=== PATIENT | male | born 1940 | race Two or more races ===

== ENCOUNTER → 2020-08-06 09:46 | Outpatient (BNVA) | payer MEDICARE, SELFPAY | PROVIDERS: PCP Internal Medicine; Referring Provider Internal Medicine; Visit Provider Nurse Practitioner Gerontology | DX: E11.65 Type 2 diabetes mellitus with hyperglycemia (principal); I10 Essential (primary) hypertension; E78.5 Hyperlipidemia, unspecified | CPT/HCPCS: 82947; 99214 ==

== ENCOUNTER 2020-11-01 08:08 | Outpatient (REF) | payer MEDICARE, SELFPAY ==
[2020-11-01 09:21] LABS: Creatinine Urine 89.78 mg/dL; Microalbum/Creatinine Ratio Ur 12.2 ug/mg cr
[2020-11-01 09:24] LABS: Estimated Average Glucose 166 mg/dL; Hemoglobin A1c % 7.4 %
[2020-11-01 09:25] LABS: Alanine Aminotransferase 27 U/L (0-40); Albumin Level 4.1 g/dL (3.5-5.0); Alkaline Phosphatase 105 U/L (39-117); Anion Gap 14 (12-20); Aspartate Amino Transferase 23 U/L (5-37); Bilirubin Total 0.9 mg/dL (0.0-1.0); Blood Urea Nitrogen 21 mg/dL (9-16); Carbon Dioxide 27 mmol/L (22-29); Chloride 103 mmol/L (96-108); Cholesterol 115 mg/dL; Estimated Glomerular Filt Rate > 60; Glucose Fasting 129 mg/dL (60-99); HDL Cholesterol 49 mg/dL; LDL Cholesterol Calculated 54 mg/dl; Potassium 4.7 mmol/l (3.3-5.1); Sodium 139 mmol/L (135-145); Total Protein 7.2 g/dL (6.5-8.0); Triglycerides 61 mg/dL
== END 2020-11-01 08:09 | disposition home or self-care (01) ==
LOC: HO.LAB 08:08
PROVIDERS: PCP Internal Medicine; Visit Provider Nurse Practitioner Gerontology
DX: E11.65 Type 2 diabetes mellitus with hyperglycemia (principal)
CPT/HCPCS: 36415; 80053; 80061; 82043; 83036

== ENCOUNTER → 2020-11-10 08:27 | Outpatient (BNVA) | payer MEDICARE, SELFPAY | PROVIDERS: PCP Internal Medicine; Visit Provider Nurse Practitioner Gerontology | DX: E11.65 Type 2 diabetes mellitus with hyperglycemia (principal); I10 Essential (primary) hypertension; E78.5 Hyperlipidemia, unspecified | CPT/HCPCS: Q3014 ==

== ENCOUNTER 2020-11-14 13:25 | Outpatient (REF) | payer MEDICARE, SELFPAY ==
--- NOTE | 2020-11-14 16:35 | MHC.AU.P13 ---
Adult Audiological Evaluation Date of Visit: 11/14/20 Reason for Appointment: Audiological evaluation due to concern for decreased hearing in the right ear. He notes that he had bilateral ear infections in September 2020 and was prescribed antibiotic ear drops. His daughter notes that the right ear seemed to be completely blocked and that the ear drops wouldn't go all the way in. After completing the round of ear drops, he still felt he couldn't hear out of his right ear and when he returned to his primary care office was told that he had wax in the right ear, but no longer had infections. He was given ear wax softening drops but hasn't noticed much of a difference. Does patient feel they have a hearing loss?: Yes If Yes, Which Ear?: Right Ear When Was Hearing Difficulty First Noticed?: September 2020 Has hearing been tested previously?: No Ear History: Recent Ear Drainage: Right Ear Recent Ear Pain: Both Ears Recent Ear Infections: Both Ears History of Ear Wax Buildup: Right Ear Blocked/Full Sensation in Ear(s): Right Ear Medical History: Medical History: High Blood Pressure, Stroke, Vascular Problems Medication List: Takes medication for hypertension, cholesterol, urine retention, and diabetes Otoscopy: Right Ear: Completely occluded with wax. Attempt removal but stopped due to bleeding. Left Ear: Unremarkable Tympanometry: Tympanometry performed due to: To determine if cerumen blockage is fully occluding canal(s) Right Ear: Normal Middle Ear System (Type A) Left Ear: Normal Middle Ear System (Type A) Hearing Evaluation: Transducer(s) Used: Circumaural Headphones, Bone Conduction Method: Conventional Audiometry Stimuli Used: Pure Tones Right Ear: Description of Hearing: Moderately severe to profound mixed hearing loss from 250-8000 Hz. Left Ear: Description of Hearing: Normal hearing from 250-1500 Hz, sloping to a moderate to moderately severe sensorineural hearing loss from 5241-0893 Hz. Speech Recognition Threshold (SRT): Method Used: Recorded Lists Stimuli Used: Spondee Words Right Ear: 85 dBHL Left Ear: 35 dBHL Word Discrimination: Method: Recorded Lists Word Lists Used: Lista Bisil?bica (Georgian) Right Ear: 80% at 95 dBHL with effective masking Left Ear: 100% at 75 dBHL Recommendations: Audiological re-evaluation in one year. Recommend referral to otolaryngology for removal of cerumen from the right canal. Patient would benefit for a re-evaluation of his hearing post-cerumen removal to better assess hearing of the right ear. Given the presence of high-frequency sensorineural hearing loss, Mr. Bianchi may benefit from binaural hearing aid use. He was welcomed to return to discuss hearing aids following his visit with ENT. Diagnosis: Primary Diagnosis: H90.3 Bilateral Sensorineural Hearing Loss Secondary Diagnosis: H61.21 Impacted Cerumen, Right Ear Services Performed: Services Performed: Comprehensive Audiological Evaluation (CPT 46060) Tympanometry (CPT 94461) Signature: Provider: Tahmina Reno, CCC-A
== END 2020-11-14 13:26 | disposition home or self-care (01) ==
LOC: HO.SH 13:25
PROVIDERS: Visit Provider Nurse Practitioner Family
DX: H90.3 Sensorineural hearing loss, bilateral (principal); H61.21 Impacted cerumen, right ear
CPT/HCPCS: 92557; 92567

== ENCOUNTER → 2020-11-25 10:54 | Outpatient (BNVA) | payer MEDICARE, SELFPAY | PROVIDERS: PCP Internal Medicine; Visit Provider Orthopaedic Surgery | DX: M25.512 Pain in left shoulder (principal) | CPT/HCPCS: 20610; 99202; J1040 ==

== ENCOUNTER → 2021-02-10 08:57 | Outpatient (BNVA) | payer MEDICARE, SELFPAY | PROVIDERS: PCP Internal Medicine; Visit Provider Nurse Practitioner Gerontology | DX: E11.65 Type 2 diabetes mellitus with hyperglycemia (principal); I10 Essential (primary) hypertension; E78.5 Hyperlipidemia, unspecified | CPT/HCPCS: 82947; 99212 ==

== ENCOUNTER → 2021-05-12 10:00 | Outpatient (BNVA) | payer MEDICARE, SELFPAY | PROVIDERS: PCP Internal Medicine; Visit Provider Nurse Practitioner Gerontology | DX: E11.65 Type 2 diabetes mellitus with hyperglycemia (principal); E78.5 Hyperlipidemia, unspecified; I10 Essential (primary) hypertension | CPT/HCPCS: 82947; 99212 ==

== ENCOUNTER 2021-06-20 07:27 | Outpatient (REF) | payer MEDICARE, SELFPAY ==
[2021-06-20 08:20] LABS: Alanine Aminotransferase 27 U/L (0-40); Albumin Level 3.9 g/dL (3.5-5.0); Alkaline Phosphatase 116 U/L (39-117); Anion Gap 12 (12-20); Aspartate Amino Transferase 22 U/L (5-37); Bilirubin Total 0.6 mg/dL (0.0-1.0); Blood Urea Nitrogen 26 mg/dL (9-16); Calcium 9.4 mg/dL (8.4-10.2); Carbon Dioxide 28 mmol/L (22-29); Chloride 105 mmol/L (96-108); Cholesterol 129 mg/dL; Estimated Glomerular Filt Rate 51; Glucose Fasting 185 mg/dL (60-99); HDL Cholesterol 54 mg/dL; LDL Cholesterol Calculated 62 mg/dl; Potassium 4.7 mmol/L (3.3-5.1); Sodium 140 mmol/L (135-145); Total Protein 6.8 g/dL (6.5-8.0); Triglycerides 67 mg/dL
[2021-06-20 08:34] LABS: Estimated Average Glucose 200 mg/dL; Hemoglobin A1c % 8.6 %
[2021-06-20 08:37] LABS: Prostate Specific Antigen 2.18 ng/mL (<0.05-4.0)
[2021-06-20 09:36] LABS: Creatinine Urine 69.18 mg/dL; Microalbum/Creatinine Ratio Ur 10.1 ug/mg cr
[2021-06-25 19:46] LABS: Vitamin D 25-OH, D2 <4 ng/mL; Vitamin D 25-OH, D3 30 ng/mL; Vitamin D 25-OH, Total 30 ng/mL (30-100)
== END 2021-06-20 07:28 | disposition home or self-care (01) ==
LOC: HO.LAB 07:27
PROVIDERS: Nurse Practitioner Family; PCP Internal Medicine; Visit Provider Nurse Practitioner Gerontology
DX: Z12.5 Encounter for screening for malignant neoplasm of prostate (principal); E11.65 Type 2 diabetes mellitus with hyperglycemia; E55.9 Vitamin D deficiency, unspecified; E78.5 Hyperlipidemia, unspecified
CPT/HCPCS: 36415; 80053; 80061; 82043; 82306; 83036; 84153

== ENCOUNTER 2021-08-17 10:25 | Outpatient (REF) | payer MEDICARE, SELFPAY ==
--- NOTE | ~2021-08-17 | US_ITS ---
EXAMINATION: US VENOUS ULTRASOUND WITH DOPPLER LOWER EXTREMITY, LEFT CLINICAL INFORMATION: Pain in leg COMPARISON: None TECHNIQUE: Ultrasound of the deep veins is performed from the hip to the calf with compression sonography and color and pulse Doppler assessment. Spectral analysis with color-flow imaging is performed. FINDINGS: There is normal venous compression and respiratory variation and augmented flow. The visualized common femoral vein, superficial femoral vein, profunda femoral vein, popliteal vein, and the trifurcation region shows no evidence of deep venous thrombosis. There is no significant popliteal fossa cyst. Varicosities are seen superficially at the left mid calf. If the patient's symptoms persist, followup ultrasound in 5 days 7 days might be of value to exclude proximal propagation from a non-visualized calf vein. US/US venous duplex LE IMPRESSION: No DVT demonstrated in the left lower extremity.
--- NOTE | ~2021-08-17 | XR_ITS ---
EXAMINATION: XR KNEE, LEFT CLINICAL INFORMATION: Pain. COMPARISON: None TECHNIQUE: AP, lateral, and sunrise views of the left knee. FINDINGS: Mild medial compartment joint space narrowing. Tiny medial and patellofemoral compartment marginal osteophytes. No osseous erosion. No fracture or dislocation. No abnormal soft tissue calcification. No significant joint effusion. XR/XR knee LT 2V IMPRESSION: Mild medial and patellofemoral compartment osteoarthritis.
== END 2021-08-17 10:26 | disposition home or self-care (01) ==
LOC: HO.US 10:25
PROVIDERS: PCP Student in an Organized Health Care Education/Training Program; Visit Provider Internal Medicine
DX: M79.605 Pain in left leg (principal); M25.562 Pain in left knee
CPT/HCPCS: 73560; 93971

== ENCOUNTER → 2021-11-04 08:58 | Outpatient (BNVA) | payer MEDICARE, SELFPAY | PROVIDERS: PCP Internal Medicine; Visit Provider Nurse Practitioner Gerontology | DX: E11.65 Type 2 diabetes mellitus with hyperglycemia (principal); I10 Essential (primary) hypertension; E78.5 Hyperlipidemia, unspecified | CPT/HCPCS: Q3014 ==

== ENCOUNTER 2022-03-19 09:32 | Outpatient (REF) | payer MEDICARE, SELFPAY ==
[2022-03-19 10:53] LABS: Alanine Aminotransferase 28 U/L (0-40); Albumin Level 3.7 g/dL (3.5-5.0); Alkaline Phosphatase 86 U/L (39-117); Anion Gap 10 (12-20); Aspartate Amino Transferase 22 U/L (5-37); Bilirubin Total 0.9 mg/dL (0.0-1.0); Blood Urea Nitrogen 17 mg/dL (9-16); Calcium 9.3 mg/dL (8.4-10.2); Carbon Dioxide 27 mmol/L (22-29); Chloride 104 mmol/L (96-108); Cholesterol 117 mg/dL; Estimated Glomerular Filt Rate 58; Glucose Fasting 134 mg/dL (60-99); HDL Cholesterol 40 mg/dL; LDL Cholesterol Calculated 65 mg/dl; Potassium 5.4 mmol/L (3.3-5.1); Sodium 136 mmol/L (135-145); Triglycerides 61 mg/dL
[2022-03-19 10:56] LABS: Creatinine Urine 122.21 mg/dL; Microalbum/Creatinine Ratio Ur 6.5 ug/mg cr
[2022-03-25 12:36] LABS: Vitamin D 25-OH, D2 <4 ng/mL; Vitamin D 25-OH, D3 11 ng/mL; Vitamin D 25-OH, Total 11 ng/mL (30-100)
== END 2022-03-19 09:33 | disposition home or self-care (01) ==
LOC: HO.LAB 09:32
PROVIDERS: PCP Internal Medicine; Visit Provider Internal Medicine
DX: E11.65 Type 2 diabetes mellitus with hyperglycemia (principal); E55.9 Vitamin D deficiency, unspecified; E78.5 Hyperlipidemia, unspecified
CPT/HCPCS: 36415; 80053; 80061; 82043; 82306

== ENCOUNTER → 2022-05-05 09:02 | Outpatient (REF) | payer OTHER, SELFPAY ==
--- NOTE | 2022-05-05 09:11 | ECG_ITS ---
Test Reason : HYPERKALEMIA Blood Pressure : / mmHG Vent. Rate : 058 BPM Atrial Rate : 058 BPM P-R Int : 206 ms QRS Dur : 154 ms QT Int : 484 ms P-R-T Axes : 012 -76 034 degrees QTc Int : 475 ms Sinus bradycardia with Premature atrial complexes Left axis deviation Right bundle branch block Abnormal ECG When compared with ECG of 23-NOV-2016 11:02, Premature atrial complexes are now Present Referred By: Kavita Mckeon Electronically Signed By:Odell Marie
[2022-05-05 10:25] LABS: Alanine Aminotransferase 22 U/L (0-40); Albumin Level 3.8 g/dL (3.5-5.0); Alkaline Phosphatase 89 U/L (39-117); Anion Gap 10 (12-20); Aspartate Amino Transferase 21 U/L (5-37); Blood Urea Nitrogen 17 mg/dL (9-16); Calcium 8.6 mg/dL (8.4-10.2); Carbon Dioxide 26 mmol/L (22-29); Chloride 106 mmol/L (96-108); Cholesterol 123 mg/dL; Estimated Glomerular Filt Rate > 60; Glucose Random 121 mg/dL (60-115); HDL Cholesterol 42 mg/dL; LDL Cholesterol Calculated 66 mg/dl; Potassium 4.4 mmol/L (3.3-5.1); Sodium 138 mmol/L (135-145); Total Protein 6.8 g/dL (6.5-8.0); Triglycerides 79 mg/dL
[2022-05-05 11:01] LABS: Creatinine Urine 155.21 mg/dL; Microalbum/Creatinine Ratio Ur 7.7 ug/mg cr
== END ==
LOC: HO.CARD 09:02
PROVIDERS: PCP Internal Medicine; Visit Provider Internal Medicine
DX: E78.5 Hyperlipidemia, unspecified (principal); E11.9 Type 2 diabetes mellitus without complications; E87.5 Hyperkalemia
CPT/HCPCS: 36415; 80053; 80061; 82043; 93005

== ENCOUNTER 2022-05-23 14:40 | Emergency (ER) | payer OTHER, SELFPAY ==
--- NOTE | 2022-05-23 15:23 | PC.NURSE ---
called to triage x 2 no answer
== END 2022-05-23 18:00 | disposition left against medical advice (07) ==
PROVIDERS: Emergency Provider Emergency Medicine; PCP Internal Medicine
DX: S41.111A Laceration without foreign body of right upper arm, initial encounter (principal); W45.8XXA Other foreign body or object entering through skin, initial encounter; Y93.9 Activity, unspecified; Y92.9 Unspecified place or not applicable; Y99.9 Unspecified external cause status

== ENCOUNTER 2022-05-24 10:49 | Emergency (ER) | payer OTHER, SELFPAY ==
--- NOTE | ~2022-05-24 | XR_ITS ---
EXAMINATION: XR FACIAL BONES CLINICAL INFORMATION: Fall, trauma, pain. Bruising around orbit. COMPARISON: None TECHNIQUE: 4 views of the facial bones are obtained. FINDINGS: There is no visible fracture. The orbital rims and floors are unremarkable. There is no visible orbital emphysema and no air-fluid levels in the visualized sinuses. The zygomatic arches are unremarkable. XR/XR facial bones min 3V IMPRESSION: Unremarkable examination.
--- NOTE | ~2022-05-24 | XR_ITS ---
EXAMINATION: XR CHEST CLINICAL INFORMATION: Productive cough for one month. COMPARISON: Chest radiographs 11/23/2016, 02/07/2014, CT abdomen 05/21/2016 TECHNIQUE: 2 views of the chest were obtained. FINDINGS: The lungs are clear. There is no lobar or segmental airspace consolidation or groundglass opacity. The costophrenic sulci are clear. The heart is normal in size. The hilar and mediastinal contours are normal. There are surgical clips again seen near the esophagogastric junction. No acute bony abnormality. XR/XR chest 2V IMPRESSION: Unremarkable examination.
--- NOTE | ~2022-05-24 | CT_ITS ---
EXAMINATION: CT HEAD WITHOUT CONTRAST CT CERVICAL SPINE WITHOUT CONTRAST CLINICAL INFORMATION: Reason for Exam headache and neck pain Fall. Hit head. COMPARISON: CT of the head done on 12/26/2016. TECHNIQUE: Imaging was performed from the skull base to vertex without intravenous administration of contrast. In addition, helical noncontrast CT imaging was acquired through the cervical spine and source images were reviewed along with axial reconstructions and sagittal and coronal MPRs. This CT examination was performed using dose optimization techniques as appropriate, variously including the following: *Automated exposure control. *Adjustment of mA and/or kV according to patient size (this includes techniques or standardized protocols for targeted exams where dose is matched to indication/reason for exam; i.e. extremities or head). *Use of iterative reconstruction technique. Total exam dose-length product 1053 mGy-cm FINDINGS: HEAD: No intracranial mass, hemorrhage, or midline shift is visualized. The ventricles and sulci are unchanged. Mild diffuse prominent extra-axial space is noted predominantly around both frontal lobes and within the posterior cranial fossa however, appear unchanged since 12/26/2016.. The paranasal sinuses and mastoid air cells are well aerated. CERVICAL SPINE: Reversal of normal cervical lordosis and grade 1 retrolisthesis of C3 over C4 and C5 over C6 vertebral body. Moderate degenerative spondylosis related changes are also noted at C3-4 and C5-C6. Significant facet degenerative arthritic changes are present (left greater than right), throughout the entire cervical spine. Mild mid to lower cervical dextroscoliosis is present. Uncovertebral hypertrophic changes are present predominantly at C3-4 and C5-C6. There is no evidence of acute cervical spine fracture. No prevertebral or paravertebral soft tissue abnormality is identified. Limited assessment of the lung apices is unremarkable. CT/CT cervical spine wo con IMPRESSION: 1. No acute intracranial pathology. Stable mild diffuse prominent extra-axial space is noted predominantly around both frontal lobes and within the posterior cranial fossa, unchanged since 12/26/2016. 2. CT of the cervical spine shows reversal of normal cervical lordosis and grade 1 retrolisthesis of C3 over C4 and C5 over C6 and moderate degenerative spondylosis at C3-4 and C5-C6 intervertebral disc level. Significant facet joint arthritic changes are also noted ((right). (Left of the right) and mild mid to lower cervical dextroscoliosis and uncovertebral hypertrophic changes at C3-4 and C5-C6. No superimposed fracture.
[2022-05-24 12:28] VITALS: BP 152/71; PULSE 52; RESP 18; TEMP 36.5; O2SAT 96; BMI 25.9
--- NOTE | 2022-05-24 14:38 | ED_ITS ---
HPI - Fall General Chief Complaint: Fall Stated Complaint: Fall t-1/Head inj/arm inj Time Seen by Provider: 05/24/22 13:42 Source: patient Mode of arrival: ambulatory History of Present Illness HPI Narrative: 81-year-old male with a past medical history of diabetes mellitus type II, hypertension, HDL, MDD, GERD, TIA, on Plavix/ASA, presents to the ED c/o right- sided periorbital pain right, and abrasions to RUE and JACKE s/p mechanical fall yesterday. He states a child ran in front of him and he lost his footing and fell face first. He denies any LOC. He also denies lightheadedness, dizziness, CP/SOB prior to fall. Also reports chronic productive cough x months, recently finish course of Azithromycin that was prescribed on 05/18. Reports intermittent SOB worse with exertion/bending over. He denies fever, chills, headache, vision changes, palpitations, chest pain, nausea, vomiting, abdominal pain, or weakness. MD complaint: fall Onset (ago): day(s) Related Data Home Medications Medication Instructions Recorded Confirmed lancets 30 gauge #100 ea 11/10/20 12/10/21 Previous Rx's Medication Instructions Recorded blood sugar diagnostic (Accu-Chek #100 ea 09/18/20 SmartView Test Strips) lancets (Accu-Chek Softclix #100 ea 09/21/20 Lancets) tamsulosin 0.4 mg capsule 0.4 mg PO BEDTIME #30 caps 08/27/21 clopidogrel 75 mg tablet 75 mg PO BEDTIME 90 days #90 tabs 09/28/21 omeprazole 20 mg capsule,delayed 20 mg PO QAM 90 days #90 caps 09/28/21 release pen needle, diabetic 32 gauge x #100 ea 11/04/21 (BD Ultra-Fine Dianna Pen Needle) fluoxetine 20 mg capsule 20 mg PO QAM #30 caps 11/23/21 insulin degludec 100 unit/mL (3 15 unit (0.15 mL) subcut DAILY #15 12/10/21 mL) subcutaneous pen (Tresiba mL FlexTouch U-100 insulin) atorvastatin 20 mg tablet 20 mg PO BEDTIME #30 tabs 02/02/22 empagliflozin 25 mg tablet 25 mg PO QAM #30 tabs 02/02/22 (Jardiance) oseltamivir 75 mg capsule (Tamiflu) 75 mg PO Q12H 5 days #10 caps 03/06/22 amlodipine 5 mg tablet 5 mg PO DAILY 90 days #90 tabs 03/21/22 hydrochlorothiazide 12.5 mg tablet 12.5 mg PO DAILY 90 days #90 tabs 03/21/22 omega-3 fatty acids-fish oil 340 1 cap PO QAM #30 caps 03/25/22 mg-1,000 mg capsule (Fish Oil) cholecalciferol (vitamin D3) 50 50 mcg PO DAILY 90 days #90 caps 03/27/22 mcg (2,000 unit) capsule sitagliptin 100 mg tablet (Januvia) 100 mg PO QAM #30 tabs 04/20/22 metoprolol succinate 50 mg 50 mg PO QAM #30 tabs 05/04/22 tablet,extended release 24 hr azithromycin 250 mg tablet 250 mg PO DAILY 5 days #6 tabs 05/18/22 bacitracin 500 unit/gram topical 1 appl topical BID #30 grams 05/24/22 ointment prednisone 20 mg tablet 40 mg PO DAILY 5 days #10 tabs 05/24/22 Allergies Allergy/AdvReac Type Severity Reaction Status Date / Time metformin AdvReac Intermediate diarrhea Verified 05/24/22 12:28 dulaglutide [From [facility]] AdvReac vomiting Verified 05/24/22 12:28 Review of Systems Review of Systems: Constitutional: No Fever, No Chills, No Fatigue, No Malaise ENT/Mouth: + Chronic Hearing loss, No Ear Pain, No Nasal Congestion Eyes: No Eye Pain, + Swelling, + Ecchymosis, No Redness, No Foreign Body, No D ischarge, No Vision Changes Cardiovascular: No Chest Pain, No Edema, No Palpitations Respiratory: + Productive Cough, + Sputum, No Wheezing, No Smoke Exposure, + intermittent SOB Gastrointestinal: No Nausea, No Vomiting, No Diarrhea, No Constipation, No Abdominal Pain Genitourinary: No Dysuria, No Hematuria Musculoskeletal: No Joint Pain, No Myalgias, No Joint Swelling Skin: +Abrasions, No Rash Neuro: No Weakness, No Numbness, No Paresthesias, No Loss of Consciousness, No Dizziness, + Head injury Yes all other systems are reviewed and are negative Constitutional: Constitutional: Reports as per HPI Neurologic: Denies Abnormal speech present PMFSH Past Medical History Attestation statement: The following information was validated with the patient. Medical History (Updated 05/24/22 @ 16:31 by MARTY Marino) Bilateral sensorineural hearing loss Cerumen debris on tympanic membrane of both ears Diverticulosis Enlarged prostate Essential hypertension GERD (gastroesophageal reflux disease) Hyperkalemia Hyperlipidemia LDL goal <70 Left knee pain Left leg pain Loss of hearing Mild recurrent major depression Otitis media Progressive hearing loss of right ear Renal cyst Renal stones Screening for prostate cancer TIA (transient ischemic attack) Type 2 diabetes mellitus with hyperglycemia Surgical History History of colonoscopy Hx of hernia repair Family History Family History Father No problems noted. Mother No problems noted. Brother Prostate cancer Social History Social History Household Members: Family Housing: House Alcohol intake: current Alcohol intake frequency: holidays/special occasions only Alcohol type: hard liquor Patient Tobacco Use Status: Never used Tobacco e-Cigarette/Vaping Use: Never Used Second Hand Smoke Exposure: No Advance Directives: Yes Advance Directives Information Provided: Yes Advance Directives on File: No service: No Current occupational status: retired Physical Exam Vital Signs: Vital Signs: Last Vital Signs Temp 97.7 F 05/24/22 12:28 Pulse 52 05/24/22 12:28 Resp 18 05/24/22 12:28 BP 152/71 H 05/24/22 12:28 Pulse Ox 96 05/24/22 12:28 O2 Del Method 05/24/22 12:28 BMI result Body Mass Index 25.9 Const: General: cooperative, healthy appearing and no acute distress Orientation/consciousness: patient oriented x3 Limitations: no limitations HEENT: Other: + Ecchymosis to right periorbital area + Tenderness to palpation to inferior eyebrow. No palpable step-off/deformity. EOMs intact without pain or entrapment Head: Yes No palpable skull fracture present, No Fernandes's sign and No raccoon eyes General nose exam: Normal external nose present Face and sinus: Yes normal facial exam Mouth: Normal oral and palatal mucosa present Throat: Yes posterior oropharynx normal, Yes tonsils normal, Yes uvula midline, No peritonsillar mass and No uvular edema Eyes: Pupils: Equal, round and reactive pupils present EOM: EOMs intact bilaterally Direct Ophthalmoscopy: normal light reflex Neck: Other: No midline cervical spinous tenderness Neck: Yes normal visual inspection and Yes no meningeal signs Chest: Chest palpation & inspection: normal inspection of the chest Resp: Effort & Inspection: normal respiratory effort, able to speak in complete sentences and no respiratory distress Auscultation: crackles on the right at the base, no rales, no rhonchi and no wheezes Cardio: Rate: regular rate Heart sounds: S1 normal heart sound present and S2 normal heart sound present GI: Inspection: No distended Palpation (GI): Soft to palpation, not firm, nontender and not rigid Back/Spine/Pelvis: Other: No midline thoracic/lumbar spinous tenderness/step-off or deformity Skin: Other: +small ecchymosis with abrasion to L knee. Nontender. Full range of motion to knee intact. Neurovascular intact distally +skin tear to R wrist and forearm. Neurovascularly intact distally. No snuffbox tenderness General skin exam: ecchymosis Rashes: no rashes Trauma: abrasion Neuro: General: patient oriented x3, tone normal, moves all extremities, no meningeal signs, no focal motor deficits and CN's II-XI intact bilaterally Cranial nerves: Yes CN's II-XII intact bilaterally, Yes Equal, round and reactive pupils present and Yes Bilaterally intact EOM present Cognition (Neuro): normal cognition Speech: No Abnormal speech present Motor exam (neuro): 5/5 motor strength present throughout, Pronator motor function not present and no tremor noted Coordination: [id number] test normal Romberg Test: Negative Extrem: Other: Pelvis stable General: Yes normal to inspection, Yes no pedal edema and Yes no calf tenderness Course Course Course Narrative: XR chest 2V IMPRESSION: Unremarkable examination. XR facial bones min 3V IMPRESSION: Unremarkable examination. ? 1628--CT head/brain wo con/CT cervical spine wo con IMPRESSION: 1. No acute intracranial pathology. Stable mild diffuse prominent extra-axial space is noted predominantly around both frontal lobes and within the posterior cranial fossa, unchanged since 12/26/2016. 2. CT of the cervical spine shows reversal of normal cervical lordosis and grade 1 retrolisthesis of C3 over C4 and C5 over C6 and moderate degenerative spondylosis at C3-4 and C5-C6 intervertebral disc level. Significant facet joint arthritic changes are also noted ((right). (Left of the right) and mild mid to lower cervical dextroscoliosis and uncovertebral hypertrophic changes at C3-4 and C5-C6. No superimposed fracture. Results discussed with patient including worrisome signs and symptoms and strict return precautions, and when to return to the emergency department. Upon further discussion with patient and family, patient has been dealing with this chronic cough x1 month without improvement. CXR unremarkable, suspect bronchitis. Offered short course of p.o. prednisone, discussed risks, which sure decision making would like to initiate prednisone and follow-up with PCP. They verbalized understanding and feel safe for discharge at this time. MDM - Fall MDM Narrative Medical decision making narrative: 81-year-old male with a past medical history of diabetes mellitus type II, hypertension, HDL, MDD, GERD, TIA, on Plavix/ASA, presents to the ED c/o right- sided periorbital pain right, and abrasions to RUE and LUE s/p mechanical fall yesterday. Also reports chronic productive cough x months. On exam Vitals remain stable. Right periorbital ecchymosis/tenderness elicited. Abrasions/skin tears noted as above. No evidence of globe rupture or optic nerve entrapment. No evidence of cellulitis. ROM to extremities intact. slight crackles noted to RLL. Concern for intracranial hemorrhage vs. fx's vs concussion vs. Abrasion vs Pneumonia/bronchitis. Lower concern for orbital fracture, ACS/PE, cervical fx, CHF Plan: CT head/neck, XR facial bones/chest Differential Diagnosis Differential diagnosis: Likely fracture, compression fracture and concussion without loss of consciousness Medical Records Attestation: I reviewed the patient's medical records. Lab Data Attestation: I reviewed the patient's lab results. Discharge Plan Discharge Clinical Impression: Periorbital ecchymosis, Fall, Multiple skin tears Patient Disposition: Home, Self-Care Instructions: [place] (ED) Additional Instructions: Your x-ray and CT scans were reassuring. The x-ray of your neck does show a lot of arthritic changes. Ice painful areas. Apply bacitracin to her skin tears, keep dry and clean. Change dressings daily at home. If you develop constant worsening headache, nausea/vomiting, weakness, lightheadedness or dizziness please return to the emergency department. Continue other home prescribed medications. Please of close follow-up with her doctor Prescriptions: New bacitracin 500 unit/gram ointment 1 appl topical BID Qty: 30 0RF prednisone 20 mg tablet 40 mg PO DAILY 5 Days Qty: 10 0RF No Action (DME) Accu-Chek SmartView Test Strip Strip See Rx Instructions .ROUTE .MEDSUPPLY Qty: 100 11RF Rx Instructions: As directed three times a day (DME) lancets [Accu-Chek Softclix Lancets] Misc See Rx Instructions .ROUTE .MEDSUPPLY Qty: 100 11RF Rx Instructions: As directed three times a day tamsulosin 0.4 mg capsule 0.4 mg PO BEDTIME Qty: 30 11RF clopidogrel 75 mg tablet 75 mg PO BEDTIME 90 Days Qty: 90 3RF omeprazole 20 mg capsule,delayed release(DR/EC) 20 mg PO QAM 90 Days Qty: 90 3RF fluoxetine 20 mg capsule 20 mg PO QAM Qty: 30 6RF Jardiance 25 mg tablet 25 mg PO QAM Qty: 30 4RF atorvastatin 20 mg tablet 20 mg PO BEDTIME Qty: 30 4RF oseltamivir [Tamiflu] 75 mg capsule 75 mg PO Q12H 5 Days Qty: 10 0RF amlodipine 5 mg tablet 5 mg PO DAILY 90 Days Qty: 90 1RF hydrochlorothiazide 12.5 mg tablet 12.5 mg PO DAILY 90 Days Qty: 90 1RF Fish Oil 340-1,000 mg capsule 1 cap PO QAM Qty: 30 6RF cholecalciferol (vitamin D3) 50 mcg (2,000 unit) capsule 50 mcg PO DAILY 90 Days Qty: 90 1RF Januvia 100 mg tablet 100 mg PO QAM Qty: 30 6RF metoprolol succinate 50 mg tablet extended release 24 hr 50 mg PO QAM Qty: 30 2RF azithromycin 250 mg tablet 250 mg PO DAILY 5 Days Qty: 6 0RF Rx Instructions: Take 2 tabs the first day, then 1 tab for the next 4 days Tresiba FlexTouch U-100 100 unit/mL (3 mL) insulin pen 15 unit subcut DAILY Qty: 15 3RF (DME) lancets 30 gauge misc See Rx Instructions topical .MEDSUPPLY Qty: 100 Rx Instructions: As directed (DME) pen needle, diabetic [BD Ultra-Fine Dianna Pen Needle] 32 gauge x 5/32 needle See Rx Instructions .ROUTE .MEDSUPPLY Qty: 100 3RF Rx Instructions: As directed once daily Referrals: Kavita Morales MD [Primary Care Provider] - 5 days
== END 2022-05-24 17:03 | disposition home or self-care (01) ==
PROVIDERS: Emergency Provider Emergency Medicine; PCP Internal Medicine
DX: S00.11XA Contusion of right eyelid and periocular area, initial encounter (principal); S40.811A Abrasion of right upper arm, initial encounter; S60.811A Abrasion of right wrist, initial encounter; S40.812A Abrasion of left upper arm, initial encounter; S80.212A Abrasion, left knee, initial encounter; W03.XXXA Other fall on same level due to collision with another person, initial encounter; E11.9 Type 2 diabetes mellitus without complications; I10 Essential (primary) hypertension; E78.5 Hyperlipidemia, unspecified; Y93.01 Activity, walking, marching and hiking; Y92.9 Unspecified place or not applicable; Y99.9 Unspecified external cause status; Z86.73 Personal history of transient ischemic attack (TIA), and cerebral infarction without residual deficits; Z79.01 Long term (current) use of anticoagulants; Z79.4 Long term (current) use of insulin; Z79.899 Other long term (current) drug therapy; R05.9 Cough, unspecified
CPT/HCPCS: 70150; 70450; 71046; 72125; 99282; 99284

== ENCOUNTER → 2022-07-20 12:41 | Outpatient (REF) | payer OTHER, SELFPAY ==
--- NOTE | 2022-07-20 12:44 | CA_ITS ---
Transthoracic Echocardiogram Patient (Last, First, Middle): Manuel Bianchi, Gender: Male Date of : 1940 Age: 81 Procedure Date: 07/20/2022 Procedure Type: Transthoracic Echocardiogram Location: OP Height: 167.64 cm Weight: 72.58 kg BSA: 1.82 m2 Heart Rate: bpm BP: 110 / 65 mmHg Fiber Analyst: TO Referring MD: Kavita Mckeon MD Cancer Program Coordinator: Nas Beeeb MD Symptoms: R01.1 - Cardiac murmur, unspecified Study Quality: Fair/Contrast ECG Rhythm: Sinus Conclusions: - 1. Normal LV systolic function with impaired relaxation filling pattern 2. Mild aortic and mitral regurgitation 3. Normal RV systolic pressure 4. No pericardial effusion Findings Procedure Information Contrast agent, definity, is being given per protocol without apparent complications. Left Ventricle Normal left ventricular size, thickness, and systolic function. The visually estimated ejection fraction is between 60-65%. There is no evidence of regional wall motion abnormalities. Spectral Doppler is indicative of an impaired relaxation filling pattern. E/E prime ratio is between 8 and 15 consistent with indeterminate filling pressures. Right Ventricle Normal right ventricular cavity size and systolic function. Atria The left atrium is likely dilated. There is lipomatous hypertrophy of the interatrial septum. Interatrial shunt cannot be excluded. The right atrium is normal in size. Aortic Valve There is mild calcification of the aortic valve. There is no aortic valve stenosis. There is mild aortic valve regurgitation. Mitral Valve There is mild anterior and posterior mitral leaflet thickening. There is mild mitral valve regurgitation. There is no mitral valve stenosis. Pulmonic Valve The pulmonic valve is likely normal. There is trace to mild pulmonic valve regurgitation. Tricuspid Valve Normal tricuspid valve structure. There is trace tricuspid valve regurgitation. The right ventricular systolic pressure is normal. The right ventricular systolic pressure is 24 mmHg. Normal right atrial pressure. There is no evidence of pulmonary hypertension. Great Vessels All visible segments of the aorta are normal in size. The pulmonary artery was not well visualized. Venous The inferior vena cava is normal in size and collapses greater than 50% with inspiration. Pericardium/Pleural There is no evidence of pericardial effusion. Prior Study Comparison no previous study in the last 5 years for comparison Measurements 2D Linear Measurements IVSd: 1.04 0.6-0.9/0.6-1.0 cm LVIDd: 4.92 3.9-5.3/4.2-5.9 cm LVIDd Index: 2.70 2.4-3.2/2.2-3.1 cm/m2 LVIDs: 2.47 2.0-3.6 cm LVPWd: 0.89 0.7-1.1 cm LA Diam: 3.20 2.7-3.8/3.0-4.0 cm LAIDs Index: 1.76 1.5-2.3 cm/m2 LV Mass: 209.98 67-162/88-224 g LV Mass Index: 115.37 43-95/49-115 g/m2 LVOT Diam: 2.00 3.0+(-)1.3 cm 2D Systolic Function EF 4C: 65.20 >55% EF 2C: 59.90 >55% EF BiP: 63.40 >55% Mitral Valve MV Pk E: 0.49 MV PK A: 0.57 MV Decel Time: 273.00 E/A: 0.90 E'Lateral: 4.03 E'Medial: 4.13 E/E' Med: 11.80 E/E' Lat: 12.10 PHT: 80.00 MVA PHT: 2.75 Decel [place]: 1.79 Aortic Valve AoV Pk Pablo: 1.36 AoV Mn Pablo: 0.95 AoV VTI: 0.31 AoV Pk Grad: 7.00 Aov Mn Grad: 4.00 SUSAN Cont.VTI: 2.04 LVOT LVOT Pk Pablo: 0.93 LVOT Mn Pablo: 0.60 LVOT VTI: 0.20 LVOT Pk Grad: 3.00 LVOT Mn Grad: 2.00 LVOT Diam: 2.00 LVOT Area: 3.14 Diastolic Function MV Pk E: 0.49 MV Pk A: 0.57 E/A: 0.90 E'Medial: 4.13 E/E' Med: 11.80 E' Laterial: 4.03 E/E' Lat: 12.10 Right Ventricle TAPSE (mm): 17.10 TVS' Pablo: 6.96 Tricuspid Valve TR Pk Pablo: 2.31 TR Pk Grad: 21.00 RA Press: 3.00 RVSP: 24.00 Great Vessels Aorta Sinus of Valsalva: 3.51 2.0-3.[address] [place]: 2.79 1.7-3.4 cm Ao Asc: 3.50 2.1-3.4 cm Updated in Other Vendor System with Status of Final Nas Beebe MD electronically signed on 07/21/2022 5:06:34 PM with status of Final
== END ==
LOC: HO.CARD 12:41
PROVIDERS: PCP Internal Medicine; Visit Provider Internal Medicine
DX: R01.1 Cardiac murmur, unspecified (principal)
CPT/HCPCS: 93306; Q9957

== ENCOUNTER → 2022-08-03 11:06 | Outpatient (BNVA) | payer OTHER, SELFPAY | PROVIDERS: PCP Internal Medicine; Visit Provider Surgery Vascular Surgery | DX: I83.12 Varicose veins of left lower extremity with inflammation (principal) | CPT/HCPCS: 99212 ==

== ENCOUNTER 2022-08-19 08:56 | Outpatient (REF) | payer OTHER, SELFPAY | END 2022-08-19 08:57 | disposition home or self-care (01) | LOC: HO.SH 08:56 | PROVIDERS: Visit Provider Internal Medicine | DX: Z01.118 Encounter for examination of ears and hearing with other abnormal findings (principal); H90.3 Sensorineural hearing loss, bilateral | CPT/HCPCS: 92557; 92567 ==

== ENCOUNTER 2022-09-24 12:37 | Outpatient (REF) | payer OTHER, SELFPAY ==
--- NOTE | ~2022-09-24 | US_ITS ---
EXAMINATION: US LOWER EXTREMITY VENOUS (REFLUX EXAM), BILATERAL CLINICAL INFORMATION: Varicose veins COMPARISON: Left lower extremity duplex on 08/17/2021 TECHNIQUE: Color flow triplex imaging and compression Doppler was performed to evaluate both the deep and the superficial systems bilaterally. To evaluate the superficial system, the examination was performed in the upright position. Color-flow Doppler ultrasound and compression ultrasound were utilized. In addition, maneuvers were utilized to demonstrate reflux. FINDINGS: 1. DEEP VENOUS ULTRASOUND OF THE RIGHT LOWER EXTREMITY: Common Femoral Vein: Compressible, normal respiratory variation and augmented flow. Femoral Vein: Compressible, normal color flow and augmentation. Popliteal Vein: Compressible, normal augmentation. Deep Reflux: There is no evidence of reflux in the deep system in either the common femoral vein or the popliteal vein. There is no evidence of a Hendrickson's cyst. 2. SUPERFICIAL ULTRASOUND WITH DOPPLER OF RIGHT LOWER EXTREMITY: GREAT SAPHENOUS VEIN: Saphenofemoral Junction: 0.6 cm; Reflux: 0 ms Proximal Thigh: 0.6 cm; Reflux: 0 ms Mid Thigh: 0.3 cm; Reflux: 2960 ms Above Knee: 0.2 cm; Reflux: 0 ms At Knee: 0.2 cm; Reflux: 0 ms Below Knee: 0.2 cm; thrombosed Mid Calf: 0.2 cm; thrombosed Ankle: 0.2 cm; Reflux: 2744 ms DUPLICATED MEDIAL GREAT SAPHENOUS VEIN: Diameter: None Imaged Reflux: NA DUPLICATED LATERAL GREAT SAPHENOUS VEIN: Diameter: 0.2 cm Reflux: NA SMALL SAPHENOUS VEIN: Proximal: 0.2 cm; Reflux: 0 ms Distal: 0.3 cm; Reflux: 0 ms VEIN OF GIACOMINI: None Imaged. PERFORATORS: Location: None Imaged Size: NA Reflux: NA VARICOSITIES: Location: None Imaged Size: NA Reflux: NA 3. DEEP VENOUS ULTRASOUND OF THE LEFT LOWER EXTREMITY: Common Femoral Vein: Compressible, normal respiratory variation and augmented flow. Femoral Vein: Compressible, normal color flow and augmentation. Popliteal Vein: Compressible, normal augmentation. Deep Reflux: There is no evidence of reflux in the deep system in either the common femoral vein or the popliteal vein. There is no evidence of a Hendrickson's cyst. 4. SUPERFICIAL ULTRASOUND WITH DOPPLER OF LEFT LOWER EXTREMITY: GREAT SAPHENOUS VEIN: Saphenofemoral Junction: 0.6 cm; Reflux: 0 ms Proximal Thigh: 0.3 cm; Reflux: 0 ms Mid Thigh: Not visualized Above Knee: Not visualized At Knee: Not visualized Below Knee: Not visualized Mid Calf: 0.3 cm; Reflux: 0 ms Ankle: 0.3 cm; Reflux: 0 ms DUPLICATED MEDIAL GREAT SAPHENOUS VEIN: Diameter: None Imaged Reflux: NA DUPLICATED LATERAL GREAT SAPHENOUS VEIN: Diameter: None Imaged Reflux: NA SMALL SAPHENOUS VEIN: Proximal: 0.3 cm; Reflux: 0 ms Distal: 0.3 cm; Reflux: 2652 ms VEIN OF GIACOMINI: None Imaged. PERFORATORS: Location: None Imaged Size: NA Reflux: NA VARICOSITIES: Location: None Imaged Size: NA Reflux: NA US/US venous duplex LE BI IMPRESSION: 1. Right great saphenous vein reflux in the mid thigh and ankle. The GSV is occluded at the knee and the proximal calf. 2. Left small saphenous vein reflux distally.
== END 2022-09-24 12:38 | disposition home or self-care (01) ==
LOC: HO.US 12:37
PROVIDERS: Visit Provider Surgery Vascular Surgery
DX: I83.12 Varicose veins of left lower extremity with inflammation (principal)
CPT/HCPCS: 93970

== ENCOUNTER → 2022-10-19 12:25 | Outpatient (BNVA) | payer OTHER, SELFPAY | PROVIDERS: PCP Internal Medicine; Visit Provider Surgery Vascular Surgery | DX: I83.12 Varicose veins of left lower extremity with inflammation (principal) | CPT/HCPCS: 99212 ==

== ENCOUNTER → 2022-11-10 10:47 | Outpatient (BNVA) | payer OTHER, SELFPAY | PROVIDERS: PCP Internal Medicine; Referring Provider Internal Medicine; Visit Provider Internal Medicine Cardiovascular Disease | DX: I35.1 Nonrheumatic aortic (valve) insufficiency (principal); I45.2 Bifascicular block | CPT/HCPCS: 93005; 99202 ==

== ENCOUNTER 2023-01-03 10:11 | Outpatient (REF) | payer OTHER, SELFPAY ==
--- NOTE | 2023-01-03 10:16 | ECG_ITS ---
Test Reason : pre-op Blood Pressure : / mmHG Vent. Rate : 051 BPM Atrial Rate : 051 BPM P-R Int : 218 ms QRS Dur : 156 ms QT Int : 504 ms P-R-T Axes : 009 -79 011 degrees QTc Int : 464 ms Sinus bradycardia with 1st degree A-V block Left axis deviation Right bundle branch block Abnormal ECG When compared with ECG of 05-MAY-2022 09:09, Premature atrial complexes are no longer Present T wave inversion more evident in Anterior leads Referred By: Kavita Mckeon Electronically Signed By:ANDRES DEWARDS MD
[2023-01-03 10:32] LABS: MANUAL DIFF FLAG NO
[2023-01-03 12:13] LABS: Basophils Absolute Auto 0.1 X10*3/uL (0.0-0.2); Basophils Percent Auto 0.6 % (0-2); Eosinophils Absolute Auto 1.1 X10*3/uL (0.0-0.4); Eosinophils Percent Auto 13.8 % (0-4); Hematocrit 50.1 % (42.0-52.0); Hemoglobin 15.7 g/dl (14.0-18.0); Imm Gran Abs Auto 0.03 X10*3/uL (0.00-0.03); Imm Gran Pct Auto 0.4 % (0.0-0.4); Lymphocytes Absolute Auto 1.7 X10*3/uL (1.2-4.9); Lymphocytes Percent Auto 20.5 % (20-40); Mean Corpuscular HGB Conc 31.3 g/dl (31.0-36.0); Mean Corpuscular Hemoglobin 26.9 pg (27.0-33.0); Mean Corpuscular Volume 85.9 fL (80.0-98.0); Mean Platelet Volume 10.9 fL (9.4-12.4); Monocytes Absolute Auto 0.7 X10*3/uL (0.1-1.2); Monocytes Percent Auto 8.3 % (2-11); Neutrophils Absolute Auto 4.6 x10*3/uL (2.0-8.3); Neutrophils Percent Auto 56.4 % (45-73); Platelet Count 162 X10*3/uL (160-400); Red Blood Count 5.83 X10*6/uL (4.60-5.80); Red Cell Distribution Width 13.2 % (11.0-16.0); White Blood Count 8.1 X10*3/uL (4.8-10.8)
[2023-01-03 12:45] LABS: Creatinine Urine 111.75 mg/dL; Microalbumin Urine < 5.0 mg/L
[2023-01-03 13:07] LABS: Alanine Aminotransferase 13 U/L (0-40); Albumin Level 3.7 g/dL (3.5-5.0); Alkaline Phosphatase 103 U/L (39-117); Anion Gap 16 (12-20); Aspartate Amino Transferase 18 U/L (5-37); Bilirubin Total 1.1 mg/dL (0.0-1.0); Blood Urea Nitrogen 22 mg/dL (9-16); Calcium 8.6 mg/dL (8.4-10.2); Carbon Dioxide 24 mmol/L (22-29); Chloride 104 mmol/L (96-108); Cholesterol 127 mg/dL; Estimated Glomerular Filt Rate 56; Glucose Fasting 131 mg/dL (60-99); HDL Cholesterol 42 mg/dL; LDL Cholesterol Calculated 69 mg/dl; Potassium 4.2 mmol/L (3.3-5.1); Sodium 140 mmol/L (135-145); Total Protein 6.8 g/dL (6.5-8.0); Triglycerides 82 mg/dL
[2023-01-03 13:12] LABS: Vitamin D 25-OH Total 32.8 ng/mL (>30)
== END 2023-01-03 10:12 | disposition home or self-care (01) ==
LOC: HO.LAB 10:11
PROVIDERS: PCP Internal Medicine; Visit Provider Internal Medicine
DX: Z01.818 Encounter for other preprocedural examination (principal); D64.9 Anemia, unspecified; E78.5 Hyperlipidemia, unspecified; E55.9 Vitamin D deficiency, unspecified; E11.9 Type 2 diabetes mellitus without complications
CPT/HCPCS: 36415; 80053; 80061; 82043; 82306; 85025; 93005

== ENCOUNTER 2023-01-13 14:31 | Outpatient (REF) | payer OTHER, SELFPAY ==
--- NOTE | ~2023-01-13 | XR_ITS ---
EXAMINATION: XR NASAL BONES CLINICAL INFORMATION: Fracture of nasal bones. COMPARISON: Facial bones x-rays of 05/24/2022. TECHNIQUE: 3 views of the nasal bones were obtained. FINDINGS: Oblique lucencies are noted in the lower third of bilateral nasal bones which is a stable finding compared to previous x-rays of 05/24/2022. Orbital rims are intact. Visualized paranasal sinuses appear well aerated. XR/XR nasal bones min 3V IMPRESSION: Oblique lucencies in the bilateral nasal bones are similar to previous x-rays and may or may not represent nondisplaced fractures.
== END 2023-01-13 14:32 | disposition home or self-care (01) ==
LOC: HO.XRAY 14:31
PROVIDERS: PCP Internal Medicine; Visit Provider Internal Medicine
DX: S02.2XXA Fracture of nasal bones, initial encounter for closed fracture (principal)
CPT/HCPCS: 70160

== ENCOUNTER → 2023-02-04 12:06 | Outpatient (BNVA) | payer OTHER, SELFPAY | PROVIDERS: PCP Internal Medicine; Visit Provider Surgery Vascular Surgery | DX: I83.12 Varicose veins of left lower extremity with inflammation (principal) | CPT/HCPCS: 36475 ==

== ENCOUNTER 2023-02-07 12:39 | Outpatient (REF) | payer OTHER, SELFPAY ==
--- NOTE | ~2023-02-07 | US_ITS ---
EXAMINATION: US VENOUS ULTRASOUND WITH DOPPLER LOWER EXTREMITY, LEFT CLINICAL INFORMATION: Post left small saphenous vein RFA 02/04/2023 COMPARISON: Previous exam September 2022 TECHNIQUE: Ultrasound of the deep veins is performed from the hip to the calf with compression sonography and color and pulse Doppler assessment. Spectral analysis with color-flow imaging is performed. FINDINGS: There is normal venous compression and respiratory variation and augmented flow. The visualized common femoral vein, superficial femoral vein, profunda femoral vein, popliteal vein, and the trifurcation region shows no evidence of deep venous thrombosis. There is echogenic material seen in the small saphenous vein. This extends to 0.7 cm from the sapheno popliteal junction. The lesser saphenous vein is partially closed. The visualized greater saphenous vein in the upper thigh is patent. There is no significant popliteal fossa cyst. US/US venous duplex LE LT IMPRESSION: No DVT demonstrated in the left lower extremity.
== END 2023-02-07 12:40 | disposition home or self-care (01) ==
LOC: HO.US 12:39
PROVIDERS: PCP Internal Medicine; Visit Provider Surgery Vascular Surgery
DX: M79.605 Pain in left leg (principal)
CPT/HCPCS: 93971

== ENCOUNTER → 2023-02-17 12:46 | Outpatient (BNVA) | payer OTHER, SELFPAY | PROVIDERS: PCP Internal Medicine; Visit Provider Surgery Vascular Surgery | DX: I83.12 Varicose veins of left lower extremity with inflammation (principal) | CPT/HCPCS: 99212 ==

== ENCOUNTER 2023-06-08 13:11 | Outpatient (AMB) | payer OTHER, SELFPAY ==
--- NOTE | 2023-06-08 13:28 | AM.OFFWIN_ITS ---
Intake Vital Signs 06/08/23 13:29 Height 5 ft 6 in Weight 162 lb BMI 26.1 BP 110/64 Blood Pressure Location Lt brachial Position Sitting Pulse 65 Pulse Source Pulse Oximeter Temp 97.3 F Temp Source Temporal Artery Scan Pulse Oximetry (%) 98 Oxygen Delivery Method Room Air Intake Visit Reasons: EP ?Tongue complaints Intake Note: Pt is here c/o mouth complications. Pt states it feels like he has cuts on his tongue for the past 2 weeks. Patient Tobacco Use Status: Never used Tobacco Allergies metformin Adverse Reaction (Intermediate, Verified 06/09/23 09:35) diarrhea dulaglutide [From Trulicity] Adverse Reaction (Verified 06/09/23 09:35) vomiting Do you need a note to return to daycare/school/sports/work: No HPI EP ?Tongue complaints HPI Details 82-year-old male presents to the office for a sick visit. He comes to the office along with his daughter. Daughter is speaking on patient's behalf due to language difficulty. Patient is reporting that he is having dryness in the mouth and soreness over the tongue area. Also, he is complaining of pain on the right side of the mouth just behind the molar area. No difficulty swallowing. Does not report any symptoms of bad breath. [facility] Medical History Bilateral sensorineural hearing loss Cerumen debris on tympanic membrane of both ears Diverticulosis Enlarged prostate Essential hypertension GERD (gastroesophageal reflux disease) Hyperkalemia Hyperlipidemia LDL goal <70 Left knee pain Left leg pain Loss of hearing Mild recurrent major depression Otitis media Progressive hearing loss of right ear Renal cyst Renal stones Screening for prostate cancer TIA (transient ischemic attack) Type 2 diabetes mellitus with hyperglycemia Surgical History History of colonoscopy Hx of hernia repair Family History Father No problems noted. Mother No problems noted. Brother Prostate cancer Social History Household Members: Family Housing: House Alcohol intake: current Alcohol intake frequency: holidays/special occasions only Alcohol type: hard liquor Patient Tobacco Use Status: Never used Tobacco e-Cigarette/Vaping Use: Never Used Second Hand Smoke Exposure: No service: No Current occupational status: retired Cognitive needs: Yes Hearing needs: No Vision needs: Yes Physical Exam Vital Signs: Last Vital Signs Temp 97.3 F 06/08/23 13:29 Pulse 65 06/08/23 13:29 BP 110/64 06/08/23 13:29 Pulse Ox 98 06/08/23 13:29 Oxygen Delivery Method Room Air 06/08/23 13:29 BMI result Body Mass Index 26.1 HEENT Other: Oral cavity: Dry and fissured tongue. Minimal discomfort along the gumline on the right lower jaw. Neck Neck: Yes normal visual inspection, Yes full ROM and Yes no lymphadenopathy Chest Chest palpation & inspection: normal inspection of the chest Resp Effort & Inspection: normal respiratory effort Cardio Jugular venous distension: no JVD Palpation: normal PMI Rate: regular rate Heart sounds: S1 normal heart sound present and S2 normal heart sound present Assessment & Plan Assessment & Plan (1) Glossitis: Code(s): K14.0 - Glossitis Plan: Trial of clotrimazole. If symptoms do not improve to follow-up here. Medications: New clotrimazole 10 mg mucous membrane TID 42 tabs 0RF Coding Level of Care Code Est Pt Level 3 (74315) Diagnoses Glossitis K14.0
[2023-06-08 13:29] VITALS: BP 110/64; PULSE 65; TEMP 36.3; O2SAT 98; BMI 26.1
== END 2023-06-08 13:53 | disposition home or self-care (01) ==
PROVIDERS: PCP Internal Medicine; Visit Provider Internal Medicine
DX: K14.0 Glossitis (principal)
CPT/HCPCS: 99213

== ENCOUNTER 2023-06-16 09:57 | Outpatient (AMB) | payer OTHER, SELFPAY ==
[2023-06-16 10:03] VITALS: BP 126/80; BMI 26.0
--- NOTE | 2023-06-16 10:03 | A.OFFVIS_ITS ---
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 Accompanied by: Daughter Allergies metformin Adverse Reaction (Intermediate, Verified 06/16/23 10:20) diarrhea dulaglutide [From [facility] [place]] Adverse Reaction (Verified 06/16/23 10:20) vomiting Medication List - Last Reconciled 06/16/23 by Kavita Mckeon MD [adult diapers pull-ups As directed] amlodipine 5 mg PO DAILY 90 days atorvastatin 20 mg PO BEDTIME blood sugar diagnostic (Accu-Chek SmartView Test Strips) As directed three times a day budesonide-formoterol 80-4.5 mcg/actuation 1 inh inhalation BID 30 days cholecalciferol (vitamin D3) 50 mcg PO DAILY 90 days clopidogrel 75 mg PO BEDTIME 90 days clotrimazole 10 mg mucous membrane TID disposable gloves (Biobrane Gloves Large) As directed empagliflozin (Jardiance) 25 mg PO QAM flash glucose sensor (FreeStyle Carlie 14 Day Sensor kit) As directed fluoxetine 20 mg PO QAM hydrochlorothiazide 12.5 mg PO DAILY 90 days insulin degludec (Tresiba FlexTouch U-100 insulin) 15 units (0.15 mL) subcut DAILY lancets (Accu-Chek Softclix Lancets) As directed three times a day lancets As directed [male urinal As directed] metoprolol succinate ER 25 mg PO DAILY 90 days omega-3 fatty acids-fish oil 340-1,000 mg 1 cap PO QAM omeprazole 20 mg PO QAM 90 days pen needle, diabetic (BD Ultra-Fine Dianna Pen Needle) As directed once daily [personal cleansing wipes As directed] [quad cane As directed] sitagliptin phosphate (Januvia) 100 mg PO QAM tamsulosin 0.4 mg PO BEDTIME underpads (Bed Underpads) Use 1 underpad once a day Ventolin HFA 90 mcg/actuation (albuterol sulfate) 2 puffs inhalation Q6H PRN 30 days NS walker (Ultra-Light Rollator misc) As directed HPI HPI Comments History of Present Illness Details This is an 82-year-old male with diabetes mellitus type 2 on long-term current use of insulin and mild major depression that comes today accompanied by daughter for his subsequent Medicare wellness visit. PPP handed to patient. MOLST completed. Walks with a cane for gait stability. A1c within goal. Denies any chest pain or shortness of breath. Depression somewhat stable with fluoxetine. Needs arm rest to change from sitting to standing position. [facility] Medical History Bilateral sensorineural hearing loss Cerumen debris on tympanic membrane of both ears Diverticulosis Enlarged prostate Essential hypertension GERD (gastroesophageal reflux disease) Hyperkalemia Hyperlipidemia LDL goal <70 Left knee pain Left leg pain Loss of hearing Mild recurrent major depression Otitis media Progressive hearing loss of right ear Renal cyst Renal stones Screening for prostate cancer TIA (transient ischemic attack) Type 2 diabetes mellitus with hyperglycemia Surgical History History of colonoscopy Hx of hernia repair Family History Father No problems noted. Mother No problems noted. Brother Prostate cancer Social History Household Members: Family Housing: House Alcohol intake: current Alcohol intake frequency: holidays/special occasions only Alcohol type: hard liquor Patient Tobacco Use Status: Never used Tobacco e-Cigarette/Vaping Use: Never Used Second Hand Smoke Exposure: No service: No Current occupational status: retired Cognitive needs: Yes Hearing needs: No Vision needs: Yes Questionnaire Medicare Wellness Checkup What is your age?: 80 or older What gender do you identify with?: male During the past 4 weeks, how much have you been bothered by emotional problems such as feeling anxious, depressed, irritable, sad or downhearted, and blue?: moderately During the past 4 weeks, has your physical & emotional health limited your social activities with family, friends, neighbors, or groups?: not at all During the past 4 weeks, how much bodily pain have you generally had?: moderate pain During the past 4 weeks, was someone available to help you if you needed & wanted help?: yes, as much as I wanted During the past 4 weeks, what was the hardest physical activity you could do for at least 2 minutes?: very light Can you get to places out of walking distance without help? (For eg., can you travel alone on buses, taxis or drive your car?): No Can you go shopping for groceries or clothes without someone's help?: No Can you prepare your own meals?: No Can you do your housework without help?: No Because of any health problems, do you need the help of another person with your personal care needs such as eating, bathing, dressing or getting around the house?: Yes Can you handle your own money without help?: Yes During the past 4 weeks, how would you rate your health in general?: fair During the past 4 weeks how have things been going for you?: good & bad parts about equal Are you having difficulties driving your car?: not applicable, I don't use a car Do you always fasten your seat belt when you are in a car?: yes, usually During past 4 weeks, have you been bothered by the following: never: Falling or dizzy when standing up, Sexual problems?, Trouble eating well?, Teeth or denture problems? and Problems using the telephone? and sometimes: Tiredness or fatigue? Have you fallen 2 or more times in the past year?: Yes Are you afraid of falling?: Yes Are you a smoker?: no During the past 4 weeks, how many drinks of wine, beer, or other alcoholic beverages did you have?: no alcohol at all Do you exercise for about 20 minutes 3 or more times a week?: yes, most of the time Have you been given information to help with the following?: yes: Hazards in your house that might hurt you? and yes: Keeping track of your medications? How often do you have trouble taking medicines the way you have been told to take them?: I always take medicine as prescribed What is your race?: or origin or descent Mini Mental State Exam (MMSE) Orientation What is the (year) (season) (date) (day) (month)?: year, season, date, day and month Where are we (state) (county) (town or city) (hospital) (floor)?: state, county, town or city, hospital/clinic and floor Registration Name of 3 unrelated objects clearly and slowly, then ask patient to repeat all 3 of them. (1st repeat determines score. Make sure they can repeat all three): object 1, object 2 and object 3 Attention & Calculation (CHOOSE ONE) Spell WORLD backwards (DLROW): 5 letters Recall Ask patient to repeat the 3 items from question #3.: object 1 and object 2 Language Show patient a wristwatch & ask what it is. Repeat for pencil.: watch and pencil Ask the patient to repeat the phrase 'No ifs, ands, or buts' after you.: correct Ask the patient to 'take a piece of paper with their right hand' 'fold paper in half' 'place paper on floor': take paper in right hand, fold paper in half and place paper on floor Print the sentence 'CLOSE YOUR EYES' on a piece. If patient actually closes eyes then score.: followed written direction Give patient a blank piece of paper & ask to write a sentence. Score if it contains a noun & verb.: sentence contains subject and verb Score Score: 28 Activity of Daily Living Bathing - sponge bath, tub bath or shower: receives no assistance (gets in/out by self, if usual bathing means Dressing - getting clothes from closets & drawers, including inner/outer garments & fasteners.: gets clothes & gets dressed without help, except for help tying shoes Toileting - going to the 'toilet room' for urine/bowel elimination & cleaning self/arranging clothes: goes to toilet room, cleans self, arranges clothes without help Transfer: moves in & out of bed and chair without help (may use support object) Continence: controls urination/bowel movements completely by self Feeding: feeds self without help Total Score: 0 Information obtained from: patient Using telephone: independent Traveling: dependent Shopping: dependent Preparing meals: dependent Housework: dependent Taking medicine: dependent Managing money: independent PHQ-9 Over the last 2 weeks, how often have you been bothered by any of the following problems? 1. Little interest or pleasure in doing things: more than half the days 2. Feeling down, depressed, or hopeless: not at all 3. Trouble falling or staying asleep, or sleeping too much: nearly every day 4. Feeling tired or having little energy: nearly every day 5. Poor appetite or overeating: not at all 6. Feeling bad about yourself - or that you are a failure or have let yourself or your family down: more than half the days 7. Trouble concentrating on things, such as reading the newspaper or watching television: not at all 8. Moving or speaking so slowly that other people could have noticed. Or the opposite - being so fidgety or restless that you have been moving around a lot more than usual: not at all 9. Thoughts that you would be better off or of hurting yourself in some way: more than half the days Total score: 12 Depression Screening Interpretation: Positive Depression Screening Follow-up: Existing condition and In treatment 48176 - PHQ-9 Billing: Yes Source: Developed by Drs. Spenser Mesa, Chrystal Yanez, Ren Felix and colleagues, with an educational neeta from [employer]. NIDHI-7 AMB Questionnaire NIDHI-7 Date NIDHI - 7 assessed: 06/16/23 Feeling nervous, anxious, or on edge: 0 = Not at all Not being able to stop or control worryin = Not at all Worrying too much about different things: 0 = Not at all Trouble relaxin = Not at all Being so restless that it is hard to sit still: 0 = Not at all Becoming easily annoyed or irritable: 0 = Not at all Feeling afraid as if something awful might happen: 0 = Not at all Total NIDHI-7 score (0-4 normal; 5-9 mild; 10-14 moderate; 15-21 severe): 0 Source: Developed by Drs. Spenser Mesa, Chrystal Yanez, Ren Felix and colleagues, with an educational neeta from [employer]. NIDHI-7 Assessment Billing NIDHI-7 Assessment Tool: NIDHI-7 Assessment 01145 Review of Systems Const All systems reviewed & are unremarkable except as noted in HPI and below Eyes Reports no additional complaints, Denies change in vision and Denies other visual disturbances Card Denies chest pain at rest, Denies chest pain with activity, Denies edema, Denies irregular heart rhythm, Denies claudication, Denies dyspnea, Denies dyspnea on exertion, Denies orthopnea, Denies paroxysmal nocturnal dyspnea and Denies slow heart rate Resp Denies cough, Denies dyspnea and Denies dyspnea on exertion GI Denies abdominal pain, Denies change in bowel habits, Denies excessive flatus, Denies nausea and Denies vomiting Denies urinary hesitancy, Denies urinary incontinence and Denies urinary urgency Musc Denies abnormal gait, Denies atrophy, Denies deformity and Denies limited range of motion Skin/Breast Denies bleeding lesions, Denies changing lesions and Denies rash Neuro Denies abnormal gait, Denies behavioral changes, Denies confusion and Denies lack of coordination Psych Denies behavioral changes and Denies confusion Physical Exam Vital Signs: Last Vital Signs BP 126/80 06/16/23 10:03 BMI result Body Mass Index 26.0 Const General: No confusion Orientation/consciousness: No confusion Limitations: ambulation with cane HEENT Mouth: tongue abnormal geographic and fissured Resp Auscultation: clear to auscultation bilaterally Cardio Heart sounds: S1 normal heart sound present and S2 normal heart sound present Neuro General: No confusion Gait exam (Neuro): Normal gait present Romberg Test: Negative Results AMB Hemoglobin A1c AMB Hemoglobin A1c 6.5 % Last Edit by GRETTA Simmons on 06/16/23 10:1 9 Results Reviewed Results Reviewed: Laboratory Last Values Hgb A1c (Clinic) 6.5 % (4.0-6.0) H 06/16/23 10:17 Assessment & Plan Assessment & Plan (1) Medicare annual wellness visit, subsequent: Code(s): Z00.00 - Encounter for general adult medical examination without abnormal findings Plan: Repeat in a year (2) Diabetes mellitus: Code(s): E11.9 - Type 2 diabetes mellitus without complications Plan: Continue insulin, Januvia and Jardiance. (3) Mild recurrent major depression: Code(s): F33.0 - Major depressive disorder, recurrent, mild Plan: Continue fluoxetine. Orders: Orders Vitamin B12 and Folate Today E53.8 - Deficiency of other specified B group vitamins Comprehensive [place]. Panel Fast 4 Months E11.9 - Type 2 diabetes mellitus without complications Lipid Panel 4 Months E78.5 - Hyperlipidemia, unspecified Vitamin D 25-OH Total 4 Months E55.9 - Vitamin D deficiency, unspecified Microalbumin, Random (w Creat) 4 Months E11.9 - Type 2 diabetes mellitus without complications AMB Hemoglobin A1c Today E11.9 - Type 2 diabetes mellitus without complications Referrals Ear/Nose/Throat Referral K14.0 - Glossitis Quality Reporting (2019) Depression/Bipolar (159/160/161/177) PHQ-9: Total score: 12 Coding Level of Care Code Medicare Subsequent (G0439) Diagnoses Medicare annual wellness visit, subsequent Z00.00 Diabetes mellitus E11.9 Mild recurrent major depression F33.0 CPT Codes Advance Care Planning - Time spent: 1-15 minutes, on File ([id number]) Additional Codes NIDHI-7 Assessment Billing - NIDHI-7 Assessment Tool: NIDHI-7 Assessment 53815 ([id number]) Time Spent (min) 39 Advance Care Planning Advance Care Planning discussion: Completed/Scanned Date of discussion: 06/16/23 Who was present: Daughter, patient and me Forms completed: MOLST Time spent: 1-15 minutes, on File Actual minutes spent: 7
== END 2023-06-16 10:54 | disposition home or self-care (01) ==
PROVIDERS: PCP Internal Medicine; Visit Provider Internal Medicine
DX: Z00.00 Encounter for general adult medical examination without abnormal findings (principal); E11.9 Type 2 diabetes mellitus without complications; F33.0 Major depressive disorder, recurrent, mild
CPT/HCPCS: 1123F; 83036; G0439

== ENCOUNTER 2023-06-16 11:16 | Outpatient (REF) | payer OTHER, SELFPAY ==
[2023-06-16 13:11] LABS: Folate 14.5 ng/mL (> or = 4.0); Vitamin B12 722 pg/mL (200-900)
== END 2023-06-16 11:17 | disposition home or self-care (01) ==
LOC: HO.LAB 11:16
PROVIDERS: PCP Internal Medicine; Visit Provider Internal Medicine
DX: E53.8 Deficiency of other specified B group vitamins (principal)
CPT/HCPCS: 36415; 82607; 82746

== ENCOUNTER 2023-08-09 10:06 | Outpatient (AMB) | payer OTHER, SELFPAY ==
[2023-08-09 10:09] VITALS: BP 108/64; PULSE 50; RESP 16; O2SAT 95; BMI 26.3
--- NOTE | 2023-08-09 10:09 | A.OFFPC_ITS ---
Vital Signs 08/09/23 10:09 Height 5 ft 6 in Weight 163 lb 4 oz BMI 26.3 BP 108/64 Blood Pressure Location Lt brachial Position Sitting Respiration 16 Pulse 50 Pulse Source Pulse Oximeter Pulse Oximetry (%) 95 Intake Visit Reasons: bruise and dizziness Intake Note: Pt here for for dry mouth, bruise in his lower back for a month due to pt dizziness. Pt is requesting a pulmonology referral after COVID back in October 2019 cough with phlegm that does not goes away. Dr. Mustafa pt. 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 Cleaner Required: No Accompanied by: Daughter Allergies metformin Adverse Reaction (Intermediate, Verified 08/09/23 11:41) diarrhea dulaglutide [From [facility]] Adverse Reaction (Verified 08/09/23 11:41) vomiting Medication List - Last Reconciled 08/09/23 by RENEE Cook [adult diapers pull-ups As directed] amlodipine 5 mg PO DAILY 90 days atorvastatin 20 mg PO BEDTIME blood sugar diagnostic (Accu-Chek SmartView Test Strips) As directed three times a day budesonide-formoterol 80-4.5 mcg/actuation 1 inh inhalation BID 30 days cholecalciferol (vitamin D3) 50 mcg PO DAILY 90 days clopidogrel 75 mg PO BEDTIME 90 days clotrimazole 10 mg mucous membrane TID disposable gloves (Biobrane Gloves Large) As directed empagliflozin (Jardiance) 25 mg PO QAM flash glucose sensor (FreeStyle Carlie 14 Day Sensor kit) As directed fluoxetine 20 mg PO QAM hydrochlorothiazide 12.5 mg PO DAILY 90 days insulin degludec (Tresiba FlexTouch U-100 insulin) 15 units (0.15 mL) subcut DAILY lancets (Accu-Chek Softclix Lancets) As directed three times a day lancets As directed [male urinal As directed] meclizine 25 mg PO BID PRN metoprolol succinate ER 25 mg PO DAILY 90 days omega-3 fatty acids-fish oil 340-1,000 mg 1 cap PO QAM omeprazole 20 mg PO QAM 90 days pen needle, diabetic (BD Ultra-Fine Dianna Pen Needle) As directed once daily [personal cleansing wipes As directed] [quad cane As directed] sitagliptin phosphate (Januvia) 100 mg PO QAM tamsulosin 0.4 mg PO BEDTIME underpads (Bed Underpads) Use 1 underpad once a day Ventolin HFA 90 mcg/actuation (albuterol sulfate) 2 puffs inhalation Q6H PRN 30 days NS walker (Ultra-Light Rollator misc) As directed Tobacco use date assessed: 10/28/22 Fall risk assessment: No Falls in past year Last assessed Fall Risk: 08/09/23 Dental Screening Dental Screen Date: 08/09/23 Did you have a dental visit in the last 12 months?: Yes Did you have a dental problem in the last 6 months where you did not have access to dental care?: No Was dental information given to patient?: Patient has dentist HPI HPI Comments History of Present Illness Details This is an 82-year-old male with diabetes mellitus type 2 on long-term current use of insulin and mild major depression.Patient of Dr. Mustafa Swazi speaking male presents today with daughter. Patient's daughter assists and interpretation, declines certified medical doctor md. Patient daughter states approximately 1 month episodes of dizziness, states brother reported last lb in the shower and hit his on the railing, patient has purple ecchymosis noted to left thoracic back. Patient denies any loss consciousness or syncopal episodes. States he does get dizziness when changing positions to lying down or sitting up he will feel like the room was spinning and once he sits there for few minutes and resolves. Patient denies any chest pain, palpitations shortness of breath. Patient reports dry mouth, denies polydipsia, polyphasia and polyuria. Patient reports ongoing chronic cough since having COVID 3 years ago, requesting pulmonology referral. Referral entered [facility] Medical History Bilateral sensorineural hearing loss Cerumen debris on tympanic membrane of both ears Diverticulosis Enlarged prostate Essential hypertension GERD (gastroesophageal reflux disease) Hyperkalemia Hyperlipidemia LDL goal <70 Left knee pain Left leg pain Loss of hearing Mild recurrent major depression Otitis media Progressive hearing loss of right ear Renal cyst Renal stones Screening for prostate cancer TIA (transient ischemic attack) Type 2 diabetes mellitus with hyperglycemia Surgical History History of colonoscopy Hx of hernia repair Family History Father No problems noted. Mother No problems noted. Brother Prostate cancer Social History Household Members: Family Housing: House Alcohol intake: current Alcohol intake frequency: holidays/special occasions only Alcohol type: hard liquor Patient Tobacco Use Status: Never used Tobacco e-Cigarette/Vaping Use: Never Used Second Hand Smoke Exposure: No service: No Current occupational status: retired Cognitive needs: Yes Hearing needs: No Vision needs: Yes Questionnaire Thrive Questionnaire Date Thrive assessed: 10/28/22 NIDHI-7 AMB Questionnaire NIDHI-7 Date NIDHI - 7 assessed: 06/16/23 Source: Developed by Drs. Spenser Mesa, Chrystal Yanez, Ren Felix and colleagues, with an educational neeta from [employer]. Review of Systems Const Denies chills, Denies fatigue, Denies fever(s) and Denies poor appetite Eyes Denies no additional complaints ENT Reports Normal hearing present, Reports vertigo, Reports dry mouth and Denies otalgia Card Denies chest pain, Denies syncope, Denies rapid heart rate and Denies dyspnea Resp Denies cough and Denies dyspnea GI Denies change in stool character, Denies constipation, Denies diarrhea, Denies nausea and Denies vomiting Denies dysuria, Denies urinary frequency and Denies urinary urgency Neuro Reports Normal hearing present, Denies confusion, Reports vertigo and Denies syncope Psych Denies confusion Endo Denies fatigue Physical exam (Primary Care) Vital Signs: Last Vital Signs Pulse 50 08/09/23 10:09 Resp 16 08/09/23 10:09 BP 108/64 08/09/23 10:09 Pulse Ox 95 08/09/23 10:09 BMI result Body Mass Index 26.3 Tobacco/Smoking Status: Tobacco use Status Tobacco use date assessed 10/28/22 08/09/23 10:13 Patient Tobacco Use Status Never used Tobacco 08/09/23 10:13 e-Cigarette/Vaping Use Never Used 08/09/23 10:13 Thrive Assessment: Date of Thrive Assessment Date Thrive assessed 10/28/22 08/09/23 10:13 Const General: No confusion Orientation/consciousness: No confusion HENMT Head: Yes normocephalic and Yes atraumatic Ears: external ears normal and TM's normal bilaterally General nose exam: Normal external nose present and Normal nasal mucous membranes and turbinates present Mouth: moist mucous membranes Eyes Conjunctivae: conjunctivae normal Sclerae: sclerae normal Pupils: Equal, round and reactive pupils present and Pupils normal by confrontation EOM: EOMs intact bilaterally Direct Ophthalmoscopy: normal light reflex Chest Chest palpation & inspection: normal inspection of the chest Resp Effort & Inspection: normal respiratory effort Auscultation: clear to auscultation bilaterally, no crackles, no rhonchi and no wheezes Cardio Rate: regular rate Rhythm: regular rhythm Heart sounds: S1 normal heart sound present and S2 normal heart sound present GI Inspection: Yes normal to inspection Skin General skin exam: no rashes or lesions noted Neuro General: No confusion Cranial nerves: Yes Equal, round and reactive pupils present and Yes Normal hearing present Cognition (Neuro): normal cognition Gait exam (Neuro): Normal gait present Extrem General: No edema Assessment and Plan Assessment & Plan (1) Chronic cough: Code(s): R05.3 - Chronic cough Plan: Referral entered to pulmonology as requested by patient (2) Dizziness: Code(s): R42 - Dizziness and giddiness Plan: Offer for referral to vestibular therapy for likely vertigo however patient declines he would like to try meclizine as needed for dizziness. CBC, CMP ordered to rule out any electrolyte abnormalities or anemia that could be causing dizziness. Patient and daughter agreeable to plan of care. Plan Keep scheduled physical with PCP in a few weeks. Orders: Orders Complete Blood Count Auto Diff Today Z13.0 - Encounter for screening for diseases of the blood and blood-forming organs and certain disorders involving the immune mechanism Comprehensive Met. Panel Today R42 - Dizziness and giddiness Referrals Pulmonology Referral R05.3 - Chronic cough Medications: New meclizine 25 mg PO BID PRN 14 tabs 0RF dizziness Refilled Ventolin HFA 90 mcg/actuation (albuterol sulfate) 2 puffs inhalation Q6H PRN 8 grams 0RF shortness of breath or wheezing 30 days NS Coding Level of Care Code Est Pt Level 3 (99119) Diagnoses Chronic cough R05.3 Dizziness R42
== END 2023-08-09 11:13 | disposition home or self-care (01) ==
PROVIDERS: PCP Internal Medicine; Visit Provider Nurse Practitioner Family
DX: R05.3 Chronic cough (principal); R42 Dizziness and giddiness
CPT/HCPCS: 99213

== ENCOUNTER 2023-08-10 08:22 | Outpatient (REF) | payer OTHER, SELFPAY ==
[2023-08-10 08:37] LABS: MANUAL DIFF FLAG NO
[2023-08-10 09:32] LABS: Basophils Absolute Auto 0.1 X10*3/uL (0.0-0.2); Basophils Percent Auto 0.7 % (0-2); Eosinophils Absolute Auto 1.4 X10*3/uL (0.0-0.4); Eosinophils Percent Auto 16.8 % (0-4); Hematocrit 48.4 % (42.0-52.0); Hemoglobin 15.1 g/dl (14.0-18.0); Imm Gran Abs Auto 0.02 X10*3/uL (0.00-0.03); Imm Gran Pct Auto 0.2 % (0.0-0.4); Lymphocytes Absolute Auto 1.9 X10*3/uL (1.2-4.9); Mean Corpuscular HGB Conc 31.2 g/dl (31.0-36.0); Mean Corpuscular Hemoglobin 26.6 pg (27.0-33.0); Mean Corpuscular Volume 85.4 fL (80.0-98.0); Mean Platelet Volume 10.8 fL (9.4-12.4); Monocytes Absolute Auto 0.7 X10*3/uL (0.1-1.2); Neutrophils Absolute Auto 4.3 x10*3/uL (2.0-8.3); Neutrophils Percent Auto 51.3 % (45-73); Platelet Count 158 X10*3/uL (160-400); Red Blood Count 5.67 X10*6/uL (4.60-5.80); Red Cell Distribution Width 13.4 % (11.0-16.0); White Blood Count 8.4 X10*3/uL (4.8-10.8)
[2023-08-10 10:02] LABS: Alanine Aminotransferase 18 U/L (0-40); Albumin Level 3.8 g/dL (3.5-5.0); Alkaline Phosphatase 94 U/L (39-117); Anion Gap 13 (12-20); Aspartate Amino Transferase 18 U/L (5-37); Bilirubin Total 0.7 mg/dL (0.0-1.0); Blood Urea Nitrogen 23 mg/dL (9-16); Calcium 9.1 mg/dL (8.4-10.2); Carbon Dioxide 28 mmol/L (22-29); Chloride 102 mmol/L (96-108); Estimated Glomerular Filt Rate 57; Glucose Random 129 mg/dL (60-115); Potassium 3.7 mmol/L (3.3-5.1); Sodium 139 mmol/L (135-145); Total Protein 7.2 g/dL (6.5-8.0)
== END 2023-08-10 08:23 | disposition home or self-care (01) ==
LOC: HO.LAB 08:22
PROVIDERS: PCP Internal Medicine; Visit Provider Nurse Practitioner Family
DX: Z13.0 Encounter for screening for diseases of the blood and blood-forming organs and certain disorders involving the immune mechanism (principal); R42 Dizziness and giddiness
CPT/HCPCS: 36415; 80053; 85025

== ENCOUNTER 2023-09-19 15:25 | Outpatient (AMB) | payer OTHER, SELFPAY ==
--- NOTE | 2023-09-19 15:35 | MHC.PC.OV ---
Vital Signs 09/19/23 15:36 Height 5 ft 6 in Weight 159 lb BMI 25.7 BP 118/80 Blood Pressure Location Lt brachial Position Sitting Pulse 60 Pulse Source Pulse Oximeter Pulse Oximetry (%) 95 Oxygen Delivery Method Room Air Intake Visit Reasons: on going cough Intake Note: Patient here c/o cough going on 3 month Program Paraprofessional Required: No Accompanied by: Daughter Allergies metformin Adverse Reaction (Intermediate, Verified 09/19/23 15:55) diarrhea [facility]lut[facility] Adverse Reaction (Verified 09/19/23 15:55) vomiting Medication List - Last Reconciled 09/19/23 by Kavita Mckeon MD [adult diapers pull-ups As directed] amlodipine 5 mg PO DAILY 90 days atorvastatin 20 mg PO BEDTIME blood sugar diagnostic (Accu-Chek SmartView Test Strips) As directed three times a day budesonide-formoterol 80-4.5 mcg/actuation 1 inh inhalation BID 30 days cholecalciferol (vitamin D3) 50 mcg PO DAILY 90 days clopidogrel 75 mg PO BEDTIME 90 days clotrimazole 10 mg mucous membrane TID disposable gloves (Biobrane Gloves Large) As directed empagliflozin (Jardiance) 25 mg PO QAM flash glucose sensor (FreeStyle Carlie 14 Day Sensor kit) As directed fluoxetine 20 mg PO QAM hydrochlorothiazide 12.5 mg PO DAILY 90 days insulin degludec (Tresiba FlexTouch U-100 insulin) 15 units (0.15 mL) subcut DAILY lancets (Accu-Chek Softclix Lancets) As directed three times a day lancets As directed levalbuterol tartrate 45 mcg/actuation 2 inhalations inhalation Q6H 30 days [male urinal As directed] meclizine 25 mg PO BID PRN metoprolol succinate ER 25 mg PO DAILY 90 days omega-3 fatty acids-fish oil 340-1,000 mg 1 cap PO QAM omeprazole 20 mg PO QAM 90 days pen needle, diabetic (BD Ultra-Fine Dianna Pen Needle) As directed once daily [personal cleansing wipes As directed] [quad cane As directed] sitagliptin phosphate (Januvia) 100 mg PO QAM tamsulosin 0.4 mg PO BEDTIME underpads (Bed Underpads) Use 1 underpad once a day Ventolin HFA 90 mcg/actuation (albuterol sulfate) 2 puffs inhalation Q6H PRN 30 days NS walker (Ultra-Light Rollator misc) As directed Tobacco use date assessed: 10/28/22 Fall risk assessment: No Falls in past year Last assessed Fall Risk: 09/19/23 Dental Screening Dental Screen Date: 09/19/23 Did you have a dental visit in the last 12 months?: No Did you have a dental problem in the last 6 months where you did not have access to dental care?: No Was dental information given to patient?: Patient declined HPI HPI Comments History of Present Illness Details This is an 82-year-old male with diabetes mellitus type 2 on long-term current use of insulin, hypertension, hyperlipidemia and mild recurrent major depression that comes accompanied by daughter complaining of a chronic cough that has been present for the last 3 months. The cough is productive for the most part and sometimes associated with wheezing. No fever. No sick contacts. Had COVID about a month ago. Will send him an antibiotic, prednisone and cough medication. Will order chest x-ray. Has pulmonology appointment next month. A1c within goal. Blood pressure stable. LDL within goal. Depression well controlled with SSRIs. [facility] Medical History Hyperkalemia Mild recurrent major depression Left leg pain Left knee pain Screening for prostate cancer Bilateral sensorineural hearing loss Progressive hearing loss of right ear Loss of hearing Cerumen debris on tympanic membrane of both ears Otitis media GERD (gastroesophageal reflux disease) TIA (transient ischemic attack) Diverticulosis Enlarged prostate Renal cyst Renal stones Essential hypertension Hyperlipidemia LDL goal <70 Type 2 diabetes mellitus with hyperglycemia Surgical History History of colonoscopy Hx of hernia repair Family History Father No problems noted. Mother No problems noted. Brother Prostate cancer Social History Household Members: Family Housing: House Alcohol intake: current Alcohol intake frequency: holidays/special occasions only Alcohol type: hard liquor Patient Tobacco Use Status: Never used Tobacco e-Cigarette/Vaping Use: Never Used Second Hand Smoke Exposure: No service: No Current occupational status: retired Cognitive needs: Yes Hearing needs: No Vision needs: Yes Questionnaire Thrive Questionnaire Date Thrive assessed: 10/28/22 NIDHI-7 AMB Questionnaire NIDHI-7 Date NIDHI - 7 assessed: 06/16/23 Source: Developed by Drs. Spenser Mesa, Chrystal Yanez, Ren Felix and colleagues, with an educational neeta from [employer]. Review of Systems Const All systems reviewed & are unremarkable except as noted in HPI and below Eyes Reports no additional complaints, Denies change in vision and Denies other visual disturbances Card Denies chest pain at rest, Denies chest pain with activity, Denies edema, Denies irregular heart rhythm, Denies claudication, Denies dyspnea, Denies dyspnea on exertion, Denies orthopnea, Denies paroxysmal nocturnal dyspnea and Denies slow heart rate Resp Reports cough, Reports excessive phlegm production, Denies dyspnea, Denies dyspnea on exertion and Reports wheezing GI Denies abdominal pain, Denies change in bowel habits, Denies excessive flatus, Denies nausea and Denies vomiting Denies urinary hesitancy, Denies urinary incontinence and Denies urinary urgency Musc Denies abnormal gait, Denies atrophy, Denies deformity and Denies limited range of motion Skin/Breast Denies bleeding lesions, Denies changing lesions and Denies rash Neuro Denies abnormal gait and Denies lack of coordination Aller/Immun Reports wheezing Physical exam (Primary Care) Vital Signs: Last Vital Signs Pulse 60 09/19/23 15:36 BP 118/80 09/19/23 15:36 Pulse Ox 95 09/19/23 15:36 Oxygen Delivery Method Room Air 09/19/23 15:36 BMI result Body Mass Index 25.7 Tobacco/Smoking Status: Tobacco use Status Tobacco use date assessed 10/28/22 09/19/23 15:37 Patient Tobacco Use Status Never used Tobacco 09/19/23 15:37 e-Cigarette/Vaping Use Never Used 09/19/23 15:37 Thrive Assessment: Date of Thrive Assessment Date Thrive assessed 10/28/22 09/19/23 15:37 Eyes General: appearance normal, both eyes and all related structures Eyelids: Yes eyelids normal Conjunctivae: conjunctivae normal Neck Neck: Yes normal visual inspection and Yes supple Resp Effort & Inspection: normal respiratory effort Auscultation: wheezes Cardio Jugular venous distension: no JVD Rate: regular rate Rhythm: regular rhythm Heart sounds: S1 normal heart sound present and S2 normal heart sound present Extrem General: Yes full ROM Office Procedures Flu Questionnaire Does the patient have a severe egg allergy?: No Does the patient have severe life threatening allergies?: No Does the patient have a fever or illness today?: No Has the patient ever had Guillain-Marydel Syndrome?: No Has the patient ever had any past reaction to a flu shot?: No Results AMB Hemoglobin A1c AMB Hemoglobin A1c 6.9 % Last Edit by GRETTA Simmons on 09/19/23 15:42 Immunizations flu vacc [id number] 6mos up(PF) 60 mcg(15 mcgx4)/0.5 mL IM syringe Performing Provider: Kavita Mckeon MD [facility] Administered by: GRETTA Simmons on 09/19/23 16:14 Dose Route Admin Location Dispensed Lot Number Expiration Date NDC Car Seat Coverer 0.5 mL IM Left Deltoid 0.5 mL [id number] 04/15/24 32795-331-18 [employer] VIS Given Date VIS Provided VIS Publication Date 09/19/23 Single Vaccine 21 Eligibility Eligibility Date Funding Source Not [facility] Eligible 09/19/23 Private Results Reviewed Results Reviewed: Laboratory Last Values Hgb A1c (Clinic) 6.9 % (4.0-6.0) H 09/19/23 15:41 Assessment and Plan Assessment & Plan (1) Chronic cough: Code(s): R05.3 - Chronic cough Plan: Start Z-Preston, prednisone and benzonatate. Chest x-ray ordered. (2) Diabetes mellitus: Code(s): E11.9 - Type 2 diabetes mellitus without complications Plan: Continue Januvia and insulin. A1c goal is equal or less than 7%. (3) Mild recurrent major depression: Code(s): F33.0 - Major depressive disorder, recurrent, mild Plan: Continue fluoxetine. (4) Essential hypertension: Code(s): I10 - Essential (primary) hypertension Plan: Continue amlodipine and hydrochlorothiazide. Blood pressure goal is equal or less than 130/80. (5) Hyperlipidemia LDL goal <70: Code(s): E78.5 - Hyperlipidemia, unspecified Plan: Continue statins. LDL goal is less than 70. Orders: Orders AMB Hemoglobin A1c Today E11.65 - Type 2 diabetes mellitus with hyperglycemia Influenza [id number] Immunization Today Z23 - Encounter for immunization XR chest 2V Today R05.3 - Chronic cough Referrals Ear/Nose/Throat Referral H91.90 - Unspecified hearing loss, unspecified ear Medications: New azithromycin Take 2 tabs the first day then 1 tab the next 4 days 250 mg PO DAILY 5 days 6 tabs 0RF prednisone Take 4 tabs for 2 days, then take 3 tabs for 2 days, then take 2 tabs for 2 days, then take 1 tab for 2 days 10 mg PO DIRECTED 8 days 20 tabs 0RF benzonatate 100 mg PO BID 5 days PRN 10 caps 0RF cough Coding Level of Care Code Est Pt Level 4 (84588) Diagnoses Chronic cough R05.3 Diabetes mellitus E11.9 Mild recurrent major depression F33.0 Essential hypertension I10 Hyperlipidemia LDL goal <70 E78.5 Time Spent (min) 23
[2023-09-19 15:36] VITALS: BP 118/80; PULSE 60; O2SAT 95; BMI 25.7
== END 2023-09-19 16:08 | disposition home or self-care (01) ==
PROVIDERS: PCP Internal Medicine; Visit Provider Internal Medicine
DX: E11.65 Type 2 diabetes mellitus with hyperglycemia (principal); F33.0 Major depressive disorder, recurrent, mild; R05.3 Chronic cough; Z23 Encounter for immunization; I10 Essential (primary) hypertension; E78.5 Hyperlipidemia, unspecified
CPT/HCPCS: 83036; 90471; 90686; 99214

== ENCOUNTER 2023-09-19 16:16 | Outpatient (REF) | payer OTHER, SELFPAY ==
--- NOTE | ~2023-09-19 | XR_ITS ---
EXAMINATION: XR CHEST CLINICAL INFORMATION: Chronic cough. COMPARISON: 05/24/2022 TECHNIQUE: 2 views of the chest were obtained. FINDINGS: There is a new area of linear plate-like atelectasis in the right middle lobe. Surgical clips are again seen at the GE junction. No other significant abnormality is noted involving the heart, lungs, mediastinum, bony thorax or soft tissues. XR/XR chest 2V IMPRESSION: New plate-like atelectasis right middle lobe.
== END 2023-09-19 16:17 | disposition home or self-care (01) ==
LOC: HO.XRAY 16:16
PROVIDERS: PCP Internal Medicine; Visit Provider Internal Medicine
DX: R05.3 Chronic cough (principal)
CPT/HCPCS: 71046

== ENCOUNTER 2023-10-18 10:07 | Outpatient (AMB) | payer OTHER, SELFPAY ==
--- NOTE | 2023-10-18 10:31 | A.OFFVIS_ITS ---
Intake Vital Signs 10/18/23 10:33 Height 5 ft 6 in Weight 158 lb BMI 25.5 BP 128/60 Blood Pressure Location Lt brachial Position Sitting Pulse 52 Pulse Source Pulse Oximeter Pulse Oximetry (%) 96 Oxygen Delivery Method Room Air Intake Visit Reasons: chronic cough French Teacher Required: No Allergies metformin Adverse Reaction (Intermediate, Verified 10/18/23 10:36) diarrhea dulaglutide [From [employer]ul[employer]] Adverse Reaction (Verified 10/18/23 10:36) vomiting HPI HPI Comments History of Present Illness Details The patient is here for pulmonary evaluation. The patient is an 82-year-old gentleman who apparently was in his usual state health until early fall he started developing worsening cough chest congestion. It was moderate severity just putting get better. He required multiple course of antibiotics. The last time he was evaluated he was also given some prednisone. He was given a rescue inhaler and also order to start Anoro. Although he has not started as of yet. Because of his ongoing symptoms he did undergo a chest x-ray which was personally by me. It appears that he had a small area of opacity in the right mid lung area. I did review previous x-rays and this area was not there. He therefore could have been a degree of airspace disease. Clinically the patient feels a lot better. He is no longer coughing. He feels like he is back to his baseline. He is here with his daughter who feel that he is back and to his baseline as well. She is wondering if he really needs the Anoro since the patient's breathing and coughing significantly improved. I did agree with them. I did recommend that if he does require his short-acting beta agonist more than twice a week to go ahead and start the Anoro. But for now he will hold off. The patient will return to the office after having a pulmonary function study and also a repeat chest x-ray. I am hopeful that that area of opacity improved by then. If the area still abnormal and or if he becomes symptomatic will consider additional imaging studies. But for now the patient is doing well. He will receive his Prevnar 20 vaccine today. [facility] Medical History (Updated 10/18/23 @ 11:00 by Eliel Quiñones MD) Abnormal chest x-ray Hyperkalemia Mild recurrent major depression Left leg pain Left knee pain Screening for prostate cancer Bilateral sensorineural hearing loss Progressive hearing loss of right ear Loss of hearing Cerumen debris on tympanic membrane of both ears Otitis media GERD (gastroesophageal reflux disease) TIA (transient ischemic attack) Diverticulosis Enlarged prostate Renal cyst Renal stones Essential hypertension Hyperlipidemia LDL goal <70 Type 2 diabetes mellitus with hyperglycemia Surgical History History of colonoscopy Hx of hernia repair Family History Father No problems noted. Mother No problems noted. Brother Prostate cancer Social History Household Members: Family Housing: House Alcohol intake: current Alcohol intake frequency: holidays/special occasions only Alcohol type: hard liquor Patient Tobacco Use Status: Never used Tobacco e-Cigarette/Vaping Use: Never Used Second Hand Smoke Exposure: No service: No Current occupational status: retired Cognitive needs: Yes Hearing needs: No Vision needs: Yes Review of Systems Const Denies fever(s) and Denies weight loss Eyes Reports no additional complaints, Denies change in vision and Denies other visual disturbances Card Denies chest pain at rest, Denies chest pain with activity, Denies edema, Denies irregular heart rhythm, Denies claudication, Denies dyspnea on exertion, Denies orthopnea, Denies paroxysmal nocturnal dyspnea and Denies slow heart rate Resp Reports cough, Denies excessive phlegm production, Denies dyspnea on exertion and Denies wheezing GI Denies abdominal pain, Denies change in bowel habits, Denies excessive flatus, Denies nausea and Denies vomiting Denies urinary hesitancy, Denies urinary incontinence and Denies urinary urgency Musc Denies abnormal gait, Denies atrophy, Denies deformity and Denies limited range of motion Skin/Breast Denies bleeding lesions, Denies changing lesions and Denies rash Neuro Denies abnormal gait, Denies confusion and Denies lack of coordination Psych Denies confusion Aller/Immun Denies wheezing Physical Exam Vital Signs: Last Vital Signs Pulse 52 10/18/23 10:33 BP 128/60 10/18/23 10:33 Pulse Ox 96 10/18/23 10:33 Oxygen Delivery Method Room Air 10/18/23 10:33 BMI result Body Mass Index 25.5 Const General: No confusion Orientation/consciousness: No confusion Limitations: ambulation with cane HEENT Mouth: tongue abnormal geographic and fissured Neck Neck: Yes supple Chest Chest palpation & inspection: normal inspection of the chest Resp Effort & Inspection: normal respiratory effort Auscultation: clear to auscultation bilaterally Cardio Heart sounds: S1 normal heart sound present and S2 normal heart sound present Neuro General: No confusion Gait exam (Neuro): Normal gait present Romberg Test: Negative Extrem General: Yes no clubbing, cyanosis or edema Immunizations pneumoc 20-hui conj-dip cr(PF) 0.5 mL IM syringe Performing Provider: Eliel Quiñones MD Performing Location: [facility] Administered by: Daphney Dobbins LPN on 10/18/23 11:03 Dose Route Admin Location Dispensed Lot Number Expiration Date NDC Electronic Sensing Equipment Assembler 0.5 mL IM Left Deltoid 0.5 mL [id number] 05/16/24 8291-0479-11 [facility] Given Date VIS Provided VIS Publication Date 10/18/23 Single Vaccine 23 Eligibility Eligibility Date Funding Source Not [facility] Eligible 10/18/23 Private Assessment & Plan Assessment & Plan (1) Chronic cough: Code(s): R05.3 - Chronic cough (2) Abnormal chest x-ray: Code(s): R93.89 - Abnormal findings on diagnostic imaging of other specified body structures Plan JATINDER as needed holding Anoro for now, may start if he requires his JATINDER more than 2 times a week PFTs repeat CXR in 6 weeks F/U 8-10 weeks Orders: Orders PFT pulmonary function test Today R05.3 - Chronic cough XR chest 2V Today R05.3 - Chronic cough Pneumococcal 20 Immunization Today Z23 - Encounter for immunization Coding Level of Care Code New Pt Level 4 (10337) Diagnoses Chronic cough R05.3 Abnormal chest x-ray R93.89 Time Spent (min) 40
[2023-10-18 10:33] VITALS: BP 128/60; PULSE 52; O2SAT 96; BMI 25.5
== END 2023-10-18 10:59 | disposition home or self-care (01) ==
PROVIDERS: PCP Internal Medicine; Referring Provider Nurse Practitioner Family; Visit Provider Hospitalist
DX: R05.3 Chronic cough (principal); R93.89 Abnormal findings on diagnostic imaging of other specified body structures; Z23 Encounter for immunization
CPT/HCPCS: 99204

== ENCOUNTER → 2023-10-18 10:07 | Outpatient (BNVA) | payer OTHER, SELFPAY | PROVIDERS: PCP Internal Medicine; Referring Provider Nurse Practitioner Family; Visit Provider Hospitalist | DX: R05.3 Chronic cough (principal); R39.89 Other symptoms and signs involving the genitourinary system; Z23 Encounter for immunization | CPT/HCPCS: 90471; 90677; 99202 ==

== ENCOUNTER 2023-10-25 09:51 | Outpatient (AMB) | payer OTHER, SELFPAY ==
[2023-10-25 09:56] VITALS: BP 128/72; BMI 25.7
--- NOTE | 2023-10-25 09:56 | A.OFFPC_ITS ---
Vital Signs 10/25/23 09:56 Height 5 ft 6 in Weight 159 lb BMI 25.7 BP 128/72 Blood Pressure Location Lt brachial Position Sitting Intake Visit Reasons: 4mon F/U Intake Note: Patient here for a 4 month follow up Clip On Sunglasses Inspector Required: No Accompanied by: Daughter Allergies metformin Adverse Reaction (Intermediate, Verified 10/25/23 10:13) diarrhea [facility] Adverse Reaction (Verified 10/25/23 10:13) vomiting Medication List - Last Reconciled 10/25/23 by Kavita Mckeon MD [adult diapers pull-ups As directed] amlodipine 5 mg PO DAILY 90 days atorvastatin 20 mg PO BEDTIME blood sugar diagnostic (Accu-Chek SmartView Test Strips) As directed three times a day budesonide-formoterol 80-4.5 mcg/actuation 1 inh inhalation BID 30 days cholecalciferol (vitamin D3) 50 mcg PO DAILY 90 days clopidogrel 75 mg PO BEDTIME 90 days clotrimazole 10 mg mucous membrane TID disposable gloves (Biobrane Gloves Large) As directed empagliflozin (Jardiance) 25 mg PO QAM flash glucose sensor (FreeStyle Carlie 14 Day Sensor kit) As directed fluoxetine 20 mg PO QAM hydrochlorothiazide 12.5 mg PO DAILY 90 days insulin degludec (Tresiba FlexTouch U-100 insulin) 15 units (0.15 mL) subcut DAILY lancets (Accu-Chek Softclix Lancets) As directed three times a day lancets As directed latex gloves (Latex Gloves, Medium) As directed levalbuterol tartrate 45 mcg/actuation 2 inhalations inhalation Q6H 30 days [male urinal As directed] meclizine 25 mg PO BID PRN metoprolol succinate ER 25 mg PO DAILY 90 days omega-3 fatty acids-fish oil 340-1,000 mg 1 cap PO QAM omeprazole 20 mg PO QAM 90 days pen needle, diabetic (BD Ultra-Fine Dianna Pen Needle) As directed once daily [personal cleansing wipes As directed] [quad cane As directed] sitagliptin phosphate (Januvia) 100 mg PO QAM tamsulosin 0.4 mg PO BEDTIME umeclidinium-vilanterol 62.5-25 mcg/actuation (Anoro Ellipta) 1 ea inhalation DAILY underpads (Bed Underpads) Use 1 underpad once a day Ventolin HFA 90 mcg/actuation (albuterol sulfate) 2 puffs inhalation Q6H PRN 30 days NS walker (Ultra-Light Rollator misc) As directed Tobacco use date assessed: 10/25/23 Fall risk assessment: No Falls in past year Last assessed Fall Risk: 10/25/23 Dental Screening Dental Screen Date: 10/25/23 Did you have a dental visit in the last 12 months?: No Did you have a dental problem in the last 6 months where you did not have access to dental care?: No Was dental information given to patient?: Patient has dentist HPI HPI Comments History of Present Illness Details This is an 82-year-old male with diabetes mellitus type 2 on long-term current use of insulin, hypertension, hyperlipidemia and mild recurrent major depression that comes accompanied by daughter for follow-up on his conditions. A1c within goal. Blood pressure stable. Last LDL was within goal and this will be repeated. Depression stable with SSRIs. Walks with a cane for gait stability. No chest pain or shortness of breath. [facility] Medical History (Updated 10/25/23 @ 10:26 by Kavita Mckeon MD) Peripheral vascular disease Abnormal chest x-ray Hyperkalemia Mild recurrent major depression Left leg pain Left knee pain Screening for prostate cancer Bilateral sensorineural hearing loss Progressive hearing loss of right ear Loss of hearing Cerumen debris on tympanic membrane of both ears Otitis media GERD (gastroesophageal reflux disease) TIA (transient ischemic attack) Diverticulosis Enlarged prostate Renal cyst Renal stones Essential hypertension Hyperlipidemia LDL goal <70 Type 2 diabetes mellitus with hyperglycemia Surgical History History of colonoscopy Hx of hernia repair Family History Father No problems noted. Mother No problems noted. Brother Prostate cancer Social History Household Members: Family Housing: House Alcohol intake: current Alcohol intake frequency: holidays/special occasions only Alcohol type: hard liquor Patient Tobacco Use Status: Never used Tobacco e-Cigarette/Vaping Use: Never Used Second Hand Smoke Exposure: No service: No Current occupational status: retired Cognitive needs: Yes Hearing needs: No Vision needs: Yes Questionnaire PHQ-9 Over the last 2 weeks, how often have you been bothered by any of the following problems? 1. Little interest or pleasure in doing things: not at all 2. Feeling down, depressed, or hopeless: several days 3. Trouble falling or staying asleep, or sleeping too much: not at all 4. Feeling tired or having little energy: not at all 5. Poor appetite or overeating: not at all 6. Feeling bad about yourself - or that you are a failure or have let yourself or your family down: not at all 7. Trouble concentrating on things, such as reading the newspaper or watching television: not at all 8. Moving or speaking so slowly that other people could have noticed. Or the opposite - being so fidgety or restless that you have been moving around a lot more than usual: not at all 9. Thoughts that you would be better off or of hurting yourself in some way: not at all Total score: 1 Depression Screening Interpretation: Negative Depression Screening Done: Yes 97612 - PHQ-9 Billing: Yes Source: Developed by Drs. Spenser Mesa, Chrystal Yanez, Ren Felix and colleagues, with an educational neeta from [employer]. Thrive Questionnaire Date Thrive assessed: 10/25/23 I am a: Patient What is your living situation today?: I have a steady place to live Within the past 12 months, did the food you bought not last and you didn't have the money to get more?: Never true Within the past 12 months, did you worry whether your food would run out before you got money to buy more?: Never true Do you have trouble paying for medicines?: No Do you have trouble getting transportation to medical appointments?: No Do you have trouble paying your heating and electricity bill?: No Do you have trouble taking care of your child, family member or friend?: No Do you have trouble with day-to-day activities such as bathing, preparing meals, shopping, managing finances, etc.?: Yes Are you currently unemployed and looking for a job?: No Are you interested in more education?: No Please select the resources that you would like help with: None Currently or been in a relationship where the following occur: no concerns reported AUDIT C Alcohol Use Questionnaire (AUDIT-C) 1. How often do you have a drink containing alcohol?: Monthly or less 2. How many drinks containing alcohol do you have on a typical day when you are drinking?: 1 or 2 3. How often do you have six or more drinks on one occasion?: Never Total Score: 1 Score Reviewed/Action Taken: No NIDHI-7 AMB Questionnaire NIDHI-7 Date NIDHI - 7 assessed: 10/25/23 Feeling nervous, anxious, or on edge: 0 = Not at all Not being able to stop or control worryin = Not at all Worrying too much about different things: 0 = Not at all Trouble relaxin = Not at all Being so restless that it is hard to sit still: 0 = Not at all Becoming easily annoyed or irritable: 0 = Not at all Feeling afraid as if something awful might happen: 0 = Not at all Total NIDHI-7 score (0-4 normal; 5-9 mild; 10-14 moderate; 15-21 severe): 0 Source: Developed by Drs. Spenser Mesa, Chrystal Yanez, Ren Felix and colleagues, with an educational neeta from [employer]. NIDHI-7 Assessment Billing NIDHI-7 Assessment Tool: NIDHI-7 Assessment 65300 Review of Systems Const All systems reviewed & are unremarkable except as noted in HPI and below Eyes Reports no additional complaints, Denies change in vision and Denies other visual disturbances Card Denies chest pain at rest, Denies chest pain with activity, Denies edema, Denies irregular heart rhythm, Denies claudication, Denies dyspnea, Denies dyspnea on exertion, Denies orthopnea, Denies paroxysmal nocturnal dyspnea and Denies slow heart rate Resp Denies cough, Denies dyspnea and Denies dyspnea on exertion GI Denies abdominal pain, Denies change in bowel habits, Denies excessive flatus, Denies nausea and Denies vomiting Denies urinary hesitancy, Denies urinary incontinence and Denies urinary urgency Musc Denies abnormal gait, Denies atrophy, Denies deformity and Denies limited range of motion Skin/Breast Denies bleeding lesions, Denies changing lesions and Denies rash Neuro Denies abnormal gait, Denies behavioral changes and Denies lack of coordination Psych Denies behavioral changes Physical exam (Primary Care) Vital Signs: Last Vital Signs BP 128/72 10/25/23 09:56 BMI result Body Mass Index 25.7 Tobacco/Smoking Status: Tobacco use Status Tobacco use date assessed 10/25/23 10/25/23 10:00 Patient Tobacco Use Status Never used Tobacco 10/25/23 10:00 e-Cigarette/Vaping Use Never Used 10/25/23 10:00 PHQ-9: PHQ-9 Score PHQ-9: Total score 1 10/25/23 10:10 Depression Screening Interpretation: Negative Thrive Assessment: Date of Thrive Assessment Date Thrive assessed 10/25/23 10/25/23 10:05 Currently or been in a relationship where the following occur: no concerns reported Const Limitations: ambulation with cane Neck Neck: Yes normal visual inspection and Yes supple Resp Effort & Inspection: normal respiratory effort Auscultation: clear to auscultation bilaterally Cardio Jugular venous distension: no JVD Rate: regular rate Rhythm: regular rhythm Heart sounds: S1 normal heart sound present and S2 normal heart sound present Extrem General: Yes full ROM Assessment and Plan Assessment & Plan (1) Diabetes mellitus: Code(s): E11.9 - Type 2 diabetes mellitus without complications Qualifiers: Diabetes mellitus type: type 2 Diabetes mellitus tank terminal gauger insulin use: with custodial use Diabetes mellitus complication status: without complication Qualified Code(s): E11.9 - Type 2 diabetes mellitus without complications; Z79.4 - penitentiary (current) use of insulin Plan: Continue insulin, Januvia and Jardiance. A1c goal is equal or less than 7%. (2) Mild recurrent major depression: Code(s): F33.0 - Major depressive disorder, recurrent, mild Plan: Continue fluoxetine. (3) Essential hypertension: Code(s): I10 - Essential (primary) hypertension Plan: Continue amlodipine and hydrochlorothiazide. Blood pressure goal is equal or less than 130/80. (4) Hyperlipidemia LDL goal <70: Code(s): E78.5 - Hyperlipidemia, unspecified Plan: Continue statins. LDL goal is less than 70. Orders: Orders Vitamin D 25-OH Total Today E55.9 - Vitamin D deficiency, unspecified Comprehensive [place]. Panel Fast Today E11.65 - Type 2 diabetes mellitus with hyperglycemia Lipid Panel Today E78.5 - Hyperlipidemia, unspecified Microalbumin, Random (w Creat) Today E11.9 - Type 2 diabetes mellitus without complications Coding Level of Care Code Est Pt Level 4 (26323) Diagnoses Type 2 diabetes mellitus without complication, with long-term current use of insulin E11.9; Z79.4 Diabetes mellitus type: type 2 Diabetes mellitus tank terminal gauger insulin use: with tank terminal gauger use Diabetes mellitus complication status: without complication Mild recurrent major depression F33.0 Essential hypertension I10 Hyperlipidemia LDL goal <70 E78.5 Additional Codes NIDHI-7 Assessment Billing - NIDHI-7 Assessment Tool: NIDHI-7 Assessment 32047 ([id number]) Time Spent (min) 23
== END 2023-10-25 10:21 | disposition home or self-care (01) ==
PROVIDERS: PCP Internal Medicine; Visit Provider Internal Medicine
DX: E11.69 Type 2 diabetes mellitus with other specified complication (principal); Z79.4 Long term (current) use of insulin; F33.0 Major depressive disorder, recurrent, mild; I10 Essential (primary) hypertension; E78.5 Hyperlipidemia, unspecified
CPT/HCPCS: 99214

== ENCOUNTER 2023-11-08 08:36 | Outpatient (REF) | payer OTHER, SELFPAY ==
--- NOTE | ~2023-11-08 | XR_ITS ---
EXAMINATION: XR CHEST CLINICAL INFORMATION: Chronic cough. COMPARISON: 09/19/2023 chest radiographs. TECHNIQUE: 2 views of the chest were obtained. FINDINGS: There is no gross pneumothorax. Heart size is normal. Dextroscoliosis of the thoracic spine with multilevel degenerative changes. Surgical clips redemonstrated at the gastroesophageal junction region. Persistent linear opacity in the right middle lobe may represent subsegmental atelectasis. No pleural effusion. XR/XR chest 2V IMPRESSION: Persistent linear opacity in the right middle lobe may represent subsegmental atelectasis.
--- NOTE | 2023-11-08 10:46 | PFT_ITS ---
Flows: FEV1: 75 % of predicted at 1.79 L FVC: 84 % of predicted at 2.73 L FEV1/FVC: 66 % Bronchodilator response: Present Volumes: Unable to perform lung volumes or diffusion capacity maneuvers Impression: Moderate obstructive ventilatory defect with positive bronchodilator response. Patient is unable to perform lung volumes or diffusion capacity maneuvers. MTDD
[2023-11-08 12:39] LABS: Alanine Aminotransferase 19 U/L (0-40); Albumin Level 3.8 g/dL (3.5-5.0); Alkaline Phosphatase 90 U/L (39-117); Anion Gap 11 (12-20); Aspartate Amino Transferase 19 U/L (5-37); Bilirubin Total 0.8 mg/dL (0.0-1.0); Blood Urea Nitrogen 20 mg/dL (9-16); Calcium 8.9 mg/dL (8.4-10.2); Carbon Dioxide 28 mmol/L (22-29); Chloride 103 mmol/L (96-108); Cholesterol 126 mg/dL (<200); Estimated Glomerular Filt Rate 59; Glucose Fasting 119 mg/dL (60-99); HDL Cholesterol 42 mg/dL (>40); LDL Cholesterol Calculated 70 mg/dL (<100); Potassium 3.5 mmol/L (3.3-5.1); Sodium 138 mmol/L (135-145); Total Protein 7.4 g/dL (6.5-8.0); Triglycerides 72 mg/dL (<150); Vitamin D 25-OH Total 34.6 ng/mL (>30)
[2023-11-08 12:54] LABS: Creatinine Urine 138.52 mg/dL
== END 2023-11-08 08:37 | disposition home or self-care (01) ==
LOC: HO.RESP 08:36
PROVIDERS: Absent Provider Internal Medicine; PCP Internal Medicine; Visit Provider Hospitalist
DX: R05.3 Chronic cough (principal); E11.9 Type 2 diabetes mellitus without complications; E78.5 Hyperlipidemia, unspecified; E55.9 Vitamin D deficiency, unspecified
CPT/HCPCS: 36415; 71046; 80053; 80061; 82043; 82306; 82570

== ENCOUNTER → 2023-11-08 10:46 | Outpatient (BNV) | payer OTHER, SELFPAY | PROVIDERS: Absent Provider Internal Medicine; PCP Internal Medicine; Visit Provider Internal Medicine Pulmonary Disease | DX: R05.3 Chronic cough (principal) | CPT/HCPCS: 94060 ==

== ENCOUNTER 2023-11-30 08:44 | Outpatient (AMB) | payer OTHER, SELFPAY ==
[2023-11-30 08:53] VITALS: BP 128/60; PULSE 60; O2SAT 96; BMI 25.8
--- NOTE | 2023-11-30 08:53 | A.OFFVIS_ITS ---
Intake Vital Signs 11/30/23 08:53 Height 5 ft 6 in Weight 160 lb BMI 25.8 BP 128/60 Blood Pressure Location Lt brachial Position Sitting Pulse 60 Pulse Source Pulse Oximeter Pulse Oximetry (%) 96 Oxygen Delivery Method Room Air Intake Visit Reasons: cough/wheeze Head Inspector And Center Marker Required: No Allergies metformin Adverse Reaction (Intermediate, Verified 11/30/23 08:55) diarrhea dulaglutide [From [facility]] Adverse Reaction (Verified 11/30/23 08:55) vomiting HPI HPI Comments History of Present Illness Details The patient is an 82-year-old gentleman who apparently was in his usual state health until early fall he started developing worsening cough chest congestion. It was moderate severity just putting get better. He required multiple course of antibiotics. The last time he was evaluated he was also given some prednisone. He was given a rescue inhaler and also order to start Anoro. Although he has not started as of yet. Because of his ongoing symptoms he did undergo a chest x-ray which was personally by me. It appears that he had a small area of opacity in the right mid lung area. I did review previous x- rays and this area was not there. He therefore could have been a degree of a irspace disease. Clinically the patient feels a lot better. He is no longer coughing. He feels like he is back to his baseline. He is here with his daughter who feel that he is back and to his baseline as well. She is wondering if he really needs the Anoro since the patient's breathing and coughing significantly improved. I did agree with them. I did recommend that if he does require his short-acting beta agonist more than twice a week to go ahead and start the Anoro. But for now he will hold off. The patient will return to the office after having a pulmonary function study and also a repeat chest x-ray. I am hopeful that that area of opacity improved by then. If the area still abnormal and or if he becomes symptomatic will consider additional imaging studies. But for now the patient is doing well. He will receive his Prevnar 20 vaccine today. 11/30/2023 the patient is here for a pulm onary follow-up visit. The patient has been complaining of worsening chest tightness and wheezing. Moderate severity. Apparent thing asleep. Sometimes he will go to cough her secretions out. We did review his PFTs demonstrating an obstructive process consistent with COPD. In addition to that the patient does have a chest x-ray demonstrating a persistent opacity in the right lower lung area. Based on his ongoing symptoms in the abnormal chest x-ray a CT scan of the chest will be reasonable further address the findings. In the meantime we are going to optimize his respiratory therapy by adding inhaled cortical steroid to the Anoro. The patient can also start short course of steroids that will help him decrease the inflammation. The patient also benefits from a nebulizer. The nebulizer will provide him with relief specially since he has a she could response when he had the PFTs. [facility] Medical History (Updated 11/30/23 @ 09:20 by Eliel Quiñones MD) Asthma-COPD overlap syndrome Peripheral vascular disease Abnormal chest x-ray Hyperkalemia Mild recurrent major depression Left leg pain Left knee pain Screening for prostate cancer Bilateral sensorineural hearing loss Progressive hearing loss of right ear Loss of hearing Cerumen debris on tympanic membrane of both ears Otitis media GERD (gastroesophageal reflux disease) TIA (transient ischemic attack) Diverticulosis Enlarged prostate Renal cyst Renal stones Essential hypertension Hyperlipidemia LDL goal <70 Type 2 diabetes mellitus with hyperglycemia Surgical History History of colonoscopy Hx of hernia repair Family History Father No problems noted. Mother No problems noted. Brother Prostate cancer Social History Household Members: Family Housing: House Alcohol intake: current Alcohol intake frequency: holidays/special occasions only Alcohol type: hard liquor Patient Tobacco Use Status: Never used Tobacco e-Cigarette/Vaping Use: Never Used Second Hand Smoke Exposure: No service: No Current occupational status: retired Cognitive needs: Yes Hearing needs: No Vision needs: Yes Review of Systems Const Denies fever(s) and Denies weight loss Eyes Reports no additional complaints, Denies change in vision and Denies other visual disturbances Card Denies chest pain at rest, Denies chest pain with activity, Denies edema, Denies irregular heart rhythm, Denies claudication, Denies dyspnea on exertion, Denies orthopnea, Denies paroxysmal nocturnal dyspnea and Denies slow heart rate Resp Reports cough, Denies excessive phlegm production, Denies dyspnea on exertion and Reports wheezing GI Denies abdominal pain, Denies change in bowel habits, Denies excessive flatus, Denies nausea and Denies vomiting Denies urinary hesitancy, Denies urinary incontinence and Denies urinary urgency Musc Denies abnormal gait, Denies atrophy, Denies deformity and Denies limited range of motion Skin/Breast Denies bleeding lesions, Denies changing lesions and Denies rash Neuro Denies abnormal gait, Denies confusion and Denies lack of coordination Psych Denies confusion Aller/Immun Reports wheezing Physical Exam Vital Signs: Last Vital Signs Pulse 60 11/30/23 08:53 BP 128/60 11/30/23 08:53 Pulse Ox 96 11/30/23 08:53 Oxygen Delivery Method Room Air 11/30/23 08:53 BMI result Body Mass Index 25.8 Const General: No confusion Orientation/consciousness: No confusion Limitations: ambulation with cane HEENT Mouth: tongue abnormal geographic and fissured Neck Neck: Yes supple Chest Chest palpation & inspection: normal inspection of the chest Resp Effort & Inspection: normal respiratory effort Auscultation: wheezes Cardio Heart sounds: S1 normal heart sound present and S2 normal heart sound present Neuro General: No confusion Gait exam (Neuro): Normal gait present Romberg Test: Negative Extrem General: Yes no clubbing, cyanosis or edema Assessment & Plan Assessment & Plan (1) Chronic cough: Code(s): R05.3 - Chronic cough (2) Abnormal chest x-ray: Code(s): R93.89 - Abnormal findings on diagnostic imaging of other specified body structures (3) Asthma-COPD overlap syndrome: Code(s): J44.89 - Other specified chronic obstructive pulmonary disease Plan JATINDER as needed continue Anoro Adding Arnuity needs anebulizer CT chest F/U 2-3 months Orders: Orders CT chest wo IV con Today R05.3 - Chronic cough, R93.89 - Abnormal findings on diagnostic imaging of other specified body structures Medications: New prednisone PO daily; Take 2 tabs daily x 5 days, 1 tab x 5 days 10 days 15 tabs 0RF fluticasone furoate 100 mcg/actuation (Arnuity Ellipta) 1 inh inhalation DAILY 30 ea 6RF albuterol sulfate 2.5 mg (3 mL) inhalation BID 30 days 180 mL 11RF shortness of breath or wheezing J44.89 - Other specified chronic obstructive pulmonary disease Coding Level of Care Code Est Pt Level 4 (80351) Diagnoses Chronic cough R05.3 Abnormal chest x-ray R93.89 Asthma-COPD overlap syndrome J44.89 Time Spent (min) 17
== END 2023-11-30 09:20 | disposition home or self-care (01) ==
PROVIDERS: PCP Internal Medicine; Visit Provider Hospitalist
DX: R05.3 Chronic cough (principal); R93.89 Abnormal findings on diagnostic imaging of other specified body structures; J44.89 Other specified chronic obstructive pulmonary disease
CPT/HCPCS: 99214

== ENCOUNTER → 2023-11-30 08:44 | Outpatient (BNVA) | payer OTHER, SELFPAY | PROVIDERS: PCP Internal Medicine; Visit Provider Hospitalist | DX: R05.3 Chronic cough (principal); R93.89 Abnormal findings on diagnostic imaging of other specified body structures; J44.89 Other specified chronic obstructive pulmonary disease | CPT/HCPCS: 99212 ==

== ENCOUNTER 2023-12-08 13:45 | Outpatient (REF) | payer OTHER, SELFPAY ==
--- NOTE | ~2023-12-08 | CT_ITS ---
EXAMINATION: CT CHEST WITHOUT CONTRAST CLINICAL INFORMATION: Chronic cough COMPARISON: 11/08/2023 chest radiograph TECHNIQUE: Multidetector volumetric CT imaging of the chest was done. Axial MIP volume rendering provided. Sagittal and coronal reformatted images were obtained. This CT examination was performed using dose optimization techniques as appropriate, variously including the following: *Automated exposure control *Adjustment of mA and/or kV according to patient size (this includes techniques or standardized protocols for targeted exams where dose is matched to indication/reason for exam; i.e. extremities or head) *Use of iterative reconstruction technique DLP: 328 mGy-cm FINDINGS: SUPPORT CLERK: GE junction surgical clips. Clear lungs. LUNGS: Intrathoracic trachea is dilated. Mild bronchiectasis. Centrilobular emphysema. Scattered atelectasis. 3 adjacent left subpleural pulmonary nodules, largest measuring 3 mm, 5:296 through 304. MEDIASTINUM: Unremarkable thyroid. No pathologic lymphadenopathy. Dilated, mildly thickened esophagus. Hiatal hernia junction clips. Heart size upper limits of normal. No pericardial effusion. Left lateral pericardial calcifications versus medial pleural based calcifications. Nonaneurysmal aorta with atherosclerotic calcifications. Nonenlarged pulmonary arteries. CORONARY ARTERY CALCIFICATION: Moderate. PLEURA: Bilateral upper anterior, left lower posterior medial and right hemidiaphragmatic pleural calcifications. No thickening, masses or effusions. AXILLA: No lymphadenopathy. UPPER ABDOMEN: 3.5 cm right renal cyst having shown enlargement from 2016. Partial inclusion left upper pole right renal cyst. No suspicious renal lesions. Herniorrhaphy material the imaged segment OSSEOUS AND SOFT TISSUE STRUCTURES: Mild gynecomastia. [Degenerative type changes. No suspicious osseous lesions.] CT/CT chest wo IV con IMPRESSION: Cluster of left pulmonary nodules, largest measuring 3 mm. No further follow-up in low-risk patient. If high risk, CT at 12 months and if stable, no further follow-up. Centrilobular emphysema. Pleural and pericardial calcifications without abnormal masses or thickening, correlate with history. Renal cysts. Fleischner guidelines were followed.
== END 2023-12-08 13:46 | disposition home or self-care (01) ==
LOC: HO.CT 13:45
PROVIDERS: PCP Internal Medicine; Visit Provider Hospitalist
DX: R93.89 Abnormal findings on diagnostic imaging of other specified body structures (principal); R05.3 Chronic cough
CPT/HCPCS: 71250

== ENCOUNTER 2024-02-17 09:14 | Outpatient (AMB) | payer OTHER, SELFPAY ==
[2024-02-17 09:29] VITALS: BP 124/60; PULSE 51; O2SAT 97; BMI 26.3
--- NOTE | 2024-02-17 09:29 | A.OFFVIS_ITS ---
Vital Signs 02/17/24 09:29 Height 5 ft 6 in Weight 163 lb 2.273 oz BMI 26.3 BP 124/60 Blood Pressure Location Lt brachial Position Sitting Pulse 51 Pulse Source Pulse Oximeter Pulse Oximetry (%) 97 Oxygen Delivery Method Room Air Intake Visit Reasons: Cough [employer] Professor Required: No Allergies metformin Adverse Reaction (Intermediate, Verified 02/17/24 09:31) diarrhea dulaglutide [From Trulicity] Adverse Reaction (Verified 02/17/24 09:31) vomiting HPI Comments Details: The patient is an 83-year-old gentleman who apparently was in his usual state health until early fall he started developing worsening cough chest congestion. It was moderate severity just putting get better. He required multiple course of antibiotics. The last time he was evaluated he was also given some prednisone. He was given a rescue inhaler and also order to start Anoro. Although he has not started as of yet. Because of his ongoing symptoms he did undergo a chest x-ray which was personally by me. It appears that he had a small area of opacity in the right mid lung area. I did review previous x-rays and this area was not there. He therefore could have been a degree of airspace disease. Clinically the patient feels a lot better. He is no longer coughing. He feels like he is back to his baseline. He is here with his daughter who feel that he is back and to his baseline as well. She is wondering if he really needs the Anoro since the patient's breathing and coughing significantly improved. I did agree with them. I did recommend that if he does require his short-acting beta agonist more than twice a week to go ahead and start the Anoro. But for now he will hold off. The patient will return to the office after having a pulmonary function study and also a repeat chest x-ray. I am hopeful that that area of opacity improved by then. If the area still abnormal and or if he becomes symptomatic will consider additional imaging studies. But for now the patient is doing well. He will receive his Prevnar 20 vaccine today. 11/30/2023 the patient is here for a pulmonary follow-up visit. The patient has been complaining of worsening chest tightness and wheezing. Moderate severity. Apparent thing asleep. Sometimes he will go to cough her secretions out. We did review his PFTs demonstrating an obstructive process consistent with COPD. In addition to that the patient does have a chest x-ray demonstrating a persistent opacity in the right lower lung area. Based on his ongoing symptoms in the abnormal chest x-ray a CT scan of the chest will be reasonable further address the findings. In the meantime we are going to optimize his respiratory therapy by adding inhaled cortical steroid to the Anoro. The patient can also start short course of steroids that will help him decrease the inflammation. The patient also benefits from a nebulizer. The nebulizer will provide him with relief specially since he has a she could response when he had the PFTs. 02/17/2024 the patient is here for a pulmonary follow-up visit. Overall the patient still feels about the same. Complains of cough productive in nature. [id number] severity. Did start the new inhaler. Has noticed some minimal benefit. He states that he coughs and has a lot of chest congestion. We did review his CT scan of the chest. Does have small subcentimeter pulmonary nodules. Would benefit from a CT scan in a year's time. Otherwise will go ahead and start him on azithromycin 3 times a week for a month to see if we can improve his chronic bronchitis issues. [facility] Medical History (Updated 11/30/23 @ 09:20 by Eliel Quiñones MD) Asthma-COPD overlap syndrome Peripheral vascular disease Abnormal chest x-ray Hyperkalemia Mild recurrent major depression Left leg pain Left knee pain Screening for prostate cancer Bilateral sensorineural hearing loss Progressive hearing loss of right ear Loss of hearing Cerumen debris on tympanic membrane of both ears Otitis media GERD (gastroesophageal reflux disease) TIA (transient ischemic attack) Diverticulosis Enlarged prostate Renal cyst Renal stones Essential hypertension Hyperlipidemia LDL goal <70 Type 2 diabetes mellitus with hyperglycemia Surgical History History of colonoscopy Hx of hernia repair Family History Father No problems noted. Mother No problems noted. Brother Prostate cancer Social History Household Members: Family Housing: House Alcohol intake: current Alcohol intake frequency: holidays/special occasions only Alcohol type: hard liquor Patient Tobacco Use Status: Never used Tobacco e-Cigarette/Vaping Use: Never Used Second Hand Smoke Exposure: No service: No Current occupational status: retired Cognitive needs: Yes Hearing needs: No Vision needs: Yes Review of Systems Const Denies fever(s) and Denies weight loss Eyes Reports no additional complaints, Denies change in vision and Denies other visual disturbances Card Denies chest pain at rest, Denies chest pain with activity, Denies edema, Denies irregular heart rhythm, Denies claudication, Denies dyspnea on exertion, Denies orthopnea, Denies paroxysmal nocturnal dyspnea and Denies slow heart rate Resp Reports chest congestion, Reports cough, Denies excessive phlegm production, Denies dyspnea on exertion and Reports wheezing GI Denies abdominal pain, Denies change in bowel habits, Denies excessive flatus, Denies nausea and Denies vomiting Denies urinary hesitancy, Denies urinary incontinence and Denies urinary urgency Musc Denies abnormal gait, Denies atrophy, Denies deformity and Denies limited range of motion Skin/Breast Denies bleeding lesions, Denies changing lesions and Denies rash Neuro Denies abnormal gait, Denies confusion and Denies lack of coordination Psych Denies confusion Aller/Immun Reports wheezing Physical Exam Const General: No confusion Orientation/consciousness: No confusion Limitations: ambulation with cane HEENT Mouth: tongue abnormal geographic and fissured Neck Neck: Yes supple Chest Chest palpation & inspection: normal inspection of the chest Resp Effort & Inspection: normal respiratory effort Auscultation: no wheezes and diminished lung sounds Cardio Heart sounds: S1 normal heart sound present and S2 normal heart sound present Neuro General: No confusion Gait exam (Neuro): Normal gait present Romberg Test: Negative Extrem General: Yes no clubbing, cyanosis or edema Assessment & Plan Assessment & Plan (1) Chronic cough: Code(s): R05.3 - Chronic cough Category: Medical (2) Abnormal chest x-ray: Code(s): R93.89 - Abnormal findings on diagnostic imaging of other specified body structures Category: Medical (3) Asthma-COPD overlap syndrome: Code(s): J44.89 - Other specified chronic obstructive pulmonary disease Category: Medical Plan JATINDER as needed continue Anoro continue Arnuity requesting acapella valve start Azithromycin MWF x 1 mo, then stop (QT 464 last EKG) Consider repeating CT chest in 1 yr F/U 6 months Medications: New azithromycin Take 1 tablet on Tuesday/Tuesday/Tuesday 250 mg PO 3XW 28 days 12 tabs 0RF K21.9 - Gastro-esophageal reflux disease without esophagitis Coding Level of Care Code Est Pt Level 4 (38332) Diagnoses Chronic cough R05.3 Abnormal chest x-ray R93.89 Asthma-COPD overlap syndrome J44.89 Time Spent (min) 17
== END 2024-02-17 09:48 | disposition home or self-care (01) ==
PROVIDERS: PCP Internal Medicine; Visit Provider Hospitalist
DX: R05.3 Chronic cough (principal); R93.89 Abnormal findings on diagnostic imaging of other specified body structures; J44.89 Other specified chronic obstructive pulmonary disease
CPT/HCPCS: 99214

== ENCOUNTER → 2024-02-17 09:14 | Outpatient (BNVA) | payer OTHER, SELFPAY | PROVIDERS: PCP Internal Medicine; Visit Provider Hospitalist | DX: R05.3 Chronic cough (principal); J44.89 Other specified chronic obstructive pulmonary disease; R93.89 Abnormal findings on diagnostic imaging of other specified body structures; Z79.899 Other long term (current) drug therapy | CPT/HCPCS: 99212 ==

== ENCOUNTER 2024-04-04 16:30 | Outpatient (AMB) | payer OTHER, SELFPAY ==
--- NOTE | 2024-04-04 16:32 | MHC.PC.OV ---
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 Accompanied by: Daughter Allergies metformin Adverse Reaction (Intermediate, Verified 04/04/24 17:03) diarrhea [facility] Adverse Reaction (Verified 04/04/24 17:03) vomiting Medication List - Last Reconciled 04/04/24 by Kavita Mckeon MD [adult diapers pull-ups As directed] albuterol sulfate 2.5 mg (3 mL) inhalation BID 30 days amlodipine 5 mg PO DAILY 90 days atorvastatin 20 mg PO BEDTIME blood sugar diagnostic (Accu-Chek SmartView Test Strips) As directed three times a day budesonide-formoterol 80-4.5 mcg/actuation 1 inh inhalation BID 30 days cholecalciferol (vitamin D3) 50 mcg PO DAILY 90 days clopidogrel 75 mg PO BEDTIME 90 days clotrimazole 10 mg mucous membrane TID disposable gloves (Biobrane Gloves Large) As directed empagliflozin (Jardiance) 25 mg PO QAM flash glucose sensor (FreeStyle Carlie 14 Day Sensor kit) As directed fluoxetine 20 mg PO QAM fluticasone furoate 100 mcg/actuation (Arnuity Ellipta) 1 inh inhalation DAILY hydrochlorothiazide 12.5 mg PO DAILY 90 days insulin degludec (Tresiba FlexTouch U-100 insulin) 15 units (0.15 mL) subcut DAILY lancets (Accu-Chek Softclix Lancets) As directed three times a day lancets As directed latex gloves (Latex Gloves, Medium) As directed levalbuterol tartrate 45 mcg/actuation 2 inhalations inhalation Q6H 30 days [male urinal As directed] meclizine 25 mg PO BID PRN metoprolol succinate ER 25 mg PO DAILY 90 days nebulizers As directed omega-3 fatty acids-fish oil 340-1,000 mg 1 cap PO QAM omeprazole 20 mg PO QAM 90 days pen needle, diabetic (BD Ultra-Fine Dianna Pen Needle) As directed once daily [personal cleansing wipes As directed] prednisone PO daily; Take 2 tabs daily x 5 days, 1 tab x 5 days 10 days [quad cane As directed] sitagliptin phosphate (Januvia) 100 mg PO QAM tamsulosin 0.4 mg PO BEDTIME umeclidinium-vilanterol 62.5-25 mcg/actuation (Anoro Ellipta) 1 ea inhalation DAILY underpads (Bed Underpads) Use 1 underpad once a day Ventolin HFA 90 mcg/actuation (albuterol sulfate) 2 puffs inhalation Q6H PRN 30 days NS walker (Ultra-Light Rollator misc) As directed Tobacco use date assessed: 10/25/23 Dental Screening Dental Screen Date: 10/25/23 HPI HPI Comments History of Present Illness Details This is an 83-year-old male with mild recurrent major depression and diabetes mellitus type 2 that comes accompanied by daughter for his physical exam. Depression markedly improved with medications. A1c within goal. No chest pain or shortness on breath. [facility] Medical History (Updated 04/04/24 @ 19:03 by Kavita Mckeon MD) Asthma-COPD overlap syndrome Peripheral vascular disease Abnormal chest x-ray Hyperkalemia Mild recurrent major depression Left leg pain Left knee pain Screening for prostate cancer Bilateral sensorineural hearing loss Progressive hearing loss of right ear Loss of hearing Cerumen debris on tympanic membrane of both ears Otitis media GERD (gastroesophageal reflux disease) TIA (transient ischemic attack) Diverticulosis Enlarged prostate Renal cyst Renal stones Essential hypertension Hyperlipidemia LDL goal <70 Type 2 diabetes mellitus with hyperglycemia Surgical History History of colonoscopy Hx of hernia repair Family History (Updated 04/04/24 @ 17:10 by Kavita Mckeon MD) Father Heart disease Mother No problems noted. Brother Prostate cancer Social History Household Members: Family Housing: House Alcohol intake: current Alcohol intake frequency: holidays/special occasions only Alcohol type: hard liquor Patient Tobacco Use Status: Never used Tobacco e-Cigarette/Vaping Use: Never Used Second Hand Smoke Exposure: No service: No Current occupational status: retired Cognitive needs: Yes Hearing needs: No Vision needs: Yes Questionnaire Thrive Questionnaire Date Thrive assessed: 10/25/23 NIDHI-7 AMB Questionnaire NIDHI-7 Date NIDHI - 7 assessed: 10/25/23 Source: Developed by Drs. Spenser Mesa, Chrystal Yanez, Ren Felix and colleagues, with an educational neeta from [employer]. Review of Systems Const All systems reviewed & are unremarkable except as noted in HPI and below Card Denies chest pain at rest, Denies chest pain with activity, Denies edema, Denies irregular heart rhythm, Denies claudication, Denies dyspnea, Denies dyspnea on exertion, Denies orthopnea, Denies paroxysmal nocturnal dyspnea and Denies slow heart rate Resp Denies cough, Denies dyspnea and Denies dyspnea on exertion Physical exam (Primary Care) Vital Signs: Last Vital Signs BP 112/60 04/04/24 16:34 BMI result Body Mass Index 26.1 Tobacco/Smoking Status: Tobacco use Status Tobacco use date assessed 10/25/23 04/04/24 16:34 Patient Tobacco Use Status Never used Tobacco 04/04/24 16:34 e-Cigarette/Vaping Use Never Used 04/04/24 16:34 Thrive Assessment: Date of Thrive Assessment Date Thrive assessed 10/25/23 04/04/24 16:34 Const Orientation/consciousness: patient oriented x3 HENMT Head: Yes normal to inspection, Yes normocephalic and Yes atraumatic Ears: external ears normal Eyes General: appearance normal, both eyes and all related structures Eyelids: Yes eyelids normal Conjunctivae: conjunctivae normal Neck Neck: Yes normal visual inspection and Yes supple Resp Effort & Inspection: normal respiratory effort Auscultation: clear to auscultation bilaterally Cardio Jugular venous distension: no JVD Rate: regular rate Rhythm: regular rhythm Heart sounds: S1 normal heart sound present and S2 normal heart sound present GI Inspection: Yes normal to inspection Palpation (GI): Soft to palpation and nontender Auscultation: normal bowel sounds Skin General skin exam: no rashes or lesions noted Neuro General: patient oriented x3 and no focal motor deficits Extrem General: Yes full ROM Psych Appearance: grossly normal Results AMB Hemoglobin A1c AMB Hemoglobin A1c 6.6 % Last Edit by GRETTA Simmons on 04/04/24 16:41 Results Reviewed Results Reviewed: Laboratory Last Values Hgb A1c (Clinic) 6.6 % (4.0-6.0) H 04/04/24 16:31 Assessment and Plan Assessment & Plan (1) Physical exam: Code(s): Z00.00 - Encounter for general adult medical examination without abnormal findings Plan: Repeat in a year. (2) Diabetes mellitus: Code(s): E11.9 - Type 2 diabetes mellitus without complications Qualifiers: Diabetes mellitus type: type 2 Diabetes mellitus intermediate insulin use: with intermediate use Diabetes mellitus complication status: without complication Qualified Code(s): E11.9 - Type 2 diabetes mellitus without complications; Z79.4 - technician terminal and repeater (current) use of insulin Plan: Continue Jardiance and Januvia. A1c goal is equal or less than 7%. Diabetic eye exam was done yesterday. (3) Mild recurrent major depression: Code(s): F33.0 - Major depressive disorder, recurrent, mild Plan: Continue fluoxetine. Orders: Orders AMB Hemoglobin A1c Today E11.9 - Type 2 diabetes mellitus without complications, Z79.4 - [facility] (current) use of insulin Lipid Panel 4 Months E78.5 - Hyperlipidemia, unspecified Microalbumin, Random (w Creat) 4 Months E11.9 - Type 2 diabetes mellitus without complications Comprehensive [place]. 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
[2024-04-04 16:34] VITALS: BP 112/60; BMI 26.1
== END 2024-04-04 17:16 | disposition home or self-care (01) ==
PROVIDERS: PCP Internal Medicine; Visit Provider Internal Medicine
DX: Z00.00 Encounter for general adult medical examination without abnormal findings (principal); E11.9 Type 2 diabetes mellitus without complications; Z79.4 Long term (current) use of insulin; F33.0 Major depressive disorder, recurrent, mild
CPT/HCPCS: 83036; 99397

== ENCOUNTER 2024-05-03 08:48 | Emergency (ER) | payer OTHER, SELFPAY ==
--- NOTE | ~2024-05-03 | CT_ITS ---
EXAMINATION: CT HEAD W/O IV CONTRAST CT CERVICAL SPINE W/O IV CONTRAST CLINICAL INFORMATION: History of fall, head strike, pain. COMPARISON: CT cervical spine and head from 05/24/2022. TECHNIQUE: Head - Contiguous axial imaging of the head was performed from the skull base to the vertex without the administration of intravenous contrast, and axial images are reconstructed at 2 mm and 5 mm slice thickness. Cervical spine - A volumetric, helical CT acquisition of the cervical spine was obtained without contrast; in addition to the standard set of axial images, multiplanar reformatted images were provided in the coronal and sagittal imaging planes. This CT examination was performed using dose optimization techniques as appropriate, variously including the following: *Automated exposure control *Adjustment of mA and/or kV according to patient size (this includes techniques or standardized protocols for targeted exams where dose is matched to indication/reason for exam; i.e. extremities or head) *Use of iterative reconstruction technique DLP: 1154 mGy-cm (total) FINDINGS: HEAD: No intracranial hemorrhage, extra-axial surface collection, focal mass effect or midline shift. Atherosclerotic calcification of cavernous carotid arteries. Multiple chronic foci of hypoattenuation within subcortical and periventricular white matter are compatible with sequela of chronic moderate microangiopathy, and there appear to be old lacunar infarcts in gangliocapsular regions. The dodson-white matter differentiation is maintained. 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 Fowq-js-zrrvwzsd parenchymal volume loss and commensurate prominence of ventricles and sulci. No hydrocephalus. The cerebellar tonsils are in normal position. The calvarium is intact. Mild mucosal thickening of ethmoid air cells and left maxillary sinus. Otherwise, paranasal sinuses and mastoid air cells are well aerated. Prior ocular lens extractions. Temporomandibular joints are normal. CERVICAL SPINE: The craniocervical junction is normal. The occipital condyles, dens and atlantodental articulation are intact. The vertebral body heights are maintained. No fracture or prevertebral soft tissue edema. Multilevel facet osteoarthritis, worst on the left at C2-C3, C4-C5 and C7-T1. Chronic degenerative disc disease (with chronic mild degenerative retrolisthesis) at C3-C4 and C5-C6. These findings are unchanged compared to 05/24/2022. At C4-C5, the disc space is slightly narrowed, vertebral osteophytes are present, there is severe left-sided facet osteoarthritis and chronic 0.2 cm of degenerative anterolisthesis of C4 on C5. Also, chronic mild degenerative anterolisthesis is noted at C7-T1. The multilevel disc degenerative changes with uncovertebral joint hypertrophy and facet arthropathy cause varying degrees of chronic multilevel neural foraminal stenosis. The posterior disc-osteophyte complex with small central posterior disc protrusion causes mild spinal canal stenosis at C3-C4. At C5-C6, the posterior disc-osteophyte complex causes mild spinal canal stenosis. No soft tissue hematoma within the visualized neck. No acute findings within the visualized lung apices. Thyroid gland is unremarkable. CT/CT cervical spine wo IV con IMPRESSION: * No intracranial hemorrhage or other acute intracranial pathology compared to 05/24/2022. * No fractures within the chronically degenerated cervical spine. The mild subluxations of the vertebra in the degenerated spine are unchanged compared to 05/24/2022.
--- NOTE | ~2024-05-03 | XR_ITS ---
EXAMINATION: XR KNEE, RIGHT XR KNEE, LEFT CLINICAL INFORMATION: Pain, injury COMPARISON: 08/17/2021 TECHNIQUE: Right knee, 2 views Left knee, 2 views FINDINGS: Right knee: Bones have normal alignment. No fracture, subluxation or joint effusion. Small marginal osteophytes are present. Scattered atherosclerotic calcifications of peripheral vessels. Left knee: There is soft tissue swelling in the prepatellar region. Otherwise, findings of left knee are similar to those seen on the right. No fracture, subluxation or joint effusion. Small marginal osteophytes are present at patellofemoral and tibiofemoral compartments. There are scattered atherosclerotic calcifications. XR/XR knee LT 2V IMPRESSION: * Mild tricompartmental osteoarthritis of both knees. * No acute osseous injury. No fracture or malalignment at either knee. * There is soft tissue swelling in the left prepatellar region. Correlate clinically for any bruising/hematoma in this area after the recent fall.
--- NOTE | ~2024-05-03 | XR_ITS ---
EXAMINATION: XR KNEE, RIGHT XR KNEE, LEFT CLINICAL INFORMATION: Pain, injury COMPARISON: 08/17/2021 TECHNIQUE: Right knee, 2 views Left knee, 2 views FINDINGS: Right knee: Bones have normal alignment. No fracture, subluxation or joint effusion. Small marginal osteophytes are present. Scattered atherosclerotic calcifications of peripheral vessels. Left knee: There is soft tissue swelling in the prepatellar region. Otherwise, findings of left knee are similar to those seen on the right. No fracture, subluxation or joint effusion. Small marginal osteophytes are present at patellofemoral and tibiofemoral compartments. There are scattered atherosclerotic calcifications. XR/XR knee RT 2V IMPRESSION: * Mild tricompartmental osteoarthritis of both knees. * No acute osseous injury. No fracture or malalignment at either knee. * There is soft tissue swelling in the left prepatellar region. Correlate clinically for any bruising/hematoma in this area after the recent fall.
[2024-05-03 08:54] VITALS: BP 142/68; BP 150/71; PULSE 54; PULSE 64; RESP 18; TEMP 36.6; O2SAT 98; O2SAT 99; BMI 27.4
[2024-05-03 09:04] VITALS: BP 150/71; PULSE 54; RESP 18; TEMP 36.6; O2SAT 98
[2024-05-03 10:28] VITALS: BP 140/67; PULSE 51; RESP 13; TEMP 36.5; O2SAT 96
--- NOTE | 2024-05-03 11:47 | ED.GENADULT ---
HPI - General Adult General Chief complaint: Fall Stated complaint: FALL,L EAR LAC,ABR/KNEES PER EMS Time Seen by Provider: 05/03/24 11:47 Source: patient, EMS and sole stitcher hand (all interactions with this patient were facilitated via an [facility] [place] clinical[place] Mode of arrival: EMS Limitations: language barrier (all interactions with this patient were facilitated via an [facility] [place] clinical) History of Present Illness ED Provider: Rachel Land PA-C HPI narrative: Patient is an 83 year old assigned male at with a history of HLD, HTN, MDD, aortic regurg, mitral regurg, and DM presenting to the emergency department today with a left ear laceration after a fall. Patient states that he tripped on his sandals and fell. Patient states that his left ear and both of his knees hurt. Patient denies any loss of consciousness, dizziness, lightheadedness, abdominal pain, nausea, vomiting, fever, chills, blurry vision, double vision, loss of vision, chest pain, difficulty breathing, shortness of breath, back pain, night sweats, pain with urination, increased urinary frequency, increased urinary urgency, blood in his urine or stool, syncope or a near syncopal episode, bowel incontinence, bladder incontinence, or any other complaints at this time. Onset (ago): minute(s) Location: left (ear) Severity: mild Severity scale (1-10): 4 Quality: dull Relieving factors: none Exacerbating factors: none Associated symptoms: denies other symptoms Treatments prior to arrival: none Related Data Home Medications ?Medication ?Instructions ?Recorded ?Confirmed lancets 30 gauge #100 ea 11/10/20 04/04/24 umeclidinium 62.5 mcg-vilanterol 1 ea inhalation DAILY 10/18/23 04/04/24 25 mcg/actuation powdr for inhalation (Anoro Ellipta) nebulizers 02/17/24 04/04/24 Previous Rx's ?Medication ?Instructions ?Recorded disposable gloves (Biobrane Gloves #100 ea 07/13/22 Large) male urinal #1 ea 07/13/22 quad cane #1 ea 07/13/22 underpads (Bed Underpads) #100 ea 07/13/22 walker (Ultra-Light Rollator misc) #1 ea 07/13/22 blood sugar diagnostic (Accu-Chek #100 ea 10/28/22 SmartView Test Strips) lancets (Accu-Chek Softclix #100 ea 10/28/22 Lancets) flash glucose sensor (FreeStyle #1 ea 01/11/23 Carlie 14 Day Sensor kit) budesonide-formoterol HFA 80 1 inh inhalation BID 30 days #10.2 04/16/23 mcg-4.5 mcg/actuation aerosol grams inhaler clotrimazole 10 mg gail 10 mg mucous membrane TID #42 tabs 06/08/23 Ventolin HFA 90 mcg/actuation 2 puff inhalation Q6H PRN 08/09/23 aerosol inhaler (albuterol sulfate) shortness of breath or wheezing 30 days #8 grams meclizine 25 mg tablet 25 mg PO BID PRN dizziness #14 tabs 08/09/23 levalbuterol tartrate 45 2 inh inhalation Q6H 30 days #15 08/16/23 mcg/actuation aerosol inhaler grams tamsulosin 0.4 mg capsule 0.4 mg PO BEDTIME #30 caps 08/19/23 omeprazole 20 mg capsule,delayed 20 mg PO QAM 90 days #90 caps 09/16/23 release adult diapers pull-ups #240 ea 10/12/23 latex gloves (Latex Gloves, Medium) #200 ea 10/12/23 personal cleansing wipes #60 ea 10/12/23 metoprolol succinate 25 mg 25 mg PO DAILY 90 days #90 tabs 10/18/23 tablet,extended release 24 hr clopidogrel 75 mg tablet 75 mg PO BEDTIME 90 days #90 tabs 11/15/23 albuterol sulfate 2.5 mg/3 mL 2.5 mg (3 mL) inhalation BID 11/30/23 (0.083 %) solution for nebulization shortness of breath or wheezing 30 days #180 mL fluticasone furoate 100 1 inh inhalation DAILY #30 ea 11/30/23 mcg/actuation blister powder for inhalation (Arnuity Ellipta) prednisone 10 mg tablet See Rx Instructions PO DAILY 10 11/30/23 days #15 tabs omega-3 fatty acids-fish oil 340 1 cap PO QAM #30 caps 12/16/23 mg-1,000 mg capsule pen needle, diabetic 32 gauge x #100 ea 12/21/2332 (BD Ultra-Fine Dianna Pen Needle) fluoxetine 20 mg capsule 20 mg PO QAM #30 caps 01/08/24 sitagliptin phosphate 100 mg 100 mg PO QAM #30 tabs 01/08/24 tablet (Januvia) atorvastatin 20 mg tablet 20 mg PO BEDTIME #30 tabs 02/04/24 empagliflozin 25 mg tablet 25 mg PO QAM #30 tabs 02/04/24 (Jardiance) cholecalciferol (vitamin D3) 50 50 mcg PO DAILY 90 days #90 caps 02/08/24 mcg (2,000 unit) capsule hydrochlorothiazide 12.5 mg tablet 12.5 mg PO DAILY 90 days #90 tabs 02/08/24 amlodipine 5 mg tablet 5 mg PO DAILY 90 days #90 tabs 03/08/24 insulin degludec 100 unit/mL (3 15 unit (0.15 mL) subcut DAILY #15 04/10/24 mL) subcutaneous pen (Tresiba mL FlexTouch U-100 insulin) Allergies Allergy/AdvReac Type Severity Reaction Status Date / Time metformin AdvReac Intermediate diarrhea Verified 05/03/24 08:59 [facility] AdvReac vomiting Verified 05/03/24 08:59 Review of Systems Constitutional: Constitutional: Reports no additional constitutional complaints, Denies chills, Denies fever(s) and Denies night sweats Eyes: Eyes: Reports no additional eye complaints, Denies blurry vision, Denies change in vision, Denies diplopia, Denies eye discharge, Denies loss of vision and Denies eye pain ENT: Denies dizziness Comments: left ear laceration Cardiovascular: Cardiovascular: Reports no additional cardiovascular complaints, Denies chest pain, Denies lightheadedness, Denies Loss of Consciousness and Denies dyspnea Respiratory: Respiratory: Reports no additional respiratory complaints and Denies dyspnea Gastrointestinal: Gastrointestinal: Reports no additional gastrointestinal complaints, Denies abdominal pain, Denies melena, Denies hematochezia, Denies change in bowel habits and Denies change in stool character Genitourinary: Genitourinary: Reports no additional male genitourinary complaints, Denies hematuria, Denies oliguria, Denies difficulty urinating, Denies dysuria, Denies urinary frequency, Denies urinary hesitancy, Denies urinary incontinence and Denies urinary urgency Musculoskeletal: Musculoskeletal: Reports no additional musculoskeletal complaints, Denies numbness and Denies tingling Comments: bilateral knee abrasions Neurologic: Denies dizziness, Denies loss of vision, Denies numbness and Denies tingling Psychiatric: Psychiatric: Reports no additional psychiatric complaints Endocrine: Endocrine: Reports no additional endocrine complaints Hematologic/Lymphatic: Hematologic/Lymphatic: Reports no additional hematologic/lymphatic complaints Allergic/Immunologic: Allergic/Immunologic: Reports no additional allergic/immunologic complaints [facility] Past Medical History Attestation statement: The following information was validated with the patient. Source: old records reviewed and nursing notes reviewed Medical History Asthma-COPD overlap syndrome Peripheral vascular disease Abnormal chest x-ray Hyperkalemia Mild recurrent major depression Left leg pain Left knee pain Screening for prostate cancer Bilateral sensorineural hearing loss Progressive hearing loss of right ear Loss of hearing Cerumen debris on tympanic membrane of both ears Otitis media GERD (gastroesophageal reflux disease) TIA (transient ischemic attack) Diverticulosis Enlarged prostate Renal cyst Renal stones Essential hypertension Hyperlipidemia LDL goal <70 Type 2 diabetes mellitus with hyperglycemia Surgical History History of colonoscopy Hx of hernia repair Family History Family History Father Heart disease Mother No problems noted. Brother Prostate cancer Social History Social History Household Members: Family Housing: House Alcohol intake: former Patient Tobacco Use Status: Never used Tobacco Smoked in Last 30 Days: No e-Cigarette/Vaping Use: Never Used Second Hand Smoke Exposure: No Advance Directives: No Advance Directives Information Provided: Yes Do you have a plan to hurt others: No Plan service: No Current occupational status: retired Cognitive needs: Yes Hearing needs: No Vision needs: Yes Physical Exam ED Vital Signs: Vital Signs - 24 hr 05/03/24 08:54 05/03/24 09:04 05/03/24 09:04 Temperature 97.8 F 97.8 F 97.8 F Pulse Rate 54 54 54 Respiratory Rate 18 18 18 Blood Pressure 150/71 H 150/71 H 150/71 H Pulse Oximetry 98 98 98 Oxygen Delivery Method Room Air Room Air 05/03/24 10:28 05/03/24 11:55 05/03/24 12:35 Temperature 97.7 F 98.0 F Pulse Rate 51 58 58 Respiratory Rate 13 16 16 Blood Pressure 140/67 H 149/78 H 149/78 H Pulse Oximetry 96 97 97 Oxygen Delivery Method Room Air Room Air Room Air BMI result Body Mass Index 27.4 Const General: cooperative, no acute distress, alert and awake Nutritional Appearance: well nourished Orientation/consciousness: patient oriented x3 Limitations: no limitations HENMT Head: Yes normal to inspection and Yes atraumatic Ears: hearing grossly normal bilaterally and other (skin tear present to the left outer ear) General nose exam: Normal external nose present, no nasal discharge noted and no epistaxis Face and sinus: Yes normal facial exam, No abrasion and No laceration Mouth: Normal oral and palatal mucosa present, no drooling and no muffled voice Eyes General: appearance normal, both eyes and all related structures Periorbital: periorbital findings normal Eyelids: Yes eyelids normal Conjunctivae: conjunctivae normal Pupils: Equal, round and reactive pupils present EOM: EOMs intact bilaterally Neck Neck: Yes normal visual inspection, Yes full ROM and Yes no lymphadenopathy Chest Chest palpation & inspection: normal inspection of the chest Resp Effort & Inspection: normal respiratory effort and able to speak in complete sentences GI Inspection: Yes normal to inspection Neuro General: patient oriented x3 and moves all extremities Cranial nerves: Yes Equal, round and reactive pupils present Cognition (Neuro): normal cognition Extrem Other: bilateral knee abrasions General: Yes full ROM and Yes capillary refill normal Psych Appearance: grossly normal Mental Status: mental status grossly normal Affect: normal affect Attitude: cooperative Thought process: Normal thought process present Thought content: Normal thought content present Insight: Good insight present (Psych) Procedures Laceration Laceration 1: Site: other (ear) Side (If applicable): left Description: irregular Depth: simple, single layer Pre-repair: wound explored, irrigated extensively and deep structures intact Skin layer closed with: other (dermabond) Size (cm): other (dermabond) Technique: other (dermabond) Medical Decision Making Medical Decision Making MDM Narrative: Patient is a 83 year old assigned male at with a history of HLD, HTN, MDD, aortic regurg, mitral regurg, and DM presenting to the emergency department today with a left ear laceration and bilateral knee abrasions after a trip and fall. Patient's physical exam was as noted in the physical exam portion of this note. Patient's bilateral knee x-rays, head CT, and c-spine CT showed no acute process. I explained my physical exam findings as well as all test results to the patient. I answered all questions asked by the patient. Patient's left ear skin tear was dermabond repaired, without incident. I stressed the importance of the patient taking his medication as directed (either prescribed or as the over the counter packaging recommends). I stressed the importance of the patient following up with his primary care provider. I stressed the importance of the patient returning to the emergency department immediately if his symptoms were to worsen or if [he/she/they] were to develop any dizziness, shortness of breath, difficulty breathing, chest pain, blurry vision, loss of vision, nausea, vomiting, abdominal pain, fever, chills, back pain, or any other complaints. Patient verbalized agreement and understanding with this treatment plan and discharge. Differential Diagnosis Differential Diagnoses: The differential diagnosis associated with the presentation includes Left ear skin tear Trip and fall Knee abrasions Admission/Observation Consideration of admission/observation: Escalation of care including admission/observation considered Patient would have been admitted to the hospital had his work up had any findings where hospital admission was appropriate and his clinical presentation warranted hospital admission. Independent Interpretation I performed an independent interpretation of an: Plain X-Ray and CT Scan Interpretation: My interpretation is in agreement with the radiologist's impression of these imaging studies. EXAMINATION: XR KNEE, RIGHT XR KNEE, LEFT CLINICAL INFORMATION: Pain, injury COMPARISON: 08/17/2021 TECHNIQUE: Right knee, 2 views Left knee, 2 views FINDINGS: Right knee: Bones have normal alignment. No fracture, subluxation or joint effusion. Small marginal osteophytes are present. Scattered atherosclerotic calcifications of peripheral vessels. Left knee: There is soft tissue swelling in the prepatellar region. Otherwise, findings of left knee are similar to those seen on the right. No fracture, subluxation or joint effusion. Small marginal osteophytes are present at patellofemoral and tibiofemoral compartments. There are scattered atherosclerotic calcifications. XR/XR knee RT 2V IMPRESSION: * Mild tricompartmental osteoarthritis of both knees. * No acute osseous injury. No fracture or malalignment at either knee. * There is soft tissue swelling in the left prepatellar region. Correlate clinically for any bruising/hematoma in this area after the recent fall. Dictated By: Heath Lopez MD Signed By: Electronically signed by Heath Lopez MD 05/03/24 1031 EXAMINATION: CT HEAD W/O IV CONTRAST CT CERVICAL SPINE W/O IV CONTRAST CLINICAL INFORMATION: History of fall, head strike, pain. COMPARISON: CT cervical spine and head from 05/24/2022. TECHNIQUE: Head - Contiguous axial imaging of the head was performed from the skull base to the vertex without the administration of intravenous contrast, and axial images are reconstructed at 2 mm and 5 mm slice thickness. Cervical spine - A volumetric, helical CT acquisition of the cervical spine was obtained without contrast; in addition to the standard set of axial images, multiplanar reformatted images were provided in the coronal and sagittal imaging planes. This CT examination was performed using dose optimization techniques as appropriate, variously including the following: *Automated exposure control *Adjustment of mA and/or kV according to patient size (this includes techniques or standardized protocols for targeted exams where dose is matched to indication/reason for exam; i.e. extremities or head) *Use of iterative reconstruction technique DLP: 1154 mGy-cm (total) FINDINGS: HEAD: No intracranial hemorrhage, extra-axial surface collection, focal mass effect or midline shift. Atherosclerotic calcification of cavernous carotid arteries. Multiple chronic foci of hypoattenuation within subcortical and periventricular white matter are compatible with sequela of chronic moderate microangiopathy, and there appear to be old lacunar infarcts in gangliocapsular regions. The dodson-white matter differentiation is maintained. 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 Xpno-jc-[id number] parenchymal volume loss and commensurate prominence of ventricles and sulci. No hydrocephalus. The cerebellar tonsils are in normal position. The calvarium is intact. Mild mucosal thickening of ethmoid air cells and left maxillary sinus. Otherwise, paranasal sinuses and mastoid air cells are well aerated. Prior ocular lens extractions. Temporomandibular joints are normal. CERVICAL SPINE: The craniocervical junction is normal. The occipital condyles, dens and atlantodental articulation are intact. The vertebral body heights are maintained. No fracture or prevertebral soft tissue edema. Multilevel facet osteoarthritis, worst on the left at C2-C3, C4-C5 and C7-T1. Chronic degenerative disc disease (with chronic mild degenerative retrolisthesis) at C3-C4 and C5-C6. These findings are unchanged compared to 05/24/2022. At C4-C5, the disc space is slightly narrowed, vertebral osteophytes are present, there is severe left-sided facet osteoarthritis and chronic 0.2 cm of degenerative anterolisthesis of C4 on C5. Also, chronic mild degenerative anterolisthesis is noted at C7-T1. The multilevel disc degenerative changes with uncovertebral joint hypertrophy and facet arthropathy cause varying degrees of chronic multilevel neural foraminal stenosis. The posterior disc-osteophyte complex with small central posterior disc protrusion causes mild spinal canal stenosis at C3-C4. At C5-C6, the posterior disc-osteophyte complex causes mild spinal canal stenosis. No soft tissue hematoma within the visualized neck. No acute findings within the visualized lung apices. Thyroid gland is unremarkable. CT/CT cervical spine wo IV con IMPRESSION: * No intracranial hemorrhage or other acute intracranial pathology compared to 05/24/2022. * No fractures within the chronically degenerated cervical spine. The mild subluxations of the vertebra in the degenerated spine are unchanged compared to 05/24/2022. Dictated By: Heath Lopez MD Signed By: Electronically signed by Heath Lopez MD 05/03/24 1106 Radiology Impression Discussion of test interpretation with radiology: I have reviewed the radiologist's reading. Independent Historian Clinical information obtained from an independent historian. History obtained from or confirmed by: EMS (EMS provided additional history and confirmed the history provided by the patient.) Discharge Plan Discharge Clinical Impression: Laceration of ear Patient Disposition: Home, Self-Care Instructions: Skin Tear (ED) Additional Instructions: Unfortunately, the skin tear to your left external ear could not be manually closed / repaired given there is skin missing. However, I applied dermabond to the flaps of skin remaining. Do NOT get the affected area wet for at LEAST 7 days. Follow up with your primary care provider. Return to the emergency department immediately if your symptoms worsen or if you develop any dizziness, shortness of breath, difficulty breathing, chest pain, blurry vision, loss of vision, nausea, vomiting, abdominal pain, fever, chills, back pain, or any other complaints. Lamentablemente, el desgarro de piel de conklin oreja externa izquierda no pudo cerrarse/repararse manualmente dado que falta piel. Sin embargo, apliqu? dermabond a los colgajos de piel que quedaban. NO moje la homero afectada [place] 7 d?as. Ulysses un seguimiento con conklin m?dico de cabecera. Vuelva al servicio de urgencias inmediatamente si henrietta s?ntomas empeoran o si presenta mareos, falta de aliento, dificultad para respirar, dolor tor?cico, visi?n borrosa, p?rdida de visi?n, n?useas, v?mitos, dolor abdominal, fiebre, escalofr?os, dolor de espalda o cualquier otra molestia. Prescriptions: No Action (DME) male urinal See Rx Instructions .Route .MEDSUPPLY Qty: 1 0RF Rx Instructions: As directed (DME) quad cane See Rx Instructions .Route .MEDSUPPLY Qty: 1 0RF Rx Instructions: As directed (DME) Ultra-Light Rollator Misc See Rx Instructions .Route Qty: 1 0RF Rx Instructions: As directed (DME) underpads [Bed Underpads] Pad See Rx Instructions .Route Qty: 100 6RF Rx Instructions: Use 1 underpad once a day (DME) disposable gloves [Biobrane Gloves Large] Misc See Rx Instructions .Route Qty: 100 6RF Rx Instructions: As directed (DME) Accu-Chek SmartView Test Strip Strip See Rx Instructions .ROUTE .MEDSUPPLY Qty: 100 11RF Rx Instructions: As directed three times a day (DME) FreeStyle Carlie 14 Day Sensor Kit See Rx Instructions .Route Qty: 1 0RF Rx Instructions: As directed budesonide-formoterol 80-4.5 mcg/actuation HFA aerosol inhaler 1 inh inhalation BID 30 Days Qty: 10.2 1RF levalbuterol tartrate 45 mcg/actuation HFA aerosol inhaler 2 inh inhalation Q6H 30 Days Qty: 15 3RF tamsulosin 0.4 mg capsule 0.4 mg PO BEDTIME Qty: 30 11RF omeprazole 20 mg capsule,delayed release(DR/EC) 20 mg PO QAM 90 Days Qty: 90 3RF (DME) adult diapers pull-ups large See Rx Instructions .Route .MEDSUPPLY Qty: 240 6RF Rx Instructions: As directed (DME) latex gloves [Latex Gloves, Medium] Misc See Rx Instructions .Route Qty: 200 11RF Rx Instructions: As directed (DME) personal cleansing wipes See Rx Instructions .Route .MEDSUPPLY Qty: 60 6RF Rx Instructions: As directed metoprolol succinate 25 mg tablet extended release 24 hr 25 mg PO DAILY 90 Days Qty: 90 2RF clopidogrel 75 mg tablet 75 mg PO BEDTIME 90 Days Qty: 90 3RF omega-3 fatty acids-fish oil 340-1,000 mg capsule 1 cap PO QAM Qty: 30 6RF (DME) pen needle, diabetic [BD Ultra-Fine Dianna Pen Needle] 32 gauge x 5/32 needle See Rx Instructions .ROUTE .MEDSUPPLY Qty: 100 3RF Rx Instructions: As directed once daily Januvia 100 mg tablet 100 mg PO QAM Qty: 30 6RF fluoxetine 20 mg capsule 20 mg PO QAM Qty: 30 6RF atorvastatin 20 mg tablet 20 mg PO BEDTIME Qty: 30 4RF Jardiance 25 mg tablet 25 mg PO QAM Qty: 30 4RF hydrochlorothiazide 12.5 mg tablet 12.5 mg PO DAILY 90 Days Qty: 90 1RF cholecalciferol (vitamin D3) 50 mcg (2,000 unit) capsule 50 mcg PO DAILY 90 Days Qty: 90 1RF amlodipine 5 mg tablet 5 mg PO DAILY 90 Days Qty: 90 1RF insulin degludec [Tresiba FlexTouch U-100] 100 unit/mL (3 mL) insulin pen 15 unit subcut DAILY Qty: 15 3RF (DME) lancets [Accu-Chek Softclix Lancets] Misc See Rx Instructions .ROUTE .MEDSUPPLY Qty: 100 11RF Rx Instructions: As directed three times a day clotrimazole 10 mg gail 10 mg mucous membrane TID Qty: 42 0RF meclizine 25 mg tablet 25 mg PO BID PRN (Reason: dizziness) Qty: 14 0RF albuterol sulfate [Ventolin HFA] 90 mcg/actuation HFA aerosol inhaler 2 puff inhalation Q6H PRN (Reason: shortness of breath or wheezing) 30 Days Qty: 8 0RF (DME) lancets 30 gauge misc See Rx Instructions topical .MEDSUPPLY Qty: 100 Rx Instructions: As directed Anoro Ellipta 62.5-25 mcg/actuation blister with device 1 ea inhalation DAILY (DME) nebulizers Misc See Rx Instructions .Route Rx Instructions: As directed Arnuity Ellipta 100 mcg/actuation blister with device 1 inh inhalation DAILY Qty: 30 6RF prednisone 10 mg tablet See Rx Instructions PO DAILY 10 Days Qty: 15 0RF Rx Instructions: PO daily; Take 2 tabs daily x 5 days, 1 tab x 5 days albuterol sulfate 2.5 mg /3 mL (0.083 %) solution for nebulization 2.5 mg inhalation BID 30 Days Qty: 180 11RF Referrals: Kavita Morales MD [Primary Care Provider] - Interventions: ED Discharge Assessment Last Done: 05/03/24 12:35 Discharge Date/Time: 05/03/24 12:36 Print Language: Macedonian
[2024-05-03 11:55] VITALS: BP 149/78; PULSE 58; RESP 16; O2SAT 97
--- NOTE | 2024-05-03 12:25 | PC.NURSE ---
Patient's laceration covered with nonaderant pad and tape. Patient and family satisfied with bandage.
[2024-05-03 12:35] VITALS: BP 149/78; PULSE 58; RESP 16; TEMP 36.7; O2SAT 97
== END 2024-05-03 12:36 | disposition home or self-care (01) ==
PROVIDERS: Emergency Provider Emergency Medicine Emergency Medical Services; PCP Internal Medicine
DX: S01.312A Laceration without foreign body of left ear, initial encounter (principal); S89.92XA Unspecified injury of left lower leg, initial encounter; S89.91XA Unspecified injury of right lower leg, initial encounter; W01.0XXA Fall on same level from slipping, tripping and stumbling without subsequent striking against object, initial encounter; Y93.9 Activity, unspecified; Y92.9 Unspecified place or not applicable; Y99.9 Unspecified external cause status; I10 Essential (primary) hypertension; E78.5 Hyperlipidemia, unspecified; E11.9 Type 2 diabetes mellitus without complications
CPT/HCPCS: 70450; 72125; 73560; 99284

== ENCOUNTER 2024-05-25 09:40 | Outpatient (AMB) | payer OTHER, SELFPAY ==
[2024-05-25 09:43] VITALS: BP 142/70; PULSE 50; O2SAT 98; BMI 26.3
--- NOTE | 2024-05-25 09:43 | MHC.PC.OV ---
Vital Signs 05/25/24 09:43 Height 5 ft 6 in Weight 163 lb 0.4 oz BMI 26.3 BP 142/70 H Blood Pressure Location Lt brachial Position Sitting Pulse 50 Pulse Source Pulse Oximeter Pulse Oximetry (%) 98 Oxygen Delivery Method Room Air Intake Visit Re[place] Intake Note: Patient is here to follow-up after a visit the [place] [facility] Emergency Communications Operator Required: No Allergies metformin Adverse Reaction (Intermediate, Verified 05/25/24 09:43) diarrhea [facility] Adverse Reaction (Verified 05/25/24 09:43) vomiting Tobacco use date assessed: 10/25/23 Fall risk assessment: 1 Fall in past year Last assessed Fall Risk: 05/25/24 Dental Screening Dental Screen Date: 10/25/23 HPI HPI Comments History of Present Illness Details 83 y/o male patient who presents to the clinic for HDF. He [place] [facility] [place] for Fall and left ear Laceration. He was discharged home the same day. Today he is accompanied by daughter who helps with translation. Pt had no concerns today. [facility] Medical History Asthma-COPD overlap syndrome Peripheral vascular disease Abnormal chest x-ray Hyperkalemia Mild recurrent major depression Left leg pain Left knee pain Screening for prostate cancer Bilateral sensorineural hearing loss Progressive hearing loss of right ear Loss of hearing Cerumen debris on tympanic membrane of both ears Otitis media GERD (gastroesophageal reflux disease) TIA (transient ischemic attack) Diverticulosis Enlarged prostate Renal cyst Renal stones Essential hypertension Hyperlipidemia LDL goal <70 Type 2 diabetes mellitus with hyperglycemia Surgical History History of colonoscopy Hx of hernia repair Family History Father Heart disease Mother No problems noted. Brother Prostate cancer Social History Household Members: Family Housing: House Alcohol intake: former Patient Tobacco Use Status: Never used Tobacco e-Cigarette/Vaping Use: Never Used Second Hand Smoke Exposure: No service: No Current occupational status: retired Cognitive needs: Yes Hearing needs: No Vision needs: Yes Questionnaire Thrive Questionnaire Date Thrive assessed: 10/25/23 AUDIT C Alcohol Use Questionnaire (AUDIT-C) 1. How often do you have a drink containing alcohol?: Monthly or less 2. How many drinks containing alcohol do you have on a typical day when you are drinking?: 1 or 2 3. How often do you have six or more drinks on one occasion?: Never Total Score: 1 Score Reviewed/Action Taken: No NIDHI-7 AMB Questionnaire NIDHI-7 Date NIDHI - 7 assessed: 10/25/23 Source: Developed by Drs. Spenser Mesa, Chrystal Yanez, Ren Felix and colleagues, with an educational neeta from [employer]. Review of Systems Const All systems reviewed & are unremarkable except as noted in HPI and below Physical exam (Primary Care) Vital Signs: Last Vital Signs Pulse 50 05/25/24 09:43 BP 142/70 H 05/25/24 09:43 Pulse Ox 98 05/25/24 09:43 Oxygen Delivery Method Room Air 05/25/24 09:43 BMI result Body Mass Index 26.3 Tobacco/Smoking Status: Tobacco use Status Tobacco use date assessed 10/25/23 05/25/24 09:50 Patient Tobacco Use Status Never used Tobacco 05/25/24 09:50 e-Cigarette/Vaping Use Never Used 05/25/24 09:50 Thrive Assessment: Date of Thrive Assessment Date Thrive assessed 10/25/23 05/25/24 09:50 Const General: comfortable and no acute distress Orientation/consciousness: patient oriented x3 HENMT Head: Yes normocephalic Ears: external ear abnormal other (Well healed scar left outer ear) Face and sinus: Yes normal facial exam Mouth: Normal oral and palatal mucosa present Neuro General: patient oriented x3 and moves all extremities Psych Speech and movement: Normal speech and movement present Affect: normal affect Vital Signs: Last Vital Signs Pulse 50 05/25/24 09:43 BP 142/70 H 05/25/24 09:43 Pulse Ox 98 05/25/24 09:43 Oxygen Delivery Method Room Air 05/25/24 09:43 BMI result Body Mass Index 26.3 Const General: comfortable and no acute distress Orientation/consciousness: patient oriented x3 HEENT Other: Well healed scar on the left outer ear. Head: Yes normocephalic Ears: external ear abnormal other (Well healed scar left outer ear) Face and sinus: Yes normal facial exam Mouth: Normal oral and palatal mucosa present Neuro Other: Walks with a walker General: patient oriented x3 and moves all extremities Psych Speech and movement: Normal speech and movement present Affect: normal affect Results AMB Hemoglobin A1c AMB Hemoglobin A1c 6.6 % Last Edit by GRETTA Newton on 05/25/24 10:06 Assessment and Plan Assessment & Plan (1) Laceration of left ear: Code(s): S01.312A - Laceration without foreign body of left ear, initial encounter Qualifiers: Encounter type: initial encounter Qualified Code(s): S01.312A - Laceration without foreign body of left ear, initial encounter Plan: Healing well, no further concerns. Orders: Orders AMB Hemoglobin A1c Today E11.9 - Type 2 diabetes mellitus without complications, Z79.4 - retirement (current) use of insulin Coding Level of Care Code Est Pt Level 4 (80218) Diagnoses Laceration of left ear, initial encounter S01.312A Encounter type: initial encounter Time Spent (min) 20 Comment Spent reviewing hospital notes.
== END 2024-05-25 11:55 | disposition home or self-care (01) ==
PROVIDERS: PCP Internal Medicine; Visit Provider Nurse Practitioner Family
DX: S01.312A Laceration without foreign body of left ear, initial encounter (principal); E11.9 Type 2 diabetes mellitus without complications; Z79.4 Long term (current) use of insulin
CPT/HCPCS: 83036; 99213

== ENCOUNTER 2024-08-08 08:24 | Outpatient (REF) | payer OTHER, SELFPAY ==
[2024-08-08 09:58] LABS: Alanine Aminotransferase 24 U/L (0-40); Albumin Level 3.6 g/dL (3.5-5.0); Alkaline Phosphatase 97 U/L (39-117); Anion Gap 9 (12-20); Aspartate Amino Transferase 29 U/L (5-37); Bilirubin Total 0.9 mg/dL (0.0-1.0); Blood Urea Nitrogen 23 mg/dL (9-16); Carbon Dioxide 30 mmol/L (22-29); Chloride 102 mmol/L (96-108); Cholesterol 133 mg/dL (<200); Estimated Glomerular Filt Rate 53; Glucose Fasting 110 mg/dL (60-99); HDL Cholesterol 37 mg/dL (>40); LDL Cholesterol Calculated 80 mg/dL (<100); Sodium 137 mmol/L (135-145); Total Protein 7.2 g/dL (6.5-8.0); Triglycerides 82 mg/dL (<150)
[2024-08-08 11:19] LABS: Creatinine Urine 128.63 mg/dL; Microalbum/Creatinine Ratio Ur 6.9 ug/mg cr (<30)
== END 2024-08-08 08:25 | disposition home or self-care (01) ==
LOC: HO.LAB 08:24
PROVIDERS: PCP Internal Medicine; Visit Provider Internal Medicine
DX: E78.5 Hyperlipidemia, unspecified (principal); E11.9 Type 2 diabetes mellitus without complications; Z79.4 Long term (current) use of insulin; R05.3 Chronic cough; R93.89 Abnormal findings on diagnostic imaging of other specified body structures; J44.89 Other specified chronic obstructive pulmonary disease; R91.1 Solitary pulmonary nodule
CPT/HCPCS: 36415; 80053; 80061; 82043; 82570; 99212

== ENCOUNTER 2024-08-08 08:55 | Outpatient (AMB) | payer OTHER, SELFPAY ==
--- NOTE | 2024-08-08 09:02 | A.OFFVIS_ITS ---
Vital Signs 08/08/24 09:03 Height 5 ft 6 in Weight 160 lb 14.999 oz BMI 26.0 BP 118/60 Blood Pressure Location Lt brachial Position Sitting Pulse 60 Pulse Source Pulse Oximeter Pulse Oximetry (%) 96 Oxygen Delivery Method Room Air Intake Visit Reasons: cough Allergies metformin Adverse Reaction (Intermediate, Verified 08/08/24 09:05) diarrhea dulaglutide [From [employer]] Adverse Reaction (Verified 08/08/24 09:05) vomiting HPI Comments Details: The patient is an 83-year-old gentleman who apparently was in his usual state health until early fall he started developing worsening cough chest congestion. It was moderate severity just putting get better. He required multiple course of antibiotics. The last time he was evaluated he was also given some prednisone. He was given a rescue inhaler and also order to start Anoro. Although he has not started as of yet. Because of his ongoing symptoms he did undergo a chest x-ray which was personally by me. It appears that he had a small area of opacity in the right mid lung area. I did review previous x-rays and this area was not there. He therefore could have been a degree of airspace disease. Clinically the patient feels a lot better. He is no longer coughing. He feels like he is back to his baseline. He is here with his daughter who feel that he is back and to his baseline as well. She is wondering if he really needs the Anoro since the patient's breathing and coughing significantly improved. I did agree with them. I did recommend that if he does require his short-acting beta agonist more than twice a week to go ahead and start the Anoro. But for now he will hold off. The patient will return to the office after having a pulmonary function study and also a repeat chest x-ray. I am hopeful that that area of opacity improved by then. If the area still abnormal and or if he becomes symptomatic will consider additional imaging studies. But for now the patient is doing well. He will receive his Prevnar 20 vaccine today. 11/30/2023 the patient is here for a pulmonary follow-up visit. The patient has been complaining of worsening chest tightness and wheezing. Moderate severity. Apparent thing asleep. Sometimes he will go to cough her secretions out. We did review his PFTs demonstrating an obstructive process consistent with COPD. In addition to that the patient does have a chest x-ray demonstrating a persistent opacity in the right lower lung area. Based on his ongoing symptoms in the abnormal chest x-ray a CT scan of the chest will be reasonable further address the findings. In the meantime we are going to optimize his respiratory therapy by adding inhaled cortical steroid to the Anoro. The patient can also start short course of steroids that will help him decrease the inflammation. The patient also benefits from a nebulizer. The nebulizer will provide him with relief specially since he has a she could response when he had the PFTs. 02/17/2024 the patient is here for a pulmonary follow-up visit. Overall the patient still feels about the same. Complains of cough productive in nature. Ezos-ur-ufycoaaw severity. Did start the new inhaler. Has noticed some minimal benefit. He states that he coughs and has a lot of chest congestion. We did review his CT scan of the chest. Does have small subcentimeter pulmonary nodules. Would benefit from a CT scan in a year's time. Otherwise will go ahead and start him on azithromycin 3 times a week for a month to see if we can improve his chronic bronchitis issues. 08/08/2024 the patient is here for a pulmonary follow-up visit. Overall the patient is doing well. The [employer] nights out helping his cough. Although he still having yellowish productive cough. For the most part is from his sinuses. The patient did have a CT scan of the chest back in 12/06/2023 which we personally reviewed. Appears to have some component of pneumoconiosis. Very mild emphysema noted. He is a nonsmoker. In addition to that the patient does have underlying pulmonary nodules subcentimeter in size. Will go ahead and repeat the CT scan sometime in 6 months which will be more than a year after his last 1 to make sure that the nodular densities are stable in view of his weight loss. [facility] [place] Medical History Asthma-COPD overlap syndrome Peripheral vascular disease Abnormal chest x-ray Hyperkalemia Mild recurrent major depression Left leg pain Left knee pain Screening for prostate cancer Bilateral sensorineural hearing loss Progressive hearing loss of right ear Loss of hearing Cerumen debris on tympanic membrane of both ears Otitis media GERD (gastroesophageal reflux disease) TIA (transient ischemic attack) Diverticulosis Enlarged prostate Renal cyst Renal stones Essential hypertension Hyperlipidemia LDL goal <70 Type 2 diabetes mellitus with hyperglycemia Surgical History History of colonoscopy Hx of hernia repair Family History Father Heart disease Mother No problems noted. Brother Prostate cancer Social History Household Members: Family Housing: House Alcohol intake: former Patient Tobacco Use Status: Never used Tobacco e-Cigarette/Vaping Use: Never Used Second Hand Smoke Exposure: No service: No Current occupational status: retired Cognitive needs: Yes Hearing needs: No Vision needs: Yes Review of Systems Const Denies fever(s) and Denies weight loss Eyes Reports no additional complaints, Denies change in vision and Denies other visual disturbances Card Denies chest pain at rest, Denies chest pain with activity, Denies edema, Denies irregular heart rhythm, Denies claudication, Denies dyspnea on exertion, Denies orthopnea, Denies paroxysmal nocturnal dyspnea and Denies slow heart rate Resp Reports chest congestion, Reports cough, Denies excessive phlegm production, Denies dyspnea on exertion and Reports wheezing GI Denies abdominal pain, Denies change in bowel habits, Denies excessive flatus, Denies nausea and Denies vomiting Denies urinary hesitancy, Denies urinary incontinence and Denies urinary urgency Musc Denies abnormal gait, Denies atrophy, Denies deformity and Denies limited range of motion Skin/Breast Denies bleeding lesions, Denies changing lesions and Denies rash Neuro Denies abnormal gait, Denies confusion and Denies lack of coordination Psych Denies confusion Aller/Immun Reports wheezing Physical Exam Vital Signs: Last Vital Signs Pulse 60 08/08/24 09:03 BP 118/60 08/08/24 09:03 Pulse Ox 96 08/08/24 09:03 Oxygen Delivery Method Room Air 08/08/24 09:03 BMI result Body Mass Index 26.0 Const General: No confusion Orientation/consciousness: No confusion Limitations: ambulation with cane HEENT Mouth: tongue abnormal geographic and fissured Neck Neck: Yes supple Chest Chest palpation & inspection: normal inspection of the chest Resp Effort & Inspection: normal respiratory effort Auscultation: no wheezes and diminished lung sounds Cardio Heart sounds: S1 normal heart sound present and S2 normal heart sound present Neuro General: No confusion Gait exam (Neuro): Normal gait present Romberg Test: Negative Extrem General: Yes no clubbing, cyanosis or edema Results Reviewed Results Reviewed: [address] [address] [address] Scan Report Signed Patient: Manuel Bianchi MR#: [id number] : 1940 Acct:[id number] Age/Sex: 82 / M ADM Date: 12/08/23 Loc: HO.CT Attending Dr: Eliel Quiñones MD Ordering Physician: Eliel Quiñones MD Date of Service: 12/08/23 Procedure(s): CT chest wo IV con Accession Number(s): [id number] cc: Kavita Morales MD; Eliel Quiñones MD~ EXAMINATION: CT CHEST WITHOUT CONTRAST CLINICAL INFORMATION: Chronic cough COMPARISON: 11/08/2023 chest radiograph TECHNIQUE: Multidetector volumetric CT imaging of the chest was done. Axial MIP volume rendering provided. Sagittal and coronal reformatted images were obtained. This CT examination was performed using dose optimization techniques as appropriate, variously including the following: *Automated exposure control *Adjustment of mA and/or kV according to patient size (this includes techniques or standardized protocols for targeted exams where dose is matched to indication/reason for exam; i.e. extremities or head) *Use of iterative reconstruction technique DLP: 328 mGy-cm FINDINGS: SOFTWARE SALES MANAGER: GE junction surgical clips. Clear lungs. LUNGS: Intrathoracic trachea is dilated. Mild bronchiectasis. Centrilobular emphysema. Scattered atelectasis. 3 adjacent left subpleural pulmonary nodules, largest measuring 3 mm, 5:296 through 304. MEDIASTINUM: Unremarkable thyroid. No pathologic lymphadenopathy. Dilated, mildly thickened esophagus. Hiatal hernia junction clips. Heart size upper limits of normal. No pericardial effusion. Left lateral pericardial calcifications versus medial pleural based calcifications. Nonaneurysmal aorta with atherosclerotic calcifications. Nonenlarged pulmonary arteries. CORONARY ARTERY CALCIFICATION: Moderate. PLEURA: Bilateral upper anterior, left lower posterior medial and right hemidiaphragmatic pleural calcifications. No thickening, masses or effusions. AXILLA: No lymphadenopathy. UPPER ABDOMEN: 3.5 cm right renal cyst having shown enlargement from 2016. Partial inclusion left upper pole right renal cyst. No suspicious renal lesions. Herniorrhaphy material the imaged segment OSSEOUS AND SOFT TISSUE STRUCTURES: Mild gynecomastia. [Degenerative type changes. No suspicious osseous lesions.] CT/CT chest wo IV con IMPRESSION: Cluster of left pulmonary nodules, largest measuring 3 mm. No further follow-up in low-risk patient. If high risk, CT at 12 months and if stable, no further follow-up. Centrilobular emphysema. Pleural and pericardial calcifications without abnormal masses or thickening, correlate with history. Renal cysts. Fleischner guidelines were followed. Dictated By: Vanesa Ramírez MD Signed By: <Electronically signed by Vanesa Ramírez MD in OV> 12/14/23 1019 DD/ 1440 TD/TT: [employer]: Assessment & Plan Assessment & Plan (1) Chronic cough: Code(s): R05.3 - Chronic cough Category: Medical (2) Abnormal chest x-ray: Code(s): R93.89 - Abnormal findings on diagnostic imaging of other specified body structures Category: Medical (3) Asthma-COPD overlap syndrome: Code(s): J44.89 - Other specified chronic obstructive pulmonary disease Category: Medical (4) Pulmonary nodule: Code(s): R91.1 - Solitary pulmonary nodule Category: Medical Plan JATINDER as needed continue Anoro continue Arnuity acapella valve Benzonates as needed start Doxycycline X 14 days for sinusitis start fluticasone nasal spray CT chest in 6 months F/U 6 months Orders: Orders CT chest wo IV con 6 Months R91.1 - Solitary pulmonary nodule Medications: New doxycycline monohydrate 100 mg PO BID 14 days 28 tabs 0RF fluticasone propionate 50 mcg/actuation 2 sprays intranasal DAILY 30 days 15.8 mL 11RF J31.0 - Chronic rhinitis Refilled benzonatate 200 mg PO BID 30 days PRN 60 caps 6RF cough Coding Level of Care Code Est Pt Level 4 (46120) Diagnoses Chronic cough R05.3 Abnormal chest x-ray R93.89 Asthma-COPD overlap syndrome J44.89 Pulmonary nodule R91.1 Time Spent (min) 18
[2024-08-08 09:03] VITALS: BP 118/60; PULSE 60; O2SAT 96; BMI 26.0
== END 2024-08-08 09:21 | disposition home or self-care (01) ==
PROVIDERS: PCP Internal Medicine; Visit Provider Hospitalist
DX: R05.3 Chronic cough (principal); R93.89 Abnormal findings on diagnostic imaging of other specified body structures; J44.89 Other specified chronic obstructive pulmonary disease; R91.1 Solitary pulmonary nodule
CPT/HCPCS: 99214

== ENCOUNTER 2024-08-20 13:43 | Outpatient (AMB) | payer OTHER, SELFPAY ==
[2024-08-20 14:04] VITALS: BP 120/70; BMI 25.8
--- NOTE | 2024-08-20 14:04 | MHC.PC.OV ---
Vital Signs 08/20/24 14:04 Height 5 ft 6 in Weight 160 lb BMI 25.8 BP 120/70 Blood Pressure Location Lt brachial Position Sitting Intake Visit Reasons: 4mof\u - see comments Intake Note: Patient here for a 4 month follow up Dark Room Attendant Required: No Accompanied by: Daughter Allergies metformin Adverse Reaction (Intermediate, Verified 08/20/24 14:21) diarrhea [facility] Adverse Reaction (Verified 08/20/24 14:21) vomiting Medication List - Last Reconciled 08/20/24 by Kavita Mckeon MD [adult diapers pull-ups As directed] albuterol sulfate 2.5 mg (3 mL) inhalation BID 30 days amlodipine 5 mg PO DAILY 90 days atorvastatin 20 mg PO BEDTIME benzonatate 200 mg PO BID PRN 30 days blood sugar diagnostic (Shop[employer]it Ultra Test strips) As directed check the blood sugar 3 times a day blood-glucose meter (Shopintoit Ultra2 Meter) As directed budesonide-formoterol 80-4.5 mcg/actuation 1 inh inhalation BID 30 days cholecalciferol (vitamin D3) 50 mcg PO DAILY 90 days clopidogrel 75 mg PO BEDTIME 90 days clotrimazole 10 mg mucous membrane TID disposable gloves (Biobrane Gloves Large) As directed doxycycline monohydrate 100 mg PO BID 14 days empagliflozin (Jardiance) 25 mg PO QAM fluoxetine 20 mg PO QAM fluticasone furoate 100 mcg/actuation (Arnuity Ellipta) 1 inh PO DAILY fluticasone propionate 50 mcg/actuation 2 sprays intranasal DAILY 30 days hydrochlorothiazide 12.5 mg PO DAILY 90 days insulin degludec (Tresiba FlexTouch U-100 insulin) 15 units (0.15 mL) subcut DAILY lancets (FreeStyle Lancets) As directed- TID latex gloves (Latex Gloves, Medium) As directed levalbuterol tartrate 45 mcg/actuation 2 inhalations inhalation Q6H 30 days [male urinal As directed] meclizine 25 mg PO BID PRN metoprolol succinate ER 25 mg PO DAILY 90 days nebulizers As directed omega-3 fatty acids-fish oil 340-1,000 mg 1 cap PO QAM omeprazole 20 mg PO QAM 90 days pen needle, diabetic (BD Ultra-Fine Dianna Pen Needle) As directed once daily [personal cleansing wipes As directed] prednisone PO daily; Take 2 tabs daily x 5 days, 1 tab x 5 days 10 days [quad cane As directed] sitagliptin phosphate (Januvia) 100 mg PO QAM tamsulosin 0.4 mg PO BEDTIME umeclidinium-vilanterol 62.5-25 mcg/actuation (Anoro Ellipta) 1 ea inhalation DAILY underpads (Bed Underpads) Use 1 underpad once a day Ventolin HFA 90 mcg/actuation (albuterol sulfate) 2 puffs inhalation Q6H PRN 30 days NS walker (Ultra-Light Rollator misc) As directed Tobacco use date assessed: 10/25/23 Fall risk assessment: No Falls in past year Last assessed Fall Risk: 08/20/24 Dental Screening Dental Screen Date: 08/20/24 Did you have a dental visit in the last 12 months?: No Did you have a dental problem in the last 6 months where you did not have access to dental care?: No Was dental information given to patient?: Patient has dentist HPI HPI Comments History of Present Illness Details This is an 83-year-old male with diabetes mellitus type 2 on long-term current use of insulin, hypertension, hyperlipidemia, mild recurrent major depression, asthma-COPD overlap syndrome and chronic kidney disease stage 3 that comes today accompanied by daughter for follow-up on his conditions. Last A1c was within goal. Diabetic eye exam was done 2023. Blood pressure stable. LDL very close to goal. Depression well controlled with SSRIs. On long-acting inhaler for his asthma-COPD overlap syndrome which is follow by pulmonology. GFR decreased to 53 and will be referred to nephrology. No chest pain or shortness on breath. [facility] Medical History (Updated 08/20/24 @ 17:32 by Kavita Mckeon MD) Pulmonary nodule Asthma-COPD overlap syndrome Peripheral vascular disease Abnormal chest x-ray Hyperkalemia Mild recurrent major depression Left leg pain Left knee pain Screening for prostate cancer Bilateral sensorineural hearing loss Progressive hearing loss of right ear Loss of hearing Cerumen debris on tympanic membrane of both ears Otitis media GERD (gastroesophageal reflux disease) TIA (transient ischemic attack) Diverticulosis Enlarged prostate Renal cyst Renal stones Essential hypertension Hyperlipidemia LDL goal <70 Type 2 diabetes mellitus with hyperglycemia Surgical History History of colonoscopy Hx of hernia repair Family History Father Heart disease Mother No problems noted. Brother Prostate cancer Social History Household Members: Family Housing: House Alcohol intake: former Patient Tobacco Use Status: Never used Tobacco e-Cigarette/Vaping Use: Never Used Second Hand Smoke Exposure: No service: No Current occupational status: retired Cognitive needs: Yes Hearing needs: No Vision needs: Yes Questionnaire Thrive Questionnaire Date Thrive assessed: 10/25/23 NIDHI-7 AMB Questionnaire NIDHI-7 Date NIDHI - 7 assessed: 10/25/23 Source: Developed by Drs. Spenser Mesa, Chrystal Yanez, Ren Felix and colleagues, with an educational neeta from [employer]. Review of Systems Const All systems reviewed & are unremarkable except as noted in HPI and below Card Denies chest pain at rest, Denies chest pain with activity, Denies edema, Denies irregular heart rhythm, Denies claudication, Denies dyspnea, Denies dyspnea on exertion, Denies orthopnea, Denies paroxysmal nocturnal dyspnea and Denies slow heart rate Resp Denies cough, Denies dyspnea and Denies dyspnea on exertion Denies urinary hesitancy, Denies urinary incontinence and Denies urinary urgency Musc Denies abnormal gait, Denies atrophy, Denies deformity and Denies limited range of motion Skin/Breast Denies bleeding lesions, Denies changing lesions and Denies rash Neuro Denies abnormal gait and Denies lack of coordination Physical exam (Primary Care) Vital Signs: Last Vital Signs BP 120/70 08/20/24 14:04 BMI result Body Mass Index 25.8 Tobacco/Smoking Status: Tobacco use Status Tobacco use date assessed 10/25/23 08/20/24 14:11 Patient Tobacco Use Status Never used Tobacco 08/20/24 14:11 e-Cigarette/Vaping Use Never Used 08/20/24 14:11 Thrive Assessment: Date of Thrive Assessment Date Thrive assessed 10/25/23 08/20/24 14:11 Resp Effort & Inspection: normal respiratory effort Auscultation: clear to auscultation bilaterally Cardio Jugular venous distension: no JVD Rate: regular rate Rhythm: regular rhythm Heart sounds: S1 normal heart sound present and S2 normal heart sound present Extrem General: Yes full ROM Coding Level of Care Code Est Pt Level 4 (26459) Complex EM visit Add On G2211 Diagnoses Asthma-COPD overlap syndrome J44.89 Stage 3a chronic kidney disease N18.31 Chronic kidney disease stage 3 subtype: stage 3a (GFR 45-59) Type 2 diabetes mellitus without complication, with long-term current use of insulin E11.9; Z79.4 Diabetes mellitus type: type 2 Diabetes mellitus predatory animal exterminator insulin use: with predatory animal exterminator use Diabetes mellitus complication status: without complication Mild recurrent major depression F33.0 Essential hypertension I10 Hyperlipidemia LDL goal <70 E78.5 Time Spent (min) 23 Assessment & Plan Assessment & Plan (1) Asthma-COPD overlap syndrome: Code(s): J44.89 - Other specified chronic obstructive pulmonary disease Category: Medical Plan: Continue long-acting inhaler. Use rescue inhaler as needed. Follow-up with pulmonology. (2) CKD (chronic kidney disease) stage 3, GFR 30-59 ml/min: Code(s): N18.30 - Chronic kidney disease, stage 3 unspecified Category: Medical Qualifiers: Chronic kidney disease stage 3 subtype: stage 3a (GFR 45-59) Qualified Code(s): N18.31 - Chronic kidney disease, stage 3a Plan: Avoid NSAIDs. Keep blood pressure less than 130/80. Referred to nephrology. (3) Diabetes mellitus: Code(s): E11.9 - Type 2 diabetes mellitus without complications Category: Medical Qualifiers: Diabetes mellitus type: type 2 Diabetes mellitus fdc insulin use: with predatory animal exterminator use Diabetes mellitus complication status: without complication Qualified Code(s): E11.9 - Type 2 diabetes mellitus without complications; Z79.4 - roasterman (current) use of insulin Plan: Continue insulin. A1c goal is equal or less than 7%. Continue Januvia and Jardiance. (4) Mild recurrent major depression: Code(s): F33.0 - Major depressive disorder, recurrent, mild Category: Medical Plan: Continue SSRIs. (5) Essential hypertension: Code(s): I10 - Essential (primary) hypertension Category: Medical Plan: Continue amlodipine. Blood pressure goal is equal or less than 130/80. (6) Hyperlipidemia LDL goal <70: Code(s): E78.5 - Hyperlipidemia, unspecified Category: Medical Plan: Continue statins. LDL goal is less than 70. Advise low-cholesterol diet. Orders: Orders Microalbumin, Random (w Creat) 4 Months R80.9 - Proteinuria, unspecified Comprehensive Central. Panel Fast 4 Months N18.30 - Chronic kidney disease, stage 3 unspecified Lipid Panel 4 Months E78.5 - Hyperlipidemia, unspecified Referrals Nephrology Referral N18.30 - Chronic kidney disease, stage 3 unspecified
== END 2024-08-20 14:30 | disposition home or self-care (01) ==
LOC: HO.HMCH 13:52
PROVIDERS: PCP Internal Medicine; Visit Provider Internal Medicine
DX: J44.89 Other specified chronic obstructive pulmonary disease (principal); N18.31 Chronic kidney disease, stage 3a; E11.69 Type 2 diabetes mellitus with other specified complication; Z79.4 Long term (current) use of insulin; F33.0 Major depressive disorder, recurrent, mild; I10 Essential (primary) hypertension; E78.5 Hyperlipidemia, unspecified

== ENCOUNTER → 2024-08-20 13:43 | Outpatient (BNVA) | payer OTHER, SELFPAY | PROVIDERS: PCP Internal Medicine; Visit Provider Internal Medicine | DX: J44.89 Other specified chronic obstructive pulmonary disease (principal); I12.9 Hypertensive chronic kidney disease with stage 1 through stage 4 chronic kidney disease, or unspecified chronic kidney disease; E11.22 Type 2 diabetes mellitus with diabetic chronic kidney disease; N18.31 Chronic kidney disease, stage 3a; F33.0 Major depressive disorder, recurrent, mild; E78.5 Hyperlipidemia, unspecified; Z79.4 Long term (current) use of insulin | CPT/HCPCS: 99212 ==

== ENCOUNTER 2024-09-24 11:24 | Outpatient (AMB) | payer OTHER, SELFPAY ==
--- NOTE | 2024-09-24 11:34 | HO.NEPHOV_ITS ---
Vital Signs 09/24/24 11:40 Height 5 ft 6 in Weight 164 lb BMI 26.5 BP 110/60 Blood Pressure Location Lt brachial Position Sitting Pulse 52 Pulse Source Pulse Oximeter Pulse Oximetry (%) 97 Oxygen Delivery Method Room Air Intake Visit Reasons: CKD stage 3/ Conf Captain/Airline Pilot Required: Yes Captain/Airline Pilot Language: Grassroots Organizer Services: Captain/Airline Pilot Offered & Declined ([facility] heater worker services refused ) Captain/Airline Pilot Name: Dara Bianchi-Daughter Accompanied by: Daughter Allergies metformin Adverse Reaction (Intermediate, Verified 09/24/24 11:37) diarrhea dulaglutide [From Trulicity] Adverse Reaction (Verified 09/24/24 11:37) vomiting HPI Comments Details: I had the privilege of seeing Manuel in consultation for chronic kidney disease and hypertension. He is 83 years of age and was accompanied by his daughter during this visit. He is known to have longstanding diabetes mellitus and hypertension as well as dyslipidemia. He is on Jardiance. His blood sugar control is better. He is not on any MAXIMO inhibitor or ARB and he does not know why. 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 He has history of for nephrolithiasis . He takes hydrochlorothiazide for his hypertension which has been helping him with renal calculus. He has no history of any active malignancy. He does not take any excessive nonsteroidal anti- inflammatories. He denies epistaxis, sinusitis, orthostatic drop in blood pressure, chest pain, shortness of breath, proximal nocturnal dyspnea, orthopnea, hematuria, sensory neural deafness. He does not take any excessive nonsteroidal anti-inflammatories. He has no new bone or back pain. There were no new active complaints at the time of this office visit. [facility] Medical History (Updated 09/24/24 @ 12:07 by Thom Tse MD) Pulmonary nodule Asthma-COPD overlap syndrome Peripheral vascular disease Abnormal chest x-ray Hyperkalemia Mild recurrent major depression Left leg pain Left knee pain Screening for prostate cancer Bilateral sensorineural hearing loss Progressive hearing loss of right ear Loss of hearing Cerumen debris on tympanic membrane of both ears Otitis media GERD (gastroesophageal reflux disease) TIA (transient ischemic attack) Diverticulosis Enlarged prostate Renal cyst Renal stones Essential hypertension Hyperlipidemia LDL goal <70 Type 2 diabetes mellitus with hyperglycemia Surgical History History of colonoscopy Hx of hernia repair Family History Father Heart disease Mother No problems noted. Brother Prostate cancer Social History Household Members: Family Housing: House Alcohol intake: former Patient Tobacco Use Status: Never used Tobacco e-Cigarette/Vaping Use: Never Used Second Hand Smoke Exposure: No service: No Current occupational status: retired Cognitive needs: Yes Hearing needs: No Vision needs: Yes Review of Systems Const All systems reviewed & are unremarkable except as noted in HPI and below Physical Exam Vital Signs: Last Vital Signs Pulse 52 09/24/24 11:40 BP 110/60 09/24/24 11:40 Pulse Ox 97 09/24/24 11:40 Oxygen Delivery Method Room Air 09/24/24 11:40 BMI result Body Mass Index 26.5 Const General: comfortable and no acute distress Orientation/consciousness: patient oriented x3 HEENT Head: Yes normocephalic Mouth: Normal oral and palatal mucosa present Eyes EOM: EOMs intact bilaterally Neck Neck: Yes supple Resp Auscultation: clear to auscultation bilaterally Cardio Jugular venous distension: no JVD Rate: regular rate GI Palpation (GI): Soft to palpation Auscultation: normal bowel sounds General: Yes no CVA tenderness Back/Spine/Pelvis Back: no CVA tenderness Skin General skin exam: no rashes or lesions noted Neuro General: patient oriented x3 and moves all extremities Extrem General: Yes no pedal edema Results Reviewed Nephrology Results: Sodium 137 mmol/L (135-145) 08/08/24 Potassium 4.0 mmol/L (3.3-5.1) 08/08/24 Chloride 102 mmol/L (96-108) 08/08/24 Carbon Dioxide 30 mmol/L (22-29) H 08/08/24 BUN 23 mg/dL (9-16) H 08/08/24 Creatinine 1.28 mg/dL (0.5-1.4) 08/08/24 Calcium 9.0 mg/dL (8.4-10.2) 08/08/24 Urine Creatinine 128.63 mg/dL 08/08/24 Assessment & Plan Assessment & Plan (1) CKD (chronic kidney disease) stage 3, GFR 30-59 ml/min: Code(s): N18.30 - Chronic kidney disease, stage 3 unspecified Category: Medical Qualifiers: Chronic kidney disease stage 3 subtype: stage 3a (GFR 45-59) Qualified Code(s): N18.31 - Chronic kidney disease, stage 3a (2) Hypertension: Code(s): I10 - Essential (primary) hypertension Category: Medical Qualifiers: Hypertension type: primary hypertension Qualified Code(s): I10 - Essential (primary) hypertension (3) Renal stones: Code(s): N20.0 - Calculus of kidney Category: Medical Plan Manuel has 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 He has history of vascular disease causing CVA. He is on Plavix. His blood pressure is currently at goal. He has no active issues from renal calculus. He is on Jardiance. I have ordered workup including imaging studies. I may consider starting him on a low-dose MAXIMO inhibitor and discontinue amlodipine at that time. He maintains good hydration and avoids nonsteroidal anti-inflammatories. I did not make any medication changes but rather spent most of the time discussing about chronic kidney disease, its stages and management strategies. I answered all his and his daughter's questions. Follow-up appointment given. Orders: Orders US renal BI 1 Month N18.31 - Chronic kidney disease, stage 3a Electrolytes 3 Months I10 - Essential (primary) hypertension, N18.31 - Chronic kidney disease, stage 3a, N20.0 - Calculus of kidney Calcium 3 Months I10 - Essential (primary) hypertension, N18.31 - Chronic kidney disease, stage 3a, N20.0 - Calculus of kidney Immunofixation, Random Urine 3 Months I10 - Essential (primary) hypertension, N18.31 - Chronic kidney disease, stage 3a, N20.0 - Calculus of kidney Blood Urea Nitrogen 3 Months I10 - Essential (primary) hypertension, N18.31 - Chronic kidney disease, stage 3a, N20.0 - Calculus of kidney Creatinine 3 Months I10 - Essential (primary) hypertension, N18.31 - Chronic kidney disease, stage 3a, N20.0 - Calculus of kidney Coding Level of Care Code New Pt Level 4 (22897) Diagnoses Stage 3a chronic kidney disease N18.31 Chronic kidney disease stage 3 subtype: stage 3a (GFR 45-59) Primary hypertension I10 Hypertension type: primary hypertension Renal stones N20.0
[2024-09-24 11:40] VITALS: BP 110/60; PULSE 52; O2SAT 97; BMI 26.5
== END 2024-09-24 12:14 | disposition home or self-care (01) ==
PROVIDERS: PCP Internal Medicine; Referring Provider Internal Medicine; Visit Provider Internal Medicine Nephrology
DX: I12.9 Hypertensive chronic kidney disease with stage 1 through stage 4 chronic kidney disease, or unspecified chronic kidney disease (principal); N18.31 Chronic kidney disease, stage 3a; N20.0 Calculus of kidney
CPT/HCPCS: 99204

== ENCOUNTER → 2024-09-24 11:24 | Outpatient (BNVA) | payer OTHER, SELFPAY | PROVIDERS: PCP Internal Medicine; Referring Provider Internal Medicine; Visit Provider Internal Medicine Nephrology | DX: N20.0 Calculus of kidney (principal); I12.9 Hypertensive chronic kidney disease with stage 1 through stage 4 chronic kidney disease, or unspecified chronic kidney disease; E11.22 Type 2 diabetes mellitus with diabetic chronic kidney disease; E11.65 Type 2 diabetes mellitus with hyperglycemia; N18.31 Chronic kidney disease, stage 3a; Z79.84 Long term (current) use of oral hypoglycemic drugs | CPT/HCPCS: 99202 ==

== ENCOUNTER 2024-10-18 13:23 | Outpatient (REF) | payer OTHER, SELFPAY ==
--- NOTE | ~2024-10-18 | US_ITS ---
EXAMINATION: US RETROPERITONEAL LIMITED (RENAL ONLY) CLINICAL INFORMATION: Chronic kidney disease. Stage IIIa. COMPARISON: Renal ultrasound 07/02/2016 TECHNIQUE: Routine grayscale imaging of kidneys is performed. FINDINGS: RIGHT KIDNEY: 11.0 x 6.5 6.0 cm. cm (SAG x AP x TRV). The kidney is normal in size, contour, and echogenicity. Renal cortical thickness is normal. There is no hydronephrosis. There are multiple anechoic cysts. The biggest cyst are measured below, Upper pole cyst measuring 5.9 x 5.1 x 5.4, mid pole 3.3 x 2.5 x 3.1 cm with septation., Midpole 5.5 x 4.6 of 5.1 cm with septation and mid pole medially measuring 2.8 x 2.1 x 2.3 cm. LEFT KIDNEY: 12.9 x 5.2 x 5.1 cm (SAG x AP x TRV). The kidney is normal in size, contour, and echogenicity. Renal cortical thickness is normal. No hydronephrosis. There are multiple anechoic cyst. The largest cyst measured are upper pole 3.6 x 3.9 x 3.7 cm, 6.8 x 6.8 x 5.8 cm with septations, lower pole cyst with septations measuring 7.5 x 5.6 x 4.6 cm. There is an echogenic focus seen. US/US renal BI IMPRESSION: Bilateral simple and complex renal cysts. Bosniak 1 and 2. There are similar to previous study No echogenic stones or hydronephrosis seen. Electronically signed by: Tru Parikh MD 10/18/2024 03:10 PM EST
== END 2024-10-18 13:24 | disposition home or self-care (01) ==
LOC: HO.US 13:23
PROVIDERS: PCP Internal Medicine; Visit Provider Internal Medicine Nephrology
DX: N18.31 Chronic kidney disease, stage 3a (principal)
CPT/HCPCS: 76775

== ENCOUNTER → 2024-10-18 13:26 | Outpatient (BNV) | payer OTHER, SELFPAY | PROVIDERS: PCP Internal Medicine; Visit Provider Radiology Diagnostic Radiology | DX: N18.31 Chronic kidney disease, stage 3a (principal) | CPT/HCPCS: 76775 ==

== ENCOUNTER 2024-12-21 11:48 | Outpatient (AMB) | payer OTHER, SELFPAY ==
--- NOTE | 2024-12-21 12:32 | HO.NEPHOV ---
Vital Signs 12/21/24 12:33 Height 5 ft 6 in Weight 167 lb BMI 27.0 BP 114/60 Blood Pressure Location Rt brachial Position Sitting Pulse 59 Pulse Source Pulse Oximeter Pulse Oximetry (%) 97 Oxygen Delivery Method Room Air Intake Visit Reasons: CKD-Conf w/daughter Stunt Double Required: Yes Stunt Double Language: [employer] Faculty Services: Stunt Double Offered & Declined ([facility] [place] supervisor services refused) Accompanied by: Daughter Allergies metformin Adverse Reaction (Intermediate, Verified 12/21/24 12:33) diarrhea dulaglutide [From Trulicity] Adverse Reaction (Verified 12/21/24 12:33) vomiting HPI Comments Details: Manuel was seen in follow up for chronic kidney disease and hypertension. He is 83 years of age and was accompanied by his daughter during this visit. He is known to have longstanding diabetes mellitus and hypertension as well as dyslipidemia. He is on Jardiance. His blood sugar control is better. He is not on any MAXIMO inhibitor or ARB and he does not know why. 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 He has history of for nephrolithiasis . He takes hydrochlorothiazide for his hypertension which has been helping him with renal calculus. He has no history of any active malignancy. He does not take any excessive nonsteroidal anti-inflammatories. He denies epistaxis, sinusitis, orthostatic drop in blood pressure, chest pain, shortness of breath, proximal nocturnal dyspnea, orthopnea, hematuria, sensory neural deafness. He does not take any excessive nonsteroidal anti-inflammatories. He has no new bone or back pain. He had renal USS which showed bilateral cysts. There were no new active complaints at the time of this office visit. [facility] Medical History (Updated 12/21/24 @ 13:22 by Thom Tse MD) Pulmonary nodule Asthma-COPD overlap syndrome Peripheral vascular disease Abnormal chest x-ray Hyperkalemia Mild recurrent major depression Left leg pain Left knee pain Screening for prostate cancer Bilateral sensorineural hearing loss Progressive hearing loss of right ear Loss of hearing Cerumen debris on tympanic membrane of both ears Otitis media GERD (gastroesophageal reflux disease) TIA (transient ischemic attack) Diverticulosis Enlarged prostate Renal cyst Renal stones Essential hypertension Hyperlipidemia LDL goal <70 Type 2 diabetes mellitus with hyperglycemia Surgical History History of colonoscopy Hx of hernia repair Family History Father Heart disease Mother No problems noted. Brother Prostate cancer Social History Household Members: Family Housing: House Alcohol intake: former Patient Tobacco Use Status: Never used Tobacco e-Cigarette/Vaping Use: Never Used Second Hand Smoke Exposure: No service: No Current occupational status: retired Cognitive needs: Yes Hearing needs: No Vision needs: Yes Review of Systems Const All systems reviewed & are unremarkable except as noted in HPI and below Physical Exam Vital Signs: Last Vital Signs Pulse 59 12/21/24 12:33 BP 114/60 12/21/24 12:33 Pulse Ox 97 12/21/24 12:33 Oxygen Delivery Method Room Air 12/21/24 12:33 BMI result Body Mass Index 27.0 Const General: comfortable and no acute distress Orientation/consciousness: patient oriented x3 HEENT Head: Yes normocephalic Mouth: Normal oral and palatal mucosa present Eyes EOM: EOMs intact bilaterally Neck Neck: Yes supple Resp Auscultation: clear to auscultation bilaterally Cardio Jugular venous distension: no JVD Rate: regular rate GI Palpation (GI): Soft to palpation Auscultation: normal bowel sounds Skin General skin exam: no rashes or lesions noted Neuro General: patient oriented x3 and moves all extremities Extrem General: Yes no pedal edema Results Reviewed Nephrology Results: Sodium 137 mmol/L (135-145) 08/08/24 Potassium 4.0 mmol/L (3.3-5.1) 08/08/24 Chloride 102 mmol/L (96-108) 08/08/24 Carbon Dioxide 30 mmol/L (22-29) H 08/08/24 BUN 23 mg/dL (9-16) H 08/08/24 Creatinine 1.28 mg/dL (0.5-1.4) 08/08/24 Calcium 9.0 mg/dL (8.4-10.2) 08/08/24 Urine Creatinine 128.63 mg/dL 08/08/24 Renal US 10/18/24 Assessment & Plan Assessment & Plan (1) Renal stones: Code(s): N20.0 - Calculus of kidney Category: Medical (2) CKD (chronic kidney disease) stage 3, GFR 30-59 ml/min: Code(s): N18.30 - Chronic kidney disease, stage 3 unspecified Category: Medical Qualifiers: Chronic kidney disease stage 3 subtype: stage 3a (GFR 45-59) Qualified Code(s): N18.31 - Chronic kidney disease, stage 3a (3) Hypertension: Code(s): I10 - Essential (primary) hypertension Category: Medical Qualifiers: Hypertension type: primary hypertension Qualified Code(s): I10 - Essential (primary) hypertension (4) Renal cyst: Code(s): N28.1 - Cyst of kidney, acquired Category: Medical Plan Manuel has 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 He has history of vascular disease causing CVA. He is on Plavix. His blood pressure is currently at goal. He has no active issues from renal calculus. He is on Jardiance. He has B/L renal cysts- some simple, some complex. He will need CT kidneys in 6 months to F/U complex renal cyst. We I may consider starting him on a low-dose MAXIMO inhibitor and discontinue amlodipine at that time. He maintains good hydration and avoids nonsteroidal anti-inflammatories. I did not make any medication changes but rather spent most of the time discussing about chronic kidney disease, its stages and management strategies. I answered all his and his daughter's questions. Follow-up appointment given. Orders: Orders Calcium 6 Months I10 - Essential (primary) hypertension, N18.31 - Chronic kidney disease, stage 3a, N20.0 - Calculus of kidney Protein Creatinine Ratio, Ur 6 Months I10 - Essential (primary) hypertension, N18.31 - Chronic kidney disease, stage 3a, N20.0 - Calculus of kidney Creatinine 6 Months I10 - Essential (primary) hypertension, N18.31 - Chronic kidney disease, stage 3a, N20.0 - Calculus of kidney Blood Urea Nitrogen 6 Months I10 - Essential (primary) hypertension, N18.31 - Chronic kidney disease, stage 3a, N20.0 - Calculus of kidney Electrolytes 6 Months I10 - Essential (primary) hypertension, N18.31 - Chronic kidney disease, stage 3a, N20.0 - Calculus of kidney Coding Level of Care Code Est Pt Level 4 (22269) Diagnoses Renal stones N20.0 Stage 3a chronic kidney disease N18.31 Chronic kidney disease stage 3 subtype: stage 3a (GFR 45-59) Primary hypertension I10 Hypertension type: primary hypertension Renal cyst N28.1
[2024-12-21 12:33] VITALS: BP 114/60; PULSE 59; O2SAT 97; BMI 27.0
--- OUTSIDE RECORDS SUMMARY | 2024-12-21 13:42 | XMS_ITS ---
Author Organization [facility] Address [address] [facility] [place] [address] Care Team Providers Care Deputy Administrator Name Role Phone Jair APARICIO, Kavita Primary Care Provider Unavail able Shirin Arzate Unavailable [phone] Mathur Medications Medication [...] Negative Encounters Encounter Location Date Provider Diagnosis [facility] [address] [place] [address] 11/22/2024 Shirin Arzate Plan Of Treatment Next Appt Details Provider Name:Shirin Ramesh maldonado, 02/18/2025 09:30:00 AM, [address] [place] [address], [phone], Progress Notes * Luz BIANCHIOB:[birth year] (84 yo M)Acc No.[id number]:11/22/2024 Progress Notes Patient:?Manuel BIANCHI Provider:?Shirin Arzate DPM :1940???Age:83 Y???Sex:Male Chandan e:11/22/2024 Address:[address] [place], [place] [phone] Pcp:Kavita Adam MD Subjective: * Chief Complaints: * ???1. Dr. Mathur. * ROS:?General/Constitutional:?Nausea?denies, denies.?Vomiting?denies, denies.?Hunger Thirst?denies, denies.?Loss appetite?denies, denies.?Chills?denies, denies.?Fatigue?denies, denies.?Fever?denies, denies.?Night Sweats denies, denies.?Unexplained weight loss?denies, denies.?Unexplained weight gain?denies, denies.?HEENTM:?Dentures?denies, denies.?Dizziness?denies, denies.?Glasses/contacts?denies, denies.?Retinopathy?denies, denies.?Blurred/double vision?denies, denies.?TMJ?denies, denies.?Discharge/drainage?denies, denies.?Implants?denies, denies.?Sore throat?denies, denies.?Dental implants?denies, denies.?Hard of hearing ?denies, denies.?Difficulty chewing/swallowing/speaking?denies, denies.?Nose bleeds?denies, denies.?Sore mouth?denies, denies.?Respiratory:?On Oxygen?denies, denies.?Pneumonia/pleurisy?denies, denies.?Bronchitis?denies, denies.?Emphysema?denies, denies.?Coughing?denies, denies.?Cough blood?denies, denies.?Shortness of breath?denies, denies.?Wheezing?denies, denies.?Cardiovascular:?Pacemaker?denies, denies.?MVP?denies, denies.?WPW?denies, denies.?CHF?denies, denies.?Heart attack?denies, denies.?Septal defect?denies, denies.?Rapid beat?denies, denies.?Chest pain ?denies, denies.?Atrial Fib.?denies, denies.?Murmur/Palpitations?denies, denies.?Gastrointestinal:?Hemorrhoids?denies, denies.?Stomach/Abdominal pain?denies, denies.?Dark blood stool?denies, denies.?Irritable bowel ?denies, denies.?Constipation?denies, denies.?Diarrhea?denies, denies.?Hematology:?Swelling?denies, denies.?Clots?denies, denies.?Varicose Veins?denies, denies.?Bruising?admits.?Bleeding problem?denies, denies.?Genitourinary:?Blood urine?denies, denies.?Frequent/Painfu/urination/bladder control?denies, denies.?Kidney stones?denies, denies.?Infection (UTI)?denies, denies.?Nephropathy?denies, denies.?sex trans dis (STD)?denies, denies.?Prostate?admits.?Musculoskeletal:?Hammertoes?denies, denies.?Bunions?denies, denies.?Back Pain?denies, denies.?Muscle Cramps/ Resting?denies, denies.?Muscle cramps / walking?denies, denies.?Generalized aches and pains?denies, denies.?Weakness?denies, denies.?Integ.:?Leary?denies, denies.?Scars?denies, denies.?Corns/calluses?denies, denies.?Ingrown nails?admits, denies.?Painful nails?denies, denies.?Open Sores?denies, denies.?Rashes?denies, denies.?Neurologic:?Difficulty sleeping?denies, denies.?Brain disorder?denies, denies.?Numbness?denies, denies.?Balance trouble?denies, denies.?Confusion?denies, denies.?Fainting/blackouts?denies, denies.?Tingling?denies, denies.?Tremors?denies, denies.? * Medical History:?Arthritis, Asthma, Depression, Diabetic, High Blood Pressure, Kidney disease, Stroke, Stomach ulcer. * Surgical History:?stomach ul cruz , broken ankle , hernia . * Family History:?Mother: dece ased.?Father: .? * Social History:?Tobacco Use:?Tobacco use other than smoking?Are you an other tobacco user??No ?Tobacco Control (Standard)?Tobacco use:?Nonsmoker ?Additional Findings: Tobacco non-user?Current nonsmoker ???Drugs/Alcohol:?Drugs?Have you used drugs other than those for medical reasons in the past 12 months??No ???Miscellaneous:?Caffeine: yes, frequency:, 1-2 cups per day. ?Marital status: . ???Drug/Alcohol:?AUDIT-C (Standard)?Did you have a drink containing alcohol in the past year??Yes ?How often did you have six or more drinks on one occasion in the past year??Declined to specify (0 point) ?How many drinks did you have on a typical day when you were drinking in the past year??Declined to specify (0 point) ?How often did you have a drink containing alcohol in the past year??Declined to specify (0 point) ?Points?0 ?Interpretation?Negative * Medications:?Taking Arnuity Ellipta , Taking Benzonatate 200 MG [...] tablet Orally Once a day Objective: * Vitals:? Assessment: Plan: * Treatment: * Images: * The named appointment provid er may or may not be the originator of this progress note, and it is not deemed complete until electronically signed by the appointment provider. Sign off status: Pending * Provider:?Shirin Arzate DPM Date:?0 11/22/2024 Generated for Fede last/Mahesh/Capri on:?12/21/2024 01:42 PM EST
--- OUTSIDE RECORDS SUMMARY | 2024-12-21 13:42 | XMS_ITS | Encounter Summary ---
Author Organization [facility] Address [address] [place] [address] Care Team Providers Care Compliance Tester Name Role Phone Name, Moses APARICIO Primary Care Provider Unavailabl e Community, Pcp Primary Care Provider Unavailabl e Encounter Details Date Type Department Care Team Description 03/07/2014 Transfer Records Medical Records [address] Social History Tobacco Use Types Packs/Day Years Used Date Smoking Tobacco: Never Smokeless Tobacco: Never Alcohol Use Standard Drinks/Week Comments No 0 (1 standard drink = 0.6 oz pur e alcohol) Sex Assigned at Date Recorded Not on file documented as of this encounter Plan of Treatment Not on file documented as of this encounter Visit Diagnoses Not on filedocumented in this encounter Care Teams Compliance Tester Relationship Specialty Start Date End Date Name, MD Moses PCP - General 01/05/1999 11/04/15 Community, Pcp PCP - General Internal Medicine 11/05/15 documented as of this encounter
--- OUTSIDE RECORDS SUMMARY | 2024-12-21 13:42 | XMS_ITS | Encounter Summary ---
Author Organization [facility] Address [address] [place] [address] Care Team Providers Care Service Now Developer Name Role Phone Name, Moses APARICIO Primary Care Provider Unavailabl e Community, Pcp Primary Care Provider Unavailabl e Encounter Details Date Type Department Care Team Description 11/19/2011 Night Triage Doc Medical Records [address] [place] [address] Abstract, Provider Social History Tobacco Use Types Packs/Day Years [...] on filedocumented in this encounter Care Teams Service Now Developer Relationship Specialty Start Date End Date Name, MD Moses PCP - General 01/05/1999 11/04/15 Community, Pcp PCP - General Internal Medicine 11/05/15 documented as of this encounter
--- OUTSIDE RECORDS SUMMARY | 2024-12-21 13:42 | XMS_ITS | Encounter Summary ---
Author Organization [facility] Address [address] [place] [address] Care Team Providers Care French Drawer Name Role Phone Name, Moses APARICIO Primary Care Provider Unavailabl e Community, Pcp Primary Care Provider Unavailabl e Encounter Details Date Type Department Care Team Description 04/18/2011 Hospital Medical Records [address] [place] [address] Erica Henderson, DO Social History Tobacco Use Types Packs/Day Years [...] on filedocumented in this encounter Care Teams French Drawer Relationship Specialty Start Date End Date Name, MD Moses PCP - General 01/05/1999 11/04/15 Community, Pcp PCP - General Internal Medicine 11/05/15 documented as of this encounter
--- OUTSIDE RECORDS SUMMARY | 2024-12-21 13:42 | XMS_ITS | Patient Health Record ---
Author Organization [facility] Address [address] [place] [address] Care Team Providers Care Automatic Winder Operator Name Role Phone Kavita Adam MD Primary Care Provider Unavail able Shirin Arzate Unavailable [phone] Reason For Referral No Information Medications Medication SIG (Take, Route, Frequency, Duration) Notes Start Date End Date Status B12 Active hydroCHLOROthiazide 12.5 MG 1 tablet in the morning Orally Once a day Active Januvia 100 MG 1 tablet Orally Once a day Active Arnuity Ellipta Acti ve Metoprolol Succinate 25 MG 1 capsule Ora lly Once a day Active Omeprazole 20 MG 1 capsule 1/2 to 1 hour before morning meal Orally Once a day Active Tamsulosin HCl 0.4 MG 1 capsule Orally O nce a day Active Vitamin D3 Active Tresiba Active amLODIPine Besylate 5 MG 1 tablet Orally Once a day Active Soothe XP - as directed Ophthalmic Active Atorvastatin Calcium 20 MG 1 tablet Oral ly Once a day Active Anoro Ellipta 62.5-25 MCG/ACT 1 puff Inh alation Once a day Active Clopidogrel Bisulfate 75 MG 1 tablet Ora lly Once a day Active Fish Oil Active FLUoxetine HCl 20 MG 1 capsule Orally On ce a day Active Fluticasone Propionate 50 MCG/ACT 1 spray in each nostril Nasally Twice a day Active Benzonatate 200 MG 1 capsule as needed Orally Three times a day Active Jardiance 25 MG 1 tablet Orally Once a day Active Social History Tobacco Use: [...] specify (0 point) Points 0 Interpretation Negative Plan Of Treatment Next Appt Details Provider Name:Shiirn Chandler erica, 02/18/2025 09:30:00 AM, [address] [place], [address], Insurance Providers Payer Name Payer Address Payer Phone Subscriber Number Group Number Insured Name Patient Relationship to Insured Coverage Start Date Coverage End Date Medicare National [employer] [address] [facility] [place] [phone] Manuel Bianchi Self - patient is the insured [place] [id number] [address] [address] [place] [id number] Manuel Bianchi Self - patient is the insured Medical (General) History Medical History History ICD Code Arthritis asthma Depression Diabetic High Blood Pressure Kidney disease Stroke Stomach ulcer Surgical History Surgery Date(Month/Year) stomach ulver broken ankle hernia
--- OUTSIDE RECORDS SUMMARY | 2024-12-21 13:42 | XMS_ITS | Encounter Summary ---
Author Organization [facility] Address [address] [place] [address] Care Team Providers Care Electrical And Instrument Engineer Name Role Phone Name, Moses APARICIO Primary Care Provider Unavailabl e [facility], Pcp Primary Care Provider Unavailabl e Reason for Visit * Reason Onset Date Comments Provider Call Back 05/30/2012 Encounter Details Date Type Department Care Team Description 05/30/2012 Telephone Ophthalmology-[address] [id number] Hermilo Tejeda OD Provider Call Back Social History Tobacco Use Types Packs/Day Years Used Date Smoking Tobacco: Never Smokeless Tobacco: Never Alcohol Use Standard Drinks/Week Comments No 0 (1 standard drink = 0.6 oz pur e alcohol) Sex Assigned at Date Recorded Not on file documented as of this encounter Miscellaneous Notes * Telephone Encounter - Adela Iglesias M.A. - 05/30/2012 2:22 PM EDT Information given to Shi in radiology to call the patient 06/02/[address] [facility]. * Telephone Encounter - Karina Zamora - 05/30/2012 1:48 PM EDT Patient states he has an appt. 1:30. Patient does not know where and with who. I could only find what they were talking about. Not [address]. They only know [address] Please call patient. documented in this encounter Plan of Treatment Not on file documented as of this encounter Visit Diagnoses Not on filedocumented in this encounter Care Teams Electrical And Instrument Engineer Relationship Specialty Start Date End Date Name, MD Moses PCP - General 01/05/1999 11/04/15 [facility], Pcp PCP - General Internal Medicine 11/05/15 documented as of this encounter
--- OUTSIDE RECORDS SUMMARY | 2024-12-21 13:42 | XMS_ITS | Encounter Summary ---
Author Organization [facility] Address [address] [place] [address] Care Team Providers Care Credit And Collections Representative Name Role Phone Name, Moses APARICIO Primary Care Provider Unavailabl e [facility], Pcp Primary Care Provider Unavailabl e Encounter Details Date Type Department Care Team Description 03/14/2014 Lsw Report Medical Records [address] [place] [address] [facility] Social History Tobacco Use Types Packs/Day Years [...] on filedocumented in this encounter Care Teams Credit And Collections Representative Relationship Specialty Start Date End Date Name, MD Moses PCP - General 01/05/1999 11/04/15 Community, Pcp PCP - General Internal Medicine 11/05/15 documented as of this encounter
--- OUTSIDE RECORDS SUMMARY | 2024-12-21 13:42 | XMS_ITS | Encounter Summary ---
Author Organization [facility] Address [address] [place] [address] Care Team Providers Care Cancer Center Director Name Role Phone Name, Moses APARICIO Primary Care Provider Unavailabl e Community, Pcp Primary Care Provider Unavailabl e Encounter Details Date Type Department Care Team Description 05/31/2011 Home Health Certification Medical Records [address] [place] [address] Vna Social History Tobacco Use Types Packs/Day Years [...] on filedocumented in this encounter Care Teams Cancer Center Director Relationship Specialty Start Date End Date Name, MD Moses PCP - General 01/05/1999 11/04/15 Community, Pcp PCP - General Internal Medicine 11/05/15 documented as of this encounter
--- OUTSIDE RECORDS SUMMARY | 2024-12-21 13:42 | XMS_ITS | Clinical Summary ---
Author Organization [facility] Address [address] [place] [address] Care Team Providers Care Metal Roofing Mechanic Name Role Phone Community, Pcp Primary Care Provider Unavailabl e Allergies No known active allergies Medications Medication Sig Dispensed Refills Start Date End Date Status Lancet Devices (ONE TOUCH DELICA LANCING DEV) MISC Use once per day 100 Each 0 12/28/2011 Active Blood Glucose Monitoring Suppl (ONE TOUCH ULTRA SYSTEM KIT) W/DEVICE KITIndications:Diabet es mellitus type II,Hyperlipidemia LDL goal < 100 Use once a day 1 Kit 0 12/12/2012 Active simvastatin (ZOCOR) 20 MG tablet Take 1 Tab by mouth at bedtime. 30 Tab 5 06/16/2015 Active glucose blood test strips (ONE TOUCH ULTRA TEST STRIPS) strip USE TO TEST BLOOD SUGAR DAILY 100 Strip 2 06/16/2015 Active amlodipine (NORVASC) 5 MG tablet Take 1.5 Tabs by mouth daily. 45 Tab 5 06/16/2015 Active clopidogrel (PLAVIX) 75 MG tablet Take 1 Tab by mouth daily. 30 Tab 5 06/16/2015 Active metformin (GLUCOPHAGE) 1000 MG tablet TAKE 1 TABLET BY MOUTH TWICE DAILY WITH MEALS 60 Tab 5 06/16/2015 Active omeprazole (PRILOSEC) 20 MG capsule Take 1 Cap by mouth daily. 30 Cap 7 06/16/2015 Active fluoxetine (PROZAC) 20 MG capsule TAKE ONE CAPSULE BY MOUTH EVERY DAY 30 Cap 5 06/16/2015 Active Active Problems Patient Care Coordination No te Formatting of this note is d ifferent from the original. Checking Your Blood Sugars Please check your blood sugars every day. Please check your sugars at the following times of day: before breakfast and before lunch Your Blood Sugar Goals Pre Meal: 90-130 2 hours after meals: 110-160 Bedtime: 110-150 Use the Results ?? Bring your glucometer to every appointment ?? Write your fingerstick blood sugars down on a log sheet or record book. Bring them to your appointment ?? Look for patterns in the numbers. The results help you and your provider make decisions about your diabetes treatment plan. Your Results and your Goals Your Result / Date of Completion Your Goal / How Often to Assess Component Value Date HGBA1C 6.9 03/07/2014 Less than 7% --- 2-4 times per year BP Readings from Last 1 Encounters: 07/30/14 152/70 Less than 140/90 --- once per year Component Value Date MALBCR 2 11/05/2013 Less than 30 --- once per year Component Value Date LDL 82 11/05/2013 Less than 100 --- once per year Wt Readings from Last 1 Encounters: 07/30/14 159 lb (72.122 kg) Your goal weight by next visit: 155 --- reassess 2-4 times a year Health Maintenance Due Topic Date Due ? ? Adult Immunization: Pneumovax For High Risk Patients (#1) 1956 ? ? Adult Immunization: Zostavax For Patients Over 60 1998 ? ? Diabetes: Annual Eye Exam 08/19/2012 ? ? Diabetes: Annual Care Plan 03/14/2013 ? ? Flu Shot 06/17/2014 ? ? Diabetes: Blood Sugar Control Test (Hgba1c) 07/08/2014 ? ? Depression Screen 07/16/2014 ? ? Fall Risk Assessment 07/16/2014 Your Action Plan Check blood glucose as directed and write down all results. Check feet for sores every day Continue to work on weight loss with a goal of losing 2-4 pounds per month Increase physical activity Contact me if you experience any barriers to care such as inability to purchase your medication, difficulty getting to your appointments or difficulty understanding your care plan Please get your yearly flu shot When to Call your Healthcare Provider If your blood sugar falls below 70 and you do not know why or you become unconscious If you are sick and unable to take liquids because or nausea or vomiting If you have a fever over 101 If your blood sugar is 300 or higher on greater than 3 separate occasions during the same week If you are just unsure what to do Educational Resources [place] [employer] (www.diabetes.org) Centers for Disease Control and Prevention (www.cdc.gov/diabetes) This care plan was created in collaboration with Manuel Bianchi on 07/30/2014 Problem Noted Date Type II or unspecified type diabetes mellitus with ophthalmic manifestations, not stated as uncontrolled 07/19/2014 Overview: Nuclear Sclerosis noted eye exam 08/18/2011. Depression 02/25/2014 CVA (cerebral infarction) 02/25/2014 Overview: Left sided arm weakness very mild and resolved by 2014 IMO update Cerebral microvascular disease 1 Hyperlipidemia LDL goal < 100 05/18/2011 Overview: IMO update Type 2 diabetes mellitus 01/20/2011 Venous insufficiency 10/11/2008 HTN (hypertension) 10/11/2008 Resolved Problems Problem Noted Date Resolved Date Eosinophilia 07/16/2010 04/08/2011 Diabetes mellitus 01/13/2009 01/20/2011 Immunizations Name Administration Dates Next Due Influenza (> 6 Months) 07/30/2014,2012,08/08/2012,08/09/2011, 0,06/26/2009,10/11/2008 Family History Medical History Relation Name Comments Cataract Mother Blindness Negative Hx Glaucoma Negative Hx Macular Degeneration Negative Hx Strabismus Negative Hx Relation Name Status Comments Mother Social History Tobacco Use Types Packs/Day Years Used Date Smoking Tobacco: Never Smokeless Tobacco: Never Alcohol Use Standard Drinks/Week Comments No 0 (1 standard drink = 0.6 oz pur e alcohol) Sex Assigned at Date Recorded Not on file Last Filed Vital Signs Vital Sign Reading Time Taken Comments Blood Pressure 144/77 07/03/2015 9:34 AM EDT Pulse 54 07/03/2015 9:34 AM EDT Temperature 36.5 ??C (97.7 ??F) 07/03/2015 8:01 AM ED T Respiratory Rate 16 07/03/2015 9:34 AM EDT Oxygen Saturation 96% 07/03/2015 9:34 AM EDT Inhaled Oxygen Concentration - - Weight 72.6 kg (160 lb) 07/03/2015 8:01 AM EDT Height 167.6 cm (5' 6 ) 07/03/2015 8:01 AM EDT Body Mass Index 25.82 07/03/2015 8:01 AM EDT Plan of Treatment Health Maintenance Due Date Last Done Comments Covid-19 Vaccine (#1) 06/09/1941 TOBACCO CHECK/ADVISE 1958 DTAP/TDAP/TD (1 - Tdap) 1957 SHINGLES VACCINE (1 of 2) 1988 PNEUMOCOCCAL VACCINE (1 - PCV) 2003 DEPRESSION SCREEN 07/16/2014 07/16/2013 FALL RISK ASSESSMENT 07/16/2014 07/16/2013 DIABETES: BLOOD SUGAR CONTRO L TEST (HGBA1C) 07/17/2015 04/16/2015, 12/02/2014, 03/07/2014, Additional history exists DIABETES/HEART DISEASE: MANSOOR PITTS CHOLESTEROL (LDL) 04/16/2016 04/16/2015, 11/05/2013, 07/24/2013, Additional history exists DIABETES: ANNUAL URINE PROTE IN TEST (MICROALBUMIN) 04/16/2016 04/16/2015, 12/02/2014, 11/05/2013, Additional history exists DIABETES: ANNUAL EYE EXAM 04/22/20162014, 04/22/2015 (External Completion), 04/18/2014, Additional history exists DIABETES: ANNUAL FOOT EXAM 06/16/201606/16, 03/13/2014, 08/08/2012, Additional history exists COLON CANCER SCREENING 07/03/2020 , 07/03/2015, 11/12/2008 (No reason specified), Additional history exists INFLUENZA (#1) 2024 07/30/2014, 06/19, 08/08/2012, Additional history exists BMI CHECK/ADVISE 10/17/2024 Care Teams Metal Roofing Mechanic Relationship Specialty Start Date End Date Community, Pcp PCP - General Internal Medicine 11/05/15
--- OUTSIDE RECORDS SUMMARY | 2024-12-21 13:42 | XMS_ITS | Encounter Summary ---
Author Organization [facility] Address [address] [place] [address] Care Team Providers Care Mds Rn Name Role Phone Name, Moses APARICIO Primary Care Provider Unavailabl e Community, Pcp Primary Care Provider Unavailabl e Encounter Details Date Type Department Care Team Description 02/14/2014 Hygiene Teacher Report Medical Records [address] [place] [address] Madison Hinkle MD Social History Tobacco Use Types Packs/Day Years [...] on filedocumented in this encounter Care Teams Mds Rn Relationship Specialty Start Date End Date Name, MD Moses PCP - General 01/05/1999 11/04/15 Community, Pcp PCP - General Internal Medicine 11/05/15 documented as of this encounter
--- OUTSIDE RECORDS SUMMARY | 2024-12-21 13:42 | XMS_ITS | Encounter Summary ---
Author Organization [facility] Address [address] [place] [address] Care Team Providers Care Power Hammer Operator Name Role Phone Name, Moses APARICIO Primary Care Provider Unavailabl e [facility], Pcp Primary Care Provider Unavailabl e Encounter Details Date Type Department Care Team Description 03/08/2014 Banker Mason Report Medical Records [address] [place] [address] [facility] Social History Tobacco Use Types Packs/Day [...] on filedocumented in this encounter Care Teams Power Hammer Operator Relationship Specialty Start Date End Date Name, MD Moses PCP - General 01/05/1999 11/04/15 Community, Pcp PCP - General Internal Medicine 11/05/15 documented as of this encounter
--- OUTSIDE RECORDS SUMMARY | 2024-12-21 13:42 | XMS_ITS | Encounter Summary ---
Author Organization [facility] Address [address] [place] [address] Care Team Providers Care Mounter Name Role Phone Name, Moses APARICIO Primary Care Provider Unavailabl e [facility], Pcp Primary Care Provider Unavailabl e Encounter Details Date Type Department Care Team Description 07/08/2009 Hospital Medical Records [address] [place] [address] Ramon Cullen MD Social History Tobacco Use Types Packs/Day [...] on filedocumented in this encounter Care Teams Mounter Relationship Specialty Start Date End Date Name, MD Moses PCP - General 01/05/1999 11/04/15 Community, Pcp PCP - General Internal Medicine 11/05/15 documented as of this encounter
--- OUTSIDE RECORDS SUMMARY | 2024-12-21 13:42 | XMS_ITS | Encounter Summary ---
Author Organization [facility] Address [address] [place] [address] Care Team Providers Care Internal Wholesaler Name Role Phone Moses Leblanc MD Primary Care Provider Unavailabl e Community, Pcp Primary Care Provider Unavailabl e Reason for Visit * Reason Onset Date Comments Orders Call 03/04/2014 Encounter Details Date Type Department Care Team Description 03/04/2014 Telephone Adult [address] [address] Moses Leblanc MD Orders Call Social History Tobacco Use Types Packs/Day Years Used Date Smoking Tobacco: Never Smokeless Tobacco: Never Alcohol Use Standard Drinks/Week Comments No 0 (1 standard drink = 0.6 oz pur e alcohol) Sex Assigned at Date Recorded Not on file documented as of this encounter Miscellaneous Notes * Telephone Encounter - Maria G Alex - 03/04/2014 4:38 PM EDT Alberto Macias VNA Orders in Dr Leblanc's bin for signature Fax to [phone] documented in this encounter Plan of Treatment Not on file documented as of this encounter Visit Diagnoses Not on filedocumented in this encounter Care Teams Internal Wholesaler Relationship Specialty Start Date End Date Moses Leblanc MD PCP - General 01/05/1999 11/04/15 Community, Pcp PCP - General Internal Medicine 11/05/15 documented as of this encounter
--- OUTSIDE RECORDS SUMMARY | 2024-12-21 13:43 | XMS_ITS ---
Author Name MS. July Lara APRN Address [address] [place] [id number] Phone [phone] [facility] Care Team Providers Care Kitchen Utility Associate Name Role Phone Agatha Lara Unavailable [phone] Unavailable Unavailable [phone] Reason for Referral Not Available Allergies, adverse reactions, alerts Allergen Type Reaction Severity Status Onset Date Trulicity Allergy to substance (disorder) hives Unknown Active N/A Oxycodone Allergy to substance (disorder) nausea Unknown Active N/A History of medication use Medication Class Instructions Start Date End Date Atorvastatin Calcium 20 mg Tab TAKE 1 TA BLET BY MOUTH AT BEDTIME 2022-02-02 No Data Available Fish Oil 1000 mg Cap TAKE 1 CAPSULE BY M OUTH EVERY MORNING 2022-03-25 No Data Available FLUoxetine 20 mg Cap TAKE 1 CAPSULE BY M OUTH EVERY MORNING 2021-11-23 No Data Available Januvia 100 mg Tab TAKE 1 TABLET BY YOVANA TH EVERY MORNING 2022-04-20 No Data Available Jardiance 25 mg Tab TAKE 1 TABLET BY YOVANA TH EVERY MORNING 2022-02-02 No Data Available Omeprazole 20 mg Cap delayed rel TAKE 1 CAPSULE BY MOUTH EVERY MORNING 2021-09-28 No Data Available Pentips 32 gauge x 5/32 needle USE 1 DAILY DIRECTE D 2021-11-04 No Data Available Tamsulosin 0.4 mg Cap TAKE 1 CAPSULE BY MOUTH AT BEDTIME 2021-08-27 No Data Available Tresiba FlexTouch 100 UNIT/M L Solution Pen-injector INJECT 15 UNITS SUBCUTANEOUSLY ONCE DAILY DIRECTED 2021 No Data Available Metoprolol Succinate ER 25 m g Tab ER 24hr TAKE 1 TABLET BY MOUTH EVERY MORNING 2022-05-04 No Data Available Azithromycin 250 mg Tab No Data Available 2022-05-18 No Data Available Bacitracin Zinc 500 UNIT/GM Oint APPLY EXTERNALLY TO THE AFFECTED AREA TWICE DAILY 2022-05-24 No Data Available Clopidogrel Bisulfate 75 mg Tab TAKE 1 T ABLET BY MOUTH EVERY EVENING 2021-09-28 No Data Available Triamcinolone Acetonide 0.1 % Crm APPLY TOPICALLY TO THE AFFECTED AREA TWICE DAILY 2022-06-15 No Data Available amLODIPine Besylate 5 mg Tab TAKE 1 TABL ET BY MOUTH EVERY MORNING 2022-03-21 No Data Available Vitamin D3 50 mcg (2,000 uni t) capsule TAKE 1 CAPSULE BY MOUTH EVERY MORNING 2022-03-27 No Data Available hydroCHLOROthiazide 12.5 mg Tab TAKE 1 T ABLET BY MOUTH EVERY MORNING 2022-03-21 No Data Available Symbicort 80-4.5 MCG/ACT Aerosol INHALE 1 PUFF BY MOUTH TWICE DAILY 2022-07-12 No Data Available Medbox Status USE DIRECTED 2022-09-20 No Data Nikki ilable TRUEplus Lancets 33G Miscellaneous USE THREE TIMES DAILY DIRECTED 2022-10-28 No Data Available Clotrimazole 10 mg Juan DISSOLVE 1 YUDITH ENGE BY MOUTH THREE TIMES DAILY 2023-06-08 No Data Available Easy Touch Twist Lancets 33 gauge USE THREE TIMES DAILY DIRECTED 2022-10-28 No Data Available Meclizine 25 mg Tab TAKE 1 TABLET BY YOVANA TWICE DAILY NEEDED FOR DIZZINESS 2023-08-09 No Data Available Vitamin B12 1000 MCG Tab 1 tablet daily 2023-08-16 N o Data Available Voltaren 1 % Gel 2 grams topically to affected area 4 times per day prn 2023-08-16 No Data Available Anoro Ellipta 62.5-25 MCG/AC T Aerosol Powder Breath Activated Inhalation INHALE 1 PUFF BY MOUTH EVERY DAY AT THE SAME TIME 2023-08-16 No Data Available Problem List Problem Status Onset Date Resolved Date Major depressive disorder in partial remission Active 2022-10-14 N/A Hypertension Active 2022-10-14 N/A Hyperlipidemia Active 2022-10-14 N/A Immunocompromised due to corticosteroids Active 2022-10-14 N/A Vitamin D deficiency Active 2022-10-14 N/A Type 2 diabetes mellitus wit h diabetic peripheral angiopathy without gangrene Active 2022-10-15 N/A Osteoarthritis, multiple sites Active 2023-08-16 N/A Other specified hearing loss of right ear, unspecified hearing status on contralateral side Active 2023-08-16 N/A History of COVID-19 Active 2023-09-05 N/A Other problems related to mi dical facilities and other health care Active 2023-12-27 N/A 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 ([place]/05/[place]22 Chronic obstructive pulmonar y disease, unspecifiedType 2 diabetes mellitus with diabetic polyneuropathyMajor depressive disorder, single episode, in partial remissionUnspecified disorder of circulatory systemEssential (primary) hypertensionHyperlipidemia, unspecifiedImmunodeficiency due to drugsAdverse effect of glucocort/synth analog, initLong term (current) use of systemic steroidsVitamin D deficiency, unspecified New patient,40-59min; chronic exacerbation, 2 stable chronic or 1 acute illness add add modifier 95 for video (do not use for phone, instead use 84889-48) [facility] [place] New patient,40-59min; chronic exacerbation, 2 stable chronic or 1 acute illness add add modifier 95 for video (do not use for phone, instead use 97432-14) [facility] [place] New patient,40-59min; chronic exacerbation, 2 stable chronic or 1 acute illness add add modifier 95 for video (do not use for phone, instead use 97309-53) [facility] [place] New patient,40-59min; chronic exacerbation, 2 stable chronic or 1 acute illness add add modifier 95 for video (do not use for phone, instead use 77989-95) [facility] [place] New patient,40-59min; chronic exacerbation, 2 stable chronic or 1 acute illness add add modifier 95 for video (do not use for phone, instead use 99997-70) [facility] [place] New patient,40-59min; chronic exacerbation, 2 stable chronic or 1 acute illness add add modifier 95 for video (do not use for phone, instead use 27995-09) [facility] [place] New patient,40-59min; chronic exacerbation, 2 stable chronic or 1 acute illness add add modifier 95 for video (do not use for phone, instead use 60921-71) [facility] [place] New patient,40-59min; chronic exacerbation, 2 stable chronic or 1 acute illness add add modifier 95 for video (do not use for phone, instead use 75104-50) [facility] [place] Estab. patient 30-39min; chronic exacerbation, 2 stable chronic or 1 acute illness add add modifier 95 for video, (do not use for phone, instead use 64177-83) [facility] [place] Chronic obstructive pulmonar y disease, unspecifiedType 2 diabetes mellitus with diabetic polyneuropathyMajor depressive disorder, single episode, in partial remissionEssential (primary) hypertensionHyperlipidemia, unspecifiedImmunodeficiency due to drugsAdverse effect of glucocort/synth analog, initLong term (current) use of systemic steroidsVitamin D deficiency, unspecifiedType 2 diabetes w diabetic peripheral angiopath w/o gangreneBenign paroxysmal vertigo, bilateralPolyosteoarthritis, unspecifiedOther specified hearing loss, right ear Estab. patient 30-39min; chronic exacerbation, 2 stable chronic or 1 acute illness add add modifier 95 for video, (do not use for phone, instead use 69056-31) [facility] [place] Estab. patient 30-39min; chronic exacerbation, 2 stable chronic or 1 acute illness add add modifier 95 for video, (do not use for phone, instead use 27921-41) [facility] [place] Estab. patient 30-39min; chronic exacerbation, 2 stable chronic or 1 acute illness add add modifier 95 for video, (do not use for phone, instead use 88882-92) [facility] [place] Estab. patient 30-39min; chronic exacerbation, 2 stable chronic or 1 acute illness add add modifier 95 for video, (do not use for phone, instead use 58794-27) [facility] [place] Estab. patient 30-39min; chronic exacerbation, 2 stable chronic or 1 acute illness add add modifier 95 for video, (do not use for phone, instead use 80955-18) [facility] [place] Estab. patient 30-39min; chronic exacerbation, 2 stable chronic or 1 acute illness add add modifier 95 for video, (do not use for phone, instead use 47228-18) [facility] [place] Estab. patient 30-39min; chronic exacerbation, 2 stable chronic or 1 acute illness add add modifier 95 for video, (do not use for phone, instead use 96730-66) [facility] [place] Estab. patient 30-39min; chronic exacerbation, 2 stable chronic or 1 acute illness add add modifier 95 for video, (do not use for phone, instead use 39731-22) [facility] [place] Estab. patient 30-39min; chronic exacerbation, 2 stable chronic or 1 acute illness add add modifier 95 for video, (do not use for phone, instead use 43500-02) [facility] [place] 08[place]/[address] [facility] [place]20[place] Chronic obstructive pulmonar y disease, unspecifiedType 2 diabetes mellitus with diabetic polyneuropathyMajor depressive disorder, single episode, in partial remissionEssential (primary) hypertensionHyperlipidemia, unspecifiedImmunodeficiency due to drugsAdverse effect of glucocort/synth analog, initLong term (current) use of systemic steroidsVitamin D deficiency, unspecifiedType 2 diabetes w diabetic peripheral angiopath w/o gangreneBenign paroxysmal vertigo, bilateralPolyosteoarthritis, unspecifiedOther specified hearing loss, right earPersonal history of covid-[address] [facility] 09[place] [facility] [facility] [facility] [facility] [facility] Estab. patient 30-39min; chronic exacerbation, 2 stable chronic or 1 acute illness add add modifier 95 for video, (do not use for phone, instead use 31856-43) [facility] [place] Chronic obstructive pulmonar y disease, unspecifiedType 2 diabetes mellitus with diabetic polyneuropathyMajor depressive disorder, single episode, in partial remissionEssential (primary) hypertensionHyperlipidemia, unspecifiedImmunodeficiency due to drugsAdverse effect of glucocort/synth analog, initOther problems related to medical facilities and other health careLong term (current) use of systemic steroidsType 2 diabetes w diabetic peripheral angiopath w/o gangreneVitamin D deficiency, unspecifiedBenign paroxysmal vertigo, bilateralPolyosteoarthritis, unspecifiedOther specified hearing loss, right earPersonal history of covid-19 Estab. patient 30-39min; chronic exacerbation, 2 stable chronic or 1 acute illness add add modifier 95 for video, (do not use for phone, instead use 20828-97) [facility] [place] Estab. patient 30-39min; chronic exacerbation, 2 stable chronic or 1 acute illness add add modifier 95 for video, (do not use for phone, instead use 39762-21) [facility] Estab. patient 30-39min; chronic exacerbation, 2 stable chronic or 1 acute illness add add modifier 95 for video, (do not use for phone, instead use 97431-17) [facility] Estab. patient 30-39min; chronic exacerbation, 2 stable chronic or 1 acute illness add add modifier 95 for video, (do not use for phone, instead use 22005-26) [facility] [place] Estab. patient 30-39min; chronic exacerbation, 2 stable chronic or 1 acute illness add add modifier 95 for video, (do not use for phone, instead use 99403-86) [facility] Estab. patient 30-39min; chronic exacerbation, 2 stable chronic or 1 acute illness add add modifier 95 for video, (do not use for phone, instead use 73357-11) [facility] Estab. patient 30-39min; chronic exacerbation, 2 stable chronic or 1 acute illness add add modifier 95 for video, (do not use for phone, instead use 53011-10) [facility] [place] Estab. patient 30-39min; chronic exacerbation, 2 stable chronic or 1 acute illness add add modifier 95 for video, (do not use for phone, instead use 75493-33) [facility] [place] Estab. patient 30-39min; chronic exacerbation, 2 stable chronic or 1 acute illness add add modifier 95 for video, (do not use for phone, instead use 67196-09) [facility] [place] Vital Signs Date of Collection Vitals 2022-10-05 08:21:15 Height - 167.64 cmWe ight - 72.58 kgBody Mass Index (BMI) - 25.82 kg/m2BP Diastolic - 61.0 mm[Hg]BP Systolic - 135.0 mm[Hg] 2023-08-16 08:05:08 Height - 167.64 cmWe ight - 72.58 kgBody Mass Index (BMI) - 25.82 kg/m2BP Diastolic - 76.0 mm[Hg]BP Systolic - 128.0 mm[Hg]Pain Scale - 3.0 {score} 2023-09-05 06:05:41 Weight - 72.58 kgBod y Mass Index (BMI) - 25.82 kg/m2BP Diastolic - 76.0 mm[Hg]BP Systolic - 128.0 mm[Hg]Pain Scale - 0.0 {score} 2024-05-10 10:10:04 Weight - 74.84 kgBod y Mass Index (BMI) - 26.63 kg/m2BP Diastolic - 76.0 mm[Hg]BP Systolic - 122.0 mm[Hg]Pain Scale - 5.0 {score} Social History Social History Social History Observation Description Effec tive Time Current Smoking Status Never smoker 5 Sex Male History of Procedures Procedures Service Procedure code Service date Servicing provider Phone# New patient,40-59min; chronic exacerbation, 2 stable chronic or 1 acute illness add add modifier 95 for video (do not use for phone, instead use [id number]) 39358 2022-10-05 No Data Available No Data Availa ble Pain Assessment - NO pain present (1126F) 1126F 2022-10-05 No Data Available No Data A vailable Medication List Documented (1159F) 1159F 2022-10-05 No Data Available No Data Nikki ilable Medication Review by prescribing provider or pharmacist documented (1160F) 1160F 2022-10-05 No Data Available No Data Nikki ilable Functional Status Assessed (1170F) 1170F 2022-10-05 No Data Available No Data Avail able Advance Care Directive Advance care planning discussion documented in the medical record (1158F) 1158F 2022-10-05 No Data Available No Data Availa ble BMI obtained (3008F) 3008F 2022-10-05 No Data Availab le No Data Available SBP 130-139 (3075F) 3075F 2022-10-05 No Data Availabl e No Data Available DBP <80 (3078F) 3078F 2022-10-05 No Data Available No Data Available Estab. patient 30-39min; chronic exacerbation, 2 stable chronic or 1 acute illness add add modifier 95 for video, (do not use for phone, instead use 17813-96) 44987 2023-08-16 No Data Available No Data Availa ble Medication List Documented (1159F) 1159F 2023-08-16 No Data Available No Data Nikki ilable Medication Review by prescribing provider or pharmacist documented (1160F) 1160F 2023-08-16 No Data Available No Data Nikki ilable Pain Assessment - Pain Documented on a Pain Scale (1125F) 1125F 2023-08-16 No Data Available No Data Nikki ilable BMI obtained (3008F) 3008F 2023-08-16 No Data Availab le No Data Available Advance Care Directive Advance care planning discussion documented in the medical record (1158F) 1158F 2023-08-16 No Data Available No Data Availa ble Advance care planning discussed and documented ? advance care plan or surrogate decision-maker was documented in the medical record. (1123F) 1123F 2023-08-16 No Data Available No Data Availa ble SBP < 130 (3074F) 3074F 2023-08-16 No Data Available No Data Available DBP <80 (3078F) 3078F 2023-08-16 No Data Available No Data Available Functional Status Assessed (1170F) 1170F 2023-08-16 No Data Available No Data Avail able No Data Available 72758 2023-09-05 No Data Available No Data Available Medication List Documented (1159F) 1159F 2023-09-05 No Data Available No Data Nikki ilable Functional Status Assessed (1170F) 1170F 2023-09-05 No Data Available No Data Avail able Pain Assessment - NO pain present (1126F) 1126F 2023-09-05 No Data Available No Data A vailable BMI obtained (3008F) 3008F 2023-09-05 No Data Availab le No Data Available SBP < 130 (3074F) 3074F 2023-09-05 No Data Available No Data Available DBP <80 (3078F) 3078F 2023-09-05 No Data Available No Data Available Estab. patient 30-39min; chronic exacerbation, 2 stable chronic or 1 acute illness add add modifier 95 for video, (do not use for phone, instead use 89533-64) 39551 2024-05-10 No Data Available No Data Availa ble Medication List Documented (1159F) 1159F 2024-05-10 No Data Available No Data Nikki ilable Medication Review by prescribing provider or pharmacist documented (1160F) 1160F 2024-05-10 No Data Available No Data Nikki ilable Functional Status Assessed (1170F) 1170F 2024-05-10 No Data Available No Data Avail able Pain Assessment - Pain Documented on a Pain Scale (1125F) 1125F 2024-05-10 No Data Available No Data Nikki ilable Advance Care Directive Advance care planning discussion documented in the medical record (1158F) 1158F 2024-05-10 No Data Available No Data Availa ble BMI obtained (3008F) 3008F 2024-05-10 No Data Availab le No Data Available SBP < 130 (3074F) 3074F 2024-05-10 No Data Available No Data Available DBP <80 (3078F) 3078F 2024-05-10 No Data Available No Data Available Advance care planning discussed and documented ? advance care plan or surrogate decision-maker was documented in the medical record. (1123F) 1123F 2024-05-10 No Data Available No Data Availa ble Functional Status Functional Category Effective Dates Cognition Status: Oriented to Person, Pl jv and Time 2022-10-05 ADL: Bathing Needs Assistanc e , Dressing Needs Assistance , Eating Independent , Ambulation Independent , Transferring Independent and Toileting Independent 2023-08-16 IADL: needs assistance with all IADLs 08-08-31 Falls in last 6 Months: Yes 2023-08-16 Social Supports - # of Inter actions with Friends/Family in a typical week: daily, lives with daughter (CELLULAR EQUIPMENT INSTALLER) 2023-08-16 Mental Status Status Date Cognition Status: Oriented to Person, Pl jv and Time 2022-10-05 Assessments Date of Service Assessments 2022-10-05 08:21:15 COPD (chronic obstru ctive pulmonary disease)Type 2 diabetes mellitus with polyneuropathyMajor depressive disorder in partial remissionVascular diseaseHypertensionHyperlipidemiaImmunocompromised due to corticosteroidsVitamin D deficiency 2023-08-16 08:05:08 COPD (chronic obstru ctive pulmonary disease)Type 2 diabetes mellitus with polyneuropathyMajor depressive disorder in partial remissionHypertensionHyperlipidemiaImmunocompromised due to corticosteroidsVitamin D deficiencyType 2 diabetes mellitus with diabetic peripheral angiopathy without gangreneBenign paroxysmal positional vertigo due to bilateral vestibular disorderOsteoarthritis, multiple sitesOther specified hearing loss of right ear, unspecified hearing status on contralateral side 2023-09-05 06:05:41 COPD (chronic obstru ctive pulmonary disease)Type 2 diabetes mellitus with polyneuropathyMajor depressive disorder in partial remissionHypertensionHyperlipidemiaImmunocompromised due to corticosteroidsVitamin D deficiencyType 2 diabetes mellitus with diabetic peripheral angiopathy without gangreneBenign paroxysmal positional vertigo due to bilateral vestibular disorderOsteoarthritis, multiple sitesOther specified hearing loss of right ear, unspecified hearing status on contralateral sideHistory of COVID-19 2024-05-10 10:10:04 Other problems relat ed to medical facilities and other health careWhen member to call: 1. If bp is elevated sbp>150; dbp>90 or symptomatic-h/a, dizziness, cp, sob. 2. if there is a fall 3. if BS >300 or BS<90 or symptomatic; i.e., dizzy, off balance , shaky, general weakness. 4. if UTI symptoms arise-urinary frequency, dysuria, low abd pain. 5. if pain in knees increases/ or joint pain increased Please remember to call CBContinue to see PCP. Follow-up with [facility] as needed for any acute or disease education needs that may arise 09/05.what should be done when the member calls: see each individual diagnosis for contingency planCOPD (chronic obstructive pulmonary disease)------Contingency plan---------Normal oxygen flow rate: NonePRN medications and how often used at baseline: Albuterol MDI used RARE-PRN times per weekFor worsening symptoms:Increase use of albuterol inhaler to q2h PRN cough, breathlessness, Increased breathlessness - add prednisone taper 40mg x 3 days, 30mg x 3 days, 20mg x 3 days, 10mg x 3 days, Change in sputum - add azithromycin 500mg on day 1 then 250 mg on day 2-5 and Change in sputum - add levofloxacin 500mg daily x 5 days ----Symbicortfollows with pulmonary frequentlydenies any acute exacerbationsplan: continue with current treatment and report any worsening of symptoms 23: increased DODSON, taking symbicort PLAN: hold symbicort, start LABA/LAMA (anoro) daily. f/u c [facility] sched 09/05/23PULM f/u 10/2022 -will rx LABA/LAMA combo 09/05/23: breathing much improved with Anoro, even in the setting of recent covid infection. continue anoro and f/u with PULM Oct: Stable today on current meds, neb/inh, monitor by Pulm.Type 2 diabetes mellitus with polyneuropathyon januvia, jardiance, and insulin last known HBA1C 7reviewed most recent glucose readings and counseled patient on best practices to monitor disease progressionencourage to continue with current plan, diet control and close follow up with PCP and frequent eye and foot examsMajor depressive disorder in partial remissionon fluoxetine stable, denies any symptoms, SI/HI thoughts, PHQ2: 0recommend to keep taking medication as prescribed and to call back should symptoms progress or if new symptoms associated with depression ariseHypertensionmanaged with amlodipine, HCTZ, and BBsees PCP every 3-6 months, BP assessed by CE[employer] E[employer]IPMENT INST[employer]ER 3x times a weekrecommend healthy lifestyle changes (weight loss, heart healthy diet, sodium restriction, increase physical activity and alcohol restriction)Hyperlipidemiastable on a statinresponse to treatment evaluated reviewed records and discussed current condition with the patient recommend low fat diet and lifestyle modificationsImmunocompromised due to corticosteroidson chronic use of steroid due to pulmonary disease recommend tight glycemic control. Also recommend to keep up with vaccinations and avoid sick contacts. Monitor for signs and symptoms of infection.Vitamin D deficiencyon supplementscontinueType 2 diabetes mellitus with diabetic peripheral angiopathy without gangreneperipheral vascular disease associated with atherosclerosis of the lower extremitiesdenies any swelling, redness and signs of infectioncontinue to take statin, BB, antihypertensive and Plavix close follow up with PCP and vascularBenign paroxysmal positional vertigo due to bilateral vestibular disorderED visit 12/2022 for nasal abrasion/fx d/t fall ?d/t mechanical fall, missed a step. Fall preauction advised.Osteoarthritis, multiple sitesOA worse knees at risk for falls Fall prevention TIPS: Wear sensible shoes. Remove home hazards (Get rid of all rugs/mats in your home). Light up your living space (keep a flash light next to your bed for night time). Use assistive devices.Other specified hearing loss of right ear, unspecified hearing status on contralateral sidereferral to audiology 10.31.23History of COVID-19symptomatic on 08/30/23feeling better now. Only symptomatic x 5 days (fever, chills, cough). Denies SOB today. Plan of Care Date of Service Plans 2022-10-05 08:21:15 Pain Assessment - NO pain documented (1126F)Medication Review by prescribing provider or pharmacist documented (1160F)Medication List Documented (1159F)Functional Status Assessed (1170F)Advance Care Directive Advance care planning discussion documented in the medical record (1158F)BMI obtained (3008F)SBP 130-139 (3075F)DBP <80 (3078F)Televideo new patient,40-59min; chronic exacerbation, 2 stable chronic or 1 acute illness add modifier 95Continue to see PCP. Follow-up with [facility] as needed for any acute or disease education needs that may arise.stable on prednisone and Symbicortfollows with pulmonary frequentlydenies any acute exacerbationsplan: continue with current treatment and report any worsening of symptomson januvia, jardiance, and insulin last known HBA1C 7reviewed most recent glucose readings and counseled patient on best practices to monitor disease progressionencourage to continue with current plan, diet control and close follow up with PCP and frequent eye and foot examson fluoxetine stable, denies any symptoms, SI/HI thoughts, PHQ2: 0recommend to keep taking medication as prescribed and to call back should symptoms progress or if new symptoms associated with depression ariseperipheral vascular disease associated with atherosclerosis of the lower extremitiesdenies any swelling, redness and signs of infectioncontinue to take statin, BB, antihypertensive and Plavix close follow up with PCP and vascularmanaged with amlodipine, HCTZ, and BBsees PCP every 3-6 months, BP assessed by CELLULAR EQUIPMENT INSTALLER 3x times a weekrecommend healthy lifestyle changes (weight loss, heart healthy diet, sodium restriction, increase physical activity and alcohol restriction)stable on a statinresponse to treatment evaluated reviewed records and discussed current condition with the patient recommend low fat diet and lifestyle modificationson chronic use of steroid due to pulmonary disease recommend tight glycemic control. Also recommend to keep up with vaccinations and avoid sick contacts. Monitor for signs and symptoms of infection.on supplementscontinue 2023-08-16 08:05:08 Medication Review by prescribing provider or pharmacist documented (1160F)Medication List Documented (1159F)Functional Status Assessed (1170F)Advance Care Directive Advance care planning discussion documented in the medical record (1158F)BMI obtained (3008F)SBP < 130 (3074F)DBP <80 (3078F)Televideo 30-39min; chronic exacerbation, 2 stable chronic or 1 acute illness add modifier 95Advance care planning discussed and documented ? advance care plan or surrogate decision-maker was documented in the medical record. (1123F)Pain Assessment - Pain Documented (1125F)Continue to see PCP. Follow-up with [facility] as needed for any acute or disease education needs that may arise.Symbicortfollows with pulmonary frequentlydenies any acute exacerbationsplan: continue with current treatment and report any worsening of symptoms 08.16.23: increased DODSON, taking symbicort PLAN: hold symbicort, start LABA/LAMA (anoro) daily. f/u c [facility] sched 09/05/23PULM f/u 10/2022 -will rx LABA/LAMA comboon januvia, jardiance, and insulin last known HBA1C 7reviewed most recent glucose readings and counseled patient on best practices to monitor disease progressionencourage to continue with current plan, diet control and close follow up with PCP and frequent eye and foot exams 08/16/23: BS range (84-110)on fluoxetine stable, denies any symptoms, SI/HI thoughts, PHQ2: 0recommend to keep taking medication as prescribed and to call back should symptoms progress or if new symptoms associated with depression arisemanaged with amlodipine, HCTZ, and BBsees PCP every 3-6 months, BP assessed by CELLULAR EQUIPMENT INSTALLER 3x times a weekrecommend healthy lifestyle changes (weight loss, heart healthy diet, sodium restriction, increase physical activity and alcohol restriction)stable on a statinresponse to treatment evaluated reviewed records and discussed current condition with the patient recommend low fat diet and lifestyle modificationson chronic use of steroid due to pulmonary disease recommend tight glycemic control. Also recommend to keep up with vaccinations and avoid sick contacts. Monitor for signs and symptoms of infection.on supplementscontinueperipheral vascular disease associated with atherosclerosis of the lower extremitiesdenies any swelling, redness and signs of infectioncontinue to take statin, BB, antihypertensive and Plavix close follow up with PCP and vascularED visit 12/2022 for nasal abrasion/fx d/t fall ?d/t mechanical fall, missed a step.OA worse knees at risk for falls Fall prevention TIPS: Wear sensible shoes. Remove home hazards (Get rid of all rugs/mats in your home). Light up your living space (keep a flash light next to your bed for night time). Use assistive devices.referral to audiology 08.16.23 2023-09-05 06:05:41 Phone (patient, pare nt, or guardian); 5-10 minutes of medical discussion (no modifier 95)SBP < 130 (3074F)DBP <80 (3078F)BMI obtained (3008F)Continue to see PCP. Follow-up with [facility] as needed for any acute or disease education needs that may arise 09/05.------Contingency plan---------Normal oxygen flow rate: NonePRN medications and how often used at baseline: Albuterol MDI used RARE-PRN times per weekFor worsening symptoms:Increase use of albuterol inhaler to q2h PRN cough, breathlessness, Increased breathlessness - add prednisone taper 40mg x 3 days, 30mg x 3 days, 20mg x 3 days, 10mg x 3 days, Change in sputum - add azithromycin 500mg on day 1 then 250 mg on day 2-5 and Change in sputum - add levofloxacin 500mg daily x 5 days ----Symbicortfollows with pulmonary frequentlydenies any acute exacerbationsplan: continue with current treatment and report any worsening of symptoms 08.16.23: increased DODSON, taking symbicort PLAN: hold symbicort, start LABA/LAMA (anoro) daily. f/u c [facility] sched 09/05/23PULM f/u 10/2022 -will rx LABA/LAMA combo 09/05/23: breathing much improved with Anoro, even in the setting of recent covid infection. continue anoro and f/u with PULM Oct 2022on januvia, jardiance, and insulin last known HBA1C 7reviewed most recent glucose readings and counseled patient on best practices to monitor disease progressionencourage to continue with current plan, diet control and close follow up with PCP and frequent eye and foot exams 08/16/23: BS range (84-110)on fluoxetine stable, denies any symptoms, SI/HI thoughts, PHQ2: 0recommend to keep taking medication as prescribed and to call back should symptoms progress or if new symptoms associated with depression arisemanaged with amlodipine, HCTZ, and BBsees PCP every 3-6 months, BP assessed by CELLULAR EQUIPMENT INSTALLER 3x times a weekrecommend healthy lifestyle changes (weight loss, heart healthy diet, sodium restriction, increase physical activity and alcohol restriction)stable on a statinresponse to treatment evaluated reviewed records and discussed current condition with the patient recommend low fat diet and lifestyle modificationson chronic use of steroid due to pulmonary disease recommend tight glycemic control. Also recommend to keep up with vaccinations and avoid sick contacts. Monitor for signs and symptoms of infection.on supplementscontinueperipheral vascular disease associated with atherosclerosis of the lower extremitiesdenies any swelling, redness and signs of infectioncontinue to take statin, BB, antihypertensive and Plavix close follow up with PCP and vascularED visit 12/2022 for nasal abrasion/fx d/t fall ?d/t mechanical fall, missed a step.OA worse knees at risk for falls Fall prevention TIPS: Wear sensible shoes. Remove home hazards (Get rid of all rugs/mats in your home). Light up your living space (keep a flash light next to your bed for night time). Use assistive devices.referral to audiology 08.16.23symptomatic on 08/30/23feeling better now. Only symptomatic x 5 days (fever, chills, cough). Denies SOB today. 2024-05-10 10:10:04 Televideo 30-39min; chronic exacerbation, 2 stable chronic or 1 acute illness add modifier 95Functional Status Assessed (1170F)Pain Assessment - NO pain documented (1126F)BMI obtained (3008F)Advance Care Directive Advance care planning discussion documented in the medical record (1158F)Advance care planning discussed and documented ? advance care plan or surrogate decision-maker was documented in the medical record. (1123F)SBP < 130 (3074F)DBP <80 (3078F)Continue to see PCP. Follow-up with [facility] as needed for any acute or disease education needs that may arise. Goals Date Goal 2022-10-05 Remember to take med ications or concerns 2022-10-05 Call me if you have any questions or concerns Health Concerns Date Concern 2024-05-10 Visit completed jackson moody audio/video.Patient/Guardian agreed to visit via telehealth. Today, patient has chief complaint of: follow up care and comprehensive review.Reviewed Allergies, Medications, Active Medical conditions, past medical/surgical history, Social history. 2024-05-10 Daughter- Alyssa [facility] leticia assisted with visit and Bulgarian interpretation today.
== END 2024-12-21 12:56 | disposition home or self-care (01) ==
PROVIDERS: PCP Internal Medicine; Visit Provider Internal Medicine Nephrology
DX: N20.0 Calculus of kidney (principal); N18.31 Chronic kidney disease, stage 3a; I10 Essential (primary) hypertension; N28.1 Cyst of kidney, acquired
CPT/HCPCS: 99214

== ENCOUNTER → 2024-12-21 11:48 | Outpatient (BNVA) | payer OTHER, SELFPAY | PROVIDERS: PCP Internal Medicine; Visit Provider Internal Medicine Nephrology | DX: I12.9 Hypertensive chronic kidney disease with stage 1 through stage 4 chronic kidney disease, or unspecified chronic kidney disease (principal); N18.31 Chronic kidney disease, stage 3a; N20.0 Calculus of kidney; N28.1 Cyst of kidney, acquired; Z87.442 Personal history of urinary calculi | CPT/HCPCS: 99212 ==

== ENCOUNTER 2025-01-02 07:54 | Outpatient (REF) | payer OTHER, SELFPAY ==
--- NOTE | ~2025-01-02 | CT_ITS ---
CLINICAL HISTORY: R91.1 - Solitary pulmonary nodule CT chest without contrast Comparison: CT/ME/SR - CT CHEST WO IV CON - 12/08/23 14:04 EST Findings: Trachea and central bronchi are patent. No dense consolidation, pleural effusion or pneumothorax. Mild diffuse bronchiectasis appears unchanged. The sub 5 mm adjacent pulmonary nodules in the lingula are unchanged. No new nodules or masses. Heart size is stable. Pericardial calcification on the left. Moderate coronary calcium. No pericardial effusion. Ascending aorta is nondilated. Postoperative changes at the gastroesophageal junction. No chest wall lesions, thyroid nodules or axillary adenopathy. Multiple bilateral renal lesions all appear to be consistent with simple cysts with the exception of an exophytic 2.9 cm lesion arising from the medial aspect of the lower pole of the right kidney on image 63 of series 3. This was not seen on the prior exam due to collimation. No acute osseous findings. IMPRESSION: 1. Stable lingular noncalcified nodules, likely infectious or inflammatory. Follow-up chest CT in 1 year 2. Numerous bilateral simple appearing renal cysts with a single indeterminate lesion measuring 2.9 cm arising from the medial aspect of the right kidney for which further characterization is recommended with MRI with and without contrast on a nonemergent basis. This document has been electronically signed by: Melany Vang MD on 01/03/2025 08:59:48
--- OUTSIDE RECORDS SUMMARY | 2025-01-02 07:57 | XMS_ITS | Encounter Summary ---
Author Organization [employer] Address [address] [facility] [place] [address] Care Team Providers Care Double End Tenon Operator Name Role Phone Unavailable Primary Care Provider Unavailabl e Encounter Details Date Type Department Care Team (Latest Contact Info) Description 10/31/2018 Abstract [facility] CONVERSIONS Dental, Provider, DDS Social History Tobacco Use Types Packs/Day Years Used Date Smoking Tobacco: Never Assessed Sex and Gender Information Value Date Recorded Sex Assigned at Male 08/16/2022 10:18 AM EDT Legal Sex Male 10:18 AM EDT Gender Identity Male 08/16/2022 10:18 AM EDT Sexual Orientation Straight 08/16/2022 10 :18 AM EDT documented as of this encounter Plan of Treatment Not on file documented as of this encounter Visit Diagnoses Not on filedocumented in this encounter
--- OUTSIDE RECORDS SUMMARY | 2025-01-02 07:57 | XMS_ITS | Patient Health Record ---
[facility] Address [address] [place] [address] Care Team Providers Care Etl Consultant Name Role Phone Kavita Adam MD Primary Care Provider Unavail able Shirin Arzate Unavailable [phone] Reason For Referral No Information Medications Medication [...] Next Appt Details Provider Name:Shirin Chandler erica, 02/18/2025 09:30:00 AM, [address] [place], [address], Insurance Providers Payer Name Payer Address Payer Phone Subscriber Number Group Number Insured Name Patient Relationship to Insured Coverage Start Date Coverage End Date Medicare National [employer] [address] [place] [phone] Manuel Bianchi Self - patient is the insured [place] [id number] [address] [address] [place] [id number] Manuel Bianchi Self - patient is the insured Medical (General) History Medical History History ICD Code Arthritis asthma Depression Diabetic High Blood Pressure Kidney disease Stroke Stomach ulcer Surgical History Surgery Date(Month/Year) stomach ulver broken ankle hernia
--- OUTSIDE RECORDS SUMMARY | 2025-01-02 07:57 | XMS_ITS | Clinical Summary ---
Author Organization [employer] Address [address] [facility] 7[address] [place] [address] Care Team Providers Care Circuit Judge Name Role Phone Unavailable Primary Care Provider Unavailabl e Allergies Active Allergy Reactions Criticality Noted Date Comments Acetaminophen Nausea Only 11/01/2019 Oxycodone Nausea Only 11/01/2019 Medications amLODIPine (Norvasc) 2.5 MG tablet Take 1 tablet by mouth at bed time. 0 Active atorvastatin (Lipitor) 20 MG tablet Take 1 tablet by mouth at bed time. 9 Active Symbicort 80-4.5 MCG/ACT inhaler Inhale 1 puff 2 times daily. 2 Active cetirizine (ZyrTEC) 10 MG tablet Take 1 tablet by mouth at bed time. 9 Active D3 Super Strength 50 MCG (1999) capsule Take 50 mcg by mouth in the morning. 2 Active albuterol (2.5 MG/3ML) 0.083% nebulizer solution INHALE 1 AMPULE USING A NEBULIZER TWICE DAILY NEEDED FOR WHEEZING OR SHORTNESS OF BREATH 4 Active clopidogrel (Plavix) 75 MG tablet Take 75 mg by mouth at bedtime. Active Jardiance 25 MG Take 25 mg by mouth in the morning. 4 Active FLUoxetine (PROzac) 20 MG capsule Take 20 mg by mouth in the morning. Active Arnuity Ellipta 100 MCG/ACT inhaler INHALE 1 PUFF BY MOUTH EVERY DAY AT THE SAME TIME 4 Active hydroCHLOROthi azide 12.5 MG tablet Take 12.5 mg by mouth in the morning. 4 Active Tresiba FlexTouch 100 UNIT/ML injection INJECT 15 UNITS SUBCUTANEOUSLY EVERY DAY 4 Active Xopenex HFA 45 MCG/ACT inhaler INHALE 2 PUFFS BY MOUTH EVERY 6 HOURS 4 Active metoprolol succinate XL (Toprol-XL) 25 MG 24 hr tablet Take 25 mg by mouth in the morning. 4 Active omega-3 (Fish Oil) 1000 MG capsule Take 1,000 mg by mouth in the morning. 4 Active omeprazole (PriLOSEC) [address] capsule Take 20 mg by mouth in the morning. Active Januvia 100 MG tablet Take 100 mg by mouth in the morning. Active Anoro Ellipta 62.5-25 MCG/ACT aerosol powder INHALE 1 PUFF BY MOUTH EVERY DAY AT THE SAME TIME 4 Active benzonatate (Tessalon) 200 MG capsule Take 200 mg by mouth if needed in the morning, at noon, and at bedtime. 4 Active predniSONE (Deltasone) 10 MG tablet TAKE 3 TABLETS BY MOUTH ONCE DAILY FOR 4 DAYS, THEN TAKE 2 TABLETS BY MOUTH ONCE DAILY FOR 4 DAYS, THEN TAKE 1 TABLET ONCE DAILY FOR 4 DAYS 4 Active tamsulosin (Flomax) 0.4 MG 24 hr capsule Take 0.4 mg by mouth at bedtime. 4 Active Active Problems Problem Noted Date Diagnosed Date Dental plaque on multiple teeth 11/05/2022 Generalized gingival recession 11/05/2022 Low back pain radiating to left leg 08/22/2017 Varicose veins of lower extremity 08/22/2017 History of partial gastrectomy 06/28/2016 Diverticula of intestine 05/27/2016 Kidney stone 05/27/2016 Simple renal cyst 05/27/2016 Essential hypertension 11/26/2015 Hypercholesterolemia 11/26/2015 Type 2 diabetes mellitus, co ntrolled, with ophthalmic manifestations 07/19/2014 Overview (09/18/2024): Nuclear Sclerosis noted eye exam 08/18/2011. 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 Hyperlipidemia with target LDL less than 100 11/2010 Overview (09/18/2024): IMO update Type 2 diabetes mellitus 01/20/2011 HTN (hypertension) 10/11/2008 Venous insufficiency 10/11/2008 Encounters Date Type Department Care Team Description 01/01/2025 10:00 AM EDT Office Visit [facility] ADULT D[facility]AL [address] [place] [address] Willis Boston 12/17/2024 10:00 AM EST Office Visit [facility]ULT [facility] [address] [place] [address] Marisa Love from Last 3 Months Social History Tobacco Use Types Packs/Day Years Used Date Smoking Tobacco: Never Passive Smoke Exposure: Never Smokeless Tobacco: Never Tobacco Cessation:Counseling Given: Not Answered Alcohol Use Standard Drinks/Week Comments Defer 0 (1 standard drink = 0.6 oz pur e alcohol) Sex and Gender Information Value Date Recorded Sex Assigned at Male 08/16/2022 10:18 AM EDT Legal Sex Male 10:18 AM EDT Gender Identity Male 08/16/2022 10:18 AM EDT Sexual Orientation Straight 08/16/2022 10 :18 AM EDT Last Filed Vital Signs Vital Sign Reading Time Taken Comments Blood Pressure 126/72 12/17/2024 10:04 AM EST Pulse 65 06/15/2024 1:13 PM EDT Temperature - - Respiratory Rate - - Oxygen Saturation - - Inhaled Oxygen Concentration - - Weight 78.6 kg (173 lb 3.2 oz) 11/27/2019 12:02 AM EST Height 167.6 cm (5' 6 ) 11/27/2019 12:02 AM EST Body Mass Index 27.95 11/27/2019 12:02 AM EST Plan of Treatment Health Maintenance Due Date Last Done Comments Depression Screening 1938 Lipid Panel 1938 SDOH Screening 1938 Diabetes: Foot Exam 1948 Eye Exam 1948 Alcohol/Substance Use Screening 1950 Diabetes: Urine Protein Screening 1957 Zoster Vaccines (1 of 2) 1988 RSV Patients and Patients Aged 60 years or older (1 - 1-dose 75+ series) 2013 Diabetes: Hemoglobin A1C 07/31/2020 04/30/2020, 10/17 Dental Prophylaxis 06/20/2025 12/17/2024, 0 06/15/2024, 11/05/2022 Dental Oral Exam 07/05/2025 01/01/2025, , 11/05/2022 Tobacco Screening 01/01/2026 01/01/2025 Dental X-Ray: Bitewings 01/02/2026 01/02/20, 06/15/2024, 11/05/2022 Dental X-Ray: Full Mouth 01/03/2028 01/01/2025, 10/18 DTaP/Tdap/Td Vaccines (3 - Td or Tdap) 01/08/2033 01/08/2023, 08/27/2016, 04/17/2012 Pneumococcal Vaccine: 50+ Years Completed 10/18/2023, 07/04/2018, 04/26/2017 COVID-19 Vaccine Completed 07/27/2024, 10/2022, 04/09/2022, Additional history exists Influenza Vaccine Completed 07/27/2024, , 08/13/2022, Additional history exists HIB Vaccines Aged Out No longer eligi ble based on patient's age to complete this topic HPV Vaccines Aged Out No longer eligi ble based on patient's age to complete this topic Hepatitis A Vaccines Aged Out No long er eligible based on patient's age to complete this topic Hepatitis B Vaccines Aged Out No long er eligible based on patient's age to complete this topic IPV Vaccines Aged Out No longer eligi ble based on patient's age to complete this topic Meningococcal Vaccine Aged Out No diane kristyn eligible based on patient's age to complete this topic RSV under 20 months Aged Out No longe r eligible based on patient's age to complete this topic Rotavirus Vaccines Aged Out No longer eligible based on patient's age to complete this topic Procedures Procedure Name Priority Date/Time Associated Diagnosis Comments INTRAORAL - COMPLETE SERIES OF RADIOGRAPHIC IMAGES Routine 01/01/2025 10:00 AM EDT COMPREHENSIVE PERIODONTAL EVALUATION - NEW OR ESTABLISHED PATIENT Routine 01/01/2025 10:00 AM EDT PERIODIC ORAL EVALUATION - ESTABLISHED PATIENT Routine 01/01/2025 10:00 AM EDT ORAL HYGIENE INSTRUCTIONS Routine 12/17/2024 10:00 AM EST PROPHYLAXIS - ADULT Routine 12/17/2024 1 0:00 AM EST HEMOGLOBIN A1C Routine 04/30/2020 9:48 AM EDT from Last 3 Months or Most Recently Relevant to Health Maintenance Results * HEMOGLOBIN A1C POC (04/30/2020 9:48 AM EDT) [facility] HEMOGLOBIN A1C POC 8.0 % [facility] Comment: ?Hemoglobin A1C Reference Range ?Adults: ??4.8 - 6.0 % ?Non diabetic: ??< 6.0 % ?Goal: ??< 7.0 % ?? Additional Action Suggested: ??> 8.0 % 04/30/2020 9:48 AM EDT us Historical Provider LAB BLOOD ORDERABLES Camila post Result [facility] [address] from Last 3 Months or Most Recently Relevant to Health Maintenance Insurance DENTAL - [facility]
--- OUTSIDE RECORDS SUMMARY | 2025-01-02 07:57 | XMS_ITS | Encounter Summary ---
Author Organization [employer] Address [address] [address] [place] [address] Care Team Providers Care Membership Advisor Name Role Phone Unavailable Primary Care Provider Unavailabl e Encounter Details Date Type Department Care Team (Latest Contact Info) Description 11/01/2019 Abstract [facility] CONVERSIONS Dental, Provider, DDS Social History Tobacco [...]
--- OUTSIDE RECORDS SUMMARY | 2025-01-02 07:57 | XMS_ITS | Encounter Summary ---
Author Organization [employer] Address [address] [place] [address] [address] [place] [address] Care Team Providers Care House Wirer Helper Name Role Phone Unavailable Primary Care Provider Unavailabl e Reason for Visit * Reason Comments Dental Exam Encounter Details Date Type Department Care Team ([facility] st Contact Info) Description 01/01/2025 10:00 AM EDT Office Visit [facility] ADULT DENTAL [address] [place] [address] Willis Boston [address] [place] [address] Social History Tobacco Use Types Packs/Day Years Used Date Smoking Tobacco: Never Passive Smoke Exposure: Never Smokeless Tobacco: Never Alcohol Use Standard Drinks/Week Comments Defer 0 (1 standard drink = 0.6 oz pur e alcohol) Sex and Gender Information Value Date Recorded Sex Assigned at Male 08/16/2022 10:18 AM EDT Legal Sex Male 10:18 AM EDT Gender Identity Male 08/16/2022 10:18 AM EDT Sexual Orientation Straight 08/16/2022 10 :18 AM EDT documented as of this encounter Progress Notes * Willis Boston - 01/01/2025 10:00 AM EDT Dental procedures in this visit D0120 - PERIODIC ORAL EVALUATION - ESTABLISHED PATIENT (Completed) Service provider: Willis Boston Billing provider: Mona Johnson DDS [id number] - COMPREHENSIVE PERIODONTAL EVALUATION - NEW OR ESTABLISHED PATIENT (Completed) Service provider: Willis Boston Billing provider: Mona Johnson DDS [id number] - INTRAORAL - COMPLETE SERIES OF RADIOGRAPHIC IMAGES (Completed) Service provider: Willis Boston Billing provider: Mona Johnson DDS Patient ID: Manuel Bianchi is a 84 y.o. male. Time Out: Date: 01/01/2025 Location: [facility] Tooth: Maxilla and Mandible Procedure: Exam Verified the above with patient, commercial escrow assistant, and provider. Confirmed via patient's chart, intraorally and by radiographs. Associate Sales Manager: not applicable 84 y.o. years old male presents for a periodic examination done by Dr. Willis Boston CONSENT FORM INITIALED & SIGNED BY THE PATIENT AND COUNTER SIGNED BY Dr. Willis Boston Chief Complaint: I'm Here for my evaluation Medical History: Patient does not report any changes in health issues that could alter the Treatment Plan. Medical consult / medical clearance needed: No LOWER BRULE: Pain: N/A Duration: N/A Scale of pain from 1 - 10: N/A Aggravating factors: N/A Pain radiating: N/A Postural variation: N/A Allergies: Reviewed in EHR Medications: Reviewed in EHR Vital signs: 126/72 Habits: Smoking: No Drinking: No Brushing: Yes Flossing: Yes Cancer screening: Extra-oral: WNL Intraoral: WNL Extra-oral examination TMJ Deviation - No Clicking - No Tenderness - No Facial symmetry - Symmetric Lymph nodes - WNL Cheeks - WNL Intraoral examination Soft tissues - WNL Palate - WNL Tongue - WNL Buccal mucosa - WNL Floor of mouth - WNL Vestibules - WNL Glands - WNL Duct area - WNL Oropharynx - WNL Gingiva Color - T[place] Contour - Smooth Recession - Yes Consistency - Thick Texture - Smooth Bleeding on probing - No Radiographs Full Mouth X-rays taken on: 01/01/25 Quality are of diagnostic value and appropriate for radiographic analysis? : Yes Radiograph interpretation Thickened PDL on: No Abnormal root resorption: No Horizontal Bone Resorption: Yes Abnormal root formation: No Vertical Bone Loss: Yes Periodontal diagnosis: Periodontitis Stage 2 Grade B Hard tissue exam Missing - as charted Plaque - Yes Calculus - Yes Abfraction - Yes Mobility - Yes Furcation - No Occlusion Overbite (mm): 3 mm Overjet (mm): 3 mm Diastema: Yes Right Molar Occlusion: N/A Left Molar Occlusion: CL 1 Right Canine Occlusion: CL 1 Left Canine Occlusion: CL 1 Midline: Center Anterior/Posterior crossbite: No Arches: Wide Wear Facets: Yes DIAGNOSIS Findings, risks, benefits and alternatives discussed with pt. Reviewed radiographs with pt. Pointedout areas of radiographic calculus. Discussed sequelae of bacteria on gingiva and underlying bone. Recommended prophy, OHI, and SRP. Advised increased frequency of brushing and flossing. 4-6 week perio reevaluation to determine if further treatment indicated. TREATMENT PLAN Phase 1 - Prostho Phase 2 - Recare Patient agrees with treatment plan. Patient satisfied, dismissed in stable condition. NV: Partial impressions Provider: Dr. Willis Boston Dental Eviction Specialist: Carmelita Mark Supervising Dentist: Dr. Johnson * Mona Johnson DDS - 01/01/2025 10:00 AM EDT I have reviewed the documentation and dental procedures completed by the rendering provider, Willis Boston DDS, and approve their chart entries for this visit. ISMA Ferrari DDS documented in this encounter Plan of Treatment Not on file documented as of this encounter Procedures Procedure Name Priority Date/Time Associated Diagnosis Comments PERIODIC ORAL EVALUATION - ESTABLISHED PATIENT Routine 01/01/2025 10:00 AM EDT INTRAORAL - COMPLETE SERIES OF RADIOGRAPHIC IMAGES Routine 01/01/2025 10:00 AM EDT COMPREHENSIVE PERIODONTAL EVALUATION - NEW OR ESTABLISHED PATIENT Routine 01/01/2025 10:00 AM EDT documented in this encounter Visit Diagnoses Not on filedocumented in this encounter
--- OUTSIDE RECORDS SUMMARY | 2025-01-02 07:58 | XMS_ITS ---
Author Organization [facility] Address [address] [place] [address] Care Team Providers Care Doughnut Fryer Name Role Phone Jair APARICIO, Kavita Primary Care Provider Unavail able Shirin Arzate Unavailable [phone] Mathur Medications Medication [...] Negative Encounters Encounter Location Date Provider Diagnosis [facility] [place] [address] [place] [address] 11/22/2024 Shirin Arzate Plan Of Treatment Next Appt Details Provider Name:Shirin Ramesh maldonado, 02/18/2025 09:30:00 AM, [address] [place] [address], [id number], Progress Notes * Luz BIANCHIOB:[birth year] (84 yo M)Acc No.[id number]:11/22/2024 Progress Notes Patient:?Manuel BIANCHI Provider:?Shirin Arzate DPM :1940???Age:83 Y???Sex:Male Chandan e:11/22/2024 Address:[address] [place], [place] [id number] Pcp:Kavita Adam MD Subjective: * Chief Complaints: [...] DPM Date:?0 11/22/2024 Generated for Fede last/Mahesh/Capri on:?01/02/2025 07:57 AM EDT
--- OUTSIDE RECORDS SUMMARY | 2025-01-02 07:58 | XMS_ITS ---
Author Name MS. July Lara APRN Address [address] [place] [address] Phone [phone] [facility] Care Team Providers Care Prepress Operator Name Role Phone Agatha Lara Unavailable [phone] Unavailable Unavailable [phone] Reason for Referral Not Available Allergies, adverse [...] Active 2023-09-05 N/A Other problems related to nv dical facilities and other health care Active [...] (do not use for phone, instead use 86567-74) [facility] Chronic obstructive pulmonar y disease, unspecifiedType [...] (do not use for phone, instead use 71383-71) [facility] New patient,40-59min; chronic exacerbation, 2 stable chronic or 1 acute illness add add modifier 95 for video (do not use for phone, instead use 26412-29) [facility] New patient,40-59min; chronic exacerbation, 2 stable chronic or 1 acute illness add add modifier 95 for video (do not use for phone, instead use 69473-00) [facility] [place] New patient,40-59min; chronic exacerbation, 2 stable chronic or 1 acute illness add add modifier 95 for video (do not use for phone, instead use 85856-39) [facility] [place] New patient,40-59min; chronic exacerbation, 2 stable chronic or 1 acute illness add add modifier 95 for video (do not use for phone, instead use 58270-66) [facility] [place] New patient,40-59min; chronic exacerbation, 2 stable chronic or 1 acute illness add add modifier 95 for video (do not use for phone, instead use 03358-90) [facility] [place] New patient,40-59min; chronic exacerbation, 2 stable chronic or 1 acute illness add add modifier 95 for video (do not use for phone, instead use 63119-77) [facility] [place] New patient,40-59min; chronic exacerbation, 2 stable chronic or 1 acute illness add add modifier 95 for video (do not use for phone, instead use 83320-63) [facility] [place]20[place] Estab. patient 30-39min; chronic exacerbation, 2 stable chronic or 1 acute illness add add modifier 95 for video, (do not use for phone, instead use 04251-13) [facility] [place] 08[place]16[place]2023 Chronic obstructive pulmonar y disease, unspecifiedType [...] (do not use for phone, instead use 33990-85) [facility] [place]2023 Estab. patient 30-39min; chronic exacerbation, 2 stable chronic or 1 acute illness add add modifier 95 for video, (do not use for phone, instead use 87669-06) [facility] [place] 08[place]16[place]2023 Estab. patient 30-39min; chronic exacerbation, 2 stable chronic or 1 acute illness add add modifier 95 for video, (do not use for phone, instead use 29071-59) [facility] [place]2023 Estab. patient 30-39min; chronic exacerbation, 2 stable chronic or 1 acute illness add add modifier 95 for video, (do not use for phone, instead use 77759-92) [facility] [place]2023 Estab. patient 30-39min; chronic exacerbation, 2 stable chronic or 1 acute illness add add modifier 95 for video, (do not use for phone, instead use 72707-35) [facility] [place]2023 Estab. patient 30-39min; chronic exacerbation, 2 stable chronic or 1 acute illness add add modifier 95 for video, (do not use for phone, instead use 52614-83) [facility] [place]2023 Estab. patient 30-39min; chronic exacerbation, 2 stable chronic or 1 acute illness add add modifier 95 for video, (do not use for phone, instead use 11163-91) [facility] [place] 08[place]2023 Estab. patient 30-39min; chronic exacerbation, 2 stable chronic or 1 acute illness add add modifier 95 for video, (do not use for phone, instead use 47332-88) [facility] [place]16[place]2023 Estab. patient 30-39min; chronic exacerbation, 2 stable chronic or 1 acute illness add add modifier 95 for video, (do not use for phone, instead use 59023-15) [facility] [place]2023 No Data Available [facility] [place]2023 Chronic obstructive pulmonar y disease, unspecifiedType 2 diabetes mellitus with diabetic polyneuropathyMajor depressive disorder, single episode, in partial remissionEssential (primary) hypertensionHyperlipidemia, unspecifiedImmunodeficiency due to drugsAdverse effect of glucocort/synth analog, initLong term (current) use of systemic steroidsVitamin D deficiency, unspecifiedType 2 diabetes w diabetic peripheral angiopath w/o gangreneBenign paroxysmal vertigo, bilateralPolyosteoarthritis, unspecifiedOther specified hearing loss, right earPersonal history of covid-19 No Data Available [facility] [place]2023 No Data Available [facility] No Data Available [facility] No Data Available [facility] No Data Available [facility] No Data Available [facility] Estab. patient 30-39min; chronic exacerbation, 2 stable chronic or 1 acute illness add add modifier 95 for video, (do not use for phone, instead use 12605-36) [facility] [place]2024 Chronic obstructive pulmonar y disease, unspecifiedType [...] (do not use for phone, instead use 67015-02) [facility] [place] 05[place]10[place]20[place] Estab. patient 30-39min; chronic exacerbation, 2 stable chronic or 1 acute illness add add modifier 95 for video, (do not use for phone, instead use 06400-87) [facility] [place]10[place]20[place] Estab. patient 30-39min; chronic exacerbation, 2 stable chronic or 1 acute illness add add modifier 95 for video, (do not use for phone, instead use 52721-89) [facility] [place]10[place]20[place] Estab. patient 30-39min; chronic exacerbation, 2 stable chronic or 1 acute illness add add modifier 95 for video, (do not use for phone, instead use 73801-02) [facility] [place]20[place] Estab. patient 30-39min; chronic exacerbation, 2 stable chronic or 1 acute illness add add modifier 95 for video, (do not use for phone, instead use 10214-21) [facility] [place]20[place] Estab. patient 30-39min; chronic exacerbation, 2 stable chronic or 1 acute illness add add modifier 95 for video, (do not use for phone, instead use 08570-75) [facility] [place]20[place] Estab. patient 30-39min; chronic exacerbation, 2 stable chronic or 1 acute illness add add modifier 95 for video, (do not use for phone, instead use 70042-16) [facility] [place]10[place]20[place] Estab. patient 30-39min; chronic exacerbation, 2 stable chronic or 1 acute illness add add modifier 95 for video, (do not use for phone, instead use 05472-86) [facility] [place]10/20[place] Estab. patient 30-39min; chronic exacerbation, 2 stable chronic or 1 acute illness add add modifier 95 for video, (do not use for phone, instead use 00620-97) [facility] [place] 05/10/2024 Vital Signs Date of Collection [...] tive Time Current Smoking Status Never smoker 2024-12-15 7 Sex Male History of Procedures Procedures Service Procedure code Service date Servicing provider Phone# New patient,40-59min; chronic exacerbation, 2 stable chronic or 1 acute illness add add modifier 95 for video (do not use for phone, instead use 49220-13) [id number] 2022-10-05 No Data Available No Data Availa [...] (do not use for phone, instead use 45777-47) [id number] 2023-08-16 No Data Available No Data Availa [...] No Data Avail able No Data Available [id number] 2023-09-05 No Data Available No Data Available [...] (do not use for phone, instead use 83115-27) [id number] 2024-05-10 No Data Available No Data Availa [...] a typical week: daily, lives with daughter (PREMIUM CARD CANCELLATION CLERK) 2023-08-16 Mental Status Status Date Cognition Status: [...] PCP every 3-6 months, BP assessed by PREMIUM CARD CANCELLATION CLERK 3x times a weekrecommend healthy lifestyle changes [...] PCP every 3-6 months, BP assessed by PREMIUM CARD CANCELLATION CLERK 3x times a weekrecommend healthy lifestyle changes [...] PCP every 3-6 months, BP assessed by PREMIUM CARD CANCELLATION CLERK 3x times a weekrecommend healthy lifestyle changes [...] PCP every 3-6 months, BP assessed by PREMIUM CARD CANCELLATION CLERK 3x times a weekrecommend healthy lifestyle changes [...] medical/surgical history, Social history. 2024-05-10 Daughter- Alyssa [facility] leticia assisted with visit and Cuban interpretation today.
== END 2025-01-02 07:55 | disposition home or self-care (01) ==
LOC: HO.CT 07:54
PROVIDERS: PCP Internal Medicine; Visit Provider Hospitalist
DX: R91.1 Solitary pulmonary nodule (principal)
CPT/HCPCS: 71250

== ENCOUNTER → 2025-01-02 07:56 | Outpatient (BNV) | payer OTHER, SELFPAY | PROVIDERS: PCP Internal Medicine; Visit Provider Radiology Diagnostic Radiology | DX: R91.1 Solitary pulmonary nodule (principal) | CPT/HCPCS: 71250 ==

== ENCOUNTER 2025-02-12 08:56 | Outpatient (AMB) | payer OTHER, SELFPAY ==
[2025-02-12 08:58] VITALS: BP 130/64; PULSE 51; O2SAT 98; BMI 26.9
--- NOTE | 2025-02-12 08:58 | A.OFFVIS_ITS ---
Vital Signs 02/12/25 08:58 Height 5 ft 6 in Weight 166 lb 7.184 oz BMI 26.9 BP 130/64 Blood Pressure Location Rt brachial Position Sitting Pulse 51 Pulse Source Pulse Oximeter Pulse Oximetry (%) 98 Oxygen Delivery Method Room Air Intake Visit Reasons: F/U CT Allergies metformin Adverse Reaction (Intermediate, Verified 12/21/24 12:33) diarrhea dulaglutide [From Trulicity] Adverse Reaction (Verified 12/21/24 12:33) vomiting HPI Comments Details: The patient is an 84-year-old gentleman who apparently was in his usual state health until early fall he started developing worsening cough chest congestion. It was moderate severity just putting get better. He required multiple course of antibiotics. The last time he was evaluated he was also given some prednisone. He was given a rescue inhaler and also order to start Anoro. Although he has not started as of yet. Because of his ongoing symptoms he did undergo a chest x-ray which was personally by me. It appears that he had a small area of opacity in the right mid lung area. I did review previous x-rays and this area was not there. He therefore could have been a degree of airspace disease. Clinically the patient feels a lot better. He is no longer coughing. He feels like he is back to his baseline. He is here with his daughter who feel that he is back and to his baseline as well. She is wondering if he really needs the Anoro since the patient's breathing and coughing significantly improved. I did agree with them. I did recommend that if he does require his short-acting beta agonist more than twice a week to go ahead and start the Anoro. But for now he will hold off. The patient will return to the office after having a pulmonary function study and also a repeat chest x-ray. I am hopeful that that area of opacity improved by then. If the area still abnormal and or if he becomes symptomatic will consider additional imaging studies. But for now the patient is doing well. He will receive his Prevnar 20 vaccine today. 11/30/2023 the patient is here for a pulmonary follow-up visit. The patient has been complaining of worsening chest tightness and wheezing. Moderate severity. Apparent thing asleep. Sometimes he will go to cough her secretions out. We did review his PFTs demonstrating an obstructive process consistent with COPD. In addition to that the patient does have a chest x-ray demonstrating a persistent opacity in the right lower lung area. Based on his ongoing symptoms in the abnormal chest x-ray a CT scan of the chest will be reasonable further address the findings. In the meantime we are going to optimize his respiratory therapy by adding inhaled cortical steroid to the Anoro. The patient can also start short course of steroids that will help him decrease the inflammation. The patient also benefits from a nebulizer. The nebulizer will provide him with relief specially since he has a she could response when he had the PFTs. 02/17/2024 the patient is here for a pulmonary follow-up visit. Overall the patient still feels about the same. Complains of cough productive in nature. Ecrm-mu-axxvbonu severity. Did start the new inhaler. Has noticed some minimal benefit. He states that he coughs and has a lot of chest congestion. We did review his CT scan of the chest. Does have small subcentimeter pulmonary nodules. Would benefit from a CT scan in a year's time. Otherwise will go ahead and start him on azithromycin 3 times a week for a month to see if we can improve his chronic bronchitis issues. 08/08/2024 the patient is here for a pulmonary follow-up visit. Overall the patient is doing well. The [employer] nights out helping his cough. Although he still having yellowish productive cough. For the most part is from his sinuses. The patient did have a CT scan of the chest back in 12/06/2023 which we personally reviewed. Appears to have some component of pneumoconiosis. Very mild emphysema noted. He is a nonsmoker. In addition to that the patient does have underlying pulmonary nodules subcentimeter in size. Will go ahead and repeat the CT scan sometime in 6 months which will be more than a year after his last 1 to make sure that the nodular densities are stable in view of his weight loss. 02/12/2025 the patient is here for a pulmonary follow-up visit. Overall the patient has been doing well. He is responding well to the Tessalon Perles. He takes either 1-2 Perles a day to keep his cough under control. He did undergo a CT scan of the chest. We personally reviewed. Pulmonary nodules appeared to be stable. Although he has esophagus is dilated with significant amount of fluid filled changes. This is concerning for reflux disease. On further questions the patient does report episodes of significant reflux symptoms with regurgitation. Moderate severity. He is on omeprazole will go ahead and increase the dose. Will go ahead and request a barium swallow. The patient does have advanced age but if the patient has any evidence of any esophageal strictures he may benefit from dilation if this will help his esophageal motility. In the meantime we talked about maintaining reflux diet and sleeping elevated. He is going to work on these things. Will have him get a barium swallow on follow-up in 4-6 months. REPLACED BY [facility] Medical History (Updated 02/12/25 @ 22:51 by Eliel Quiñones MD) GERD (gastroesophageal reflux disease) Pulmonary nodule Asthma-COPD overlap syndrome Peripheral vascular disease Abnormal chest x-ray Hyperkalemia Mild recurrent major depression Left leg pain Left knee pain Screening for prostate cancer Bilateral sensorineural hearing loss Progressive hearing loss of right ear Loss of hearing Cerumen debris on tympanic membrane of both ears Otitis media TIA (transient ischemic attack) Diverticulosis Enlarged prostate Renal cyst Renal stones Essential hypertension Hyperlipidemia LDL goal <70 Type 2 diabetes mellitus with hyperglycemia Surgical History History of colonoscopy Hx of hernia repair Family History Father Heart disease Mother No problems noted. Brother Prostate cancer Social History Household Members: Family Housing: House Alcohol intake: former Patient Tobacco Use Status: Never used Tobacco e-Cigarette/Vaping Use: Never Used Second Hand Smoke Exposure: No service: No Current occupational status: retired Cognitive needs: Yes Hearing needs: No Vision needs: Yes Review of Systems Const Denies fever(s) and Denies weight loss Eyes Reports no additional complaints, Denies change in vision and Denies other visual disturbances Card Denies chest pain at rest, Denies chest pain with activity, Denies edema, Denies irregular heart rhythm, Denies claudication, Denies dyspnea on exertion, Denies orthopnea, Denies paroxysmal nocturnal dyspnea and Denies slow heart rate Resp Reports chest congestion, Reports cough, Denies excessive phlegm production, Denies dyspnea on exertion and Reports wheezing GI Denies abdominal pain, Denies change in bowel habits, Denies excessive flatus, Denies nausea and Denies vomiting Denies urinary hesitancy, Denies urinary incontinence and Denies urinary urgency Musc Denies abnormal gait, Denies atrophy, Denies deformity and Denies limited range of motion Skin/Breast Denies bleeding lesions, Denies changing lesions and Denies rash Neuro Denies abnormal gait, Denies confusion and Denies lack of coordination Psych Denies confusion Aller/Immun Reports wheezing Physical Exam Vital Signs: Last Vital Signs Pulse 51 02/12/25 08:58 BP 130/64 02/12/25 08:58 Pulse Ox 98 02/12/25 08:58 Oxygen Delivery Method Room Air 02/12/25 08:58 BMI result Body Mass Index 26.9 Const General: No confusion Orientation/consciousness: No confusion Limitations: ambulation with cane HEENT Mouth: tongue abnormal geographic and fissured Neck Neck: Yes supple Chest Chest palpation & inspection: normal inspection of the chest Resp Effort & Inspection: normal respiratory effort Auscultation: no wheezes and diminished lung sounds Cardio Heart sounds: S1 normal heart sound present and S2 normal heart sound present Neuro General: No confusion Gait exam (Neuro): Normal gait present Romberg Test: Negative Extrem General: Yes no clubbing, cyanosis or edema Assessment & Plan Assessment & Plan (1) Chronic cough: Code(s): R05.3 - Chronic cough Category: Medical (2) Abnormal chest x-ray: Code(s): R93.89 - Abnormal findings on diagnostic imaging of other specified body structures Category: Medical (3) Asthma-COPD overlap syndrome: Code(s): J44.89 - Other specified chronic obstructive pulmonary disease Category: Medical (4) Pulmonary nodule: Code(s): R91.1 - Solitary pulmonary nodule Category: Medical (5) GERD (gastroesophageal reflux disease): Code(s): K21.9 - Gastro-esophageal reflux disease without esophagitis Category: Medical Qualifiers: Esophagitis presence: esophagitis presence not specified Qualified Code(s): K21.9 - Gastro-esophageal reflux disease without esophagitis Plan JATINDER as needed continue Anoro continue Arnuity acapella valve Benzonates as needed start fluticasone nasal spray reflux diet Barium swallow Sleep with HOB elevated Increase PPI F/U 6 months Orders: Orders [place] barium swallow Today K21.9 - Gastro-esophageal reflux disease without esophagitis Medications: New omeprazole 40 mg PO DAILY 30 caps 3RF 30 days Coding Level of Care Code Est Pt Level 4 (62673) Complex EM visit Add On G2211 Diagnoses Chronic cough R05.3 Abnormal chest x-ray R93.89 Asthma-COPD overlap syndrome J44.89 Pulmonary nodule R91.1 Gastroesophageal reflux disease, unspecified whether esophagitis present K21.9 Esophagitis presence: esophagitis presence not specified Time Spent (min) 17
--- OUTSIDE RECORDS SUMMARY | 2025-02-12 09:29 | XMS_ITS | Patient Health Record ---
Author Organization [facility] Address [address] [place] [address] Care Team Providers Care Drainage Inspector Name Role Phone Kavita Adam MD Primary Care Provider Unavail able Shirin Arzate Unavailable [phone] Reason For Referral No Information Medications Medication [...] Name:Shirin Chandler erica, 02/18/2025 09:30:00 AM, [address] [place], [address], Insurance Providers Payer Name Payer Address Payer Phone Subscriber Number Group Number Insured Name Patient Relationship to Insured Coverage Start Date Coverage End Date Medicare National [employer]t [employer] [address] [place] [id number] Manuel Bianchi Self - patient is the insured [place] [address] [address] [address] [place] [address] [phone] [id number] Manuel Bianchi Self - patient is the insured Medical (General) History Medical History History ICD Code Arthritis asthma Depression Diabetic High Blood Pressure Kidney disease Stroke Stomach ulcer Surgical History Surgery Date(Month/Year) stomach ulver broken ankle hernia
--- OUTSIDE RECORDS SUMMARY | 2025-02-12 09:29 | XMS_ITS | Clinical Summary ---
Author Organization [employer] Address [address] [place] [address] Care Team Providers Care Kiln Firer Name Role Phone Unavailable Primary Care Provider [...] Description 01/01/2025 10:00 AM EDT Office Visit [facility] [address] [place] [address] [place] 12/17/2024 10:00 AM EST Office Visit [facility] [address] [place] [address] Marisa Love from Last 3 Months Social [...] HEMOGLOBIN A1C POC (04/30/2020 9:48 AM EDT) [facility] HEMOGLOBIN A1C POC 8.0 % [facility] Comment: ?Hemoglobin A1C Reference Range ?Adults: ??4.8 - 6.0 % ?Non diabetic: ??< 6.0 % ?Goal: ??< 7.0 % ?? Additional Action Suggested: ??> 8.0 % 04/30/2020 9:48 AM EDT us Historical Provider LAB BLOOD ORDERABLES Camila post Result [facility] [address] from Last 3 Months or Most Recently Relevant to Health Maintenance Insurance DENTAL - [facility]
--- OUTSIDE RECORDS SUMMARY | 2025-02-12 09:29 | XMS_ITS | Encounter Summary ---
Author Organization [employer] Address [address] [place] [address] Care Team Providers Care Quality Worker Name Role Phone Unavailable Primary Care Provider Unavailabl e Encounter Details Date Type Department Care Team (Latest Contact Info) Description 10/31/2018 Abstract [facility] CONVERSIONS Dental, Provider, DDS Social [...]
--- OUTSIDE RECORDS SUMMARY | 2025-02-12 09:29 | XMS_ITS ---
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 ORDER MANAGER,HAND ASSEMBLER,FN P,CHIEF SALES OFFICER, [place] Address [address] [place] [address] Phone [phone] [facility] Care Team Providers Care Drapery Supervisor Name Role Phone [place] Raygoza Unavailable [phone] Unavailable Unavailable [phone] Reason for Referral Not Available Allergies, adverse [...] 25 mg Tab TAKE 1 TABLET BY OYVANA TH EVERY MORNING 2022-02-02 No Data Available [...] 25 mg Tab TAKE 1 TABLET BY TWICE DAILY NEEDED FOR DIZZINESS 2023-08-09 No [...] Active 2023-09-05 N/A Other problems related to [facility] facilities and other health care Active 2023-12-27 [...] (do not use for phone, instead use 35375-22) [facility] Chronic obstructive pulmonar y disease, unspecifiedType [...] (do not use for phone, instead use 33056-93) [facility] New patient,40-59min; chronic exacerbation, 2 stable chronic or 1 acute illness add add modifier 95 for video (do not use for phone, instead use 35441-32) [facility] New patient,40-59min; chronic exacerbation, 2 stable chronic or 1 acute illness add add modifier 95 for video (do not use for phone, instead use 47268-78) [facility] New patient,40-59min; chronic exacerbation, 2 stable chronic or 1 acute illness add add modifier 95 for video (do not use for phone, instead use 15427-75) [facility] New patient,40-59min; chronic exacerbation, 2 stable chronic or 1 acute illness add add modifier 95 for video (do not use for phone, instead use 61661-83) [facility] New patient,40-59min; chronic exacerbation, 2 stable chronic or 1 acute illness add add modifier 95 for video (do not use for phone, instead use 84487-51) [facility] New patient,40-59min; chronic exacerbation, 2 stable chronic or 1 acute illness add add modifier 95 for video (do not use for phone, instead use 12892-97) [facility] New patient,40-59min; chronic exacerbation, 2 stable chronic or 1 acute illness add add modifier 95 for video (do not use for phone, instead use 88885-81) [facility] Estab. patient 30-39min; chronic exacerbation, 2 stable chronic or 1 acute illness add add modifier 95 for video, (do not use for phone, instead use 87811-01) [facility]2023 Chronic obstructive pulmonar y disease, unspecifiedType [...] (do not use for phone, instead use 38552-97) [facility] Estab. patient 30-39min; chronic exacerbation, 2 stable chronic or 1 acute illness add add modifier 95 for video, (do not use for phone, instead use 53921-73) [facility]20[place] Estab. patient 30-39min; chronic exacerbation, 2 stable chronic or 1 acute illness add add modifier 95 for video, (do not use for phone, instead use 89491-71) [facility]20[place] Estab. patient 30-39min; chronic exacerbation, 2 stable chronic or 1 acute illness add add modifier 95 for video, (do not use for phone, instead use 11403-83) [facility] Estab. patient 30-39min; chronic exacerbation, 2 stable chronic or 1 acute illness add add modifier 95 for video, (do not use for phone, instead use 33125-88) [facility] Estab. patient 30-39min; chronic exacerbation, 2 stable chronic or 1 acute illness add add modifier 95 for video, (do not use for phone, instead use 77288-81) [facility]20[place] Estab. patient 30-39min; chronic exacerbation, 2 stable chronic or 1 acute illness add add modifier 95 for video, (do not use for phone, instead use 47952-51) [facility]20[place] Estab. patient 30-39min; chronic exacerbation, 2 stable chronic or 1 acute illness add add modifier 95 for video, (do not use for phone, instead use 04408-00) [facility]/2023 Estab. patient 30-39min; chronic exacerbation, 2 stable chronic or 1 acute illness add add modifier 95 for video, (do not use for phone, instead use 71414-90) [facility] 08[place]2023 No Data Available [facility]2023 Chronic obstructive pulmonar y disease, unspecifiedType 2 diabetes mellitus with diabetic polyneuropathyMajor depressive disorder, single episode, in partial remissionEssential (primary) hypertensionHyperlipidemia, unspecifiedImmunodeficiency due to drugsAdverse effect of glucocort/synth analog, initLong term (current) use of systemic steroidsVitamin D deficiency, unspecifiedType 2 diabetes w diabetic peripheral angiopath w/o gangreneBenign paroxysmal vertigo, bilateralPolyosteoarthritis, unspecifiedOther specified hearing loss, right earPersonal history of covid-19 No Data Available [facility]05[place]2023 No Data Available [facility]20[place] No Data Available [facility]20[place] No Data Available [facility]20[place] No Data Available [facility] No Data Available [facility]20[place] Estab. patient 30-39min; chronic exacerbation, 2 stable chronic or 1 acute illness add add modifier 95 for video, (do not use for phone, instead use 73683-60) [facility]2024 Chronic obstructive pulmonar y disease, unspecifiedType [...] (do not use for phone, instead use 11474-49) [facility] Estab. patient 30-39min; chronic exacerbation, 2 stable chronic or 1 acute illness add add modifier 95 for video, (do not use for phone, instead use 32259-65) [facility] Estab. patient 30-39min; chronic exacerbation, 2 stable chronic or 1 acute illness add add modifier 95 for video, (do not use for phone, instead use 21776-54) [facility] Estab. patient 30-39min; chronic exacerbation, 2 stable chronic or 1 acute illness add add modifier 95 for video, (do not use for phone, instead use 75080-92) [facility]20[place] Estab. patient 30-39min; chronic exacerbation, 2 stable chronic or 1 acute illness add add modifier 95 for video, (do not use for phone, instead use 53378-67) [facility] Estab. patient 30-39min; chronic exacerbation, 2 stable chronic or 1 acute illness add add modifier 95 for video, (do not use for phone, instead use 10471-41) [facility]20[place] Estab. patient 30-39min; chronic exacerbation, 2 stable chronic or 1 acute illness add add modifier 95 for video, (do not use for phone, instead use 64459-95) [facility] Estab. patient 30-39min; chronic exacerbation, 2 stable chronic or 1 acute illness add add modifier 95 for video, (do not use for phone, instead use 84324-80) [facility] Estab. patient 30-39min; chronic exacerbation, 2 stable chronic or 1 acute illness add add modifier 95 for video, (do not use for phone, instead use 26822-45) [facility]10[place]2024 Vital Signs Date of Collection [...] tive Time Current Smoking Status Never smoker 2025-01-16 7 Sex Male History of Procedures Procedures Service Procedure code Service date Servicing provider Phone# New patient,40-59min; chronic exacerbation, 2 stable chronic or 1 acute illness add add modifier 95 for video (do not use for phone, instead use 78558-22) [id number] 2022-10-05 No Data Available No Data Availa [...] (do not use for phone, instead use 34776-84) [id number] 2023-08-16 No Data Available No Data Availa [...] No Data Avail able No Data Available [id number] 2023-09-05 No Data Available No Data Available [...] (do not use for phone, instead use 00466-27) [id number] 2024-05-10 No Data Available No Data Availa [...] a typical week: daily, lives with daughter (GUSSET MAKER) 2023-08-16 Mental Status Status Date Cognition Status: [...] infection. continue anoro and f/u with [facility] Oct/: Stable today on current meds, neb/inh, monitor [...] PCP every 3-6 months, BP assessed by GUSSET MAKER 3x times a weekrecommend healthy lifestyle changes [...] hearing status on contralateral sidereferral to audiology 08.16.23History of COVID-19symptomatic on 08/30/23feeling better now. Only [...] PCP every 3-6 months, BP assessed by G[employer] MAKER 3x times a weekrecommend healthy lifestyle changes [...] PCP every 3-6 months, BP assessed by G[employer] MAKER 3x times a weekrecommend healthy lifestyle changes [...] PCP every 3-6 months, BP assessed by GUS[employer] MAKER 3x times a weekrecommend healthy lifestyle changes [...] medical/surgical history, Social history. 2024-05-10 Daughter- Alyssa [facility] leticia assisted with visit and [place] interpretation today.
--- OUTSIDE RECORDS SUMMARY | 2025-02-12 09:29 | XMS_ITS | Encounter Summary ---
Author Organization [employer] Address [address] [place] [address] Care Team Providers Care Commissioned Sales Associate Name Role Phone Unavailable Primary Care Provider Unavailabl e Encounter Details Date Type Department Care Team (Latest Contact Info) Description 11/01/2019 Abstract [facility] CONVERSIONS Dental, Provider, DDS Social History Tobacco [...]
--- OUTSIDE RECORDS SUMMARY | 2025-02-12 09:30 | XMS_ITS ---
[facility] Address [address] [place] [address] Care Team Providers Care Development Engineer Name Role Phone Jair APARICIO, Kavita Primary Care Provider Unavail able Shirin Arzate Unavailable [phone] Mathur Medications Medication [...] Negative Encounters Encounter Location Date Provider Diagnosis [facility] [place] [address] [place] [address] 11/22/2024 Shirin Arzate Plan Of Treatment Next Appt Details Provider Name:Shirin Ramesh maldonado, 02/18/2025 09:30:00 AM, [address] [place] [address], [id number], Progress Notes * Luz BIANCHIOB:[birth year] (84 yo M)Acc No.[id number]:11/22/2024 Progress Notes Patient:?Manuel BIANCHI Provider:?Shirin Arzate DPM :1940???Age:83 Y???Sex:Male Chandan e:11/22/2024 Address:[address] [place], [place] [id number] Pcp:Kavita Adam MD Subjective: * Chief Complaints: [...] DPM Date:?0 11/22/2024 Generated for Fede last/Mahesh/Capri on:?02/12/2025 09:29 AM EDT
== END 2025-02-12 09:24 | disposition home or self-care (01) ==
LOC: HO.HPS 08:56
PROVIDERS: PCP Internal Medicine; Visit Provider Hospitalist
DX: R05.3 Chronic cough (principal); R93.89 Abnormal findings on diagnostic imaging of other specified body structures; J44.89 Other specified chronic obstructive pulmonary disease; R91.1 Solitary pulmonary nodule; K21.9 Gastro-esophageal reflux disease without esophagitis
CPT/HCPCS: 99214; G2211

== ENCOUNTER → 2025-02-12 08:56 | Outpatient (BNVA) | payer OTHER, SELFPAY | PROVIDERS: PCP Internal Medicine; Visit Provider Hospitalist | DX: J44.89 Other specified chronic obstructive pulmonary disease (principal); R05.3 Chronic cough; R93.89 Abnormal findings on diagnostic imaging of other specified body structures; K21.9 Gastro-esophageal reflux disease without esophagitis; R91.1 Solitary pulmonary nodule | CPT/HCPCS: 99212 ==

== ENCOUNTER 2025-02-20 13:48 | Outpatient (AMB) | payer OTHER, SELFPAY ==
--- NOTE | 2025-02-20 13:54 | MHC.PC.OV ---
Vital Signs 02/20/25 13:59 Height 5 ft 6 in Weight 164 lb BMI 26.5 BP 122/80 Blood Pressure Location Lt brachial Position Sitting Intake Visit Reasons: dm - see comments Intake Note: Patient here for a follow up DM Milking Worker Required: No Accompanied by: daughter and grand children Allergies metformin Adverse Reaction (Intermediate, Verified 02/20/25 14:34) diarrhea [facility]ag[facility] Adverse Reaction (Verified 02/20/25 14:34) vomiting Medication List - Last Reviewed 02/20/25 by GRETTA Simmons [adult diapers pull-ups As directed] albuterol sulfate 2.5 mg (3 mL) inhalation BID 30 days amlodipine 5 mg PO DAILY 90 days atorvastatin 20 mg PO BEDTIME benzonatate 200 mg PO BID PRN 30 days blood sugar diagnostic (Xirrus Ultra Test strips) As directed check the blood sugar 3 times a day blood-glucose meter (Xirrus Ultra2 Meter) As directed budesonide-formoterol 80-4.5 mcg/actuation 1 inh inhalation BID 30 days cholecalciferol (vitamin D3) 50 mcg PO DAILY 90 days clopidogrel 75 mg PO BEDTIME 90 days clotrimazole 10 mg mucous membrane TID disposable gloves (Biobrane Gloves Large) As directed empagliflozin (Jardiance) 25 mg PO QAM fluoxetine 20 mg PO QAM fluticasone furoate 100 mcg/actuation (Arnuity Ellipta) 1 inh PO DAILY fluticasone propionate 50 mcg/actuation 2 sprays intranasal DAILY 30 days hydrochlorothiazide 12.5 mg PO DAILY 90 days insulin degludec (Tresiba FlexTouch U-100 insulin) 15 units (0.15 mL) subcut DAILY lancets (FreeStyle Lancets) As directed- TID latex gloves (Latex Gloves, Medium) As directed levalbuterol tartrate 45 mcg/actuation 2 inhalations inhalation Q6H 30 days [male urinal As directed] meclizine 25 mg PO BID PRN metoprolol succinate ER 25 mg PO DAILY 90 days nebulizers As directed omega-3 fatty acids-fish oil 340-1,000 mg 1 cap PO QAM omeprazole 40 mg PO DAILY 30 days pen needle, diabetic As directed once daily [personal cleansing wipes As directed] [quad cane As directed] sitagliptin phosphate (Januvia) 100 mg PO QAM tamsulosin 0.4 mg PO BEDTIME umeclidinium-vilanterol 62.5-25 mcg/actuation (Anoro Ellipta) 1 ea inhalation DAILY underpads (Bed Underpads) Use 1 underpad once a day Ventolin HFA 90 mcg/actuation (albuterol sulfate) 2 puffs inhalation Q6H PRN 30 days NS walker (Ultra-Light Rollator misc) As directed Tobacco use date assessed: 02/20/25 Fall risk assessment: No Falls in past year Last assessed Fall Risk: 02/20/25 Dental Screening Dental Screen Date: 02/20/25 Did you have a dental visit in the last 12 months?: No Did you have a dental problem in the last 6 months where you did not have access to dental care?: No Was dental information given to patient?: Patient has dentist HPI HPI Comments History of Present Illness Details The patient is an 84-year-old male presenting with pulmonary nodules and a renal cyst recently identified on a CT scan. The radiologist has recommended an MRI for the renal cyst for further evaluation. He does follows with Nephrology. His Type 2 Diabetes Mellitus is well-managed with an A1c of 6.7. 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 He currently uses medication to manage his asthma-COPD overlap syndrome. He has been managing Essential Hypertension and Hyperlipidemia with medication. There is also a history of Benign Prostatic Hyperplasia being managed pharmacologically. Additionally, the patient discusses a history of depression with anxiety, for which fluoxetine is prescribed. He denies any chest pain or shortness of breath, recent urinary changes, or other acute concerns. Allergies reported include reactions to metformin and Trulicity. Has chronic kidney disease stage 3 follow by Nephrology. He also has mild major depression on SSRIs. [facility] Medical History GERD (gastroesophageal reflux disease) Pulmonary nodule Asthma-COPD overlap syndrome Peripheral vascular disease Abnormal chest x-ray Hyperkalemia Mild recurrent major depression Left leg pain Left knee pain Screening for prostate cancer Bilateral sensorineural hearing loss Progressive hearing loss of right ear Loss of hearing Cerumen debris on tympanic membrane of both ears Otitis media TIA (transient ischemic attack) Diverticulosis Enlarged prostate Renal cyst Renal stones Essential hypertension Hyperlipidemia LDL goal <70 Type 2 diabetes mellitus with hyperglycemia Surgical History History of colonoscopy Hx of hernia repair Family History Father Heart disease Mother No problems noted. Brother Prostate cancer Social History (Updated 02/20/25 @ 14:41 by Kavita Mckeon MD) Household Members: Family Housing: House Alcohol intake: current Alcohol intake frequency: holidays/special occasions only Alcohol type: hard liquor Patient Tobacco Use Status: Never used Tobacco e-Cigarette/Vaping Use: Never Used Second Hand Smoke Exposure: No service: No Current occupational status: retired Cognitive needs: Yes Hearing needs: No Vision needs: Yes Questionnaire PHQ-9 Over the last 2 weeks, how often have you been bothered by any of the following problems? 1. Little interest or pleasure in doing things: several days 2. Feeling down, depressed, or hopeless: several days 3. Trouble falling or staying asleep, or sleeping too much: several days 4. Feeling tired or having little energy: several days 5. Poor appetite or overeating: not at all 6. Feeling bad about yourself - or that you are a failure or have let yourself or your family down: several days 7. Trouble concentrating on things, such as reading the newspaper or watching television: not at all 8. Moving or speaking so slowly that other people could have noticed. Or the opposite - being so fidgety or restless that you have been moving around a lot more than usual: not at all 9. Thoughts that you would be better off or of hurting yourself in some way: several days Total score: 6 Depression Screening Interpretation: Positive Depression Screening Follow-up: Existing condition and Follow-up Visit Requested Depression Screening Done: Yes 87349 - PHQ-9 Billing: Yes Source: Developed by Drs. Spenser Mesa, Chrystal Yanez, Ren Felix and colleagues, with an educational neeta from [employer]. Thrive Questionnaire Date Thrive assessed: 02/20/25 I am a: Patient What is your living situation today?: I have a steady place to live Within the past 12 months, did the food you bought not last and you didn't have the money to get more?: Never true Within the past 12 months, did you worry whether your food would run out before you got money to buy more?: Never true Do you have trouble paying for medicines?: No Do you have trouble getting transportation to medical appointments?: No Do you have trouble paying your heating and electricity bill?: No Do you have trouble taking care of your child, family member or friend?: No Do you have trouble with day-to-day activities such as bathing, preparing meals, shopping, managing finances, etc.?: Yes Are you currently unemployed and looking for a job?: No Are you interested in more education?: No Please select the resources that you would like help with: None Currently or been in a relationship where the following occur: No concerns reported THRIVE Score: 0 AUDIT C Alcohol Use Questionnaire (AUDIT-C) 1. How often do you have a drink containing alcohol?: Monthly or less 2. How many drinks containing alcohol do you have on a typical day when you are drinking?: 3 or 4 3. How often do you have six or more drinks on one occasion?: Never Total Score: 2 Score Reviewed/Action Taken: No NIDHI-7 AMB Questionnaire NIDHI-7 Date NIDHI - 7 assessed: 02/20/25 Feeling nervous, anxious, or on edge: 1 = Several days Not being able to stop or control worryin = Several days Worrying too much about different things: 1 = Several days Trouble relaxin = Several days Being so restless that it is hard to sit still: 1 = Several days Becoming easily annoyed or irritable: 0 = Not at all Feeling afraid as if something awful might happen: 0 = Not at all Total NIDHI-7 score (0-4 normal; 5-9 mild; 10-14 moderate; 15-21 severe): 5 Source: Developed by Drs. Spenser Mesa, Chrystal Yanez, Rne Felix and colleagues, with an educational neeta from [employer]. NIDHI-7 Assessment Billing NIDHI-7 Assessment Tool: NIDHI-7 Assessment 08608 Review of Systems Const All systems reviewed & are unremarkable except as noted in HPI and below Card Denies chest pain at rest, Denies chest pain with activity, Denies edema, Denies irregular heart rhythm, Denies claudication, Denies dyspnea, Denies dyspnea on exertion, Denies orthopnea, Denies paroxysmal nocturnal dyspnea and Denies slow heart rate Resp Denies cough, Denies dyspnea and Denies dyspnea on exertion GI Denies abdominal pain, Denies change in bowel habits, Denies excessive flatus, Denies nausea and Denies vomiting Physical exam (Primary Care) Vital Signs: Last Vital Signs BP 122/80 02/20/25 13:59 BMI result Body Mass Index 26.5 Tobacco/Smoking Status: Tobacco use Status Tobacco use date assessed 02/20/25 02/20/25 14:03 Patient Tobacco Use Status Never used Tobacco 02/20/25 13:56 e-Cigarette/Vaping Use Never Used 02/20/25 13:56 PHQ-9: PHQ-9 Score PHQ-9: Total score 6 02/20/25 14:09 Depression Screening Interpretation: Positive Depression Screening Follow-up: Existing condition and Follow-up Visit Requested Thrive Assessment: Date of Thrive Assessment Date Thrive assessed 02/20/25 02/20/25 13:56 Currently or been in a relationship where the following occur: No concerns reported Resp Effort & Inspection: normal respiratory effort Auscultation: clear to auscultation bilaterally Cardio Jugular venous distension: no JVD Rate: regular rate Rhythm: regular rhythm Heart sounds: S1 normal heart sound present and S2 normal heart sound present Extrem General: Yes full ROM Results AMB Hemoglobin A1c AMB Hemoglobin A1c 6.7 % Last Edit by GRETTA Simmons on 02/20/25 14:09 Results Reviewed Results Reviewed: Laboratory Last Values Hgb A1c (Clinic) 6.7 % (4.0-6.0) H 02/20/25 14:03 Coding Level of Care Code Est Pt Level 4 (73832) Complex EM visit Add On G2211 Diagnoses Renal cyst N28.1 Stage 3a chronic kidney disease N18.31 Chronic kidney disease stage 3 subtype: stage 3a (GFR 45-59) Pulmonary nodule R91.1 Asthma-COPD overlap syndrome J44.89 Type 2 diabetes mellitus without complication, with long-term current use of insulin E11.9; Z79.4 Diabetes mellitus type: type 2 Diabetes mellitus middle or intermediate school principal insulin use: with nursing home use Diabetes mellitus complication status: without complication Mild recurrent major depression F33.0 Essential hypertension I10 Hyperlipidemia LDL goal <70 E78.5 Additional Codes PHQ-9 - 03284 - PHQ-9 Billing: Yes ([id number]) NIDHI-7 Assessment Billing - NIDHI-7 Assessment Tool: NIDHI-7 Assessment 69460 ([id number]) Time Spent (min) 24 Assessment & Plan Assessment & Plan (1) Renal cyst: Code(s): N28.1 - Cyst of kidney, acquired Category: Medical (2) CKD (chronic kidney disease) stage 3, GFR 30-59 ml/min: Code(s): N18.30 - Chronic kidney disease, stage 3 unspecified Category: Medical Qualifiers: Chronic kidney disease stage 3 subtype: stage 3a (GFR 45-59) Qualified Code(s): N18.31 - Chronic kidney disease, stage 3a (3) Pulmonary nodule: Code(s): R91.1 - Solitary pulmonary nodule Category: Medical (4) Asthma-COPD overlap syndrome: Code(s): J44.89 - Other specified chronic obstructive pulmonary disease Category: Medical (5) Diabetes mellitus: Code(s): E11.9 - Type 2 diabetes mellitus without complications Category: Medical Qualifiers: Diabetes mellitus type: type 2 Diabetes mellitus middle or intermediate school principal insulin use: with middle or intermediate school principal use Diabetes mellitus complication status: without complication Qualified Code(s): E11.9 - Type 2 diabetes mellitus without complications; Z79.4 - jail (current) use of insulin (6) Mild recurrent major depression: Code(s): F33.0 - Major depressive disorder, recurrent, mild Category: Medical (7) Essential hypertension: Code(s): I10 - Essential (primary) hypertension Category: Medical (8) Hyperlipidemia LDL goal <70: Code(s): E78.5 - Hyperlipidemia, unspecified Category: Medical Plan We'll ensure he continues proper use of inhalers for his asthma-COPD and avoid respiratory irritants. The patient will remain on his current medication regimen for hypertension, hyperlipidemia, and benign prostatic hyperplasia. We will monitor psychiatric symptoms and continue fluoxetine as prescribed. The patient acknowledges the imaging and renal management plan and would see a technical administrative assistant if necessary based on upcoming results. Patient was informed and verbally consented to the use of an ambient scribe for clinic note documentation during this visit. I explained the importance of further imaging with an MRI to evaluate the renal cyst and outlined potential next steps depending on the results. We discussed maintaining control over his diabetes and current strategies for managing his COPD, including medication compliance and avoiding irritants. I provided necessary clarifications on his current medications, ensuring understanding of benefits and potential adverse effects. Future appointments for follow-up and discussion of any new findings will be scheduled based on his imaging results. Orders: Orders Lipid Panel 4 Months E78.5 - Hyperlipidemia, unspecified Microalbumin, Random (w Creat) 4 Months R80.9 - Proteinuria, unspecified AMB Hemoglobin A1c Today E11.9 - Type 2 diabetes mellitus without complications, Z13.9 - Encounter for screening, unspecified, Z79.4 - jail (current) use of insulin MR abdomen wo/w con Today N28.1 - Cyst of kidney, acquired Comprehensive [place]. Panel Fast 4 Months N18.31 - Chronic kidney disease, stage 3a Medications: New fluticasone propionate 50 mcg/actuation (Flonase Allergy Relief) administer into each nostril 1 spray intranasal DAILY 16 grams 0RF Refilled benzonatate 200 mg PO BID 30 days PRN 60 caps 6RF cough Patient Instructions: - Proceed with MRI of the abdomen as scheduled. - Continue current medications as prescribed. - Monitor any new or worsening symptoms and report accordingly. - Avoid exposure to respiratory irritants including smoke. - Follow up for discussion of results and further management. - Report any signs of hematuria or urinary discomfort promptly.
[2025-02-20 13:59] VITALS: BP 122/80; BMI 26.5
--- OUTSIDE RECORDS SUMMARY | 2025-02-20 15:07 | XMS_ITS | Encounter Summary ---
Author Organization [facility] Address [address] [place] [address] Care Team Providers Care Sewing Machine Bobbin Winder Name Role Phone Name, Moses APARICIO Primary Care Provider Unavailabl e [facility], Pcp Primary Care Provider Unavailabl e Reason for Visit * Reason Onset Date Comments Provider Call Back 05/30/2012 Encounter Details Date Type Department Care Team Description 05/30/2012 Telephone Ophthalmology-[address] [phone] Hermilo Tejeda OD Provider Call Back Social [...] at [address] * Telephone Encounter - Karina Zamora - 05/30/2012 1:48 PM EDT Patient states he has an appt. 1:30. Patient does not know where and with who. I could only find what they were talking about. Not [address]. They only know [address] Please call patient. documented in this encounter Plan of Treatment Not on file documented as of this encounter Visit Diagnoses Not on filedocumented in this encounter Care Teams Sewing Machine Bobbin Winder Relationship Specialty Start Date End Date Name, MD Moses PCP - General 01/05/1999 11/04/15 [facility], Pcp PCP - General Internal Medicine 11/05/15 documented as of this encounter
--- OUTSIDE RECORDS SUMMARY | 2025-02-20 15:07 | XMS_ITS | Encounter Summary ---
Author Organization [facility] Address [address] [place] [address] Care Team Providers Care Budget Report Clerk Name Role Phone Moses Greco MD Primary Care Provider Unavailabl e [facility], Pcp Primary Care Provider Unavailabl e Reason for Visit * Reason Onset Date Comments Follow-up Appt Unavailable 12/12/2012 Encounter Details Date Type Department Care Team Description 12/12/2012 Telephone Adult Medicine [address] [address] Name, MD Moses Follow-up Appt Unavailable Social History Tobacco Use Types Packs/Day Years Used Date Smoking Tobacco: Never Smokeless Tobacco: Never Alcohol Use Standard Drinks/Week Comments No 0 (1 standard drink = 0.6 oz pur e alcohol) Sex Assigned at Date Recorded Not on file documented as of this encounter Miscellaneous Notes * Telephone Encounter - Rupal Rosas R.N. - 12/12/2012 12:06 PM EST Pt booked for 03/14 at 2:[address] greco, message left for pt to call. He will need to confirm appointment or be rescheduled with triage. * Telephone Encounter - Carrie Tapia - 12/12/2012 12:03 PM EST Patient needs appt for 3 months. Please call when you make it for him. Thank you, documented in this encounter Plan of Treatment Not on file documented as of this encounter Visit Diagnoses Not on filedocumented in this encounter Care Teams Budget Report Clerk Relationship Specialty Start Date End Date Name, MD Moses PCP - General 01/05/1999 11/04/15 [facility], Pcp PCP - General Internal Medicine 11/05/15 documented as of this encounter
--- OUTSIDE RECORDS SUMMARY | 2025-02-20 15:08 | XMS_ITS | Encounter Summary ---
Author Organization [facility] Address [address] [place] [address] Care Team Providers Care Spout Positioner Name Role Phone Name, Moses APARICIO Primary Care Provider Unavailabl e [facility], Pcp Primary Care Provider Unavailabl e Reason for Visit * Reason Onset Date Comments VNA Call 05/05/2011 Devan @ [facility] Encounter Details Date Type Department Care Team Description 05/05/2011 Telephone Adult [address] [address] Name, MD Moses VNA Call (Devan @ [facility]) Social History Tobacco Use Types Packs/Day Years Used Date Smoking Tobacco: Never Smokeless Tobacco: Never Alcohol Use Standard Drinks/Week Comments No 0 (1 standard drink = 0.6 oz pur e alcohol) Sex Assigned at Date Recorded Not on file documented as of this encounter Miscellaneous Notes * Telephone Encounter - Kenzie Khan - 05/05/2011 3:55 PM EDT VNA CALL Which [facility] office is calling? [facility] Full name of caller: Devan Is the caller at the patients home?: NO Reason for call: Discharged from service and no longer is home bound. Does caller need an urgent call back? NO Was CONTACT Telephone # obtained above?: YES documented in this encounter Plan of Treatment Not on file documented as of this encounter Visit Diagnoses Not on filedocumented in this encounter Care Teams Spout Positioner Relationship Specialty Start Date End Date Moses Leblanc MD PCP - General 01/05/1999 11/04/15 [facility], Pcp PCP - General Internal Medicine 11/05/15 documented as of this encounter
--- OUTSIDE RECORDS SUMMARY | 2025-02-20 15:08 | XMS_ITS | Encounter Summary ---
Author Organization [employer] Address [address] [address] [facility] [place] [address] Care Team Providers Care General Magistrate Name Role Phone Unavailable Primary Care Provider Unavailabl e Encounter Details Date Type Department Care Team (Latest Contact Info) Description 11/01/2019 Abstract [facility] CONVERSIONS Dental, Provider, DDS Social History [...]
--- OUTSIDE RECORDS SUMMARY | 2025-02-20 15:08 | XMS_ITS | Encounter Summary ---
Author Organization [facility] Address [address] [place] [address] Care Team Providers Care Fleet Sales Associate Name Role Phone Community, Pcp Primary Care Provider Unavailabl e Encounter Details Date Type Department Care Team Description 02/09/2016 Release of Information Medical Records [address] [place] [id number] Abstract, Provider Social History Tobacco Use Types [...] on filedocumented in this encounter Care Teams Fleet Sales Associate Relationship Specialty Start Date End Date Community, Pcp PCP - General Internal Medicine 11/05/15 documented as of this encounter
--- OUTSIDE RECORDS SUMMARY | 2025-02-20 15:08 | XMS_ITS | Encounter Summary ---
Author Organization [facility] Address [address] [place] [address] Care Team Providers Care Broadcast Chief Engineer Name Role Phone Name, Moses APARICIO Primary Care Provider Unavailabl e [facility], Pcp Primary Care Provider Unavailabl e Encounter Details Date Type Department Care Team Description 03/08/2014 Mileage Clerk Report Medical Records [address] [place] [address] [facility] Social History Tobacco Use Types Packs/Day [...] on filedocumented in this encounter Care Teams Broadcast Chief Engineer Relationship Specialty Start Date End Date Name, MD Moses PCP - General 01/05/1999 11/04/15 [facility], Pcp PCP - General Internal Medicine 11/05/15 documented as of this encounter
--- OUTSIDE RECORDS SUMMARY | 2025-02-20 15:08 | XMS_ITS | Encounter Summary ---
Author Organization [facility] Address [address] [place] [address] Care Team Providers Care Director Enterprise Data Architecture Name Role Phone Name, Moses APARICIO Primary Care Provider Unavailabl e [facility], Pcp Primary Care Provider Unavailabl e Encounter Details Date Type Department Care Team Description 04/18/2011 Hospital Medical Records [address] [place] [address] Erica Henderson, DO Social History Tobacco Use [...] on filedocumented in this encounter Care Teams Director Enterprise Data Architecture Relationship Specialty Start Date End Date Name, MD Moses PCP - General 01/05/1999 11/04/15 [facility], Pcp PCP - General Internal Medicine 11/05/15 documented as of this encounter
--- OUTSIDE RECORDS SUMMARY | 2025-02-20 15:08 | XMS_ITS | Clinical Summary ---
Author Organization [employer] Address [address] [place] [address] Care Team Providers Care Fabric Finisher Name Role Phone Unavailable Primary Care Provider [...] 9 Active D3 Super Strength 50 MCG (1999 [place]) capsule Take 50 mcg by mouth in [...] Description 01/01/2025 10:00 AM EDT Office Visit [facility] [address] [place] [address] Willis [place] 12/17/2024 10:00 AM EST Office Visit [facility] [address] [place] [address] Marisa Love from Last 3 Months Social [...] HEMOGLOBIN A1C POC (04/30/2020 9:48 AM EDT) [facility] HEMOGLOBIN A1C POC 8.0 % [facility] Comment: ?Hemoglobin A1C Reference Range ?Adults: ??4.8 - 6.0 % ?Non diabetic: ??< 6.0 % ?Goal: ??< 7.0 % ?? Additional Action Suggested: ??> 8.0 % 04/30/2020 9:48 AM EDT us Historical Provider MD LAB BLOOD ORDERABLES Camila l Result [facility] [address] from Last 3 Months or Most Recently Relevant to Health Maintenance Insurance DENTAL - [facility]
--- OUTSIDE RECORDS SUMMARY | 2025-02-20 15:08 | XMS_ITS | Encounter Summary ---
Author Organization [facility] Address [address] [place] [address] Care Team Providers Care Engine Boss Name Role Phone Name, Moses APARICIO Primary Care Provider Unavailabl e [facility], Pcp Primary Care Provider Unavailabl e Encounter Details Date Type Department Care Team Description 02/14/2014 Machine Specialist Report Medical Records [address] [place] [address] Madison Hinkle MD Social History Tobacco Use [...] on filedocumented in this encounter Care Teams Engine Boss Relationship Specialty Start Date End Date Name, MD Moses PCP - General 01/05/1999 11/04/15 [facility], Pcp PCP - General Internal Medicine 11/05/15 documented as of this encounter
--- OUTSIDE RECORDS SUMMARY | 2025-02-20 15:08 | XMS_ITS | Patient Health Record ---
Author Organization [facility] Address [address] [place] [address] Care Team Providers Care Him Specialist Name Role Phone Kavita Adam MD Primary Care Provider Unavail able Arzate, Shirin Unavailable [phone] Allergies No Known Allergies Results Component Value Reference Range Notes HEMOGLOBIN A1C (GLYCOHEMOGLO BIN) Reviewed date:02/18/2025 09:37:34 AM Interpretation: Performing Lab: Notes/Report: HEMOGLOBIN A1C % (HH) 7.0 Reason For Referral No Information Medications Medication SIG (Take, Route, Frequency, Duration) Notes Start Date End Date Status Vitamin D3 Active Omeprazole 20 MG 1 capsule 1/2 to 1 h our before morning meal Orally Once a day Active Tamsulosin HCl 0.4 MG 1 capsule Orally O nce a day Active Benzonatate 200 MG 1 capsule as needed Orally Three times a day Active Jardiance 25 MG 1 tablet Orally Once a day Active Arnuity Ellipta Acti ve Metoprolol Succinate 25 MG 1 capsule Ora lly Once a day Active B12 Active hydroCHLOROthiazide 12.5 MG 1 tablet in the morning Orally Once a day Active Fluticasone Propionate 50 MCG/ACT 1 spray in each nostril Nasally Twice a day Active Januvia 100 MG 1 tablet Orally Once a day Active Anoro Ellipta 62.5-25 MCG/ACT 1 puff Inh alation Once a day Active Clopidogrel Bisulfate 75 MG 1 tablet Ora lly Once a day Active Fish Oil Active FLUoxetine HCl 20 MG 1 capsule Orally On ce a day Active Extra Depth Orthopedic Shoes (1 Pair) with Customized Heat Molded Multidensity Innersoles (3 Pair) as directed Dx: NIDDM/Polyneuropathy (E11.42), Hammertoe Foot Deformity (M20.41,M20.42), Preulcerative Skin Lesion(s) (L85.1 02/18/2025 Active Tresiba Active amLODIPine Besylate 5 MG 1 tablet Orally Once a day Active Ketoconazole 2 % 1 application Apply a thin layer to externally to feet, even between toes Twice a day for 30 days Active Soothe XP - as directed Ophthalmic Active Atorvastatin Calcium 20 MG 1 tablet Oral ly Once a day Active Social History Tobacco [...] specify (0 point) Points 0 Interpretation Negative Problems Problem Type SNOMED Code ICD Code Onset Dates Problem Status W/U Status Risk Notes Problem Polyneuropathy due to type 2 diabetes mellitus (064474989) Type 2 diabetes mellitus with diabetic polyneuropathy (E11.42) Active confirmed Vital Signs Blood pressure diastolic 65 mm Hg 02/18/2025 Height 5ft 6inch in 02/18/2025 Blood pressure systolic 128 mm Hg 02/18/2025 Weight 1665 lbs 02/18/2025 BMI 268.71 kg/m2 02/18/2025 Procedures Procedure Date Ordered Date Performed Result Body Sit e [id number]-[id number] NAIL, 6 OR MORE 02/18/2025 N/A [id number] SKIN LESIONS, 2 TO 4 02/18/2025 N/A Encounters Encounter Location Date Provider Diagnosis [facility] [address] [place] [address] 02/18/2025 Shirin Arzate Tinea pedis of both feet B35.3 ; Other hammer toe(s) (acquired), right foot M20.41 ; Other hammer toe(s) (acquired), left foot M20.42 ; Type 2 diabetes mellitus with diabetic polyneuropathy E11.42 and Tinea unguium B35.1 Assessments Encounter Date Diagnosis (ICD Code) Assessment Notes Treatment Notes Treatment Clinical Notes Section Notes 02/18/2025 Tinea pedis of both feet (ICD-10 - B35.3) 02/18/2025 Other hammer toe(s) (acquired), right foot (ICD-10 - M20.41) Patient Educated with: DIABETIC FOOT CARE INSTRUCTIONS. pdf (DIABETIC FOOT CARE INSTRUCTIONS. pdf) 02/18/2025 Other hammer toe(s) (acquired), left foot (ICD-10 - M20.42) 02/18/2025 Type 2 diabetes mellitus with diabetic polyneuropathy (ICD-10 - E11.42) 02/18/2025 Tinea unguium (ICD-10 - B35.1) Plan Of Treatment Pending Test Test Name Order Date [id number] NAIL, 6 OR MORE 02/18/2025 [id number] SKIN LESIONS, 2 TO 4 02/19/20 25 Next Appt Details Provider Name:Shirin Cubacaroline maldonado, 06/05/2025 11:00:00 AM, [address] [facility], [place], [address], Insurance Providers Payer Name Payer Address Payer Phone Subscriber Number Group Number Insured Name Patient Relationship to Insured Coverage Start Date Coverage End Date [id number] [address] [address] [place] [phone] [id number] Manuel Bianchi Self - patient is the insured Medical (General) History Medical History History ICD Code Arthritis asthma Depression Diabetic High Blood Pressure Kidney disease Stroke Stomach ulcer Surgical History Surgery Date(Month/Year) stomach ulver broken ankle hernia
--- OUTSIDE RECORDS SUMMARY | 2025-02-20 15:08 | XMS_ITS | Encounter Summary ---
Author Organization [facility] Address [address] [place] [address] Care Team Providers Care Sub Acute Care Nurse Name Role Phone Name, Moses APARICIO Primary Care Provider Unavailabl e Community, Pcp Primary Care Provider Unavailabl e Encounter Details Date Type Department Care Team Description 05/05/2010 Account Manager [employer] Report Medical Records [address] [place] [address] Chiropractic, [place] Social History Tobacco Use Types Packs/Day Years Used Date Smoking Tobacco: Former Alcohol Use Standard Drinks/Week Comments No 0 (1 standard drink = 0.6 oz pur e alcohol) Sex Assigned at Date Recorded Not on file documented as of this encounter Plan of Treatment Not on file documented as of this encounter Visit Diagnoses Not on filedocumented in this encounter Care Teams Sub Acute Care Nurse Relationship Specialty Start Date End Date Name, MD Moses PCP - General 01/05/1999 11/04/15 Community, Pcp PCP - General Internal Medicine 11/05/15 documented as of this encounter
--- OUTSIDE RECORDS SUMMARY | 2025-02-20 15:08 | XMS_ITS | Encounter Summary ---
Author Organization [facility] Address [address] [place] [address] Care Team Providers Care Subgrade Roller Operator Name Role Phone Moses Leblanc MD Primary Care Provider Unavailabl e Community, Pcp Primary Care Provider Unavailabl e Reason for Visit * Reason Onset Date Comments [facility] Encounter Details Date Type Department Care Team Description 03/21/2014 Telephone Adult Medicine [address] [address] NameMoses MD Faxed Order ([facility]) Social History Tobacco Use Types Packs/Day Years Used Date Smoking Tobacco: Never Smokeless Tobacco: Never Alcohol Use Standard Drinks/Week Comments No 0 (1 standard drink = 0.6 oz pur e alcohol) Sex Assigned at Date Recorded Not on file documented as of this encounter Miscellaneous Notes * Telephone Encounter - Lesley Javier - 03/26/2014 1:37 PM EDT 2nd request from [facility] Asking for Review and signature * Telephone Encounter - Sheila Driver - 03/21/2014 4:10 PM EDT Received a fax from [facility] asking for review and signature's documented in this encounter Plan of Treatment Not on file documented as of this encounter Visit Diagnoses Not on filedocumented in this encounter Care Teams Subgrade Roller Operator Relationship Specialty Start Date End Date Moses Leblanc MD PCP - General 01/05/1999 11/04/15 Community, Pcp PCP - General Internal Medicine 11/05/15 documented as of this encounter
--- OUTSIDE RECORDS SUMMARY | 2025-02-20 15:08 | XMS_ITS ---
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5-25 MCG/ACT 1 puff Inh alation Once a day Active Fish Oil Active Tresiba Active Soothe XP - as directed Ophthalmic Active Benzonatate 200 MG 1 capsule as needed Orally Three times a day Active Arnuity Ellipta Acti ve Fluticasone Propionate 50 MCG/ACT 1 spray in each nostril Nasally Twice a day Active Extra Depth Orthopedic Shoes (1 Pair) with Customized Heat Molded Multidensity Innersoles (3 Pair) as directed Dx: NIDDM/Polyneuropathy (E11.42), Hammertoe Foot Deformity (M20.41,M20.42), Preulcerative Skin Lesion(s) (L85.1 02/18/2025 Active Ketoconazole 2 % 1 application Apply a thin layer to externally to feet, even between toes Twice a day for 30 days Active hydroCHLOROthiazide 12.5 MG 1 tablet in the morning Orally Once a day Active Clopidogrel Bisulfate 75 MG 1 tablet Ora lly Once a day Active FLUoxetine HCl 20 MG 1 capsule Orally On ce a day Active amLODIPine Besylate 5 MG 1 tablet Orally Once a day Active Atorvastatin Calcium 20 MG 1 tablet Oral ly Once a day Active Januvia 100 MG [...] Polyneuropathy due to type 2 diabetes mellitus (808766854) Type 2 diabetes mellitus with diabetic polyneuropathy (E11.42) Active confirmed Vital Signs Height 5ft 6inch in 02/18/2025 Weight 1665 lbs 02/18/2025 BMI 268.71 kg/m2 02/18/2025 Blood pressure systolic 128 mm Hg 02/19/20 25 Blood pressure diastolic 65 mm Hg 025 Procedures Procedure Date Ordered Date Performed Result Body Sit e 39502-EJTHOYR NAIL, 6 OR MORE 02/18/2025 N/A 54473-HVCU SKIN LESIONS, 2 TO 4 02/18/2025 N/A Encounters Encounter Location Date Provider Diagnosis [facility] [address] [place] [address] 02/18/2025 Shirin Arzate Tinea pedis of both [...] unguium (ICD-10 - B35.1) Plan Of Treatment Medication Medication Name Sig Start Date Stop Date Notes Extra Depth Orthopedic Shoes (1 Pair) with Customized Heat Molded Multidensity Innersoles (3 Pair) as directed Dx: NIDDM/Polyneuropathy (E11.42), Hammertoe Foot Deformity (M20.41,M20.42), Preulcerative Skin Lesion(s) (L85.1 02/18/2025 Ketoconazole 2 % 1 application Apply a thin layer to externally to feet, even between toes Twice a day for 30 days Treatment Notes Assessment Notes Other hammer toe(s) (acquired), right fo ot Patient Educated with: DIABETIC FOOT CARE INSTRUCTIONS.pdf (DIABETIC FOOT CARE INSTRUCTIONS.pdf) Pending Test Test Name Order Date 00443-LWUFWVN NAIL, 6 OR MORE 02/18/2025 10099-IEHU SKIN LESIONS, 2 TO 4 02/19/20 Next Appt Details Follow Up: 3 Months, Reason: Provider Name:Shirin maldonado, 06/05/2025 11:00:00 AM, [address] [place] [address], [place], [address], Procedure Notes * Category Sub-Category Detail Notes Debride Nail 6-10 Nail debridement Due to the cl inical pathology outlined in the exam findings, performance of this nail treatment is medically necessary as its management by an unskilled/untrained nonprofessional would put this patients foot and overall health at risk. Therefore, debridement to affected nail(s), as described in exam ( TA, T1, T2, T3, T4, T5, T6, T7, T8, T9, ), was performed exclusively by the physician of record to reduce/remove overall nail length, girth, thickness, subungual debris, and necrotic tissue, by manual and/or electrical means through the use of a nail nipper and/or dremel-type facing grinder, to a more viable healthy nail plate or bed tissue 6-10 nails in total. Silver nitrate was used for any petechial bleeding as necessary. Definitive antifungal treatment options, both pharmaceutical and surgical, have been reviewed and discussed with the patient. The patient solely prefers the use of intermittent/as needed professional debridement services for their nail condition and understands the need for additional periodic treatments to maintain effectiveness in symptomatic relief - 61485 Keratoma Treatment Parring or Cutting o f Benign Hyperkeratotic Lesion(s) (-56) 2-4 Lesions - Due to the at risk nature of the patients medical condition as documented in the exam findings, performance of this keratoderma treatment is medically necessary as its management by an unskilled/untrained nonprofessional would put this patients foot and overall health at risk. Therefore, the benign hyperkeratotic lesions, (_2) in total, locations as stated and described in the exam ( plantar heels B/L ), were pared, and/or cut utilizing a sterile 15 blade, tissue nippers, and/or power dremel instrumentation by the physician of record - 54609 Progress Notes * Porfirio BIANCHIoDOB:[birth year] (84 yo M)Acc No.[id number]:02/18/2025 Progress Notes Patient:?Manuel BIANCHI Provider:?Shirin Arzate DPM :1940???Age:84 Y???Sex:Male Chandan e:02/18/2025 [facility] Pcp:Kavita Adam MD Subjective: * Chief Complaints: * ???Skin ProblemToe Irritatio Ivan Risk Footcare * HPI: ???Skin problems:?Nature:?scaling , redness.?Location:?B/L .?Duration:?several days.?Course:?worse.?Treatments:?Topical OTC antifungal cream has not relieved condition.?Toe pain:?Location:?B/L feet.?Duration:?several years.?Course:?worse.?Aggravated by:?shoes, any pressure.?Treatments:?change in shoes.?At Risk footcare:?Pt States Last PCP Visit:?Date?11/08/2024 * ROS:?General/Constitutional:?Nausea?denies.?Vomiting?denies.?Hunger Thirst?denies.?Loss appetite?denies.?Chills?denies.?Fatigue?denies.?Fever?denies.?Night Sweats?denies.?Unexplained weight loss?denies.?Unexplained weight gain?denies.?HEENTM:?Dentures?denies.?Dizziness?denies.?Glasses/contacts?denies.?Retinopathy?den ies.?Blurred/double vision?denies.?TMJ?denies.?Discharge/drainage?denies.?Implants?denies.?Sore throat?denies.?Dental implants?denies.?Hard of hearing ?denies.?Difficulty chewing/swallowing/speaking?denies.?Nose bleeds?denies.?Sore mouth?denies.?Respiratory:?On O xygen?denies.?Pneumonia/pleurisy?denies.?Bronchitis?denies.?Emphysema?denies.?Co ughing?denies.?Cough blood?denies.?Shortness of breath?denies.?Wheezing?denies.?Cardiovascular:?Pacemaker?denies.?MVP?denies.?WPW?denies.?CHF?denies.?Heart attack?denies.?Septal defect?denies.?Rapid beat?denies.?Chest pain ?denies.?Atrial Fib.?denies.?Murmur/Palpitations?denies.?Gastrointestinal:?Hemorrhoids?denies.?Stomach/Abdominal pain?denies.?Dark blood stool?denies.?Irritable bowel ?denies.?Constipation?denies.?Diarrhea?denies.?Hematology:?Swelling?denies.?Clots?denies.?Varicose Veins?denies.?Bruising?admits.?Bleeding problem?denies.?Genitourinary:?Blood urine?denies.?Frequent/Painfu/urination/bladder control?denies.?Kidney stones?denies.?Infection (UTI)?denies.?Nephropathy?denies.?sex trans dis (STD)?denies.?Prostate?admits.?Musculoskeletal:?Hammertoes?denies.?Bunions?denies.?Back Pain?denies.?Muscle Cramps/ Resting?denies.?Muscle cramps / walking?denies.?Generalized aches and pains?denies.?Weakness?denies.?Integ.:?Leary?denies.?Scars?denies.?Corns/calluses?denies.?Ingrown nails?admits.?Painful nails?denies.?Open Sores?denies.?Rashes?denies.?Neurologic:?Difficulty sleeping?denies.?Brain disorder?denies.?Numbness?denies.?Balance t rouble?denies.?Confusion?denies.?Fainting/blackouts?denies.?Tingling?denies.?Fabricio mors?denies.? * Medical History:? * Surgical History:?stomach ul cruz broken ankle hernia * Hospitalization/Major Diagno stic Procedure:?Denies Past Hospitalization * Family History:?Mother: dece ased.?Father: .? * [...] to specify (0 point) ?Points?0 ?Interpretation?Negative * Medications:?TakingArnuity E llipta Benzonatate 200 MG Capsule 1 capsule as needed Orally Three times a day Fluticasone Propionate 50 MCG/ACT Suspension 1 spray in each nostril Nasally Twice a day B12 Fish Oil Anoro Ellipta 62.5-25 MCG/ACT Aerosol Powder Breath Activated 1 puff Inhalation Once a day Soothe XP - Solution as directed Ophthalmic Tresiba Vitamin D3 Tamsulosin HCl 0.4 MG Capsule 1 capsule Orally Once a day Omeprazole 20 MG Capsule Delayed Release 1 capsule 1/2 to 1 hour before morning meal Orally Once a day Metoprolol Succinate 25 MG Capsule ER 24 Hour Sprinkle 1 capsule Orally Once a day Jardiance 25 MG Tablet 1 tablet Orally Once a day Januvia 100 MG Tablet 1 tablet Orally Once a day hydroCHLOROthiazide 12.5 MG Tablet 1 tablet in the morning Orally Once a day FLUoxetine HCl 20 MG Capsule 1 capsule Orally Once a day Clopidogrel Bisulfate 75 MG Tablet 1 tablet Orally Once a day Atorvastatin Calcium 20 MG Tablet 1 tablet Orally Once a day amLODIPine Besylate 5 MG Tablet 1 tablet Orally Once a day Medication List reviewed and reconciled with the patientTaking Arnuity Ellipta Taking Benzonatate 200 MG Capsule 1 capsule as needed Orally Three times a day Taking Fluticasone Propionate 50 MCG/ACT Suspension 1 spray in each nostril Nasally Twice a day Taking B12 Taking Fish Oil Taking Anoro Ellipta 62.5-25 MCG/ACT Aerosol Powder Breath Activated 1 puff Inhalation Once a day Taking Soothe XP - Solution as directed Ophthalmic Taking Tresiba Taking Vitamin D3 Taking Tamsulosin HCl 0.4 MG Capsule 1 capsule Orally Once a day Taking Omeprazole 20 MG Capsule Delayed Release 1 capsule 1/2 to 1 hour before morning meal Orally Once a day Taking Metoprolol Succinate 25 MG Capsule ER 24 Hour Sprinkle 1 capsule Orally Once a day Taking Jardiance 25 MG Tablet 1 tablet Orally Once a day Taking Januvia 100 MG Tablet 1 tablet Orally Once a day Taking hydroCHLOROthiazide 12.5 MG Tablet 1 tablet in the morning Orally Once a day Taking FLUoxetine HCl 20 MG Capsule 1 capsule Orally Once a day Taking Clopidogrel Bisulfate 75 MG Tablet 1 tablet Orally Once a day Taking Atorvastatin Calcium 20 MG Tablet 1 tablet Orally Once a day Taking amLODIPine Besylate 5 MG Tablet 1 tablet Orally Once a day Medication List reviewed and reconciled with the patient * Allergies:?N.K.D.A.yes[Aller gies Verified] Objective: * Vitals:?Ht:5ft 6inch, Wt:166 5, BMI: 268.71, Shoe size:7-8, BP:128/65mm Hg, BS:82, Ht-cm: 167.64 cm, Wt-k.24 kg. * ???Past Orders: ???Lab:HEMOGLOBIN A1C (GLYCO HEMOGLOBIN) (Order Date - 11/19/2024) (Collection Date & Time - 02/18/2025 09:37 AM) ? Value Reference Range ?HEMOGLOBIN A1C % (HH) 7.0 * Examination: ???Ophthalmology Referral: ?DIABETES EYE EXAM?Procedure Performed:?Yes ?Date of Exam Performed?09/17/2024 ?Diabetic Retinopathy Screening:?Yes ?Findings of Diabetic Eye Exam:?no retinopathy?Dermatologic: ?SKIN FINDINGS:? Skin shows sign(s) of, erythema, scaling, in a moccasin fashion, no fissure(s) present, B/L , Skin exam reveals Keratotic lesion(s) located at.?Orthopedic: ?MUSCLE STRENGTH:?5/5 all groups in a symmetrical fashion, B/L.?FOOT MORPHOLOGY:?(-) Charcot collapse/destruction noted at [facility].?DIGITAL DEFORMITIES:?Digital contracture, PIPJ, 2-5 B/L, incompl-reducible to push-up test, no over, nor underlapping,?there is?evidence of shoe producing skin irritation.?FOOTWEAR EVALUATION:?worn, non-supportive, shoe gear properties exacerbate patient's foot/toe deformity.?General Examination: ?GENERAL APPEARANCE:?Pt accompanied by, Daughter who serves as additonal historian/pallet sorter.?Reveals a pleasant, alert, well nourished, well-developed, well hydrated individual, who demonstrates proper attention to hygiene/body habitus, and is in no acute distress, Pt serves as own historian for office visit today.?ORIENTED:?person, place, and time.?FOOT EXAM:?Lower Extremity Neurological Exam performed:?Yes ?Visual exam of foot performed:?Yes ?Date?02/18/2025 ?Sensory testing performed:?sensations diminished ?Sensory and motor testing performed:?strength normal ?Pedal pulse taking performed:?1+ ?Footwear Evaluation?Footwear Evaluation performed:?Yes?Neurological: ?SENSORY:? Neurological exam demonstrates, reduced light touch sensation, reduced sharp/dull pin prick discrimination , B/L, 5.07 monofilament test performed at plantar aspects of 5 varied sites per foot shows sensation, reduced , B/L.?Nails: ?NAILS are:?Elongated, overgrown, dystrophic, lytic, greater than 3mm thick, discolored and friable with crumbly malodorous subungual debris, TA, T1, T2, T3, T4, T5, T6, T7, T8, T9.?Vascular: ?DP PULSES (B):?/4, B/L.?PT PULSES (B):?/, B/L.?CAPILLARY FILL TIME:?delayed, all digits, B/L.?TROPHIC CONDITION-TEXTURE/ELASTICITY/TURGOR/HAIR GROWTH (B):?decreased, B/L.?TEMPERTURE GRADIENT (C):?normal, warm to cool, proximal to distal, B/L.?PIGMENTATION:?rubrous, B/L.? Assessment: * Assessment: 1.?Tinea pedis of both feet - B35.3???Specify :Acute problem, Uncomplicated (3),Rx drug management (4)???2.?Other hammer toe(s) (acquired), right foot - M20.41 (Primary)???Specify :Chronic problem, Worse (4),Rx Management (4)???3.?Other hammer toe(s) (acquired), left foot - M20.42???Specify :Chronic problem, Worse (4),Rx Management (4)???4.?Type 2 diabetes mellitus with diabetic polyneuropathy - E11.42???5.?Tinea unguium - B35.1??? Plan: * Treatment: 2.?Tinea pedis of both feet? Start Ketoconazole Cream, 2 %, 1 application, Apply a thin layer to externally to feet, even between toes, Twice a day, 30 days, 30 Gram, Refills 3.?? 3.?Type 2 diabetes mellitus with diabetic polyneuropathy?Procedure: 39171-MAEHBLG NAIL, 6 OR MORE ?Procedure: 26048-RFXH SKIN LESIONS, 2 TO 4 * Procedures:?Debride Nail 6-10:?Nail debridement?Due to the clinical pathology outlined in the exam findings, performance of this nail treatment is medically necessary as its management by an unskilled/untrained nonprofessional would put this patients foot and overall health at risk. Therefore, debridement to affected nail(s), as described in exam ( TA, T1, T2, T3, T4, T5, T6, T7, T8, T9, ), was performed exclusively by the physician of record to reduce/remove overall nail length, girth, thickness, subungual debris, and necrotic tissue, by manual and/or electrical means through the use of a nail nipper and/or dremel-type facing grinder, to a more viable healthy nail plate or bed tissue 6- 10 nails in total. Silver nitrate was used for any petechial bleeding as necessary. Definitive antifungal treatment options, both pharmaceutical and surgical, have been reviewed and discussed with the patient. The patient solely prefers the use of intermittent/as needed professional debridement services for their nail condition and understands the need for additional periodic treatments to maintain effectiveness in symptomatic relief - 40329.?Keratoma Treatment:?Parring or Cutting of Benign Hyperkeratotic Lesion(s)?(-56) 2-4 Lesions - Due to the at risk nature of the patients medical condition as documented in the exam findings, performance of this keratoderma treatment is medically necessary as its management by an unskilled/untrained nonprofessional would put this patients foot and overall health at risk. Therefore, the benign hyperkeratotic lesions, (_2) in total, locations as stated and described in the exam ( plantar heels B/L ), were pared, and/or cut utilizing a sterile 15 blade, tissue nippers, and/or power dremel instrumentation by the physician of record - 92996.? * Procedure Codes:?75617 DEBRI DE NAIL, 6 OR MORE, Modifiers: XS 81568 TRIM SKIN LESIONS, 2 TO 4, Modifiers: XS * Preventive Medicine:? ??Counseling:?Discussion:?-04: Office or other outpatient visit for the evaluation and management of a new patient, which required a medically appropriate history and/or examination and MODERATE level of DECISION MAKING for: 1 OR MORE CHRONIC PROBLEM(S) THATS WORSENING, 2 STABLE CHRONIC PROBLEMS, A NEWLY DIAGNOSED PROBLEM WITH UNCERTAIN PROGNOSIS, AN ACUTE COMPLICATED INJURY WITH MULTIPLE TREATMENT OPTIONS, OR AN ACUTE PROBLEM WITH ACCOMPANYING SYSTEMIC SYMPTOMS, THAT POSE(S) A MODERATE RISK OF MORBIDITY. THIS CONDITION MAY ALSO INCLUDE RX DRUG MANAGEMENT, OR A DECISON FOR MINOR SURGERY. The visit on the day of the encounter encompassed interpreting the data and educating the patient as to the nature of their condition, treatment options available according to their individual PMH, meds, allergies, and overall health/living conditions, as well as any potential risks or complications that may occur from a failure to adhere to, and participate in, the recommended course of therapy. The discussion included a complete verbal, and/or written explanation of the examination results, any x-rays taken, the proposed diagnosis, and outline of the treatment plan. A schedule for future care needs was also explained. The patient verbalized an understanding of the instructions at this time and agreed to be an active participant in their treatment. If the patient should think of any questions or concerns after the visit, I have encouraged the patient to call the office.?Digital Surgery:?Digital surgery was discussed with the patient, We elected to try conservative treatment at the present time, due to the patients medical history and increased asssociated post-operative risks.?Digital Treatment:?HT- I explained to the patient the possible etiologies of Hammertoes, including genetics/foot type/shoegear/activity level/exercise routine and the risks/benefits of all the different treatment options for their pain including: No treatment at all, Rest, Ice, New/supportive/wider/deeper Shoegear, Digital Padding/Strapping/Taping/Bracing/Gel protective sleeves, Foot/Ankle AFO Bracing, Stretching exercises, Deep Tissue Massage, Arch support/shoe inserts with splay metatarsal padding, and Custom orthoses. I insisted that any digital devices be removed daily and not worn overnight for safety. The patient is to carefully examine the toes daily for any skin irritation while using any splinting or padding device. The advantages and disadvantages of each option were discussed and the patients questions re: shoegear, padding, custom vs prefabricated inserts, activity level, and consistency in home treatment regimens for optimal success were answered to their verbally confirmed satisfaction.?Shoe Gear Counseling:?SHOE Rx - The patient was counseled in great detail on their muscoloskeletal foot and toe deformities which coincided with the dermatological presentations visualized on exam. We discussed how their deformities put the integrity of their feet at risk for potential pedal complications which makes the accomidative diabetic shoes and cutomizable inserts medically necessary. We discussed the different shoe and insert treatment types and options, as well as the important advantages for adhering to regularly wearing these accomidative devices daily. The patient was made aware of the fact that a failure to abide by these recommedations may be deleterious to their foot health as they are able to prevent many pedal complications such as skin irritation, skin ulceration, infection, and even loss of toe/foot/leg/or life. Time was also spent with the patient dispensing and discussing proper diabetic footcare techniques including daily skin moisturization, daily foot inspection for any interruption in skin integrity including open lesions, or sign of infection such as redness/malodor/drainage/swelling. Also discussed and recommended were procedures regarding daily shoe inspection for the presence of internal foreign bodies as well as any visualized irregular shoe or insert wear. Patient questions re: shoes, inserts, and self foot inspections were answered to their satisfaction as the patient verbally confirmed a full understanding of the above information. A Rx for Extra Depth Orthopedic Shoes with 3 pair of custom heat-molded inserts was dispensed.?Tinea Pedis:?The patient was counseled on the diagnosis, potential etiologies, and treatment options for their skin condition. We discussed the risks and benefits of each option from performing no treatment, to utilizing OTC topical skin creams, prescription topical creams, customized compounded topical medications, and, if necessary, to utilize oral antifungal therapy. We discussed the advantages and disadvantages of each possible treatment and importance for adherence to all the recommended therapies for optimum success and avoid potential complications such as open sore/infection/possible hospitalization. We discussed the potential effectiveness of each topical preparation as well as each ones possible side effects and/or patient medication interactions if oral therapy is selected. Patient questions re: the advantages and disadvantages of each treatment choice, medication use/dosage, successful outcomes, and application consistency were reviewed and the patient verbalized that all answers were clearly understood. The patient was told they can help alleviate symptoms by utilizing moisture absorbant innersoles with activated charcoal and baking soda, applying antifungal sprays daily, aerating toe web spaces at night by putting cotton or lambs wool between the toes, alternating shoe gear daily if possible so they can dry out, changing socks at least once during the day, wearing well-ventilated shoes or sandals. The patient has decided to apply antifungal skin creams to their feet as directed. Rx was sent to their pharmacy at the time of visit.? ??Screening/Special Tests:?Fall Risk?Screening:?No falls in the past year ?FALLS: Screening for Future Fall Risk?Have you had any falls with injury in the past year??No * Follow Up:?3 Months * Images: * Sign off status: Completed true * Provider:?Shirin Arzate DPM Date:?0 02/18/2025 Generated for Fede last/Mahesh/Paulinesmitting on:?02/20/2025 03:07 PM EDT History and Physical Notes * HPI (History of Present Illness) Category Sub-Category Detail Notes Category Not es Toe pain Location: B/L feet Duration: several years Course: worse Aggravated by: shoes, any pressure Treatments: change in shoes Skin problems Nature: scaling , redness Location: B/L Duration: several days Course: worse Treatments: Topical OTC antifung al cream has not relieved condition At Risk footcare Pt States Last PCP Visit: Date: 5 Examination Category Sub-Category Detail Notes Category Not es Neurological SENSORY: Neurological exa m demonstrates, reduced light touch sensation, reduced sharp/dull pin prick discrimination , B/L, 5.07 monofilament test performed at plantar aspects of 5 varied sites per foot shows sensation, reduced , B/L Dermatologic SKIN FINDINGS: Skin shows sign( s) of, erythema, scaling, in a moccasin fashion, no fissure(s) present, B/L , Skin exam reveals Keratotic lesion(s) located at Orthopedic FOOT MORPHOLOGY: (-) Charcot col lapse/destruction noted at [facility] FOOTWEAR EVALUATION: worn, non-supportiv e, shoe gear properties exacerbate patient's foot/toe deformity DIGITAL DEFORMITIES: Digital contracture , PIPJ, 2-5 B/L, incompl-reducible to push-up test, no over, nor underlapping, there is evidence of shoe producing skin irritation MUSCLE STRENGTH: 5/5 all groups in a symmetrical fashion, B/L General Examination GENERAL APPEARANCE: Pt accom panied by, Daughter who serves as additonal historian/pallet sorter. Reveals a pleasant, alert, well nourished, well-developed, well hydrated individual, who demonstrates proper attention to hygiene/body habitus, and is in no acute distress, Pt serves as own historian for office visit today FOOT EXAM: Lower Extremity Neurological Exa m performed:: Yes Visual exam of foot performed:: Yes Date: 02/18/2025 Sensory testing performed:: sensations d iminished Sensory and motor testing performed:: [facility] normal Pedal pulse taking performed:: 1+ ORIENTED: person, place, and t [place] Footwear Evaluation Footwear Evaluation performe d:: Yes Ophthalmology Referral DIABETES EYE EXAM Procedure Perform ed:: Yes ?Date of Exam Performed: 09/17/2024 Diabetic Retinopathy Screening:: Yes Findings of Diabetic Eye Exam:: no retin opathy Vascular DP PULSES (B): 1/4, B/L PT PULSES (B): 1/4, B/L CAPILLARY FILL TIME: delayed, all digits , B/L TEMPERTURE GRADIENT (C): normal, warm to cool, proximal to distal, B/L TROPHIC CONDITION-TEXTURE/ELASTICITY/TURGOR/HAIR GROWTH (B): decreased, B/L PIGMENTATION: rubrous, B/L Nails NAILS are: Elongated, overg rown, dystrophic, lytic, greater than 3mm thick, discolored and friable with crumbly malodorous subungual debris, TA, T1, T2, T3, T4, T5, T6, T7, T8, T9
--- OUTSIDE RECORDS SUMMARY | 2025-02-20 15:08 | XMS_ITS ---
[facility] Organization [facility] Address [address] [facility] [place] [address] Care Team Providers Care Insurance Investigator Name Role Phone Jair APARICIO, Kavita Primary Care Provider Unavail able Shirin Arzate Unavailable [phone] Mathur Medications Medication [...] Negative Encounters Encounter Location Date Provider Diagnosis [facility] [address] [place] [address] 11/22/2024 Shirin Arzate Plan Of Treatment Next Appt Details Provider Name:Shirin Ramesh maldonado, 06/05/2025 11:00:00 AM, [address] [place] [address], [phone], Progress Notes * Luz BIANCHIOB:[birth year] (84 yo M)Acc No.[id number]:11/22/2024 Progress Notes Patient:?Manuel BIANCHI Provider:?Shirin Arzate DPM :1940???Age:83 Y???Sex:Male Chandan e:11/22/2024 Address:[address] [place], [place] [id number] Pcp:Kavita Adam MD Subjective: * Chief Complaints: [...] Arzate DPM Date:?0 11/22/2024 Generated for Fede last/Mhaesh/Capri on:?02/20/2025 03:08 PM EDT
--- OUTSIDE RECORDS SUMMARY | 2025-02-20 15:08 | XMS_ITS | Encounter Summary ---
Author Organization [employer] Address [address] [place] [address] Care Team Providers Care Biomedical Equipment Specialist Name Role Phone Unavailable Primary Care Provider Unavailabl e Encounter Details Date Type Department Care Team (Latest Contact Info) Description 10/31/2018 Abstract [facility] CONVERSIONS Dental, Provider, DDS Social History [...]
--- OUTSIDE RECORDS SUMMARY | 2025-02-20 15:08 | XMS_ITS | Encounter Summary ---
Author Organization [facility] Address [address] [place] [address] Care Team Providers Care Salad Counter Attendant Name Role Phone Moses Leblanc MD Primary Care Provider Unavailabl e Community, Pcp Primary Care Provider Unavailabl e Reason for Visit * Reason Onset Date Comments Orders Call 03/04/2014 Encounter Details Date Type Department Care Team Description 03/04/2014 Telephone Adult [address] [address] NameMoses MD Orders Call Social History Tobacco Use [...] Dr Leblanc's bin for signature Fax to [phone] documented in this encounter Plan of Treatment Not on file documented as of this encounter Visit Diagnoses Not on filedocumented in this encounter Care Teams Salad Counter Attendant Relationship Specialty Start Date End Date Moses Leblanc MD PCP - General 01/05/1999 11/04/15 Community, Pcp PCP - General Internal Medicine 11/05/15 documented as of this encounter
--- OUTSIDE RECORDS SUMMARY | 2025-02-20 15:09 | XMS_ITS ---
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 POWER TRUCK DRIVER,CONSERVATION BIOLOGY PROFESSOR,FN P,WHIPPED TOPPING MIXER, [place] Address [address] [place] [address] Phone [phone] [facility][note 3][facility] Care Team Providers Care Plant Changer Name Role Phone Chula Raygoza Unavailable [phone] Unavailable Unavailable [phone] Reason for Referral Not Available Allergies, adverse [...] Active 2023-09-05 N/A Other problems related to [facility] facilities and other health care [...] (do not use for phone, instead use 39503-21) [facility] Chronic obstructive pulmonar y disease, unspecifiedType [...] (do not use for phone, instead use 10638-28) [facility] [place]2022 New patient,40-59min; chronic exacerbation, 2 stable chronic or 1 acute illness add add modifier 95 for video (do not use for phone, instead use 25067-12) [facility] [place]/2022 New patient,40-59min; chronic exacerbation, 2 stable chronic or 1 acute illness add add modifier 95 for video (do not use for phone, instead use 84151-54) [facility] [place] 10/05/2022 New patient,40-59min; chronic exacerbation, 2 stable chronic or 1 acute illness add add modifier 95 for video (do not use for phone, instead use 15370-99) [facility] [place] 10/05/2022 New patient,40-59min; chronic exacerbation, 2 stable chronic or 1 acute illness add add modifier 95 for video (do not use for phone, instead use 51751-72) [facility] [place] 10/05/2022 New patient,40-59min; chronic exacerbation, 2 stable chronic or 1 acute illness add add modifier 95 for video (do not use for phone, instead use 92436-86) [facility] [place] 10/05/2022 New patient,40-59min; chronic exacerbation, 2 stable chronic or 1 acute illness add add modifier 95 for video (do not use for phone, instead use 54556-48) [facility] [place] 10/05/2022 New patient,40-59min; chronic exacerbation, 2 stable chronic or 1 acute illness add add modifier 95 for video (do not use for phone, instead use 30970-74) [facility] [place] 10/05/2022 Estab. patient 30-39min; chronic exacerbation, 2 stable chronic or 1 acute illness add add modifier 95 for video, (do not use for phone, instead use 89582-84) [facility] [place] 08/16/2023 Chronic obstructive pulmonar y disease, unspecifiedType [...] (do not use for phone, instead use 64984-03) [facility] [place] 08/16/2023 Estab. patient 30-39min; chronic exacerbation, 2 stable chronic or 1 acute illness add add modifier 95 for video, (do not use for phone, instead use 53528-37) [facility] [place] 08/16/2023 Estab. patient 30-39min; chronic exacerbation, 2 stable chronic or 1 acute illness add add modifier 95 for video, (do not use for phone, instead use 06057-90) [facility] [place] 08/16/2023 Estab. patient 30-39min; chronic exacerbation, 2 stable chronic or 1 acute illness add add modifier 95 for video, (do not use for phone, instead use 84835-45) [facility] [place] 08/16/2023 Estab. patient 30-39min; chronic exacerbation, 2 stable chronic or 1 acute illness add add modifier 95 for video, (do not use for phone, instead use 24251-03) [facility] [place] 08/16/2023 Estab. patient 30-39min; chronic exacerbation, 2 stable chronic or 1 acute illness add add modifier 95 for video, (do not use for phone, instead use 61738-84) [facility] [place] 08/16/2023 Estab. patient 30-39min; chronic exacerbation, 2 stable chronic or 1 acute illness add add modifier 95 for video, (do not use for phone, instead use 85262-26) [facility] [place] 08/16/2023 Estab. patient 30-39min; chronic exacerbation, 2 stable chronic or 1 acute illness add add modifier 95 for video, (do not use for phone, instead use 76910-57) [facility] [place] 08/16/2023 Estab. patient 30-39min; chronic exacerbation, 2 stable chronic or 1 acute illness add add modifier 95 for video, (do not use for phone, instead use 72984-43) [facility] [place] 08/16/2023 No Data Available [facility] [place] 09/05/2023 Chronic obstructive pulmonar y disease, unspecifiedType 2 diabetes mellitus with diabetic polyneuropathyMajor depressive disorder, single episode, in partial remissionEssential (primary) hypertensionHyperlipidemia, unspecifiedImmunodeficiency due to drugsAdverse effect of glucocort/synth analog, initLong term (current) use of systemic steroidsVitamin D deficiency, unspecifiedType 2 diabetes w diabetic peripheral angiopath w/o gangreneBenign paroxysmal vertigo, bilateralPolyosteoarthritis, unspecifiedOther specified hearing loss, right earPersonal history of covid-19 No Data Available [facility] [place]2023 [place] Data Available [facility] [place] No Data Available [facility] [place] No Data Available [facility] [place] No Data Available [facility] [place] No Data Available [facility] [place]2023 Estab. patient 30-39min; chronic exacerbation, 2 stable chronic or 1 acute illness add add modifier 95 for video, (do not use for phone, instead use 42670-06) [facility] [place] 05[place]10/2024 Chronic obstructive pulmonar y disease, unspecifiedType [...] (do not use for phone, instead use 32606-06) [facility] [place] 05/10/2024 Estab. patient 30-39min; chronic exacerbation, 2 stable chronic or 1 acute illness add add modifier 95 for video, (do not use for phone, instead use 85059-41) [facility] [place]10[place] Estab. patient 30-39min; chronic exacerbation, 2 stable chronic or 1 acute illness add add modifier 95 for video, (do not use for phone, instead use 30138-60) [facility] [place]10[place] Estab. patient 30-39min; chronic exacerbation, 2 stable chronic or 1 acute illness add add modifier 95 for video, (do not use for phone, instead use 80080-65) [facility] [place] Estab. patient 30-39min; chronic exacerbation, 2 stable chronic or 1 acute illness add add modifier 95 for video, (do not use for phone, instead use 33006-16) [facility] [place] Estab. patient 30-39min; chronic exacerbation, 2 stable chronic or 1 acute illness add add modifier 95 for video, (do not use for phone, instead use 82066-46) [facility] [place]10[place] Estab. patient 30-39min; chronic exacerbation, 2 stable chronic or 1 acute illness add add modifier 95 for video, (do not use for phone, instead use 07911-97) [facility] [place] 05/10/2024 Estab. patient 30-39min; chronic exacerbation, 2 stable chronic or 1 acute illness add add modifier 95 for video, (do not use for phone, instead use 05518-63) [facility] [place] 05/10/2024 Estab. patient 30-39min; chronic exacerbation, 2 stable chronic or 1 acute illness add add modifier 95 for video, (do not use for phone, instead use 96429-32) [facility]24 Vital Signs Date of [...] (do not use for phone, instead use 76791-76) 40568 2022-10-05 No Data Available No Data Availa ble Pain Assessment - NO pain present (1126F) 1126F 2022-10-05 No Data Available No Data A vailable Medication List Documented (1159F) 1159F 2022-10-05 No Data Available No Data Nikik ilable Medication Review by prescribing provider or [...] (do not use for phone, instead use 72731-04) 35376 2023-08-16 No Data Available No Data Availa [...] No Data Avail able No Data Available 02931 2023-09-05 No Data Available No Data Available [...] (do not use for phone, instead use 94467-29) 43005 2024-05-10 No Data Available No Data Availa [...] a typical week: daily, lives with daughter ([employer]) 2023-08-16 Mental Status Status Date Cognition Status: [...] PCP every 3-6 months, BP assessed by [employer] 3x times a weekrecommend healthy lifestyle changes [...] PCP every 3-6 months, BP assessed by [employer] 3x times a weekrecommend healthy lifestyle changes [...] PCP every 3-6 months, BP assessed by [employer] 3x times a weekrecommend healthy lifestyle changes [...] PCP every 3-6 months, BP assessed by [employer] 3x times a weekrecommend healthy lifestyle changes [...] medical/surgical history, Social history. 2024-05-10 Daughter- Alyssa [facility] leticia assisted with visit and [place] interpretation today.
== END 2025-02-20 14:46 | disposition home or self-care (01) ==
LOC: HO.HMCH 13:49
PROVIDERS: PCP Internal Medicine; Visit Provider Internal Medicine
DX: I12.9 Hypertensive chronic kidney disease with stage 1 through stage 4 chronic kidney disease, or unspecified chronic kidney disease (principal); E11.69 Type 2 diabetes mellitus with other specified complication; N18.31 Chronic kidney disease, stage 3a; J44.89 Other specified chronic obstructive pulmonary disease; Z79.4 Long term (current) use of insulin; N28.1 Cyst of kidney, acquired; R91.1 Solitary pulmonary nodule; F33.0 Major depressive disorder, recurrent, mild; E78.5 Hyperlipidemia, unspecified

== ENCOUNTER → 2025-02-20 13:48 | Outpatient (BNVA) | payer OTHER, SELFPAY | PROVIDERS: PCP Internal Medicine; Visit Provider Internal Medicine | DX: N28.1 Cyst of kidney, acquired (principal); I12.9 Hypertensive chronic kidney disease with stage 1 through stage 4 chronic kidney disease, or unspecified chronic kidney disease; E11.22 Type 2 diabetes mellitus with diabetic chronic kidney disease; N18.31 Chronic kidney disease, stage 3a; R91.1 Solitary pulmonary nodule; J44.89 Other specified chronic obstructive pulmonary disease; F33.0 Major depressive disorder, recurrent, mild; E78.5 Hyperlipidemia, unspecified; Z79.4 Long term (current) use of insulin | CPT/HCPCS: 83036; 96127; 99212 ==

== ENCOUNTER 2025-03-18 13:01 | Outpatient (REF) | payer OTHER, SELFPAY ==
--- OUTSIDE RECORDS SUMMARY | 2025-03-18 14:03 | XMS_ITS | Clinical Summary ---
Author Organization [email or web address] Address [address] [place] [address] Care Team Providers Care Optical Lathe Operator Name Role Phone Unavailable Primary Care [...] 10:00 AM EDT Office Visit [facility] [address] [place] [address] [place] 12/17/2024 10:00 AM EST Office Visit [facility] [address] [place] [address] Marisa Love from Last 3 Months Social [...] 2013 Diabetes: Hemoglobin A1C 07/31/2020 04/30/2020, 10/17 COVID-19 Vaccine ( season) 2025 07/27/2024, 09/16/2023, 04/09/2022, Additional history exists Dental Prophylaxis 06/20/2025 12/17/2024, 0 06/15/2024, 11/05/2022 Dental Oral Exam 07/05/2025 01/01/2025, , 11/05/2022 Tobacco Screening 01/01/2026 01/01/2025 Dental X-Ray: Bitewings 01/02/2026 01/02/20, 06/15/2024, 11/05/2022 Dental X-Ray: Full Mouth 01/03/2028 01/01/2025, 10/18 DTaP/Tdap/Td Vaccines (3 - Td or Tdap) 01/08/2033 01/08/2023, 08/27/2016, 04/17/2012 Pneumococcal Vaccine: 50+ Years Completed 10/18/2023, 07/04/2018, 04/26/2017 Influenza Vaccine Completed 07/27/2024, , 08/13/2022, Additional [...] patient's age to complete this topic Meningococcal B Vaccine Aged Out No l onger eligible based on patient's age to complete [...] HEMOGLOBIN A1C POC (04/30/2020 9:48 AM EDT) [facility] HEMOGLOBIN A1C POC 8.0 % [facility] Comment: ?Hemoglobin A1C Reference Range ?Adults: ??4.8 - 6.0 % ?Non diabetic: ??< 6.0 % ?Goal: ??< 7.0 % ?? Additional Action Suggested: ??> 8.0 % 04/30/2020 9:48 AM EDT us Historical Provider MD LAB BLOOD ORDERABLES Camila post Result [facility] [address] from Last 3 Months or Most Recently Relevant to Health Maintenance Insurance DENTAL - [facility]
== END 2025-03-18 13:02 | disposition home or self-care (01) ==
LOC: HO.MRI 13:01
PROVIDERS: PCP Internal Medicine; Visit Provider Internal Medicine
DX: Z13.89 Encounter for screening for other disorder (principal)

== ENCOUNTER 2025-06-18 09:25 | Outpatient (REF) | payer OTHER, SELFPAY ==
--- OUTSIDE RECORDS SUMMARY | 2024-11-22 05:30 | XMS_ITS ---
Author Organization [facility] Address [address] [facility] [address] Care Team Providers Care Avionics Safety Inspector Name Role Phone Jair APARICIO, Kavita Primary Care Provider Unavail able Shirin Arzate Unavailable [phone] Mathur Medications Medication [...] Negative Encounters Encounter Location Date Provider Diagnosis [facility] [address] [address] 11/22/2024 Shirin Arzate Plan Of Treatment Next Appt Details Provider Name:Shirin Chandler erica, 06/04/2026 11:00:00 AM, [address] [place] [address], [phone], Progress Notes * Luz BIANCHIOB:[birth year] (84 yo M)Acc No.[id number]:11/22/2024 Progress Notes Patient: Porfirio MEREDITHo Provider: Inge Arzate DPM :1940 A ge:83 Y S ex:Male Date:11/22/2024 Address:[address] [place], [place] [id number] Pcp:Kavita Adam MD Subjective: * Chief Complaints: [...] enies, denies. D ental implants?denies, denies. H rbayden of hearing d enies, denies. D ifficulty [...] C ardiovascular: Pacemaker d enies, denies. M SECURITY OPERATIONS SPECIALIST d enies, denies.?WPW d enies, denies. C [...] 0 11/22/2024 Generated for Fede last/Mahesh/Capri on: 0 06/18/2025 10:23 AM EDT
--- NOTE | ~2025-06-18 | FL_ITS ---
EXAMINATION: XR FLUOROSCOPY ESOPHAGRAM CLINICAL INFORMATION: Gastroesophageal reflux disease without esophagitis. History of gastric surgery, surgical details unknown. COMPARISON: None TECHNIQUE: Fluoroscopic air contrast esophagram examination was performed utilizing standard techniques with thin and thick barium and effervescent granules. Numerous spot images were obtained. Several fluoroscopic image hold cine sequences were also obtained. FINDINGS: ESOPHAGRAM: Lateral cine images of the oropharynx and hypopharynx demonstrate normal swallow mechanism with normal epiglottic inversion and soft palate elevation. No laryngeal penetration, glottic or subglottic aspiration identified. No nasopharyngeal reflux present. Hypopharyngeal structures appear normal without evidence of mass or diverticulum. There was no significant cricopharyngeal achalasia. Dual and single contrast images of the esophagus demonstrate normal caliber. Granular mucosal pattern identified, suggesting gastritis. No gross stricture or mass. Esophageal peristalsis was moderately disordered. There are surgical clips abutting the GE junction. There is a small to moderate-sized type I hiatus hernia. There was gastroesophageal reflux to the level of the thoracic inlet noted during the exam. Dual contrast and single contrast images of the stomach demonstrated appearance suggestive of a previous distal gastrectomy with gastrojejunostomy. The gastrojejunostomy is widely patent. No mass or gross ulceration identified involving the stomach. No mucosal abnormalities. Contrast freely passed into the jejunum without significant delay. The imaged proximal jejunum is normal in appearance. Herniorrhaphy clips are incidentally noted. FLUOROSCOPY TIME: 2 minutes, 35 seconds Number of Spot Images:13 Number of cines obtained: 9 DOSE AREA PRODUCT: [id number] uGy-m2 (microgray-meter squared) FL/FL barium swallow with air IMPRESSION: 1. Moderately disordered esophageal peristalsis. 2. Granular appearance of the esophageal mucosa, suggesting esophagitis. Recommend correlating with EGD. 3. Surgical clips surrounding the GE junction, suggesting prior hernia repair. There is a small to moderate-sized type I hiatus hernia present. 4. 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 The residual stomach has a normal appearance. The anastomosis has an unremarkable appearance. 5. There was gastroesophageal reflux present to level of the thoracic inlet noted during the exam. Electronically signed by: Rodriguez Ramírez MD 06/18/2025 12:00 PM EDT
--- OUTSIDE RECORDS SUMMARY | 2025-06-18 10:23 | XMS_ITS | Patient Health Record ---
Author Organization [facility] Address [address] [facility] [place] [address] Care Team Providers Care Ethics Manager Name Role Phone Kavita Adam MD Primary Care Provider Unavail able Shirin Arzate Unavailable [phone] Allergies No Known Allergies Results Component Value Reference Range Notes HEMOGLOBIN A1C (GLYCOHEMOGLO BIN) Reviewed date:02/18/2025 09:37:34 AM Interpretation: Performing Lab: Notes/Report: HEMOGLOBIN A1C % (HH) 7.0 Reason For Referral No Information Medications Medication SIG (Take, Route, Frequency, Duration) Notes Start Date End Date Status Benzonatate 200 MG 1 capsule as needed Orally Three times a day Active Jardiance 25 MG 1 tablet Orally Once a day Active Fluticasone Propionate 50 MCG/ACT 1 spray in each nostril Nasally Twice a day Active Omeprazole 20 MG 1 capsule 1/2 to 1 h our before morning meal Orally Once a day Active Arnuity Ellipta Acti ve Metoprolol Succinate 25 MG 1 capsule Ora lly Once a day Active Fish Oil Active FLUoxetine HCl 20 MG 1 capsule Orally On ce a day Active Anoro Ellipta 62.5-25 MCG/ACT 1 puff Inh alation Once a day Active Clopidogrel Bisulfate 75 MG 1 tablet Ora lly Once a day Active Januvia 100 MG 1 tablet Orally Once a day Active B12 Active hydroCHLOROthiazide 12.5 MG 1 tablet in the morning Orally Once a day Active Vitamin D3 Active Ketoconazole 2 % 1 application Apply a thin layer to externally to feet, even between toes Twice a day; Duration: 30 days Active Tamsulosin HCl 0.4 MG 1 capsule Orally O nce a day Active Extra Depth Orthopedic Shoes (1 Pair) with Customized Heat Molded Multidensity Innersoles (3 Pair) as directed Dx: NIDDM/Polyneuropathy (E11.42), Hammertoe Foot Deformity (M20.41,M20.42), Preulcerative Skin Lesion(s) (L85.1 02/18/2025 Active Soothe XP - as directed Ophthalmic Active Atorvastatin Calcium 20 MG 1 tablet Oral ly Once a day Active Tresiba Active amLODIPine Besylate 5 MG 1 tablet Orally Once a day Active Immunizations Vaccine Route Administration Date Status Comme nts Influenza Unknown 06/17/2024 Administered Social History Tobacco Use: Social History Observation [...] Problem Status W/U Status Risk Notes Problem Type 2 diabetes mellitus with diabetic polyneuropathy (E11.42) Active confirmed Vital Signs Blood pressure diastolic 70 mm Hg 06/05/2025 Height 5ft 6inch in 06/05/2025 Blood pressure systolic 125 mm Hg 06/05/2025 Weight 165 lbs 06/05/2025 BMI 26.63 kg/m2 06/05/2025 Procedures Procedure Date Ordered Date Performed Result Body Sit e 87241-UEOSFXR NAIL, 6 OR MORE 02/18/2025 N/A 12455-SRJV SKIN LESIONS, 2 TO 4 02/18/2025 N/A Encounters Encounter Location Date Provider Diagnosis [facility] [address] [place] [address] 02/18/2025 Shirin Arzate Tinea pedis of both feet B35.3 ; Other hammer toe(s) (acquired), right foot M20.41 ; Other hammer toe(s) (acquired), left foot M20.42 ; Type 2 diabetes mellitus with diabetic polyneuropathy E11.42 and Tinea unguium B35.1 [facility] [address] [place] [address] 06/05/2025 Shirin Arzate Type 2 diabetes mellitus with diabetic polyneuropathy E11.42 and Tinea unguium B35.1 Assessments Encounter Date Diagnosis (ICD Code) Assessment Notes Treatment Notes Treatment Clinical Notes Section Notes 02/18/2025 Tinea pedis of both feet (ICD-10 - B35.3) 06/05/2025 Type 2 diabetes mellitus with diabetic polyneuropathy (ICD-10 - E11.42) 06/05/2025 Tinea unguium (ICD-10 - B35.1) 02/18/2025 Other hammer toe(s) (acquired), right foot (ICD-10 - M20.41) Patient Educated with: DIABETIC FOOT CARE INSTRUCTIONS. pdf (DIABETIC FOOT CARE INSTRUCTIONS. pdf) 02/18/2025 Other hammer toe(s) (acquired), left foot (ICD-10 - M20.42) 02/18/2025 Type 2 diabetes mellitus with diabetic polyneuropathy (ICD-10 - E11.42) 02/18/2025 Tinea unguium (ICD-10 - B35.1) Plan Of Treatment Pending Test Test Name Order Date 13303-MNJAOUM NAIL, 6 OR MORE 02/18/2025 68343-TYAU SKIN LESIONS, 2 TO 4 02/19/20 25 Next Appt Details Provider Name:Shriin maldonado, 06/04/2026 11:00:00 AM, [address] [place] [address], [phone], Insurance Providers Payer Name Payer Address Payer Phone Subscriber Number Group Number Insured Name Patient Relationship to Insured Coverage Start Date Coverage End Date [id number] [address] [address] [place] [phone] [id number] Manuel Bianchi Self - patient is the insured Medical (General) History Medical History History ICD Code Arthritis asthma Depression Diabetic High Blood Pressure Kidney disease Stroke Stomach ulcer Surgical History Surgery Date(Month/Year) stomach ulver broken ankle hernia
--- OUTSIDE RECORDS SUMMARY | 2025-06-18 10:23 | XMS_ITS ---
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 SCIENCE EDITOR,COMMUNICATIONS DESIGNER,FN P,HOURLY SHIFT, [place] Address [address] [place] [address] Phone [phone] [facility] Care Team Providers Care Diesel Fleet Mechanic Name Role Phone [place] Raygoza Unavailable [phone] Unavailable Unavailable [phone] Reason for Referral Not Available Allergies, adverse [...] List Problem Status Onset Date Resolved Date Synopsis Major depressive disorder in partial remission Active 2022-10-14 N/A on fluoxeti ne stable, denies any symptoms, SI/HI thoughts, PHQ2: 0recommend to keep taking medication as prescribed and to call back should symptoms progress or if new symptoms associated with depression arise Hypertension Active 2022-10-14 N/A managed with amlodipine, HCTZ, and BBsees PCP every 3-6 months, BP assessed by AIR TRAFFIC INSTRUCTOR 3x times a weekrecommend healthy lifestyle changes (weight loss, heart healthy diet, sodium restriction, increase physical activity and alcohol restriction) Hyperlipidemia Active 2022-10-14 N/A stable on a statinresponse to treatment evaluated reviewed records and discussed current condition with the patient recommend low fat diet and lifestyle modifications 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 Also recommend to keep up with vaccinations and avoid sick contacts. Monitor for signs and symptoms of infection. Vitamin D deficiency Active 2022-10-14 N/A on s upplementscontinue Type 2 diabetes mellitus with diabetic peripheral angiopathy without gangrene Active 2022-10-15 N/A peripheral vascu lar disease associated with atherosclerosis of the lower extremitiesdenies any swelling, redness and signs of infectioncontinue to take statin, BB, antihypertensive and Plavix close follow up with PCP and vascular Osteoarthritis, multiple sites Active 2023-08-16 N/A OA worse knees a t risk for falls Fall prevention TIPS: Wear sensible shoes. Remove home hazards (Get rid of all rugs/mats in your home). Light up your living space (keep a flash light next to your bed for night time). Use assistive devices. Other specified hearing loss of right ear, unspecified hearing status on contralateral side Active 2023-08-16 N/A referral to nina arreaga 08.16.23 History of COVID-19 Active 2023-09-05 N/A sympt paulina on 08/30/23feeling better now. Only symptomatic x 5 days (fever, chills, cough). Denies SOB today. Other problems related to medical facilities and other health care Active 2023-12-27 N/A When member to call: 1. If bp is elevated sbp>150; dbp>90 or symptomatic-h/a, dizziness, cp, sob. 2. if there is a fall 3. if BS >300 or BS<90 or symptomatic; i.e., dizzy, off balance , shaky, general weakness. 4. if UTI symptoms arise-urinary frequency, dysuria, low abd pain. 5. if pain in knees increases/ or joint pain increased Please remember to call [facility] to see PCP. Follow-up with [place] [facility] as needed for any acute or disease education needs that may arise 09/05.what should be done when the member calls: see each individual diagnosis for contingency plan Type 2 diabetes mellitus with polyneuropathy Active 2022-10-14 N/A on januvia, jardiance, and insulin last known HBA1C 7reviewed most recent glucose readings and counseled patient on best practices to monitor disease progressionencourage to continue with current plan, diet control and close follow up with PCP and frequent eye and foot exams Benign paroxysmal positional vertigo due to bilateral vestibular disorder Active 2023-08-16 N/A ED visit 12/2022 for nasal abrasion/fx d/t fall ?d/t mechanical fall, missed a step. Fall preauction advised. COPD (chronic obstructive pulmonary disease) Active 2022-10-14 N/A ------Conting ency plan---------Normal oxygen flow rate: NonePRN medications and [...] add levofloxacin 500mg daily x 5 days Symbicortfollow s with pulmonary frequentlydenies any acute exacerbationsplan: continue [...] today on current meds, neb/inh, monitor by Pulm. Encounters Encounters Type Facility Date of Service Diagnosis/Co mplaint New patient,40-59min; chronic exacerbation, 2 stable chronic or 1 acute illness add add modifier 95 for video (do not use for phone, instead use [id number]) [facility]2022 Chronic obstructive pulmonar y disease, unspecifiedType [...] (do not use for phone, instead use 08515-50) [facility] New patient,40-59min; chronic exacerbation, 2 stable chronic or 1 acute illness add add modifier 95 for video (do not use for phone, instead use 07206-93) [facility]20[place] New patient,40-59min; chronic exacerbation, 2 stable chronic or 1 acute illness add add modifier 95 for video (do not use for phone, instead use 19924-86) [facility] [place]20[place] New patient,40-59min; chronic exacerbation, 2 stable chronic or 1 acute illness add add modifier 95 for video (do not use for phone, instead use 69472-18) [facility] [place]2022 New patient,40-59min; chronic exacerbation, 2 stable chronic or 1 acute illness add add modifier 95 for video (do not use for phone, instead use 04913-64) [facility] [place]2022 New patient,40-59min; chronic exacerbation, 2 stable chronic or 1 acute illness add add modifier 95 for video (do not use for phone, instead use 51049-62) [facility] [place]2022 New patient,40-59min; chronic exacerbation, 2 stable chronic or 1 acute illness add add modifier 95 for video (do not use for phone, instead use 81684-15) [facility] [place]/2022 New patient,40-59min; chronic exacerbation, 2 stable chronic or 1 acute illness add add modifier 95 for video (do not use for phone, instead use 82264-82) [facility] [place] 10[place]/2022 Estab. patient 30-39min; chronic exacerbation, 2 stable chronic or 1 acute illness add add modifier 95 for video, (do not use for phone, instead use 04406-35) [facility] [place] 08/16/2023 Chronic obstructive pulmonar y disease, unspecifiedType [...] (do not use for phone, instead use 45004-26) [facility] [place]/2023 Estab. patient 30-39min; chronic exacerbation, 2 stable chronic or 1 acute illness add add modifier 95 for video, (do not use for phone, instead use 23100-05) [facility] [place] 08[place]/2023 Estab. patient 30-39min; chronic exacerbation, 2 stable chronic or 1 acute illness add add modifier 95 for video, (do not use for phone, instead use 18234-97) [facility] [place] 08[place]/2023 Estab. patient 30-39min; chronic exacerbation, 2 stable chronic or 1 acute illness add add modifier 95 for video, (do not use for phone, instead use 56228-79) [facility] [place] 08[place]/2023 Estab. patient 30-39min; chronic exacerbation, 2 stable chronic or 1 acute illness add add modifier 95 for video, (do not use for phone, instead use 51393-90) [facility]20[place] Estab. patient 30-39min; chronic exacerbation, 2 stable chronic or 1 acute illness add add modifier 95 for video, (do not use for phone, instead use 85538-90) [facility] Estab. patient 30-39min; chronic exacerbation, 2 stable chronic or 1 acute illness add add modifier 95 for video, (do not use for phone, instead use 55895-30) [facility] Estab. patient 30-39min; chronic exacerbation, 2 stable chronic or 1 acute illness add add modifier 95 for video, (do not use for phone, instead use 38999-61) [facility]20[place] Estab. patient 30-39min; chronic exacerbation, 2 stable chronic or 1 acute illness add add modifier 95 for video, (do not use for phone, instead use 90354-17) [facility] [place] 08/[place]/2023 No Data Available [facility]2023 Chronic obstructive pulmonar y disease, unspecifiedType 2 diabetes mellitus with diabetic polyneuropathyMajor depressive disorder, single episode, in partial remissionEssential (primary) hypertensionHyperlipidemia, unspecifiedImmunodeficiency due to drugsAdverse effect of glucocort/synth analog, initLong term (current) use of systemic steroidsVitamin D deficiency, unspecifiedType 2 diabetes w diabetic peripheral angiopath w/o gangreneBenign paroxysmal vertigo, bilateralPolyosteoarthritis, unspecifiedOther specified hearing loss, right earPersonal history of covid-19 No Data Available [facility]2023 No Data Available [facility] No Data Available [facility] No Data Available [facility] No Data Available [facility] No Data Available [facility] Estab. patient 30-39min; chronic exacerbation, 2 stable chronic or 1 acute illness add add modifier 95 for video, (do not use for phone, instead use 32609-75) [facility] [place] 05[place]/2024 Chronic obstructive pulmonar y disease, unspecifiedType [...] (do not use for phone, instead use 18842-01) [facility] Estab. patient 30-39min; chronic exacerbation, 2 stable chronic or 1 acute illness add add modifier 95 for video, (do not use for phone, instead use 79685-33) [facility] Estab. patient 30-39min; chronic exacerbation, 2 stable chronic or 1 acute illness add add modifier 95 for video, (do not use for phone, instead use 77105-02) [facility] Estab. patient 30-39min; chronic exacerbation, 2 stable chronic or 1 acute illness add add modifier 95 for video, (do not use for phone, instead use 79414-73) [facility] Estab. patient 30-39min; chronic exacerbation, 2 stable chronic or 1 acute illness add add modifier 95 for video, (do not use for phone, instead use 74720-88) [facility] Estab. patient 30-39min; chronic exacerbation, 2 stable chronic or 1 acute illness add add modifier 95 for video, (do not use for phone, instead use 93181-12) [facility] Estab. patient 30-39min; chronic exacerbation, 2 stable chronic or 1 acute illness add add modifier 95 for video, (do not use for phone, instead use 31239-59) [facility] [place] 05[place]/20[place] Estab. patient 30-39min; chronic exacerbation, 2 stable chronic or 1 acute illness add add modifier 95 for video, (do not use for phone, instead use 64670-68) [facility] ([place]) 05/10/2024 Estab. patient 30-39min; chronic exacerbation, 2 stable chronic or 1 acute illness add add modifier 95 for video, (do not use for phone, instead use 26261-46) [facility] [place] 05/10/2024 Vital Signs Date of Collection Vitals [...] tive Time Current Smoking Status Never smoker 2 Sex Male History of Procedures Procedures Service Procedure code Service date Servicing provider Phone# New patient,40-59min; chronic exacerbation, 2 stable chronic or 1 acute illness add add modifier 95 for video (do not use for phone, instead use 14107-56) [id number] 2022-10-05 No Data Available No Data Availa [...] (do not use for phone, instead use 34306-23) [id number] 2023-08-16 No Data Available No Data Availa [...] ble Advance care planning discussed and documented advance care plan or surrogate decision-maker was documented in the medical record. (1123F) 1123F 2023-08-16 No Data Available No Data Availa ble SBP < 130 (3074F) 3074F 2023-08-16 No Data Available No Data Available DBP <80 (3078F) 3078F 2023-08-16 No Data Available No Data Available Functional Status Assessed (1170F) 1170F 2023-08-16 No Data Available No Data Avail able No Data Available 61952 2023-09-05 No Data Available No Data Available [...] (do not use for phone, instead use 78946-53) 55351 2024-05-10 No Data Available No Data Availa [...] Available Advance care planning discussed and documented advance care plan or surrogate decision-maker was [...] a typical week: daily, lives with daughter (AIR TRAFFIC INSTRUCTOR) 2023-08-16 Mental Status Status Date Cognition Status: [...] Pulm.Type 2 diabetes mellitus with polyneuropathyon januvia, jarpalmira, and insulin last known HBA1C 7reviewed most [...] PCP every 3-6 months, BP assessed by AIR TRAFFIC INSTRUCTOR 3x times a weekrecommend healthy lifestyle changes [...] PCP every 3-6 months, BP assessed by AIR TRAFFIC INSTRUCTOR 3x times a weekrecommend healthy lifestyle changes [...] modifier 95Advance care planning discussed and documented advance care plan or surrogate decision-maker was [...] PCP every 3-6 months, BP assessed by AIR TRAFFIC INSTRUCTOR 3x times a weekrecommend healthy lifestyle changes [...] night time). Use assistive devices.referral to audiology 08.16.2320222023-09-05 06:05:41 Phone (patient, pare nt, or guardian); [...] PCP every 3-6 months, BP assessed by AIR TRAFFIC INSTRUCTOR 3x times a weekrecommend healthy lifestyle changes [...] record (1158F)Advance care planning discussed and documented advance care plan or surrogate decision-maker was [...] medical/surgical history, Social history. 2024-05-10 Daughter- Alyssa [facility] leticia assisted with visit and Cypriot interpretation today.
--- OUTSIDE RECORDS SUMMARY | 2025-06-18 10:24 | XMS_ITS | Encounter Summary ---
Author Organization [employer] Address [address] [facility] [address] [place] [address] Care Team Providers Care Assessment Director Name Role Phone Unavailable Primary Care Provider Unavailabl e Encounter Details Date Type Department Care Team (Latest Contact Info) Description 10/31/2018 Abstract [facility] CONVERSIONS Dental, Provider, DDS Social History [...]
--- OUTSIDE RECORDS SUMMARY | 2025-06-18 10:24 | XMS_ITS | Encounter Summary ---
Author Organization [employer] Address [address] [facility] [address] [place] [address] Care Team Providers Care Assistant Professor Surgical Technology Name Role Phone Unavailable Primary Care Provider [...]
--- OUTSIDE RECORDS SUMMARY | 2025-06-18 10:24 | XMS_ITS | Clinical Summary ---
Author Organization [employer] Address [address] [facility] [address] [place] [address] Care Team Providers Care Assisted Living Assistant Name Role Phone Unavailable Primary Care Provider [...] 01/20/2011 HTN (hypertension) 10/11/2008 Venous insufficiency 10/11/2008 Social History Tobacco Use Types Packs/Day Years [...] SDOH Screening 1938 Diabetes: Foot Exam 1948 Alcohol/Substance Use Screening 1950 Diabetes: Urine Protein Screening 1957 Zoster Vaccines (1 of 2) 1988 Eye Exam 08/18/2013 08/18/2011, 07/23/2010 Diabetes: Hemoglobin A1C 07/31/2020 04/30/2020, 10/17 COVID-19 Vaccine ( season) 2025 07/27/2024, 09/16/2023, 04/09/2022, Additional history exists Influenza Vaccine (#1) 2025 , 09/19/2023, 08/13/2022, Additional history exists Dental Prophylaxis 06/20/2025 12/17/2024, 0 06/15/2024, 11/05/2022 Dental Oral Exam 07/05/2025 01/01/2025, , 11/05/2022 Tobacco Screening 01/01/2026 01/01/2025 Dental X-Ray: Bitewings 01/02/2026 01/02/20, 06/15/2024, 11/05/2022 Dental X-Ray: Full Mouth 01/03/2028 01/01/2025, 10/18 DTaP/Tdap/Td Vaccines (3 - Td or Tdap) 01/08/2033 01/08/2023, 08/27/2016, 04/17/2012 Pneumococcal Vaccine: 50+ Years Completed 10/18/2023, 07/04/2018, 04/26/2017 RSV Patients and Patients Aged 60 years or older Completed 07/27/2024 HIB Vaccines Aged Out No longer eligi [...] RADIOGRAPHIC IMAGES Routine 01/01/2025 10:00 AM EDT PERIODIC ORAL EVALUATION - ESTABLISHED PATIENT Routine 01/01/2025 10:00 AM EDT PROPHYLAXIS - ADULT Routine 12/17/2024 1 0:00 AM EST HEMOGLOBIN A1C Routine 04/30/2020 9:48 AM EDT from Last 3 Months or Most Recently Relevant to Health Maintenance Results * HEMOGLOBIN A1C POC (04/30/2020 9:48 AM EDT) HEMOGLOBIN A1C POC 8.0 % [facility] Comment: Hemoglobin A1C Reference Range Adults: 4.8 - 6.0 % Non diabetic: < 6.0 % Goal: < 7.0 % Additional Action Suggested: > 8.0 % 04/30/2020 9:48 AM EDT us Historical Provider LAB BLOOD ORDERABLES Camila l Result [facility] [address] from Last 3 Months or Most Recently Relevant to Health Maintenance Insurance * Guarantor: Manuel Bianchi Account Type Relation to Patient Date of Phone Billing Address Personal/Family Self [address] [place]
== END 2025-06-18 09:26 | disposition home or self-care (01) ==
LOC: HO.XRAY 09:25
PROVIDERS: PCP Internal Medicine; Visit Provider Hospitalist
DX: K21.9 Gastro-esophageal reflux disease without esophagitis (principal)
CPT/HCPCS: 74221

== ENCOUNTER → 2025-06-18 09:27 | Outpatient (BNV) | payer OTHER, SELFPAY | PROVIDERS: PCP Internal Medicine; Visit Provider Radiology Diagnostic Radiology | DX: K21.9 Gastro-esophageal reflux disease without esophagitis (principal) | CPT/HCPCS: 74221 ==

== ENCOUNTER 2025-06-25 07:25 | Outpatient (REF) | payer OTHER, SELFPAY ==
--- OUTSIDE RECORDS SUMMARY | 2024-11-22 05:30 | XMS_ITS ---
Author Organization [facility] Address [address] [facility] [place] [address] Care Team Providers Care Etl Tester Name Role Phone Jair APARICIO, Kavita Primary Care Provider Unavail able Shirin Arzate Unavailable [phone] Mathur Medications Medication [...] Negative Encounters Encounter Location Date Provider Diagnosis [facility] [address] [address] 11/22/2024 Shirin Arzate Plan Of Treatment Next Appt Details Provider Name:Shirin Chandler erica, 06/04/2026 11:00:00 AM, [address] [place] [address], [phone], Progress Notes * Luz BIANCHIOB:[birth year] (84 yo M)Acc No.[id number]:11/22/2024 Progress Notes Patient: Porfirio MEREDITHo Provider: Inge Arzate DPM :1940 A ge:83 Y S ex:Male Date:11/22/2024 Address:[address] [place], [place] [id number] Pcp:Kavita Adam MD Subjective: * Chief Complaints: [...] C ardiovascular: Pacemaker d enies, denies. 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 C [...] provider. Sign off status: Pending * Provider: nIge Arzate DPM Date: 0 11/22/2024 Generated for Fede last/Mahesh/Capri on: 0 06/25/2025 07:27 AM EDT
--- OUTSIDE RECORDS SUMMARY | 2025-06-25 07:27 | XMS_ITS ---
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, [place] Address [address] [place] [address] Phone [phone] [facility] Care Team Providers Care Telegraph Messenger Name Role Phone [place] Raygoza Unavailable [phone] Unavailable Unavailable [phone] Reason for Referral Not Available Allergies, adverse [...] EVERY MORNING 2022-02-02 No Data Available Omeprazole 40 mg Cap delayed rel TAKE 1 CAPSULE [...] 1 PUFF BY MOUTH TWICE DAILY 2022-07-12 2025-06-24 Medbox Status USE DIRECTED 2022-09-20 No Data [...] YOVANA TWICE DAILY NEEDED FOR DIZZINESS 2023-08-09 2025-06-24 Vitamin B12 1000 MCG Tab 1 tablet daily 2023-08-16 N o Data Available Voltaren 1 % Gel 2 grams topically to affected area 4 times per day prn 2023-08-16 No Data Available Anoro Ellipta 62.5-25 MCG/AC T Aerosol Powder Breath Activated Inhalation INHALE 1 PUFF BY MOUTH EVERY DAY AT THE SAME TIME 2023-08-16 No Data Available Benzonatate 200 mg Cap TAKE 1 CAPSULE BY MOUTH TWICE DAILY NEEDED FOR COUGH 2024-08-08 No Data Available Arnuity Ellipta 100 MCG/ACT Aerosol Powder Breath Activated INHALE 1 PUFF BY MOUTH EVERY DAY AT THE SAME TIME RINSE MOUTH AFTER USING 2024-06-25 2025-06-24 BD ULTRA-FINE DIANNA PEN NEEDL E 32 GAUGE X 5/32 USE DIRECTED EVERY DAY 2025-01-02 No Data Availa ble Fluticasone Propionate 50 MCG/ACT Suspension INSTILL 1 SPRAY IN EACH NOSTRIL ONCE DAILY 2024-08-08 No Data Available Ketoconazole 2 % Crm APPLY A THIN LAYER TO FEET AND BETWEEN TOES TWICE DAILY 2025-02-18 No Data Available TalentSky Ultra Test Strip USE DIRECTE D TO TEST BLOOD SUGAR THREE TIMES DAILY 2025-03-28 No Data Available Embecta Pen Needle Dianna 32G X 4 MM Miscellaneous USE DIRECTED EVERY DAY 2025-01-02 No Data Availa ble Ketoconazole 2 % Crm 1 application topic ally to affected area 2 times per day 2025-06-24 No Data Available Benzonatate 200 mg Cap Take 1 capsule qh s as needed for cough. 2025-06-24 No Data Available Problem List Problem Status Onset Date Resolved Date Synopsis Major depressive disorder in partial remission Active 2022-10-14 N/A on fluoxeti ne stable, denies any symptoms, SI/HI thoughts, PHQ2: 0recommend to keep taking medication as prescribed and to call back should symptoms progress or if new symptoms associated with depression arise Hypertension Active 2022-10-14 N/A Rx: amlodipi ne 5mg, HCTZ12.5 mg , and metoprolol ER 25 mg sees PCP every 3-6 months, BP assessed by SURVEILLANCE OFFICER 3x times a weekrecommend healthy lifestyle changes (weight loss, heart healthy diet, sodium restriction, increase physical activity and alcohol restriction) Vitamin D deficiency Active 2022-10-14 N/A on s upplements Type 2 diabetes mellitus with diabetic peripheral angiopathy without gangrene Active 2022-10-15 N/A peripheral vascu lar disease associated with atherosclerosis of the lower extremitiesdenies any swelling, redness and signs of infectioncontinue to take atorvastatin, plavix close follow up with PCP and vascular [...] Active 2023-08-16 N/A referral to nina arreaga ..239/8/25:-has hearing aids b/l since about 2022, but he finds them very uncomfortable. Daughter will contact audiology office to see if they can readjust the hearing aids or get new ones. History of COVID-19 Active 2023-09-05 N/A williet paulina on 08/30/23feeling better now. Only symptomatic [...] call CBContinue to see PCP. [facility] or disease education needs that may arise 09/05.what should be done when the member calls: see each individual diagnosis for contingency planCOPD CONTINGENCY PLANLast updated: 06/24/2025Member to call for the following symptoms: Albuterol not working/ Breathing loudly / Change in sputum / Exertional dyspnea/ Fatigue/ Increased cough / WheezingPlanned intervention: Increase use of albuterol inhaler to q2h PRN cough, breathlessness/ Prednisone 40mg PO daily x 5 days/ Azithromycin 500mg on day 1 then 250 mg on day 2-5/ Flonase 2 sprays daily/ Benzonatate 200 mg TID prn Type 2 diabetes mellitus with hyperlipidemia Active 2022-10-14 N/A Ha1c: 7.0% ( 02/18/25- outside care)Rx: atorvastatin 20 mg, januvia 100 mg, jardiance 25 mg, Tresiba 15 units nightly- Low fat/cholesterol, low carb, low glycemic diet & regular exercise (as tolerated) recommended.- Fasting FBG goal per ADA between 80 and 130 mg/dL- HA1c goal at least <8.0%; ideally <7.0%- Continue to follow up with PCP/Specialists.-----member has appt with his PCP on 06/27/25. 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 Benign paroxysmal positional vertigo due to bilateral vestibular disorder Active 2023-08-16 N/A ED visit 12/2022 for nasal abrasion/fx d/t fall ?d/t mechanical fall, missed a step. Fall preauction advised. 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 He is not a smoker/never-smoker. Rx: Anoro, albuterol prn, flonase; benzonatate prn qhs cough-Recommendations: Prevent infections via good hand hygiene, avoid large crowds, stay up to date with vaccines. -Medication management: Take your medication consistently, and talk to your doctor about any side effects. Maintain regular follow up with PCP/pulmonology. -Minimize environmental exposures: Avoid smoke, poor-quality air, allergens when possible. Type 2 diabetes mellitus with stage 3a chronic kidney disease, Renal cyst Active 2025-06-24 N/A eGFR: not availa ble-Rx: Jardiance; no Hao/Arb-Recommend renally dosed medications when appropriate. Avoid/limit nephrotoxic medications (NSAIDS, high dose Gabapentin, Baclofen, Fleet Enema, Morphine/Codeine). -Renal diet: low sodium, protein, potassium, and phosphorus. -Maintain hydration through water intake (if no restrictions). -Goal of blood pressure <130/80. -incidental finding of renal cyst noted on imaging per daughter. Member has appt with nephrology on 06/26/25 for further eval. GERD (gastroesophageal reflux disease) Active 2025-06-24 N/A Rx: omeprazole 4 0 mg- Continue current medication regimen as needed.- Advised to reduce/avoid consumption of spicy foods and caffeinated beverages.- Advised to refrain from lying flat within 30 minutes after eating.06/24/25:-per daughter, recently had a swallow test and found to have inflammation in esophagus. Omeprazole increased to 40 mg. He was referred to GI- appt date pending. BPH (benign prostatic hyperplasia) Active 2025-06-24 N/A Rx: tamsulosin-a void fluids close to bedtime-avoid overuse of caffeine/dark fluids throughout the day-maintain regular follow up with PCP/specialist Tinea pedis Active 2025-06-24 N/A Tinea pedis b /l on ketoconizole 2% cream-maintain regular follow up with PCP/specialist-keep BG under control-Keep feet/shoes clean, dry-Inspect skin daily. Inspect feet and in between toes for skin breakdown. Encounters Encounters Type Facility Date of Service Diagnosis/Co mplaint New patient,40-59min; chronic exacerbation, 2 stable chronic or 1 acute illness add add modifier 95 for video (do not use for phone, instead use 49677-59) [facility] Chronic obstructive pulmonar y disease, unspecifiedType [...] (do not use for phone, instead use 68608-92) [facility] New patient,40-59min; chronic exacerbation, 2 stable chronic or 1 acute illness add add modifier 95 for video (do not use for phone, instead use 32318-52) [facility] New patient,40-59min; chronic exacerbation, 2 stable chronic or 1 acute illness add add modifier 95 for video (do not use for phone, instead use 47743-37) [facility] New patient,40-59min; chronic exacerbation, 2 stable chronic or 1 acute illness add add modifier 95 for video (do not use for phone, instead use 65103-22) [facility] New patient,40-59min; chronic exacerbation, 2 stable chronic or 1 acute illness add add modifier 95 for video (do not use for phone, instead use 64603-60) [facility] New patient,40-59min; chronic exacerbation, 2 stable chronic or 1 acute illness add add modifier 95 for video (do not use for phone, instead use 36589-62) [facility] New patient,40-59min; chronic exacerbation, 2 stable chronic or 1 acute illness add add modifier 95 for video (do not use for phone, instead use 68745-45) [facility] New patient,40-59min; chronic exacerbation, 2 stable chronic or 1 acute illness add add modifier 95 for video (do not use for phone, instead use 66919-42) [facility] Estab. patient 30-39min; chronic exacerbation, 2 stable chronic or 1 acute illness add add modifier 95 for video, (do not use for phone, instead use 23044-49) [facility] Chronic obstructive pulmonar y disease, unspecifiedType [...] (do not use for phone, instead use 35766-86) [facility] Estab. patient 30-39min; chronic exacerbation, 2 stable chronic or 1 acute illness add add modifier 95 for video, (do not use for phone, instead use 51347-04) [facility] Estab. patient 30-39min; chronic exacerbation, 2 stable chronic or 1 acute illness add add modifier 95 for video, (do not use for phone, instead use 89490-71) [facility] [place] Estab. patient 30-39min; chronic exacerbation, 2 stable chronic or 1 acute illness add add modifier 95 for video, (do not use for phone, instead use 72164-57) [facility] [place] Estab. patient 30-39min; chronic exacerbation, 2 stable chronic or 1 acute illness add add modifier 95 for video, (do not use for phone, instead use 09704-26) [facility] [place] Estab. patient 30-39min; chronic exacerbation, 2 stable chronic or 1 acute illness add add modifier 95 for video, (do not use for phone, instead use 79789-83) [facility] [place] Estab. patient 30-39min; chronic exacerbation, 2 stable chronic or 1 acute illness add add modifier 95 for video, (do not use for phone, instead use 28787-26) [facility] [place] Estab. patient 30-39min; chronic exacerbation, 2 stable chronic or 1 acute illness add add modifier 95 for video, (do not use for phone, instead use 13091-46) [facility] [place]20[place] Estab. patient 30-39min; chronic exacerbation, 2 stable chronic or 1 acute illness add add modifier 95 for video, (do not use for phone, instead use 61631-90) [facility] No Data Available [facility] Chronic obstructive pulmonar y disease, [...] earPersonal history of covid-19 No Data Available [facility] Data Available [facility] No Data Available [facility] No Data Available [facility] No Data Available [facility] [place] No Data Available [facility] [place] Estab. patient 30-39min; chronic exacerbation, 2 stable chronic or 1 acute illness add add modifier 95 for video, (do not use for phone, instead use 29879-09) [facility] Chronic obstructive pulmonar y disease, unspecifiedType [...] (do not use for phone, instead use 39156-41) [facility] Estab. patient 30-39min; chronic exacerbation, 2 stable chronic or 1 acute illness add add modifier 95 for video, (do not use for phone, instead use 63872-88) [facility] [place] Estab. patient 30-39min; chronic exacerbation, 2 stable chronic or 1 acute illness add add modifier 95 for video, (do not use for phone, instead use 15824-66) [facility] [place] Estab. patient 30-39min; chronic exacerbation, 2 stable chronic or 1 acute illness add add modifier 95 for video, (do not use for phone, instead use 13437-92) [facility] [place] Estab. patient 30-39min; chronic exacerbation, 2 stable chronic or 1 acute illness add add modifier 95 for video, (do not use for phone, instead use 29154-85) [facility] Estab. patient 30-39min; chronic exacerbation, 2 stable chronic or 1 acute illness add add modifier 95 for video, (do not use for phone, instead use 33108-68) [facility] Estab. patient 30-39min; chronic exacerbation, 2 stable chronic or 1 acute illness add add modifier 95 for video, (do not use for phone, instead use 12909-42) [facility] Estab. patient 30-39min; chronic exacerbation, 2 stable chronic or 1 acute illness add add modifier 95 for video, (do not use for phone, instead use 96949-04) [facility] Estab. patient 30-39min; chronic exacerbation, 2 stable chronic or 1 acute illness add add modifier 95 for video, (do not use for phone, instead use 30952-51) [facility] Estab. patient 10-29min; 1 minor problem; add add modifier 95 for video, modifier 93 for phone [facility]2025 Type 2 diabetes mellitus wit h diabetic chronic kidney diseaseChronic kidney disease, stage 3aCyst of kidney, acquiredType 2 diabetes w diabetic peripheral angiopath w/o gangreneTinea pedisVitamin D deficiency, unspecifiedOther problems related to medical facilities and other health careCentrilobular emphysemaType 2 diabetes mellitus with other specified complicationHyperlipidemia, unspecified Estab. patient 10-29min; 1 minor problem; add add modifier 95 for video, modifier 93 for phone [facility] Estab. patient 10-29min; 1 minor problem; add add modifier 95 for video, modifier 93 for phone [facility] Estab. patient 10-29min; 1 minor problem; add add modifier 95 for video, modifier 93 for phone [facility] [place] Estab. patient 10-29min; 1 minor problem; add add modifier 95 for video, modifier 93 for phone [facility] [place] Estab. patient 10-29min; 1 minor problem; add add modifier 95 for video, modifier 93 for phone [facility] [place] Estab. patient 10-29min; 1 minor problem; add add modifier 95 for video, modifier 93 for phone [facility] [place]2025 Body mass index (bmi) 26.0-2 6.9, adult Vital Signs Date of Collection Vitals 2022-10-05 [...] - 122.0 mm[Hg]Pain Scale - 5.0 {score} 2025-06-24 09:21:33 Height - 167.64 cmWe ight - 74.84 kgBody Mass Index (BMI) - 26.63 kg/m2BP Diastolic - 70.0 mm[Hg]BP Systolic - 125.0 mm[Hg]Pain Scale - 8.0 {score} Social History Social History Social History Observation Description Effec tive Time Current Smoking Status Never smoker 7 Sex Male History of Procedures Procedures Service Procedure code Service date Servicing provider Phone# New patient,40-59min; chronic exacerbation, 2 stable chronic or 1 acute illness add add modifier 95 for video (do not use for phone, instead use 63986-61) [id number] 2022-10-05 No Data Available No Data Availa [...] (do not use for phone, instead use 72565-81) [id number] 2023-08-16 No Data Available No Data Availa [...] No Data Avail able No Data Available [id number] 2023-09-05 No Data Available No Data Available [...] (do not use for phone, instead use 08559-18) [id number] 2024-05-10 No Data Available No Data Availa [...] No Data Available No Data Availa ble Estab. patient 10-29min; 1 minor problem; add add modifier 95 for video, modifier 93 for phone [id number] 2025-06-24 No Data Available No Data Availa ble Medication List Documented (1159F) [id number] 2025-06-24 No Data Available No Data Nikki ilable Medication Review by prescribing provider or pharmacist documented (1160F) 1160F 2025-06-24 No Data Available No Data Nikki ilable Functional Status Assessed (1170F) 1170F 2025-06-24 No Data Available No Data Avail able Advance Care Directive Advance care planning discussion documented in the medical record (1158F) [id number] 2025-06-24 No Data Available No Data Availa ble Advance care planning discussed and documented advance care plan or surrogate decision-maker was documented in the medical record. (1123F) 1123F 2025-06-24 No Data Available No Data Availa ble Pain Assessment - Pain Documented on a Pain Scale (1125F) 1125F 2025-06-24 No Data Available No Data Nikki ilable Functional Status Functional Category Effective Dates . 2025-06-24 Cognition Status: Oriented to Person, Pl hao and Time 2025-06-24 ADL Eating: Independent; Amb ulation: Some Help Needed; Dressing: Some Help Needed; Bathing: Some Help Needed; Toileting: Some Help Needed 2025-06-24 IADL Shopping: Some Help Nee ded; Housekeeping: Some Help Needed; Meal Prep: Some Help Needed; Medications Management: Some Help Needed 2025-06-24 Falls in last 6 Months: No 2025-06-24 DME: cane mostly, but has walker as well 2025-06-24 Mental Status Status Date Cognition Status: Oriented to Person, Pl hao and Time 2022-10-05 Assessments Date of Service [...] joint pain increased [facility]. Follow-up with [facility] as [...] PCP every 3-6 months, BP assessed by SURVEILLANCE OFFICER 3x times a weekrecommend healthy lifestyle changes [...] days (fever, chills, cough). Denies SOB today. 2025-06-24 09:21:33 Centrilobular emphys emaOther problems related to medical facilities and other health careType 2 diabetes mellitus with hyperlipidemiaType 2 diabetes mellitus with stage 3a chronic kidney disease, Renal cystType 2 diabetes mellitus with diabetic peripheral angiopathy without gangreneHypertensionMajor depressive disorder in partial remissionOsteoarthritis, multiple sitesGERD (gastroesophageal reflux disease)BPH (benign prostatic hyperplasia)Tinea pedisVitamin D deficiencyBenign paroxysmal positional vertigo due to bilateral vestibular disorderOther specified hearing loss of right ear, unspecified hearing status on contralateral sideHistory of COVID-19 Plan of Care Date of Service Plans [...] modifier 95Continue to see PCP. Follow-up with [place] [facility] [...] PCP every 3-6 months, BP assessed by SURVEILLANCE OFFICER 3x times a weekrecommend healthy lifestyle changes [...] PCP every 3-6 months, BP assessed by SURVEILLANCE OFFICER 3x times a weekrecommend healthy lifestyle changes [...] PCP every 3-6 months, BP assessed by SURVEILLANCE OFFICER 3x times a weekrecommend healthy lifestyle changes [...] or disease education needs that may arise. 2025-06-24 09:21:33 Medication Review by prescribing provider or pharmacist documented (1160F)Medication List Documented (1159F)Functional Status Assessed (1170F)Advance Care Directive Advance care planning discussion documented in the medical record (1158F)Advance care planning discussed and documented advance care plan or surrogate decision-maker was documented in the medical record. (1123F)Pain Assessment - NO pain present (1126F)Estab. patient 20-29min; 1 stable chronic or 2 minor; add add modifier 95 for video, modifier 93 for phoneContinue to see PCP. 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 He is not a smoker/never-smoker. Rx: Anoro, albuterol prn, flonase; benzonatate prn qhs cough-Recommendations: Prevent infections via good hand hygiene, avoid large crowds, stay up to date with vaccines. -Medication management: Take your medication consistently, and talk to your doctor about any side effects. Maintain regular follow up with PCP/pulmonology. -Minimize environmental exposures: Avoid smoke, poor-quality air, allergens when possible.When member to call: 1. If bp is [...] see each individual diagnosis for contingency planCOPD CONTINGENCY PLANLast updated: 06/24/2025Member to call for the following symptoms: Albuterol not working/ Breathing loudly / Change in sputum / Exertional dyspnea/ Fatigue/ Increased cough / WheezingPlanned intervention: Increase use of albuterol inhaler to q2h PRN cough, breathlessness/ Prednisone 40mg PO daily x 5 days/ Azithromycin 500mg on day 1 then 250 mg on day 2-5/ Flonase 2 sprays daily/ Benzonatate 200 mg TID [id number]: 7.0% (02/18/25- outside care)Rx: atorvastatin 20 mg, januvia 100 mg, jardiance 25 mg, Tresiba 15 units nightly- Low fat/cholesterol, low carb, low glycemic diet & regular exercise (as tolerated) recommended.- Fasting FBG goal per ADA between 80 and 130 mg/dL- HA1c goal at least <8.0%; ideally <7.0%- Continue to follow up with PCP/Specialists.-----member has appt with his PCP on 06/27/25. 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 Avoid/limit nephrotoxic medications (NSAIDS, high dose Gabapentin, Baclofen, Fleet Enema, Morphine/Codeine). -Renal diet: low sodium, protein, potassium, and phosphorus. -Maintain hydration through water intake (if no restrictions). -Goal of blood pressure <130/80. -incidental finding of renal cyst noted on imaging per daughter. Member has appt with nephrology on 06/26/25 for further eval.peripheral vascular disease associated with atherosclerosis of the lower extremitiesdenies any swelling, redness and signs of infectioncontinue to take atorvastatin, plavix close follow up with PCP and vascularRx: amlodipine 5mg, HCTZ12.5 mg , and metoprolol ER 25 mg sees PCP every 3-6 months, BP assessed by SURVEILLANCE OFFICER 3x times a weekrecommend healthy lifestyle changes (weight loss, heart healthy diet, sodium restriction, increase physical activity and alcohol restriction)on fluoxetine stable, denies any symptoms, SI/HI thoughts, PHQ2: 0recommend to keep taking medication as prescribed and to call back should symptoms progress or if new symptoms associated with depression ariseOA worse knees at risk for falls Fall prevention TIPS: Wear sensible shoes. Remove home hazards (Get rid of all rugs/mats in your home). Light up your living space (keep a flash light next to your bed for night time). Use assistive devices.Rx: omeprazole 40 mg- Continue current medication regimen as needed.- Advised to reduce/avoid consumption of spicy foods and caffeinated beverages.- Advised to refrain from lying flat within 30 minutes after eating.06/24/25:-per daughter, recently had a swallow test and found to have inflammation in esophagus. Omeprazole increased to 40 mg. He was referred to GI- appt date pending.Rx: tamsulosin-avoid fluids close to bedtime-avoid overuse of caffeine/dark fluids throughout the day-maintain regular follow up with PCP/specialistTinea pedis b/l on ketoconizole 2% cream-maintain regular follow up with PCP/specialist-keep BG under control-Keep feet/shoes clean, dry-Inspect skin daily. Inspect feet and in between toes for skin breakdown.on supplementsED visit 12/2022 for nasal abrasion/fx d/t fall ?d/t mechanical fall, missed a step. Fall preauction advised. 06/24/25:-per daughter, symptoms completely resolvedreferral to audiology 10.31.:-has hearing aids b/l since about 2022, but he finds them very uncomfortable. Daughter will contact audiology office to see if they can readjust the hearing aids or get new ones.symptomatic on 08/30/23feeling better now. Only symptomatic x 5 days (fever, chills, cough). Denies SOB today. Goals Date Goal 2022-10-05 Remember to take med ications or concerns 2022-10-05 Call me if you have any questions or concerns 2025-06-24 Continue taking medi cations as directed and keep all follow up appointments with established PCP and Specialist. Health Concerns Date Concern 2025-06-24 Patient/Guardian agr eed to visit via telehealth. Today, patient has chief complaint of: annual visit.Visit completed via:[x] audio and video; [ ] audio onlyInformed verbal consent was obtained from this patient to communicate and provide care using virtual and other telecommunications tools. This patient has been explained the risks, if any, related to the encounter. I explained that care provided through video or audio communication cannot replace the need for physical examination or an in-person visit for some disorders or urgent problems. 2025-06-24 Concerns for today's visit:1. incidental finding of renal cyst noted on imaging per daughter. Member has appt with nephrology on 06/26/25 for further eval. 2. recently had a swallow test and found to have inflammation in esophagus. Omeprazole increased to 40 mg. He was referred to GI- appt date pending.Reviewed allergies, medications, active medical conditions, past medical and surgical history, social history. 2025-06-24 Most recent hospital stay or ER visit:Last ER visit 05/03/2024Member denies ER visits or hospitalizations in last year.Discussed our goal of helping the member have more days at home rather than in the ER or the hospital. 2025-06-24 Open HEDIS Measures: ACP: completed 2025-06-24 Advance Care Planroxy moody ConversationAdvance Care Planning ConversationDate of Conversation: 06/24/2025Life Limiting Diagnosis: Diagnosis: DM, HTN, CKDCurrently on Hospice NoCode Status: NO CPR: Do Not Attempt Resuscitation/Allow Natural DeathGoals of Care: Comfort-focused: Maximize comfort through symptom management; allow natural deathNutrition goals: No artificial nutrition desired Do you have a Durable Power of Boiler Blower for Healthcare, or Healthcare Proxy Or Guardianship? Yes, preferred proxy but not named POAIf so, Who? HCP: Alyssa Arias- daughter Do you have a written Advance Directive? Has Advance DirectiveOther details of discussion: member and daughter present during disussionToday's plan: [id number] : AD or surrogate was documented in the medical record. 2025-06-24 Functional Assessmen tCognition Status: Oriented to Person, Place and TimeADL Eating: Independent; Ambulation: Some Help Needed; Dressing: Some Help Needed; Bathing: Some Help Needed; Toileting: Some Help NeededIADL Shopping: Some Help Needed; Housekeeping: Some Help Needed; Meal Prep: Some Help Needed; Medications Management: Some Help NeededFalls in last 6 Months: NoDME: cane mostly, but has walker as well 2025-06-24 Per daughter, member has appt with his PCP on 06/27/25. 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
--- OUTSIDE RECORDS SUMMARY | 2025-06-25 07:27 | XMS_ITS | Patient Health Record ---
[facility] Address [address] [facility] [place] [address] Care Team Providers Care Blueprint Reproducer Name Role Phone Kavita Adam MD Primary Care Provider Unavail able Shirin Arzate Unavailable [phone] Allergies No Known Allergies Results Component Value [...] Polyneuropathy due to type 2 diabetes mellitus ([id number]) Type 2 diabetes mellitus with diabetic polyneuropathy (E11.42) Active confirmed Vital Signs Blood pressure diastolic 70 mm Hg 06/05/2025 Height 5ft 6inch in 06/05/2025 Blood pressure systolic 125 mm Hg 06/05/2025 Weight 165 lbs 06/05/2025 BMI 26.63 kg/m2 06/05/2025 Procedures Procedure Date Ordered Date Performed Result Body Sit e [id number]-[id number] NAIL, 6 OR MORE 02/18/2025 N/A [id number] SKIN LESIONS, 2 TO 4 02/18/2025 N/A Encounters Encounter Location Date Provider Diagnosis [facility] [address] [place] [address] 02/18/2025 Shirin Arzate Tinea pedis of both feet B35.3 ; Other hammer toe(s) (acquired), right foot M20.41 ; Other hammer toe(s) (acquired), left foot M20.42 ; Type 2 diabetes mellitus with diabetic polyneuropathy E11.42 and Tinea unguium B35.1 [facility] [address] [place] [address] 06/05/2025 Shirin Arzate Type 2 diabetes mellitus [...] Treatment Pending Test Test Name Order Date [id number] NAIL, 6 OR MORE 02/18/2025 [id number] SKIN LESIONS, 2 TO 4 02/19/20 Next Appt Details Provider Name:Shirin maldonado, 06/04/2026 11:00:00 AM, [address] [place] [address], [phone], Insurance Providers Payer Name Payer Address Payer Phone Subscriber Number Group Number Insured Name Patient Relationship to Insured Coverage Start Date Coverage End Date [id number] [address] [address] [place] [address] [id number] Arias, Manuel Self - patient is the insured Medical (General) History Medical History History ICD Code Arthritis asthma Depression Diabetic High Blood Pressure Kidney disease Stroke Stomach ulcer Surgical History Surgery Date(Month/Year) stomach ulver broken ankle hernia
--- OUTSIDE RECORDS SUMMARY | 2025-06-25 07:27 | XMS_ITS | Clinical Summary ---
Author Organization [employer] Address [address] [facility] [address] [place] [address] Care Team Providers Care Paper Deliverer Name Role Phone Unavailable Primary Care Provider [...] Provider LAB BLOOD ORDERABLES Camila l Result [facility] [address] from Last 3 Months or Most Recently Relevant to Health Maintenance Insurance 2 Wilner Macias [place] [facility] * Guarantor: Mnauel Bianchi Account Type Relation to Patient Date of Phone Billing Address Personal/Family Self [address]
--- OUTSIDE RECORDS SUMMARY | 2025-06-25 07:28 | XMS_ITS | Encounter Summary ---
Author Organization [employer] Address [address] [facility] [address] [place] [address] Care Team Providers Care Cq Developer Name Role Phone Unavailable Primary Care Provider Unavailabl e Encounter Details Date Type Department Care Team (Latest Contact Info) Description 10/31/[address] [facility] CONVERSIONS Dental, Provider, DDS Social History [...]
--- OUTSIDE RECORDS SUMMARY | 2025-06-25 07:28 | XMS_ITS | Encounter Summary ---
Author Organization [employer] Address [address] [facility] [address] [place] [address] Care Team Providers Care Food Safety Scientist Name Role Phone Unavailable Primary Care Provider Unavailabl e Encounter Details Date Type Department Care Team (Latest Contact Info) Description 11/01/2019 Abstract [facility] CONVERSIONS Dental, Provider, DDS Social History [...]
[2025-06-25 09:16] LABS: Alanine Aminotransferase 20 U/L (0-40); Albumin Level 3.9 g/dL (3.5-5.0); Alkaline Phosphatase 84 U/L (39-117); Anion Gap 9 (12-20); Aspartate Amino Transferase 23 U/L (5-37); Blood Urea Nitrogen 26 mg/dL (9-16); Calcium 8.8 mg/dL (8.4-10.2); Carbon Dioxide 29 mmol/L (22-29); Chloride 104 mmol/L (96-108); Cholesterol 126 mg/dL (<200); Estimated Glomerular Filt Rate 55; HDL Cholesterol 39 mg/dL (>40); Potassium 4.1 mmol/L (3.3-5.1); Sodium 138 mmol/L (135-145); Total Protein 7.2 g/dL (6.5-8.0); Triglycerides 80 mg/dL (<150)
[2025-06-25 10:21] LABS: Total Protein Urine Random < 7 mg/dL (<12)
== END 2025-06-25 07:26 | disposition home or self-care (01) ==
LOC: HO.LAB 07:25
PROVIDERS: Absent Provider Internal Medicine; PCP Internal Medicine; Visit Provider Internal Medicine Nephrology
DX: I12.9 Hypertensive chronic kidney disease with stage 1 through stage 4 chronic kidney disease, or unspecified chronic kidney disease (principal); N18.31 Chronic kidney disease, stage 3a; N20.0 Calculus of kidney; E78.5 Hyperlipidemia, unspecified; R80.9 Proteinuria, unspecified
CPT/HCPCS: 80053; 80061; 82043; 82570; 84156; 86335

== ENCOUNTER 2025-06-26 11:16 | Outpatient (AMB) | payer OTHER, SELFPAY ==
--- NOTE | 2025-06-26 11:20 | HO.NEPHOV_ITS ---
Vital Signs 06/26/25 11:21 Height 5 ft 6 in Weight 165 lb 4 oz BMI 26.7 BP 112/60 Blood Pressure Location Lt brachial Position Sitting Pulse 53 Pulse Source Pulse Oximeter Pulse Oximetry (%) 98 Oxygen Delivery Method Room Air Intake Visit Reasons: 6 MO FU-Conf Train Driver Required: Yes Train Driver Language: Buck Swamper Services: Train Driver Offered & Declined ([facility] Train Driver services refused ) Accompanied by: Daughter Allergies metformin Adverse Reaction (Intermediate, Verified 06/26/25 11:21) diarrhea dulaglutide (From Trulicity) Adverse Reaction (Verified 06/26/25 11:21) vomiting HPI Comments Details: Manuel was seen in follow up for chronic kidney disease and hypertension. He is 84 years of age and was accompanied by his daughter during this visit. He is known to have longstanding diabetes mellitus and hypertension as well as dyslipidemia. He is on Jardiance. His blood sugar control is better. He is not on any MAXIMO inhibitor or ARB and he does not know why. 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 He has history of for nephrolithiasis . He takes hydrochlorothiazide for his hypertension which has been helping him with renal calculus. He has no history of any active malignancy. He does not take any excessive nonsteroidal anti-inflammatories. He denies epistaxis, sinusitis, orthostatic drop in blood pressure, chest pain, shortness of breath, proximal nocturnal dyspnea, orthopnea, hematuria, sensory neural deafness. He does not take any excessive nonsteroidal anti- inflammatories. He has no new bone or back pain. He had renal USS which showed bilateral cysts. There were no new active complaints at the time of this office visit. [facility] Medical History GERD (gastroesophageal reflux disease) Pulmonary nodule Asthma-COPD overlap syndrome Peripheral vascular disease Abnormal chest x-ray Hyperkalemia Mild recurrent major depression Left leg pain Left knee pain Screening for prostate cancer Bilateral sensorineural hearing loss Progressive hearing loss of right ear Loss of hearing Cerumen debris on tympanic membrane of both ears Otitis media TIA (transient ischemic attack) Diverticulosis Enlarged prostate Renal cyst Renal stones Essential hypertension Hyperlipidemia LDL goal <70 Type 2 diabetes mellitus with hyperglycemia Surgical History History of colonoscopy Hx of hernia repair Family History Father Heart disease Mother No problems noted. Brother Prostate cancer Social History Household Members: Family Housing: House Alcohol intake: current Alcohol intake frequency: holidays/special occasions only Alcohol type: hard liquor Patient Tobacco Use Status: Never used Tobacco e-Cigarette/Vaping Use: Never Used Second Hand Smoke Exposure: No service: No Current occupational status: retired Cognitive needs: Yes Hearing needs: No Vision needs: Yes Review of Systems Const All systems reviewed & are unremarkable except as noted in HPI and below Physical Exam Vital Signs: Last Vital Signs Pulse 53 06/26/25 11:21 BP 112/60 06/26/25 11:21 Pulse Ox 98 06/26/25 11:21 Oxygen Delivery Method Room Air 06/26/25 11:21 BMI result Body Mass Index 26.7 Const General: comfortable and no acute distress Orientation/consciousness: patient oriented x3 HEENT Head: Yes normocephalic Mouth: Normal oral and palatal mucosa present Eyes EOM: EOMs intact bilaterally Neck Neck: Yes supple Resp Auscultation: clear to auscultation bilaterally Cardio Jugular venous distension: no JVD Rate: regular rate GI Palpation (GI): Soft to palpation Auscultation: normal bowel sounds General: Yes no CVA tenderness Back/Spine/Pelvis Back: no CVA tenderness Skin General skin exam: no rashes or lesions noted Neuro General: patient oriented x3 and moves all extremities Extrem General: Yes no pedal edema Results Reviewed Nephrology Results: Sodium, (135-145) 138 mmol/L 06/25/25 Potassium, (3.3-5.1) 4.1 mmol/L 06/25/25 Chloride, (96-108) 104 mmol/L 06/25/25 Carbon Dioxide, (22-29) 29 mmol/L 06/25/25 BUN, (9-16) 26 mg/dL H 06/25/25 Creatinine, (0.5-1.4) 1.25 mg/dL 06/25/25 Calcium, (8.4-10.2) 8.8 mg/dL 06/25/25 Urine Creatinine 104.52 mg/dL 06/25/25 Protein/Creatinin Ratio TNP 06/25/25 Renal US 10/18/24 Assessment & Plan Assessment & Plan (1) Hypertension: Code(s): I10 - Essential (primary) hypertension Category: Medical Qualifiers: Hypertension type: primary hypertension Qualified Code(s): I10 - Essential (primary) hypertension (2) CKD (chronic kidney disease) stage 3, GFR 30-59 ml/min: Code(s): N18.30 - Chronic kidney disease, stage 3 unspecified Category: Medical Qualifiers: Chronic kidney disease stage 3 subtype: stage 3a (GFR 45-59) Qualified Code(s): N18.31 - Chronic kidney disease, stage 3a (3) Renal cyst: Code(s): N28.1 - Cyst of kidney, acquired Category: Medical (4) Renal stones: Code(s): N20.0 - Calculus of kidney Category: Medical Plan Manuel has 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 He has history of vascular disease causing CVA. He is on Plavix. His blood pressure is currently at goal. He has no active issues from renal calculus. He is on Jardiance. He has B/L renal cysts- some simple, some complex. He will need CT kidneys for F/U complex renal cyst. We I may consider starting him on a low- dose MAXIMO inhibitor and discontinue amlodipine with time. He maintains good hydration and avoids nonsteroidal anti-inflammatories. I did not make any medication changes. Follow-up appointment given. Orders: Orders Blood Urea Nitrogen 7 Months I10 - Essential (primary) hypertension, N18.31 - Chronic kidney disease, stage 3a, N20.0 - Calculus of kidney, N28.1 - Cyst of kidney, acquired Creatinine 7 Months I10 - Essential (primary) hypertension, N18.31 - Chronic kidney disease, stage 3a, N20.0 - Calculus of kidney, N28.1 - Cyst of kidney, acquired Electrolytes 7 Months I10 - Essential (primary) hypertension, N18.31 - Chronic kidney disease, stage 3a, N20.0 - Calculus of kidney, N28.1 - Cyst of kidney, acquired Protein Creatinine Ratio, Ur 7 Months I10 - Essential (primary) hypertension, N18.31 - Chronic kidney disease, stage 3a, N20.0 - Calculus of kidney, N28.1 - Cyst of kidney, acquired UA and rflx microscopic 7 Months I10 - Essential (primary) hypertension, N18.31 - Chronic kidney disease, stage 3a, N20.0 - Calculus of kidney, N28.1 - Cyst of kidney, acquired Coding Level of Care Code Est Pt Level 4 (43960) Diagnoses Primary hypertension I10 Hypertension type: primary hypertension Stage 3a chronic kidney disease N18.31 Chronic kidney disease stage 3 subtype: stage 3a (GFR 45-59) Renal cyst N28.1 Renal stones N20.0
[2025-06-26 11:21] VITALS: BP 112/60; PULSE 53; O2SAT 98; BMI 26.7
== END 2025-06-26 11:34 | disposition home or self-care (01) ==
LOC: HO.HKA 11:17
PROVIDERS: PCP Internal Medicine; Visit Provider Internal Medicine Nephrology
DX: I10 Essential (primary) hypertension (principal); N18.31 Chronic kidney disease, stage 3a; N28.1 Cyst of kidney, acquired; N20.0 Calculus of kidney
CPT/HCPCS: 99214

== ENCOUNTER → 2025-06-26 11:16 | Outpatient (BNVA) | payer OTHER, SELFPAY | PROVIDERS: PCP Internal Medicine; Visit Provider Internal Medicine Nephrology | DX: I10 Essential (primary) hypertension (principal); N28.1 Cyst of kidney, acquired; N18.31 Chronic kidney disease, stage 3a; N20.0 Calculus of kidney; E11.9 Type 2 diabetes mellitus without complications | CPT/HCPCS: 99212 ==

== ENCOUNTER 2025-06-27 09:04 | Outpatient (AMB) | payer OTHER, SELFPAY ==
--- OUTSIDE RECORDS SUMMARY | 2024-11-22 05:30 | XMS_ITS ---
Author Organization [facility] Address [address] [facility] [place] [address] Care Team Providers Care Brown Stock Washer Name Role Phone Jair APARICIO, Kavita Primary Care Provider Unavail able Shirni Arzate Unavailable [phone] Mathur Medications Medication [...] Negative Encounters Encounter Location Date Provider Diagnosis [facility] [address] [address] 11/22/2024 Shirin Arzate Plan Of Treatment Next Appt Details Provider Name:Shirin Chandler erica, 06/04/2026 11:00:00 AM, [address] [place] [address], [phone], Progress Notes * Luz BIANCHIOB:[birth year] (84 yo M)Acc No.[id number]:11/22/2024 Progress Notes Patient: Porfirio MEREDITHo Provider: Inge Arzate DPM :1940 A ge:83 Y S ex:Male Date:11/22/2024 Address:[address] [place], [place] [id number] Pcp:Kavita Adam MD Subjective: * Chief Complaints: [...] C ardiovascular: Pacemaker d enies, denies. 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 C [...] 11/22/2024 Generated for Fede last/Mahesh/Capri on: 0 06/27/2025 10:21 AM EDT
--- NOTE | 2025-06-27 09:21 | A.OFFPC_ITS ---
Vital Signs 06/27/25 09:23 Height 5 ft 6 in Weight 163 lb 8 oz BMI 26.4 BP 114/80 Blood Pressure Location Lt brachial Position Sitting Pulse 50 Pulse Source Pulse Oximeter Pulse Oximetry (%) 97 Oxygen Delivery Method Room Air Intake Visit Reasons: annual exam - see comments Cab Starter Required: No Accompanied by: Self / Same As Patient Allergies metformin Adverse Reaction (Intermediate, Verified 06/27/25 09:56) diarrhea dulaglutide (From [facility]) Adverse Reaction (Verified 06/27/25 09:56) vomiting Medication List - Last Reconciled 06/27/25 by Kavita Mckeon MD [adult diapers pull-ups As directed] albuterol sulfate 2.5 mg (3 mL) inhalation BID 30 days amlodipine 5 mg PO DAILY 90 days atorvastatin 20 mg PO BEDTIME benzonatate 200 mg PO BID PRN 30 days blood sugar diagnostic (Par[employer] Wireless Ultra Test strips) As directed check the blood sugar 3 times a day blood-glucose meter ([employer] Wireless Ultra2 Meter) As directed budesonide-formoterol 80-4.5 mcg/actuation 1 inh inhalation BID 30 days cholecalciferol (vitamin D3) 50 mcg PO DAILY 90 days clopidogrel 75 mg PO BEDTIME 90 days clotrimazole 10 mg mucous membrane TID disposable gloves (Biobrane Gloves Large) As directed empagliflozin (Jardiance) 25 mg PO QAM fluoxetine 20 mg PO QAM fluticasone furoate 100 mcg/actuation (Arnuity Ellipta) 1 inh PO DAILY fluticasone propionate 50 mcg/actuation 2 sprays intranasal DAILY 30 days fluticasone propionate 50 mcg/actuation (Flonase Allergy Relief) 1 spray intranasal DAILY hydrochlorothiazide 12.5 mg PO DAILY 90 days insulin degludec (Tresiba FlexTouch U-100 insulin) 15 units (0.15 mL) subcut DAILY lancets (FreeStyle Lancets) As directed- TID latex gloves (Latex Gloves, Medium) As directed levalbuterol tartrate 45 mcg/actuation 2 inhalations inhalation Q6H 30 days [male urinal As directed] meclizine 25 mg PO BID PRN metoprolol succinate ER 25 mg PO DAILY 90 days nebulizers As directed omega-3 fatty acids-fish oil 340-1,000 mg 1 cap PO QAM omeprazole 40 mg PO DAILY 30 days pen needle, diabetic As directed once daily [personal cleansing wipes As directed] [quad cane As directed] sitagliptin phosphate (Januvia) 100 mg PO QAM tamsulosin 0.4 mg PO BEDTIME underpads (Bed Underpads) Use 1 underpad once a day Ventolin HFA 90 mcg/actuation (albuterol sulfate) 2 puffs inhalation Q6H PRN 30 days NS walker (Ultra-Light Rollator misc) As directed Tobacco use date assessed: 06/27/25 Fall risk assessment: No Falls in past year Last assessed Fall Risk: 06/27/25 Dental Screening Dental Screen Date: 06/27/25 Did you have a dental visit in the last 12 months?: Yes Did you have a dental problem in the last 6 months where you did not have access to dental care?: No Was dental information given to patient?: Patient has dentist HPI HPI Comments History of Present Illness Details The patient is an 84-year-old male presenting for an annual physical examination and management of chronic conditions. Hypertension is well-controlled with a blood pressure of 114/80 mmHg, within the target range of less than 130/80 mmHg, managed with amlodipine. Diabetes Mellitus is managed with Jardiance and insulin, with recent blood glucose at 88 mg/dL and an HbA1c of 6.7% in February, within the target of less than 7%. Mild depression is managed with fluoxetine 20 mg daily, with a PHQ-9 score indicating mild recurrent major depression. Chronic Kidney Disease is present with a GFR of 55, slightly improved from 53, classified as stage 3 but close to normal range. Hyperlipidemia is managed with atorvastatin, with LDL cholesterol reduced to 71 mg/dL from 88 mg/dL. Gastroesophageal Reflux Disease is treated with omeprazole. Prostate enlargement is managed with tamsulosin. Preventative care includes a recent pneumonia vaccination. - Pneumonia vaccination administered rec ently - Blood pressure management with a targe t of less than 130/80 mmHg - Diabetes management with Jardiance and insulin, with a target HbA1c of less than 7% - Depression management with fluoxetine - Hyperlipidemia management with atorvas tatin, with LDL cholesterol target achieved PFSH Medical History GERD (gastroesophageal reflux disease) Pulmonary nodule Asthma-COPD overlap syndrome Peripheral vascular disease Abnormal chest x-ray Hyperkalemia Mild recurrent major depression Left leg pain Left knee pain Screening for prostate cancer Bilateral sensorineural hearing loss Progressive hearing loss of right ear Loss of hearing Cerumen debris on tympanic membrane of both ears Otitis media TIA (transient ischemic attack) Diverticulosis Enlarged prostate Renal cyst Renal stones Essential hypertension Hyperlipidemia LDL goal <70 Type 2 diabetes mellitus with hyperglycemia Surgical History History of colonoscopy Hx of hernia repair Family History Father Heart disease Mother No problems noted. Brother Prostate cancer Social History Household Members: Family Housing: House Alcohol intake: current Alcohol intake frequency: holidays/special occasions only Alcohol type: hard liquor Patient Tobacco Use Status: Never used Tobacco e-Cigarette/Vaping Use: Never Used Second Hand Smoke Exposure: No service: No Current occupational status: retired Cognitive needs: Yes Hearing needs: No Vision needs: Yes Questionnaire PHQ-9 Over the last 2 weeks, how often have you been bothered by any of the following problems? 1. Little interest or pleasure in doing things: several days 2. Feeling down, depressed, or hopeless: several days 3. Trouble falling or staying asleep, or sleeping too much: several days 4. Feeling tired or having little energy: several days 5. Poor appetite or overeating: not at all 6. Feeling bad about yourself - or that you are a failure or have let yourself or your family down: several days 7. Trouble concentrating on things, such as reading the newspaper or watching television: not at all 8. Moving or speaking so slowly that other people could have noticed. Or the opposite - being so fidgety or restless that you have been moving around a lot more than usual: not at all 9. Thoughts that you would be better off or of hurting yourself in some way: several days Total score: 6 Depression Screening Interpretation: Positive Depression Screening Follow-up: Existing condition and Follow-up Visit Requested Depression Screening Done: Yes 88632 - PHQ-9 Billing: Yes Source: Developed by Chrystal Mendes.W. Beau, Ren Felix and colleagues, with an educational neeta from [employer]. Thrive Questionnaire Date Thrive assessed: 06/27/25 I am a: Patient What is your living situation today?: I have a steady place to live Within the past 12 months, did the food you bought not last and you didn't have the money to get more?: Never true Within the past 12 months, did you worry whether your food would run out before you got money to buy more?: Never true Do you have trouble paying for medicines?: No Do you have trouble getting transportation to medical appointments?: No Do you have trouble paying your heating and electricity bill?: No Do you have trouble taking care of your child, family member or friend?: No Do you have trouble with day-to-day activities such as bathing, preparing meals, shopping, managing finances, etc.?: Yes Are you currently unemployed and looking for a job?: No Are you interested in more education?: No Please select the resources that you would like help with: None Currently or been in a relationship where the following occur: No concerns reported THRIVE Score: 0 AUDIT C Alcohol Use Questionnaire (AUDIT-C) 1. How often do you have a drink containing alcohol?: Monthly or less 2. How many drinks containing alcohol do you have on a typical day when you are drinking?: 3 or 4 3. How often do you have six or more drinks on one occasion?: Never Total Score: 2 Score Reviewed/Action Taken: No NIDHI-7 AMB Questionnaire NIDHI-7 Date NIDHI - 7 assessed: 06/27/25 Feeling nervous, anxious, or on edge: 1 = Several days Not being able to stop or control worryin = Several days Worrying too much about different things: 1 = Several days Trouble relaxin = Several days Being so restless that it is hard to sit still: 1 = Several days Becoming easily annoyed or irritable: 0 = Not at all Feeling afraid as if something awful might happen: 0 = Not at all Total NIDHI-7 score (0-4 normal; 5-9 mild; 10-14 moderate; 15-21 severe): 5 Source: Developed by Chrystal Mendes Kurt Kroenke and colleagues, with an educational neeta from [employer]. NIDHI-7 Assessment Billing NIDHI-7 Assessment Tool: NIDHI-7 Assessment 26330 Review of Systems Const All systems reviewed & are unremarkable except as noted in HPI and below Card Denies chest pain at rest, Denies chest pain with activity, Denies edema, Denies irregular heart rhythm, Denies claudication, Denies dyspnea, Denies dyspnea on exertion, Denies orthopnea, Denies paroxysmal nocturnal dyspnea and Denies slow heart rate Resp Denies cough, Denies dyspnea and Denies dyspnea on exertion GI Denies abdominal pain, Denies change in bowel habits, Denies excessive flatus, Denies nausea and Denies vomiting Physical exam (Primary Care) Vital Signs: Last Vital Signs Pulse 50 06/27/25 09:23 BP 114/80 06/27/25 09:23 Pulse Ox 97 06/27/25 09:23 Oxygen Delivery Method Room Air 06/27/25 09:23 BMI result Body Mass Index 26.4 Tobacco/Smoking Status: Tobacco use Status Tobacco use date assessed 06/27/25 06/27/25 09:26 Patient Tobacco Use Status Never used Tobacco 06/27/25 09:26 e-Cigarette/Vaping Use Never Used 06/27/25 09:26 PHQ-9: PHQ-9 Score PHQ-9: Total score 6 06/27/25 09:59 Depression Screening Interpretation: Positive Depression Screening Follow-up: Existing condition and Follow-up Visit Requested Thrive Assessment: Date of Thrive Assessment Date Thrive assessed 06/27/25 06/27/25 09:29 Currently or been in a relationship where the following occur: No concerns reported [facility] Head: Yes normal to inspection, Yes normocephalic and Yes atraumatic Ears: external ears normal Eyes General: appearance normal, both eyes and all related structures Eyelids: Yes eyelids normal Conjunctivae: conjunctivae normal Neck Neck: Yes normal visual inspection and Yes supple Resp Effort & Inspection: normal respiratory effort Auscultation: clear to auscultation bilaterally Cardio Jugular venous distension: no JVD Rate: regular rate Rhythm: regular rhythm Heart sounds: S1 normal heart sound present and S2 normal heart sound present GI Inspection: Yes normal to inspection Palpation (GI): Soft to palpation and nontender Auscultation: normal bowel sounds Skin General skin exam: no rashes or lesions noted Neuro General: no focal motor deficits Extrem General: Yes full ROM Psych Appearance: grossly normal Coding Level of Care Code Est Pt Level 3 (50867) Est Pt Prev Care >65y(46065) Diagnoses Physical exam Z00.00 Stage 3a chronic kidney disease N18.31 Chronic kidney disease stage 3 subtype: stage 3a (GFR 45-59) Renal cyst N28.1 Mild recurrent major depression F33.0 Type 2 diabetes mellitus without complication, with long-term current use of insulin E11.9; Z79.4 Diabetes mellitus type: type 2 Diabetes mellitus continuous churn buttermaker insulin use: with continuous churn buttermaker use Diabetes mellitus complication status: without complication Additional Codes NIDHI-7 Assessment Billing - NIDHI-7 Assessment Tool: NIDHI-7 Assessment 47950 ([id number]) PHQ-9 - 94434 - PHQ-9 Billing: Yes ([id number]) Time Spent (min) 34 Assessment & Plan Assessment & Plan (1) Physical exam: Code(s): Z00.00 - Encounter for general adult medical examination without abnormal findings Category: Medical (2) CKD (chronic kidney disease) stage 3, GFR 30-59 ml/min: Code(s): N18.30 - Chronic kidney disease, stage 3 unspecified Category: Medical Qualifiers: Chronic kidney disease stage 3 subtype: stage 3a (GFR 45-59) Qualified Code(s): N18.31 - Chronic kidney disease, stage 3a (3) Renal cyst: Code(s): N28.1 - Cyst of kidney, acquired Category: Medical (4) Mild recurrent major depression: Code(s): F33.0 - Major depressive disorder, recurrent, mild Category: Medical (5) Diabetes mellitus: Code(s): E11.9 - Type 2 diabetes mellitus without complications Category: Medical Qualifiers: Diabetes mellitus type: type 2 Diabetes mellitus halfway insulin use: with continuous churn buttermaker use Diabetes mellitus complication status: without complication Qualified Code(s): E11.9 - Type 2 diabetes mellitus without complications; Z79.4 - jail (current) use of insulin Plan Plan Patient was informed and verbally consented to the use of an ambient scribe for clinic note documentation during this visit. 1. Encounter for general adult medical examination without abnormal findings Z00.00 Preventative care includes a recent pneumonia vaccination to reduce the risk of pneumococcal infections. 2. Type 2 diabetes mellitus without complications E11.9 HCC 19 Diabetes Mellitus is managed with Jardiance 25 mg and insulin therapy, with recent blood glucose levels at 88 mg/dL and an HbA1c of 6.7% in February. 3. Major depressive disorder, recurrent, mild F33.0 HCC 59 Mild depression is managed with fluoxetine 20 mg daily, with a PHQ-9 score indicating mild recurrent major depression. 4. Chronic kidney disease, unspecified N18.9 Chronic Kidney Disease is present with a GFR of 55, slightly improved from 53, classified as stage 3 but close to normal range. Orders: Orders Vitamin D 25-OH Total 4 Months E55.9 - Vitamin D deficiency, unspecified Microalbumin, Random (w Creat) 4 Months R80.9 - Proteinuria, unspecified CT abdomen pelvis wo IV con Today N28.1 - Cyst of kidney, acquired Lipid Panel 4 Months E78.5 - Hyperlipidemia, unspecified Comprehensive [place]. Panel Fast 4 Months I10 - Essential (primary) hypertension Medications: Discontinued omega-3 fatty acids-fish oil 340-1,000 mg Discontinued Reason: Patient Completed Course 1 cap PO QAM 30 caps 6RF
[2025-06-27 09:23] VITALS: BP 114/80; PULSE 50; O2SAT 97; BMI 26.4
--- OUTSIDE RECORDS SUMMARY | 2025-06-27 10:21 | XMS_ITS | Encounter Summary ---
Author Organization [facility] Address [address] [place] [address] Care Team Providers Care Residential Appraiser Name Role Phone Name, Moses APARICIO Primary Care Provider Unavailabl e [facility], Pcp Primary Care Provider Unavailabl e Reason for Visit * Reason Onset Date Comments Provider Call Back 05/30/2012 Encounter Details Date Type Department Care Team Description 05/30/2012 Telephone Ophthalmology-[address] [phone] Hermilo Tejeda OD Provider Call Back Social [...] at [address] [facility]. * Telephone Encounter - Karina Zamora - 05/30/2012 1:48 PM EDT Patient states he has an appt. 1:30. Patient does not know where and with who. I could only find what they were talking about. Not [address]. They only know [address] Please call patient. documented in this encounter Plan of Treatment Not on file documented as of this encounter Visit Diagnoses Not on filedocumented in this encounter Care Teams Residential Appraiser Relationship Specialty Start Date End Date Name, MD Moses PCP - General 01/05/1999 11/04/15 [facility], Pcp PCP - General Internal Medicine 11/05/15 documented as of this encounter
--- OUTSIDE RECORDS SUMMARY | 2025-06-27 10:21 | XMS_ITS | Encounter Summary ---
Author Organization [facility] Address [address] [place] [address] Care Team Providers Care Jewelry Repairer Name Role Phone Name, Moses APARICIO Primary Care Provider Unavailabl e [facility], Pcp Primary Care Provider Unavailabl e Encounter Details Date Type Department Care Team Description 05/05/2010 Patroller Report Medical Records [address] [place] [address] Chiropractic, [place] Social History Tobacco Use Types Packs/Day Years Used Date Smoking Tobacco: Former Alcohol Use Standard Drinks/Week Comments No 0 (1 standard drink = 0.6 oz pur e alcohol) Sex Assigned at Date Recorded Not on file documented as of this encounter Plan of Treatment Not on file documented as of this encounter Visit Diagnoses Not on filedocumented in this encounter Care Teams Jewelry Repairer Relationship Specialty Start Date End Date Name, MD Moses PCP - General 01/05/1999 11/04/15 [facility], Pcp PCP - General Internal Medicine 11/05/15 documented as of this encounter
--- OUTSIDE RECORDS SUMMARY | 2025-06-27 10:21 | XMS_ITS | Encounter Summary ---
Author Organization [facility] Address [address] [place] [address] Care Team Providers Care Skip Loader Name Role Phone Name, Moses APARICIO Primary Care Provider Unavailabl e [facility], Pcp Primary Care Provider Unavailabl e Encounter Details Date Type Department Care Team Description 03/08/2014 Fire Alarm Dispatcher Report Medical Records [address] [place] [address] [facility] Social History Tobacco Use Types Packs/Day [...] on filedocumented in this encounter Care Teams Skip Loader Relationship Specialty Start Date End Date Name, MD Moses PCP - General 01/05/1999 11/04/15 [facility], Pcp PCP - General Internal Medicine 11/05/15 documented as of this encounter
--- OUTSIDE RECORDS SUMMARY | 2025-06-27 10:21 | XMS_ITS | Encounter Summary ---
Author Organization [facility] Address [address] [place] [address] Care Team Providers Care Core Analysis Operator Name Role Phone Name, Moses APARICIO Primary Care Provider Unavailabl e [facility], Pcp Primary Care Provider Unavailabl e Reason for Visit * Reason Onset Date Comments VNA Call 03/05/2014 Encounter Details Date Type Department Care Team Description 03/05/2014 Telephone Adult Medicine [address] [address] Name, MD Moses VNA Call Social History Tobacco Use Types Packs/Day Years Used Date Smoking Tobacco: Never Smokeless Tobacco: Never Alcohol Use Standard Drinks/Week Comments No 0 (1 standard drink = 0.6 oz pur e alcohol) Sex Assigned at Date Recorded Not on file documented as of this encounter Miscellaneous Notes * Telephone Encounter - Deborah Abdi R.N. - 03/05/2014 11:29 AM EDT FYI only. * Telephone Encounter - Ninfa Tang - 03/05/2014 9:45 AM EDT VNA CALL Which VNA office is calling? Colleen douglas Full name of caller: peter The caller is A nurse Is the caller at the patients home?: NO Reason for call: will be discharged from halfway today, any questions or concerns please call Does caller need an urgent call back? NO Was CONTACT Telephone # obtained above?: YES [phone] documented in this encounter Plan of Treatment Not on file documented as of this encounter Visit Diagnoses Not on filedocumented in this encounter Care Teams Core Analysis Operator Relationship Specialty Start Date End Date Name, MD Moses PCP - General 01/05/1999 11/04/15 [facility], Pcp PCP - General Internal Medicine 11/05/15 documented as of this encounter
--- OUTSIDE RECORDS SUMMARY | 2025-06-27 10:21 | XMS_ITS | Encounter Summary ---
Author Organization [facility] Address [address] [place] [address] Care Team Providers Care Shipping/Receiving Manager Name Role Phone Name, Moses APARICIO Primary Care Provider Unavailabl e [facility], Pcp Primary Care Provider Unavailabl e Encounter Details Date Type Department Care Team Description 03/13/2014 Home Health Certification Medical Records [address] [place] [address] Vna Social History Tobacco Use Types Packs/Day [...] on filedocumented in this encounter Care Teams Shipping/Receiving Manager Relationship Specialty Start Date End Date Name, MD Moses PCP - General 01/05/1999 11/04/15 [facility], Pcp PCP - General Internal Medicine 11/05/15 documented as of this encounter
--- OUTSIDE RECORDS SUMMARY | 2025-06-27 10:22 | XMS_ITS | Encounter Summary ---
Author Organization [facility] Address [address] [place] [address] Care Team Providers Care Shampoo Assistant Name Role Phone Name, Moses APARICIO Primary Care Provider Unavailabl e [facility], Pcp Primary Care Provider Unavailabl e Encounter Details Date Type Department Care Team Description 02/09/2014 Hospital Medical Records [address] [place] [address] Leonela Bee Social History Tobacco Use Types Packs/Day Years [...] on filedocumented in this encounter Care Teams Shampoo Assistant Relationship Specialty Start Date End Date Name, MD Moses PCP - General 01/05/1999 11/04/15 [facility], Pcp PCP - General Internal Medicine 11/05/15 documented as of this encounter
--- OUTSIDE RECORDS SUMMARY | 2025-06-27 10:22 | XMS_ITS | Encounter Summary ---
Author Organization [employer] Address [address] [facility] [address] [place] [address] Care Team Providers Care Lead Data Architect Name Role Phone Unavailable Primary Care Provider Unavailabl e Encounter Details Date Type Department Care Team (Latest Contact Info) Description 10/31/2018 Abstract [facility] CONVERSIONS Dental, Provider, DDS Social [...]
--- OUTSIDE RECORDS SUMMARY | 2025-06-27 10:22 | XMS_ITS | Clinical Summary ---
Author Organization [employer] Address [address] [facility] [address] [place] [address] Care Team Providers Care Primary Teacher Name Role Phone Unavailable Primary Care Provider [...] Provider LAB BLOOD ORDERABLES Camila l Result [facility] [address] from Last 3 Months or Most Recently Relevant to Health Maintenance Insurance 2 Wilner Macias [place] FOR[facility] * Guarantor: Manuel Bianchi Account Type Relation to Patient Date of Phone Billing Address Personal/Family Self [address] [place]
--- OUTSIDE RECORDS SUMMARY | 2025-06-27 10:22 | XMS_ITS | Encounter Summary ---
Author Organization [facility] Address [address] [place] [address] Care Team Providers Care Unit Aide Name Role Phone Name, Moses APARICIO Primary Care Provider Unavailabl e [facility], Pcp Primary Care Provider Unavailabl e Encounter Details Date Type Department Care Team Description 07/08/2009 Hospital Medical Records [address] [place] [address] Ramon Cullen MD Social History Tobacco Use [...] on filedocumented in this encounter Care Teams Unit Aide Relationship Specialty Start Date End Date Name, MD Moses PCP - General 01/05/1999 11/04/15 Community, Pcp PCP - General Internal Medicine 11/05/15 documented as of this encounter
--- OUTSIDE RECORDS SUMMARY | 2025-06-27 10:22 | XMS_ITS | Encounter Summary ---
Author Organization [employer] Address [address] [facility] [address] [place] [address] Care Team Providers Care Cementer Machine Name Role Phone Unavailable Primary Care Provider Unavailabl e Encounter Details Date Type Department Care Team (Latest Contact Info) Description 11/01/2019 Abstract [facility] CONVERSIONS Dental, Provider, DDS Social [...]
--- OUTSIDE RECORDS SUMMARY | 2025-06-27 10:22 | XMS_ITS | Patient Health Record ---
Author Organization [facility] Address [address] [place] [address] Care Team Providers Care Yarn Cleaner Name Role Phone Kavita Adam MD Primary Care Provider Unavail able Shirin Arzate Unavailable [phone] Allergies No Known Allergies Results Component Value [...] Polyneuropathy due to type 2 diabetes mellitus (803331117) Type 2 diabetes mellitus with diabetic polyneuropathy (E11.42) Active confirmed Vital Signs Blood pressure diastolic 70 mm Hg 06/05/2025 Height 5ft 6inch in 06/05/2025 Blood pressure systolic 125 mm Hg 06/05/2025 Weight 165 lbs 06/05/2025 BMI 26.63 kg/m2 06/05/2025 Procedures Procedure Date Ordered Date Performed Result Body Sit e 16344-ZHMDDIZ NAIL, 6 OR MORE 02/18/2025 N/A 05505-FUXB SKIN LESIONS, 2 TO 4 02/18/2025 N/A Encounters Encounter Location Date Provider Diagnosis [facility] [address] [place] [address] 02/18/2025 Shirin Arzate Tinea pedis of both feet B35.3 ; Other hammer toe(s) (acquired), right foot M20.41 ; Other hammer toe(s) (acquired), left foot M20.42 ; Type 2 diabetes mellitus with diabetic polyneuropathy E11.42 and Tinea unguium B35.1 [facility] [address] [place] [address] 06/05/2025 Shirin Arzate Type 2 diabetes mellitus [...] Treatment Pending Test Test Name Order Date 31053-AJSLNHF NAIL, 6 OR MORE 02/18/2025 54377-WRZB SKIN LESIONS, 2 TO 4 02/19/20 Next Appt Details Provider Name:Shirin maldonado, 06/04/2026 11:00:00 AM, [address] [place] [address], [id number], Insurance Providers Payer Name Payer Address Payer Phone Subscriber Number Group Number Insured Name Patient Relationship to Insured Coverage Start Date Coverage End Date [id number] [address] [place] [address] [phone] [id number] Arias, Manuel Self - patient is the insured Medical (General) History Medical History History ICD Code Arthritis asthma Depression Diabetic High Blood Pressure Kidney disease Stroke Stomach ulcer Surgical History Surgery Date(Month/Year) stomach ulver broken ankle hernia
--- OUTSIDE RECORDS SUMMARY | 2025-06-27 10:22 | XMS_ITS ---
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 ASBESTOS SIDING MECHANIC,ENGINEERING LEADER,FN P,HEALTHCARE CONSULTING MANAGER, [place] Address [address] [place] [address] Phone [phone] [facility] Care Team Providers Care River Rat Name Role Phone Chula Raygoza Unavailable [phone] Unavailable Unavailable [phone] Reason for Referral Not Available Allergies, adverse [...] MOUTH AFTER USING 2024-06-25 2025-06-24 BD ULTRA-FINE ZO PEN NEEDL E 32 GAUGE X 5/32 USE DIRECTED EVERY DAY 2025-01-02 No Data Availa ble Fluticasone Propionate 50 MCG/ACT Suspension INSTILL 1 SPRAY IN EACH NOSTRIL ONCE DAILY 2024-08-08 No Data Available Ketoconazole 2 % Crm APPLY A THIN LAYER TO FEET AND BETWEEN TOES TWICE DAILY 2025-02-18 No Data Available Sportomato Ultra Test Strip USE DIRECTE D TO TEST BLOOD SUGAR THREE TIMES DAILY 2025-03-28 No Data Available Embecta Pen Needle Zo 32G X 4 MM Miscellaneous USE DIRECTED [...] PCP every 3-6 months, BP assessed by STOVE MECHANIC 3x times a weekrecommend healthy lifestyle changes [...] call CBContinue to see PCP. 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 Benign paroxysmal positional vertigo [...] (do not use for phone, instead use 29291-90) [facility] Chronic obstructive pulmonar y disease, unspecifiedType [...] (do not use for phone, instead use 17551-96) [facility] New patient,40-59min; chronic exacerbation, 2 stable chronic or 1 acute illness add add modifier 95 for video (do not use for phone, instead use 57616-29) [facility] New patient,40-59min; chronic exacerbation, 2 stable chronic or 1 acute illness add add modifier 95 for video (do not use for phone, instead use 03826-93) [facility] New patient,40-59min; chronic exacerbation, 2 stable chronic or 1 acute illness add add modifier 95 for video (do not use for phone, instead use 47307-97) [facility] New patient,40-59min; chronic exacerbation, 2 stable chronic or 1 acute illness add add modifier 95 for video (do not use for phone, instead use 68525-81) [facility] New patient,40-59min; chronic exacerbation, 2 stable chronic or 1 acute illness add add modifier 95 for video (do not use for phone, instead use 11325-93) [facility] New patient,40-59min; chronic exacerbation, 2 stable chronic or 1 acute illness add add modifier 95 for video (do not use for phone, instead use 19514-99) [facility] New patient,40-59min; chronic exacerbation, 2 stable chronic or 1 acute illness add add modifier 95 for video (do not use for phone, instead use 76305-81) [facility] Estab. patient 30-39min; chronic exacerbation, 2 stable chronic or 1 acute illness add add modifier 95 for video, (do not use for phone, instead use 70427-71) [facility]2023 Chronic obstructive pulmonar y disease, unspecifiedType [...] (do not use for phone, instead use 53140-43) [facility] Estab. patient 30-39min; chronic exacerbation, 2 stable chronic or 1 acute illness add add modifier 95 for video, (do not use for phone, instead use 43030-79) [facility] Estab. patient 30-39min; chronic exacerbation, 2 stable chronic or 1 acute illness add add modifier 95 for video, (do not use for phone, instead use 41838-26) [facility] Estab. patient 30-39min; chronic exacerbation, 2 stable chronic or 1 acute illness add add modifier 95 for video, (do not use for phone, instead use 62859-52) [facility] Estab. patient 30-39min; chronic exacerbation, 2 stable chronic or 1 acute illness add add modifier 95 for video, (do not use for phone, instead use 01621-61) [facility] Estab. patient 30-39min; chronic exacerbation, 2 stable chronic or 1 acute illness add add modifier 95 for video, (do not use for phone, instead use 83246-02) [facility] Estab. patient 30-39min; chronic exacerbation, 2 stable chronic or 1 acute illness add add modifier 95 for video, (do not use for phone, instead use 24245-17) [facility] Estab. patient 30-39min; chronic exacerbation, 2 stable chronic or 1 acute illness add add modifier 95 for video, (do not use for phone, instead use 25496-98) [facility]20[place] Estab. patient 30-39min; chronic exacerbation, 2 stable chronic or 1 acute illness add add modifier 95 for video, (do not use for phone, instead use 51466-87) [facility] No Data Available [facility]20[place] Chronic obstructive pulmonar [...] earPersonal history of covid-19 No Data Available [facility] No Data Available [facility] No Data Available [facility] No Data Available [facility] No Data Available [facility] No Data Available [facility] Estab. patient 30-39min; chronic exacerbation, 2 stable chronic or 1 acute illness add add modifier 95 for video, (do not use for phone, instead use 98516-68) [facility]20[place] Chronic obstructive pulmonar y disease, unspecifiedType [...] (do not use for phone, instead use 18094-72) [facility] Estab. patient 30-39min; chronic exacerbation, 2 stable chronic or 1 acute illness add add modifier 95 for video, (do not use for phone, instead use 10412-51) [facility] Estab. patient 30-39min; chronic exacerbation, 2 stable chronic or 1 acute illness add add modifier 95 for video, (do not use for phone, instead use 19962-77) [facility] Estab. patient 30-39min; chronic exacerbation, 2 stable chronic or 1 acute illness add add modifier 95 for video, (do not use for phone, instead use 95065-51) [facility] Estab. patient 30-39min; chronic exacerbation, 2 stable chronic or 1 acute illness add add modifier 95 for video, (do not use for phone, instead use 54847-89) [facility] Estab. patient 30-39min; chronic exacerbation, 2 stable chronic or 1 acute illness add add modifier 95 for video, (do not use for phone, instead use 62598-88) [facility] Estab. patient 30-39min; chronic exacerbation, 2 stable chronic or 1 acute illness add add modifier 95 for video, (do not use for phone, instead use 12354-32) [facility] Estab. patient 30-39min; chronic exacerbation, 2 stable chronic or 1 acute illness add add modifier 95 for video, (do not use for phone, instead use 44598-38) [facility] Estab. patient 30-39min; chronic exacerbation, 2 stable chronic or 1 acute illness add add modifier 95 for video, (do not use for phone, instead use 74026-44) [facility] Estab. patient 10-29min; 1 minor problem; add add modifier 95 for video, modifier 93 for phone [facility]2025 Centrilobular emphysemaType 2 diabetes mellitus with other specified complicationHyperlipidemia, unspecifiedHypertensive chronic kidney disease w stg 1-4/unsp chr kdnyType 2 diabetes mellitus with diabetic chronic kidney diseaseChronic kidney disease, stage 3aCyst of kidney, acquiredType 2 diabetes w diabetic peripheral angiopath w/o gangreneTinea pedisVitamin D deficiency, unspecifiedMajor depressive disorder, single episode, in partial remissionPolyosteoarthritis, unspecifiedGastro-esophageal reflux disease without esophagitisEnlarged prostate without lower urinary tract symptomsBenign paroxysmal vertigo, bilateralOther specified hearing loss, right earPersonal history of covid-19Long term (current) use of insulinLong term (current) use of oral hypoglycemic drugsDo not resuscitateOther problems related to medical facilities and other health care Estab. patient 10-29min; 1 minor problem; add add modifier 95 for video, modifier 93 for phone [facility] [place] Estab. patient 10-29min; 1 minor problem; add add modifier 95 for video, modifier 93 for phone [facility] [place] Estab. patient 10-29min; 1 minor problem; add add modifier 95 for video, modifier 93 for phone [facility] [place]/20[place] Estab. patient 10-29min; 1 minor problem; add add modifier 95 for video, modifier 93 for phone [facility] [place]/20[place] Estab. patient 10-29min; 1 minor problem; add add modifier 95 for video, modifier 93 for phone [facility] [place]/20[place] Estab. patient 10-29min; 1 minor problem; add add modifier 95 for video, modifier 93 for phone [facility] [place]/20[place] Estab. patient 10-29min; 1 minor problem; add add modifier 95 for video, modifier 93 for phone [facility] [place]/20[place] Estab. patient 10-29min; 1 minor problem; add add modifier 95 for video, modifier 93 for phone [facility] [place] 06/[place]/20[place] Estab. patient 10-29min; 1 minor problem; add add modifier 95 for video, modifier 93 for phone [facility] [place] 06[place]2025 Vital Signs Date of Collection Vitals 2022-10-05 [...] tive Time Current Smoking Status Never smoker 2025-06-17 1 Sex Male History of Procedures Procedures Service Procedure code Service date Servicing provider Phone# New patient,40-59min; chronic exacerbation, 2 stable chronic or 1 acute illness add add modifier 95 for video (do not use for phone, instead use 33346-23) 14696 2022-10-05 No Data Available No Data Availa [...] (do not use for phone, instead use 66424-55) 55006 2023-08-16 No Data Available No Data Availa [...] No Data Avail able No Data Available 11796 2023-09-05 No Data Available No Data Available [...] (do not use for phone, instead use 65664-17) 00418 2024-05-10 No Data Available No Data Availa [...] 95 for video, modifier 93 for phone 31212 2025-06-24 No Data Available No Data Availa [...] No Data Available No Data Nikki ilable SBP < 130 (3074F) 3074F 2025-06-24 No Data Available No Data Available DBP <80 (3078F) 3078F 2025-06-24 No Data Available No Data Available Most recent A1c (HbA1c) or GMI level 7-7.9% (3051F) 3051F 2025-06-24 No Data Available No Data Availa ble Functional Status Functional Category Effective Dates . [...] joint pain increased [facility]. [facility] [...] infection. continue anoro and f/u with [facility] Micheal : Stable today on current meds, neb/inh, monitor [...] PCP every 3-6 months, BP assessed by STOVE MECHANIC 3x times a weekrecommend healthy lifestyle changes [...] modifier 95Continue to see PCP. [facility] or disease [...] PCP every 3-6 months, BP assessed by STOVE MECHANIC 3x times a weekrecommend healthy lifestyle changes [...] PCP every 3-6 months, BP assessed by STOVE MECHANIC 3x times a weekrecommend healthy lifestyle changes [...] PCP every 3-6 months, BP assessed by STOVE MECHANIC 3x times a weekrecommend healthy lifestyle changes [...] joint pain increased [facility]. 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 Health Concerns Date Concern 2025-06-24 Patient/Guardian morteza davis to visit via telehealth. Today, patient has [...] Do you have a Durable Power of Metabolic Specialist for Healthcare, or Healthcare Proxy Or Guardianship? Yes, preferred proxy but not named POAIf so, Who? HCP: Alyssa Arias- daughter Do you have a written Advance Directive? 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
--- OUTSIDE RECORDS SUMMARY | 2025-06-27 10:22 | XMS_ITS | Encounter Summary ---
Author Organization [facility] Address [address] [place] [address] Care Team Providers Care Graves Registration Specialist Name Role Phone Name, Moses APARICIO Primary Care Provider Unavailabl e Community, Pcp Primary Care Provider Unavailabl e Encounter Details Date Type Department Care Team Description 05/31/2011 Home Health Certification Medical Records [address] [place] [address] Vna Social History Tobacco Use Types Packs/Day [...] on filedocumented in this encounter Care Teams Graves Registration Specialist Relationship Specialty Start Date End Date Name, MD Moses PCP - General 01/05/1999 11/04/15 Community, Pcp PCP - General Internal Medicine 11/05/15 documented as of this encounter
== END 2025-06-27 10:18 | disposition home or self-care (01) ==
LOC: HO.HMCH 09:05
PROVIDERS: PCP Internal Medicine; Visit Provider Internal Medicine
DX: Z00.00 Encounter for general adult medical examination without abnormal findings (principal); E11.22 Type 2 diabetes mellitus with diabetic chronic kidney disease; N18.31 Chronic kidney disease, stage 3a; Z79.4 Long term (current) use of insulin; N28.1 Cyst of kidney, acquired; F33.0 Major depressive disorder, recurrent, mild

== ENCOUNTER → 2025-06-27 | Outpatient (BNVA) | payer OTHER, SELFPAY | PROVIDERS: PCP Internal Medicine; Visit Provider Internal Medicine | DX: Z00.00 Encounter for general adult medical examination without abnormal findings (principal); I12.9 Hypertensive chronic kidney disease with stage 1 through stage 4 chronic kidney disease, or unspecified chronic kidney disease; E78.5 Hyperlipidemia, unspecified; E11.22 Type 2 diabetes mellitus with diabetic chronic kidney disease; N18.31 Chronic kidney disease, stage 3a; N28.1 Cyst of kidney, acquired; F33.0 Major depressive disorder, recurrent, mild; Z79.4 Long term (current) use of insulin | CPT/HCPCS: 96127; 99212; 99397 ==

== ENCOUNTER 2025-09-24 08:06 | Outpatient (REF) | payer OTHER, SELFPAY ==
--- NOTE | ~2025-09-24 | CT_ITS ---
EXAMINATION: CT ABDOMEN AND PELVIS WITHOUT AND WITH CONTRAST CLINICAL INFORMATION: Kidney cysts COMPARISON: Previous renal ultrasound October [address] of the abdomen and pelvis June 2016 TECHNIQUE: Multidetector volumetric imaging was performed of the abdomen and pelvis before and after the IV administration of 85 mL of Omnipaque 300 intravenous contrast. Sagittal and coronal reformatted images were obtained on the technologist's workstation. This CT examination was performed using dose optimization techniques as appropriate, variously including the following: *Automated exposure control *Adjustment of mA and/or kV according to patient size (this includes techniques or standardized protocols for targeted exams where dose is matched to indication/reason for exam; i.e. extremities or head) *Use of iterative reconstruction technique DLP 5 8 4 mgy/cm FINDINGS: LUNG BASES: The visualized lung bases are unremarkable. LIVER, GALLBLADDER, AND BILIARY TREE: The liver is normal in size, shape, and attenuation. No focal hepatic lesion or biliary ductal dilatation is present. The gallbladder is unremarkable with no evidence of radiopaque gallstones, gallbladder wall thickening, or obvious pericholecystic inflammatory changes. PANCREAS: Fatty infiltration of pancreas. SPLEEN: Unremarkable ADRENAL GLANDS: Unremarkable KIDNEYS AND URETERS: 1 x 1.5 cm lesion in the medial upper pole of the right kidney. This is high attenuation precontrast Hounsfield units measuring 63. Hounsfield units postcontrast measure 78 without appreciable enhancement just above a proteinaceous hyperdense cyst, Bosniak type II. There is a 8 cm cyst exophytic to the anterior upper pole of the left kidney. This is minimally complex with thin calcified nonenhancing septation, Bosniak type II F cyst. There is a 5.5 x 7.8 cm complex Bosniak type II cyst in the medial mid and lower pole of the left kidney with single thin minimally enhancing septation. There are multiple additional bilateral simple-appearing Bosniak type cysts. Question tiny 1 mm right upper pole renal stone axial image 50 series 3. No left renal stone. Or hydronephrosis. BLADDER: Not optimally distended and not well evaluated. GASTROINTESTINAL TRACT: Diverticulosis of the colon. No evidence of diverticulitis. 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 There are also surgical clips adjacent to the GE junction. Normal appendix. ABDOMINAL WALL: Post ventral hernia repair with mesh. LYMPH NODES: Normal VASCULAR: Atherosclerotic disease. 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 Measured 2 cm in diameter on prior June 2016 exam, not appreciably changed in size. No abdominal aortic aneurysm. PELVIC VISCERA: Enlarged prostate gland. Partially visualized penile prosthesis. OSSEOUS STRUCTURES: Mild curvature of the lumbar sacral spine to the right. Degenerative changes of the spine and hip joints. CT/CT abdomen pelvis wo/w IV con IMPRESSION: Multiple bilateral renal cysts. Probable hyperdense cyst in the upper pole of the right kidney measuring 1 x 1.5 cm, Bosniak type II, and two Bosniak type II F cysts in the upper and lower pole of the left kidney. Multiple additional bilateral simple renal cysts. Tiny nonobstructing stone in the upper pole of the right kidney. Diverticulosis of the colon. Postsurgical changes from gastric bypass and postsurgical changes at the distal esophagus/GE junction. Atherosclerotic disease. 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 Atrophic changes of the pancreas. Enlarged prostate gland. Electronically signed by: Luisa Pulliam MD 09/24/2025 05:24 PM [facility]
[2025-09-24 09:12] LABS: Alanine Aminotransferase 22 U/L (0-40); Albumin Level 3.9 g/dL (3.5-5.0); Alkaline Phosphatase 88 U/L (39-117); Anion Gap 9 (12-20); Aspartate Amino Transferase 24 U/L (5-37); Blood Urea Nitrogen 23 mg/dL (9-16); Calcium 8.9 mg/dL (8.4-10.2); Carbon Dioxide 32 mmol/L (22-29); Chloride 104 mmol/L (96-108); Cholesterol 134 mg/dL (<200); Estimated Glomerular Filt Rate 56; HDL Cholesterol 42 mg/dL (>40); Potassium 3.8 mmol/L (3.3-5.1); Sodium 141 mmol/L (135-145); Total Protein 7.2 g/dL (6.5-8.0); Triglycerides 71 mg/dL (<150)
[2025-09-24 10:02] LABS: Microalbum/Creatinine Ratio Ur 5.2 ug/mg cr (<30)
[2025-09-24] MEDS: iohexoL 350 MG/ML 100 ML INFUS..BTL IV (16:55)
== END 2025-09-24 08:07 | disposition home or self-care (01) ==
LOC: HO.CT 08:06
PROVIDERS: PCP Internal Medicine; Visit Provider Internal Medicine
DX: I10 Essential (primary) hypertension (principal); N28.1 Cyst of kidney, acquired; E55.9 Vitamin D deficiency, unspecified; E78.5 Hyperlipidemia, unspecified; R80.9 Proteinuria, unspecified
CPT/HCPCS: 36415; 74178; 80053; 80061; 82043; 82306; 82570; Q9967

== ENCOUNTER → 2025-09-24 14:56 | Outpatient (BNV) | payer OTHER, SELFPAY | PROVIDERS: PCP Internal Medicine; Visit Provider Radiology Diagnostic Radiology | DX: N28.1 Cyst of kidney, acquired (principal); K57.30 Diverticulosis of large intestine without perforation or abscess without bleeding; I72.3 Aneurysm of iliac artery; N40.0 Benign prostatic hyperplasia without lower urinary tract symptoms | CPT/HCPCS: 74178 ==

== ENCOUNTER 2025-10-15 14:29 | Outpatient (AMB) | payer OTHER, SELFPAY ==
--- OUTSIDE RECORDS SUMMARY | 2024-11-22 04:30 | XMS_ITS ---
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 Mathur Medications Medication SIG (Take, Route, Frequency, Duration) Notes Start Date End Date Status amLODIPine Besylate 5 MG 1 tablet Orally Once a day Active Atorvastatin Calcium 20 MG 1 tablet Oral ly Once a day Active Clopidogrel Bisulfate 75 MG 1 tablet Ora lly Once a day Active FLUoxetine HCl 20 MG 1 capsule Orally On ce a day Active hydroCHLOROthiazide 12.5 MG 1 tablet in the morning Orally Once a day Active Metoprolol Succinate 25 MG 1 capsule Ora lly Once a day Active Omeprazole 20 MG 1 capsule 1/2 to 1 hour before morning meal Orally Once a day Active Tamsulosin HCl 0.4 MG 1 capsule Orally O nce a day Active Januvia 100 MG 1 tablet Orally Once a day Active Jardiance 25 MG 1 tablet Orally Once a day Active Vitamin D3 Active Tresiba Active Soothe XP - as directed Ophthalmic Active Anoro Ellipta 62.5-25 MCG/ACT 1 puff Inh alation Once a day Active Fish Oil Active Arnuity Ellipta Acti ve B12 Active Fluticasone Propionate 50 MCG/ACT 1 spray in each nostril Nasally Twice a day Active Benzonatate 200 MG 1 capsule as needed Orally Three times a day Active Social History Tobacco Use: Social History Observation Description Date Details (start date - stop date) Never Smoker NA - NA Tobacco use other than smoking: Question Answer Notes Are you an other tobacco user? No Tobacco Control (Standard) Question Answer Notes Tobacco use: Nonsmoker Additional Findings: Tobacco non-user Current no nsmoker AUDIT-C (Standard) Question Answer Notes Did you have a drink contain ing alcohol in the past year? Yes How often did you have six o r more drinks on one occasion in the past year? Declined to specify (0 point) How many drinks did you have on a typical day when you were drinking in the past year? Declined to specify (0 point) How often did you have a dri nk containing alcohol in the past year? Declined to specify (0 point) Points 0 Interpretation Negative Encounters Encounter Location Date Provider Diagnosis [facility] [address] [address] 11/22/2024 Shirin Arzate Plan Of Treatment Next Appt Details Provider Name:Shirin Chandler erica, 06/04/2026 11:00:00 AM, [address] [place] [address], [phone], Progress Notes * Luz BIANCHIOB:[birth year] (84 yo M)Acc No.[id number]:11/22/2024 Progress Notes Patient: Porfirio MEREDITHo Provider: Inge Arzate DPM :1940 A ge:83 Y S ex:Male Date:11/22/2024 Address:[address] [place], [place] [id number] Pcp:Kavita Adam MD Subjective: * Chief Complaints: * [address] Mathur. * ROS: G eneral/Constitutional: Nausea d enies, denies. V omiting d enies, denies.?Hunger Thirst d enies, denies. L oss appetite d enies, denies. C hills d enies, denies. F atigue d enies, denies. F ever d enies, denies. N ight Sweats denies, denies. U nexplained weight loss d enies, denies. U nexplained weight gain?denies, denies. H EENTM: Dentures d enies, denies. D izziness d enies, denies. G lasses/contacts d enies, denies. R etinopathy d enies, denies. B lurred/double vision d enies, denies. T MJ d enies, denies. D ischarge/drainage d enies, denies. I mplants d enies, denies. S ore throat d enies, denies. D ental implants?denies, denies. H brayden of hearing d enies, denies. D ifficulty chewing/swallowing/speaking d enies, denies. N ose bleeds d enies, denies. S ore mouth d enies, denies. R espiratory: On Oxygen d enies, denies. P neumonia/pleurisy d enies, denies. B ronchitis d enies, denies. E mphysema d enies, denies. C oughing?denies, denies. C ough blood d enies, denies. S hortness of breath d enies, denies. W heezing d enies, denies. C ardiovascular: Pacemaker d enies, denies. 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 C HF d enies, denies. H eart attack d enies, denies.?Septal defect d enies, denies. R apid beat d enies, denies. C hest pain d enies, denies. A trial Fib. d enies, denies. M urmur/Palpitations d enies, denies. G astrointestinal: Hemorrhoids d enies, denies. S tomach/Abdominal pain?denies, denies. D ark blood stool d enies, denies. I rritable bowel d enies, denies. C onstipation d enies, denies. D iarrhea d enies, denies. H ematology: Swelling d enies, denies. C lots d enies, denies.?Varicose Veins d enies, denies. B ruising a dmits. B leeding problem d enies, denies. G enitourinary: Blood urine d enies, denies. F requent/Painfu/urination/bladder control d enies, denies. K idney stones d enies, denies. I nfection (UTI)?denies, denies. N ephropathy d enies, denies. s ex trans dis (STD) d enies, denies. P rostate a dmits. M usculoskeletal: Hammertoes d enies, denies. B unions d enies, denies. B ack Pain d enies, denies. M uscle Cramps/ Resting d enies, denies. M uscle cramps / walking d enies, denies. G eneralized aches and pains d enies, denies. W eakness d enies, denies. I nteg.: Leary d enies, denies. S cars d enies, denies. C orns/calluses d enies, denies. I ngrown nails a dmits, denies. P ainful nails d enies, denies. O pen Sores d enies, denies. R ashes d enies, denies. ? N eurologic: Difficulty sleeping d enies, denies. B rain disorder?denies, denies. N umbness d enies, denies. B alance trouble d enies, denies. C onfusion d enies, denies. F ainting/blackouts d enies, denies. T ingling d enies, denies. T remors d enies, denies. * Medical History: A rthritis, Asthma, Depression, Diabetic, High Blood Pressure, Kidney disease, Stroke, Stomach ulcer. * Surgical History: s tomach ulver , broken ankle , hernia . * Family History: M other: . F ather: . * Social History: T obacco Use: T obacco use other than smoking A re you an other tobacco user? N o Tobacco Control (Standard) T obacco use: N onsmoker A dditional Findings: Tobacco non-user C urrent nonsmoker D rugs/Alcohol: D rugs H ave you used drugs other than those for medical reasons in the past 12 months? N o M iscellaneous: C affeine: yes, frequency:, 1-2 cups per day. Marital status: . D rug/Alcohol: A PAKO-C (Standard) D id you have a drink containing alcohol in the past year? Y es H ow often did you have six or more drinks on one occasion in the past year? D eclined to specify (0 point) H ow many drinks did you have on a typical day when you were drinking in the past year? D eclined to specify (0 point) H ow often did you have a drink containing alcohol in the past year? D eclined to specify (0 point) P oints 0 I nterpretation N egative * Medications: T aking Arnuity Ellipta , Taking Benzonatate 200 MG Capsule 1 capsule as needed Orally Three times a day , Taking Fluticasone Propionate 50 MCG/ACT Suspension 1 spray in each nostril Nasally Twice a day , Taking B12 , Taking Fish Oil , Taking Anoro Ellipta 62.5-25 MCG/ACT Aerosol Powder Breath Activated 1 puff Inhalation Once a day , Taking Soothe XP - Solution as directed Ophthalmic , Taking Tresiba , Taking Vitamin D3 , Taking Tamsulosin HCl 0.4 MG Capsule 1 capsule Orally Once a day , Taking Omeprazole 20 MG Capsule Delayed Release 1 capsule 1/2 to 1 hour before morning meal Orally Once a day , Taking Metoprolol Succinate 25 MG Capsule ER 24 Hour Sprinkle 1 capsule Orally Once a day , Taking Jardiance 25 MG Tablet 1 tablet Orally Once a day , Taking Januvia 100 MG Tablet 1 tablet Orally Once a day , Taking hydroCHLOROthiazide 12.5 MG Tablet 1 tablet in the morning Orally Once a day , Taking FLUoxetine HCl 20 MG Capsule 1 capsule Orally Once a day , Taking Clopidogrel Bisulfate 75 MG Tablet 1 tablet Orally Once a day , Taking Atorvastatin Calcium 20 MG Tablet 1 tablet Orally Once a day , Taking amLODIPine Besylate 5 MG Tablet 1 tablet Orally Once a day Objective: * Vitals: Assessment: Plan: * Treatment: * Images: * The named appointment provid er may or may not be the originator of this progress note, and it is not deemed complete until electronically signed by the appointment provider. Sign off status: Pending * Provider: Inge Arzate DPM Date: 0 11/22/2024 Generated for Fede last/Mahesh/Capri on: 06:10 PM EST
[2025-10-15 14:36] VITALS: BP 110/52; PULSE 55; RESP 18; O2SAT 97; BMI 26.6
--- NOTE | 2025-10-15 14:36 | A.OFFPC_ITS ---
Vital Signs 10/15/25 14:36 Height 5 ft 6 in Weight 165 lb 2 oz BMI 26.6 BP 110/52 L Blood Pressure Location Rt femoral Position Sitting Respiration 18 Pulse 55 Pulse Source Pulse Oximeter Temp Source Temporal Artery Scan Pulse Oximetry (%) 97 Oxygen Delivery Method Room Air Intake Visit Reasons: feeling tired/sleepy often Branch Sales Manager Required: No Accompanied by: Self / Same As Patient Allergies metformin Adverse Reaction (Intermediate, Verified 10/15/25 14:53) diarrhea dulaglutide (From [facility]) Adverse Reaction (Verified 10/15/25 14:53) vomiting Medication List - Last Reconciled 10/15/25 by Kavita Mckeon MD [adult diapers pull-ups As directed] albuterol sulfate 2.5 mg (3 mL) inhalation BID 30 days amlodipine 5 mg PO DAILY 90 days atorvastatin 20 mg PO BEDTIME benzonatate 200 mg PO BID PRN 30 days blood sugar diagnostic (Baeta Ultra Test strips) As directed check the blood sugar 3 times a day blood-glucose meter (Baeta Ultra2 Meter) As directed budesonide-formoterol 80-4.5 mcg/actuation 1 inh inhalation BID 30 days cholecalciferol (vitamin D3) 50 mcg PO DAILY 90 days clopidogrel 75 mg PO BEDTIME 90 days clotrimazole 10 mg mucous membrane TID disposable gloves (Biobrane Gloves Large) As directed empagliflozin (Jardiance) 25 mg PO QAM fluoxetine 20 mg PO QAM fluticasone furoate 100 mcg/actuation (Arnuity Ellipta) 1 inh PO DAILY fluticasone propionate 50 mcg/actuation 2 sprays intranasal DAILY 30 days fluticasone propionate 50 mcg/actuation (Flonase Allergy Relief) 1 spray intranasal DAILY hydrochlorothiazide 12.5 mg PO DAILY 90 days insulin degludec (Tresiba FlexTouch U-100 insulin) 15 units (0.15 mL) subcut DAILY lancets (FreeStyle Lancets) As directed- TID latex gloves (Latex Gloves, Medium) As directed levalbuterol tartrate 45 mcg/actuation 2 inhalations inhalation Q6H 30 days [male urinal As directed] meclizine 25 mg PO BID PRN metoprolol succinate ER 25 mg PO DAILY 90 days nebulizers As directed omeprazole 40 mg PO QAM pen needle, diabetic As directed once daily [personal cleansing wipes As directed] [quad cane As directed] sitagliptin phosphate (Januvia) 100 mg PO QAM tamsulosin 0.4 mg PO BEDTIME underpads (Bed Underpads) Use 1 underpad once a day Ventolin HFA 90 mcg/actuation (albuterol sulfate) 2 puffs inhalation Q6H PRN 30 days NS walker (Ultra-Light Rollator misc) As directed Tobacco use date assessed: 10/15/25 Fall risk assessment: No Falls in past year Last assessed Fall Risk: 10/15/25 Dental Screening Dental Screen Date: 10/15/25 Did you have a dental visit in the last 12 months?: Yes Did you have a dental problem in the last 6 months where you did not have access to dental care?: No Was dental information given to patient?: Patient has dentist HPI HPI Comments History of Present Illness Details This is an 84-year-old male with diabetes mellitus type 2, hypertension, hyperlipidemia and mild major depression that comes today complaining of fatigue and tiredness that has been present for the past few weeks. Denies any active bleeding. No nausea, vomiting or change in bowel or bladder habits. No fever. No sick contacts. A1c within goal being 6.4% today. Blood pressure stable. Last LDL is very close to goal. Depression well controlled with medications. CT scan of the abdomen was discussed and has a aneurysm of common iliac artery and will be referred to vascular surgery. [facility] Medical History (Updated 10/15/25 @ 15:07 by Kavita Mckeon MD) GERD (gastroesophageal reflux disease) Pulmonary nodule Asthma-COPD overlap syndrome Peripheral vascular disease Abnormal chest x-ray Hyperkalemia Mild recurrent major depression Left leg pain Left knee pain Screening for prostate cancer Bilateral sensorineural hearing loss Progressive hearing loss of right ear Loss of hearing Cerumen debris on tympanic membrane of both ears Otitis media TIA (transient ischemic attack) Diverticulosis Enlarged prostate Renal cyst Renal stones Essential hypertension Hyperlipidemia LDL goal <70 Type 2 diabetes mellitus with hyperglycemia Surgical History History of colonoscopy Hx of hernia repair Family History Father Heart disease Mother No problems noted. Brother Prostate cancer Social History Household Members: Family Housing: House Alcohol intake: current Alcohol intake frequency: holidays/special occasions only Alcohol type: hard liquor Patient Tobacco Use Status: Never used Tobacco e-Cigarette/Vaping Use: Never Used Second Hand Smoke Exposure: No service: No Current occupational status: retired Cognitive needs: Yes Hearing needs: No Vision needs: Yes Questionnaire Thrive Questionnaire Date Thrive assessed: 02/20/25 I am a: Patient What is your living situation today?: I have a steady place to live Within the past 12 months, did the food you bought not last and you didn't have the money to get more?: Never true Within the past 12 months, did you worry whether your food would run out before you got money to buy more?: Never true Do you have trouble paying for medicines?: No Do you have trouble getting transportation to medical appointments?: No Do you have trouble paying your heating and electricity bill?: No Do you have trouble taking care of your child, family member or friend?: No Do you have trouble with day-to-day activities such as bathing, preparing meals, shopping, managing finances, etc.?: Yes Are you currently unemployed and looking for a job?: No Are you interested in more education?: No Currently or been in a relationship where the following occur: No concerns reported THRIVE Score: 0 NIDHI-7 AMB Questionnaire NIDHI-7 Date NIDHI - 7 assessed: 06/27/25 Source: Developed by Drs. Spenser Mesa, Chrystal Yanez, Ren Felix and colleagues, with an educational neeta from [employer]. Review of Systems Const All systems reviewed & are unremarkable except as noted in HPI and below Card Denies chest pain at rest, Denies chest pain with activity, Denies edema, Denies irregular heart rhythm, Denies claudication, Denies dyspnea, Denies dyspnea on exertion, Denies orthopnea, Denies paroxysmal nocturnal dyspnea and Denies slow heart rate Resp Denies cough, Denies dyspnea and Denies dyspnea on exertion Physical exam (Primary Care) Vital Signs: Last Vital Signs Pulse 55 10/15/25 14:36 Resp 18 10/15/25 14:36 BP 110/52 L 10/15/25 14:36 Pulse Ox 97 10/15/25 14:36 Oxygen Delivery Method Room Air 10/15/25 14:36 BMI result Body Mass Index 26.6 Tobacco/Smoking Status: Tobacco use Status Tobacco use date assessed 10/15/25 10/15/25 14:41 Patient Tobacco Use Status Never used Tobacco 10/15/25 14:41 e-Cigarette/Vaping Use Never Used 10/15/25 14:41 Thrive Assessment: Date of Thrive Assessment Date Thrive assessed 02/20/25 10/15/25 14:41 Currently or been in a relationship where the following occur: No concerns reported Resp Effort & Inspection: normal respiratory effort Auscultation: clear to auscultation bilaterally Cardio Jugular venous distension: no JVD Rate: regular rate Rhythm: regular rhythm Heart sounds: S1 normal heart sound present and S2 normal heart sound present Extrem General: Yes full ROM Office Procedures Flu Questionnaire Does the patient have a severe egg allergy?: No Does the patient have severe life threatening allergies?: No Does the patient have a fever or illness today?: No Has the patient ever had Guillain-[place] Syndrome?: No Has the patient ever had any past reaction to a flu shot?: No Results AMB Hemoglobin A1c AMB Hemoglobin A1c 6.4 % Last Edit by Soco Carlisle MA on 10/15/25 15:10 Immunizations Fluarix [id number] (PF) 45 mcg (15 mcg x 3)/0.5 mL IM syringe Performing Provider: Kavita Mckeon MD [facility] Administered by: Jada Morales CMA on 10/15/25 15:10 Dose Route Admin Location Dispensed Lot Number Expiration Date NDC Lease Buyer 0.5 mL IM Left Deltoid 0.5 mL [id number] 04/15/26 [id number] [employer] VIS Given Date VIS Provided VIS Publication Date 10/15/25 Single Vaccine 24 Eligibility Eligibility Date Funding Source Not [facility] Eligible 10/15/25 Private Coding Level of Care Code Est Pt Level 4 (33578) Diagnoses Mild recurrent major depression F33.0 Essential hypertension I10 Type 2 diabetes mellitus without complication, with long-term current use of insulin E11.9; Z79.4 Diabetes mellitus complication status: without complication Diabetes mellitus jail insulin use: with termite control technician use Diabetes mellitus type: type 2 Aneurysm, common iliac artery I72.3 Hyperlipidemia LDL goal <70 E78.5 Time Spent (min) 20 Assessment & Plan Assessment & Plan (1) Mild recurrent major depression: Code(s): F33.0 - Major depressive disorder, recurrent, mild Category: Medical (2) Essential hypertension: Code(s): I10 - Essential (primary) hypertension Category: Medical (3) Diabetes mellitus: Code(s): E11.9 - Type 2 diabetes mellitus without complications Category: Medical Qualifiers: Diabetes mellitus complication status: without complication Diabetes mellitus jail insulin use: with termite control technician use Diabetes mellitus type: type 2 Qualified Code(s): E11.9 - Type 2 diabetes mellitus without complications; Z79.4 - long-term (current) use of insulin (4) Aneurysm, common iliac artery: Code(s): I72.3 - Aneurysm of iliac artery Category: Medical (5) Hyperlipidemia LDL goal <70: Code(s): E78.5 - Hyperlipidemia, unspecified Category: Medical Plan Referred to vascular surgery. A1c goal is equal or less than 7%. Blood pressure goal is equal or less than 130/80. LDL goal is close is 70. Repeat labs. Orders: Orders Thyroid Stimulating Hormone Today R53.83 - Other fatigue Vitamin B12 and Folate Today E53.8 - Deficiency of other specified B group vitamins, R53.83 - Other fatigue Vitamin D 25-OH Total Today E55.9 - Vitamin D deficiency, unspecified, R53.83 - Other fatigue AMB Hemoglobin A1c Today Z13.9 - Encounter for screening, unspecified Complete Blood Count Auto Diff Today R53.83 - Other fatigue Influenza 4834-1403 Immunization Today Z23 - Encounter for immunization Referrals Vascular Surgery Referral I72.3 - Aneurysm of iliac artery
--- OUTSIDE RECORDS SUMMARY | 2025-10-15 18:10 | XMS_ITS | Encounter Summary ---
Author Organization [employer] Address [address] [place] [address] Care Team Providers Care Junior Estimator Name Role Phone Unavailable Primary Care Provider Unavailabl e Encounter Details Date Type Department Care Team (Latest Contact Info) Description 11/01/2019 Abstract [facility] CONVERSIONS Dental, Provider, DDS Social History [...]
--- OUTSIDE RECORDS SUMMARY | 2025-10-15 18:10 | XMS_ITS | Encounter Summary ---
Author Organization [employer] Address [address] [place] [address] Care Team Providers Care Concessionist Name Role Phone Unavailable Primary Care Provider Unavailabl e Encounter Details Date Type Department Care Team (Latest Contact Info) Description 10/31/2018 Abstract [facility] CONVERSION[facility] Dental, Provider, DDS Social History [...]
--- OUTSIDE RECORDS SUMMARY | 2025-10-15 18:10 | XMS_ITS | Patient Health Record ---
[facility] Address [address] [address] Care Team Providers Care Operations Research Analyst Name Role Phone Kavita Adam MD Primary Care Provider Unavail able Shirin Arzate Unavailable [phone] Allergies No Known Allergies Results Component Value [...] Polyneuropathy due to type 2 diabetes mellitus ([id number]) Type 2 diabetes mellitus with diabetic polyneuropathy (E11.42) Active confirmed Vital Signs Blood pressure diastolic 70 mm Hg 06/05/2025 Height 5ft 6inch in 06/05/2025 Blood pressure systolic 125 mm Hg 06/05/2025 Weight 165 lbs 06/05/2025 BMI 26.63 kg/m2 06/05/2025 Procedures Procedure Date Ordered Date Performed Result Body Sit e 78044-SWLFHET NAIL, 6 OR MORE 02/18/2025 N/A 05020-BVMG SKIN LESIONS, 2 TO 4 02/18/2025 N/A Encounters Encounter Location Date Provider Diagnosis [facility] [address] [place] [address] 02/18/2025 Shirin Arzate Tinea pedis of both feet B35.3 ; Other hammer toe(s) (acquired), right foot M20.41 ; Other hammer toe(s) (acquired), left foot M20.42 ; Type 2 diabetes mellitus with diabetic polyneuropathy E11.42 and Tinea unguium B35.1 [facility] [address] [place] [address] 06/05/2025 Shirin Arzate Type 2 diabetes mellitus [...] Treatment Pending Test Test Name Order Date [id number] NAIL, 6 OR MORE 02/18/2025 71157-LVTC SKIN LESIONS, 2 TO 4 02/19/20 Next Appt Details Provider Name:Shirin maldonado, 06/04/2026 11:00:00 AM, [address] [place] [address], [phone], Insurance Providers Payer Name Payer Address Payer Phone Subscriber Number Group Number Insured Name Patient Relationship to Insured Coverage Start Date Coverage End Date [facility] [address] [address] [place] [address] [phone] [id number] Arias, Manuel Self - patient is the insured Medical (General) History Medical History History ICD Code Arthritis asthma Depression Diabetic High Blood Pressure Kidney disease Stroke Stomach ulcer Surgical History Surgery Date(Month/Year) stomach ulver broken ankle hernia
--- OUTSIDE RECORDS SUMMARY | 2025-10-15 18:10 | XMS_ITS ---
Author Name Justa Prado NP Address [address] [place] [address] Phone [phone] [facility] Care Team Providers Care Project/Production Manager Imaging Name Role Phone Justa Prado Unavailable [phone] Unavailable Unavailable [phone] Reason for Referral Not Available Allergies, adverse [...] TOES TWICE DAILY 2025-02-18 No Data Available OneTouch Ultra Test Strip USE DIRECTE D TO [...] PCP every 3-6 months, BP assessed by [facility] APPRENTICE 3x times a weekrecommend healthy lifestyle changes [...] Active 2023-08-16 N/A referral to nina arreaga ..239/06/10:-has hearing aids b/l since about 2022, but [...] call CBContinue to see PCP. 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 Benign paroxysmal positional vertigo [...] (do not use for phone, instead use 62279-90) [facility] Chronic obstructive pulmonar y disease, unspecifiedType [...] (do not use for phone, instead use 97990-96) [facility] New patient,40-59min; chronic exacerbation, 2 stable chronic or 1 acute illness add add modifier 95 for video (do not use for phone, instead use 42518-30) [facility] New patient,40-59min; chronic exacerbation, 2 stable chronic or 1 acute illness add add modifier 95 for video (do not use for phone, instead use 50047-91) [facility] New patient,40-59min; chronic exacerbation, 2 stable chronic or 1 acute illness add add modifier 95 for video (do not use for phone, instead use 03825-50) [facility] New patient,40-59min; chronic exacerbation, 2 stable chronic or 1 acute illness add add modifier 95 for video (do not use for phone, instead use 97131-14) [facility] New patient,40-59min; chronic exacerbation, 2 stable chronic or 1 acute illness add add modifier 95 for video (do not use for phone, instead use 71968-88) [facility] New patient,40-59min; chronic exacerbation, 2 stable chronic or 1 acute illness add add modifier 95 for video (do not use for phone, instead use 37223-83) [facility] New patient,40-59min; chronic exacerbation, 2 stable chronic or 1 acute illness add add modifier 95 for video (do not use for phone, instead use 58611-01) [facility]/2022 Estab. patient 30-39min; chronic exacerbation, 2 stable chronic or 1 acute illness add add modifier 95 for video, (do not use for phone, instead use 19859-78) [facility] 08[place]2023 Chronic obstructive pulmonar y disease, unspecifiedType [...] (do not use for phone, instead use 85779-58) [facility] Estab. patient 30-39min; chronic exacerbation, 2 stable chronic or 1 acute illness add add modifier 95 for video, (do not use for phone, instead use 90206-18) [facility] Estab. patient 30-39min; chronic exacerbation, 2 stable chronic or 1 acute illness add add modifier 95 for video, (do not use for phone, instead use 92173-94) [facility] Estab. patient 30-39min; chronic exacerbation, 2 stable chronic or 1 acute illness add add modifier 95 for video, (do not use for phone, instead use 23061-44) [facility]/2023 Estab. patient 30-39min; chronic exacerbation, 2 stable chronic or 1 acute illness add add modifier 95 for video, (do not use for phone, instead use 13599-51) [facility] [place] Estab. patient 30-39min; chronic exacerbation, 2 stable chronic or 1 acute illness add add modifier 95 for video, (do not use for phone, instead use 61843-66) [facility] Estab. patient 30-39min; chronic exacerbation, 2 stable chronic or 1 acute illness add add modifier 95 for video, (do not use for phone, instead use 25204-69) [facility] Estab. patient 30-39min; chronic exacerbation, 2 stable chronic or 1 acute illness add add modifier 95 for video, (do not use for phone, instead use 60864-58) [facility] Estab. patient 30-39min; chronic exacerbation, 2 stable chronic or 1 acute illness add add modifier 95 for video, (do not use for phone, instead use 24359-33) [facility]2023 No Data Available [facility]2023 Chronic obstructive pulmonar y disease, [...] earPersonal history of covid-19 No Data Available [facility]2023 No Data Available [facility] No Data Available [facility] [place] No Data Available [facility] No Data Available [facility] No Data Available [facility] [place]20[place] Estab. patient 30-39min; chronic exacerbation, 2 stable chronic or 1 acute illness add add modifier 95 for video, (do not use for phone, instead use 13839-15) [facility] [place] 05[place]10/2024 Chronic obstructive pulmonar y disease, unspecifiedType [...] (do not use for phone, instead use 10119-53) [facility] 05[place]10/20[place] Estab. patient 30-39min; chronic exacerbation, 2 stable chronic or 1 acute illness add add modifier 95 for video, (do not use for phone, instead use 10130-77) [facility] [place] 05[place]10/[place] Estab. patient 30-39min; chronic exacerbation, 2 stable chronic or 1 acute illness add add modifier 95 for video, (do not use for phone, instead use 45889-23) [facility] [place] 05[place]10/20[place] Estab. patient 30-39min; chronic exacerbation, 2 stable chronic or 1 acute illness add add modifier 95 for video, (do not use for phone, instead use 65309-74) [facility] [place] 05[place]10/20[place] Estab. patient 30-39min; chronic exacerbation, 2 stable chronic or 1 acute illness add add modifier 95 for video, (do not use for phone, instead use 85736-42) [facility] Estab. patient 30-39min; chronic exacerbation, 2 stable chronic or 1 acute illness add add modifier 95 for video, (do not use for phone, instead use 61759-85) [facility] Estab. patient 30-39min; chronic exacerbation, 2 stable chronic or 1 acute illness add add modifier 95 for video, (do not use for phone, instead use 67804-06) [facility] Estab. patient 30-39min; chronic exacerbation, 2 stable chronic or 1 acute illness add add modifier 95 for video, (do not use for phone, instead use 04628-64) [facility] Estab. patient 30-39min; chronic exacerbation, 2 stable chronic or 1 acute illness add add modifier 95 for video, (do not use for phone, instead use 89114-67) [facility] Estab. patient 10-29min; 1 minor problem; add add modifier 95 for video, modifier 93 for phone [facility]24/2025 Centrilobular emphysemaType 2 diabetes mellitus [...] 95 for video, modifier 93 for phone [facility] 06[place]24/20[place] Estab. patient 10-29min; 1 minor problem; add add modifier 95 for video, modifier 93 for phone [facility] Estab. patient 10-29min; 1 minor problem; add add modifier 95 for video, modifier 93 for phone [facility] [place]20[place] Estab. patient 10-29min; 1 minor problem; add add modifier 95 for video, modifier 93 for phone [facility]/20[place] Estab. patient 10-29min; 1 minor problem; add add modifier 95 for video, modifier 93 for phone [facility]24/20[place] Estab. patient 10-29min; 1 minor problem; add add modifier 95 for video, modifier 93 for phone [facility]24/20[place] Estab. patient 10-29min; 1 minor problem; add add modifier 95 for video, modifier 93 for phone [facility]24/20[place] Estab. patient 10-29min; 1 minor problem; add add modifier 95 for video, modifier 93 for phone [facility] 06[place]24/20[place] Estab. patient 10-29min; 1 minor problem; add add modifier 95 for video, modifier 93 for phone [facility] 06/24/2025 Vital Signs Date of Collection [...] tive Time Current Smoking Status Never smoker 2025-09-18 0 Sex Male History of Procedures Procedures Service Procedure code Service date Servicing provider Phone# New patient,40-59min; chronic exacerbation, 2 stable chronic or 1 acute illness add add modifier 95 for video (do not use for phone, instead use 44257-07) [id number] 2022-10-05 No Data Available No Data Availa [...] (do not use for phone, instead use 76295-78) [id number] 2023-08-16 No Data Available No Data Availa [...] No Data Avail able No Data Available [id number] 2023-09-05 No Data Available No Data Available [...] (do not use for phone, instead use 25258-53) [id number] 2024-05-10 No Data Available No Data Availa [...] 95 for video, modifier 93 for phone 13423 2025-06-24 No Data Available No Data Availa [...] joint pain increased Please remember to call [facility] to see [facility]. Follow[facility]up [facility] as [...] PCP every 3-6 months, BP assessed by [facility]PRENTICE 3x times a weekrecommend healthy lifestyle changes [...] modifier 95Continue to see PCP. [facility]up with [facility] as needed for any acute or disease [...] PCP every 3-6 months, BP assessed by [facility] [employer] [facility] APPRENTICE 3x times a weekrecommend healthy lifestyle changes [...] PCP every 3-6 months, BP assessed by [facility] [employer] [facility] APPRENTICE 3x times a weekrecommend healthy lifestyle changes [...] obtained ([id number])Continue to see PCP. [facility] [...] PCP every 3-6 months, BP assessed by [facility] APPRENTICE 3x times a weekrecommend healthy lifestyle changes [...] joint pain increased Please remember to call [facility] to see PCP. 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 Yes, preferred proxy but not named POAIf so, Who? HCP: Alyssa Bianchi- daughter Do you have a written Advance Directive? 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
--- OUTSIDE RECORDS SUMMARY | 2025-10-15 18:10 | XMS_ITS | Clinical Summary ---
Author Organization [employer] Address [address] [place] [address] Care Team Providers Care Ticket Chopper Assembler Name Role Phone Unavailable Primary Care Provider [...] [facility] [address] from Last 3 Months or Most Recently Relevant to Health Maintenance Insurance 2 Wilner Macias [place] [facility] SCO * Guarantor: Manuel Bianchi Account Type Relation to Patient Date of Phone Billing Address Personal/Family Self 2 WILNER[address]IA GONZALES [place]
== END 2025-10-15 15:17 | disposition home or self-care (01) ==
LOC: HO.HMCH 14:30
PROVIDERS: PCP Internal Medicine; Visit Provider Internal Medicine
DX: F33.0 Major depressive disorder, recurrent, mild (principal); I10 Essential (primary) hypertension; E11.9 Type 2 diabetes mellitus without complications; Z79.4 Long term (current) use of insulin; I72.3 Aneurysm of iliac artery; E78.5 Hyperlipidemia, unspecified; Z23 Encounter for immunization; Z13.9 Encounter for screening, unspecified

== ENCOUNTER → 2025-10-15 14:29 | Outpatient (BNVA) | payer OTHER, SELFPAY | PROVIDERS: PCP Internal Medicine; Visit Provider Internal Medicine | DX: F33.0 Major depressive disorder, recurrent, mild (principal); I10 Essential (primary) hypertension; E11.9 Type 2 diabetes mellitus without complications; I72.3 Aneurysm of iliac artery; E78.5 Hyperlipidemia, unspecified; E53.8 Deficiency of other specified B group vitamins; E55.9 Vitamin D deficiency, unspecified; Z79.4 Long term (current) use of insulin; Z23 Encounter for immunization | CPT/HCPCS: 83036; 90471; 90656; 99212 ==